=== PATIENT | female | born 1980 | race Caucasian/White ===

== ENCOUNTER 2018-12-22 15:05 | Emergency (ER) | payer SELFPAY ==
[2018-12-22] MEDS ORDERED: Sodium Chloride 0.9% 10 ML Syringe FLUSH PRN (15:46)
[2018-12-22] MEDS ORDERED: Sodium Chloride 0.9% 1,000 ML IV ONE (15:48)
[2018-12-22] MEDS ORDERED: Ondansetron 4 MG/2 ML SDV IVPUSH PRN (15:48)
[2018-12-22] MEDS ORDERED: Sodium Chloride 0.9% 1,000 ML IV SCH (16:00)
--- NOTE | 2018-12-22 16:20 | EDM.PDOC ---
ED HPI GENERAL MEDICAL PROBLEM - General Chief Complaint: Abdominal Pain Stated Complaint: L SIDE PAIN Time Seen by Provider: 12/22/18 15:32 Source of Information: Reports: Patient History Limitations: Reports: No Limitations - History of Present Illness INITIAL COMMENTS - FREE TEXT/NARRATIVE: 38-year-old female with a history of ulcerative colitis who presents with intermittent left-sided abdominal pain associated with bright red blood per rectum for the past 2 weeks. The pain has been getting worse with time. It is a sharp and crampy type pain. Over the past 2-3 days she has felt dizzy and weak and yesterday she had a temperature of 102F. She also had sweats. Today the pain was much worse. It was all over the left side of her abdomen and she had abdominal bloating associated with this. She's had nausea but no vomiting. She has been able to eat but it does seem to make her symptoms worse. She is having no trouble breathing. She rates her pain as an 8/10. It goes all over the left side of her abdomen. Nothing really seems to make it better. It is less severe with remaining completely still. It is much worse with palpation and with walking. She's had no dysuria. She had been on a biologic (Entyvio) but has not been on one for the past 9-10 weeks because she lost her health insurance. She has had several loose stools today. The first one had quite a bit of bright red blood but the next one was mostly just mucus. There are no other associated signs or symptoms. There are no other modifying factors. Onset: Other (2-3 weeks ago with worsening over the past 2-3 days and much worse today.) Duration: Constant, Getting Worse Location: Reports: Abdomen Quality: Reports: Sharp (And cramping) Severity: Moderate (to severe) Improves with: Reports: Rest (This, at least, does not worsen her pain) Worsens with: Reports: Other (Palpation), Movement Context: Reports: Other (Various, not applicable) Associated Symptoms: Reports: Fever/Chills, Nausea/Vomiting, Weakness Treatments RESEARCH PHARMACIST: Reports: Other (see below) (Nothing) left abdomen Pain Score (Numeric/FACES): 8 - Related Data Allergies Allergy/AdvReac Type Severity Reaction Status Date / Time steroids Allergy Hallucinati Uncoded 12/22/18 15:38 ons Home Meds: Home Meds FLUoxetine HCl [Prozac] 80 mg PO DAILY 12/22/18 [History] Past Medical History Gastrointestinal History: Reports: Inflammatory Bowel Disease (Also with colitis ), Other (See Below) (Eosinophilic esophagitis) Psychiatric History: Reports: Anxiety, Depression - Past Surgical History GI Surgical History: Reports: Cholecystectomy, Colonoscopy (Multiple), EGD Female Surgical History: Reports: Section, Other (See Below) ( Incision and drainage of site 2.) Musculoskeletal Surgical History: Reports: Arthroscopic Knee (Right knee scope 2), Other (See Below) (Open right knee surgery 1) Social & Family History - Tobacco Use Smoking Status *Q: Never Smoker - Alcohol Use Alcohol Use History: No - Recreational Drug Use Recreational Drug Use: No - Living Situation & Occupation Living situation: Reports: Social History Comment: Lives locally with her . ED ROS GENERAL - Review of Systems Review Of Systems: See Below Constitutional: Reports: Fever, Malaise HEENT: Reports: No Symptoms Respiratory: Reports: No Symptoms Cardiovascular: Reports: No Symptoms Endocrine: Reports: No Symptoms GI/Abdominal: Reports: Abdominal Pain, Hematochezia, Mucous in Stool, Nausea : Reports: No Symptoms Musculoskeletal: Reports: No Symptoms Skin: Reports: No Symptoms Neurological: Reports: Dizziness, Weakness Psychiatric: Reports: Anxiety Hematologic/Lymphatic: Reports: No Symptoms Immunologic: Reports: No Symptoms ED EXAM, GI/ABD - Physical Exam Exam: See Below Exam Limited By: No Limitations General Appearance: Alert, WD/WN, Moderate Distress Eyes: Bilateral: Normal Appearance (Sclera are anicteric), EOMI Ears: Normal External Exam, Hearing Grossly Normal Nose: Normal Inspection, Normal Mucosa, No Blood Throat/Mouth: Normal Inspection, Normal Oropharynx, Normal Voice, No Airway Compromise Head: Atraumatic, Normocephalic Neck: Normal Inspection, Supple, Non-Tender, Full Range of Motion Respiratory/Chest: No Respiratory Distress, Lungs Clear, Normal Breath Sounds, No Accessory Muscle Use, Chest Non-Tender Cardiovascular: Normal Peripheral Pulses, Regular Rate, Rhythm, No JVD GI/Abdominal Exam: Normal Bowel Sounds, Soft, Distended (Bloated), Tender (To palpation in her left upper, mid and lower abdomen) Back Exam: Normal Inspection Extremities: Normal Inspection, Normal Range of Motion, Non-Tender, Normal Capillary Refill, No Pedal Edema Neurological: Alert, Oriented, CN II-XII Intact, Normal Cognition, No Motor/ Sensory Deficits Psychiatric: Anxious Skin Exam: Warm, Dry, Intact, Normal Color, No Rash Lymphatic: No Adenopathy Course - Vital Signs Last Recorded V/S: Last Vital Signs Temp 36.6 C 12/22/18 19:30 Pulse 89 12/22/18 19:30 Resp 16 12/22/18 19:30 BP 120/66 12/22/18 19:30 Pulse Ox 100 12/22/18 19:30 - Orders/Labs/Meds Orders: Active Orders 24 hr Category Date Time Status Abdomen Pelvis w Cont [CT] Stat Exams 12/22/18 16:39 Taken CULTURE BLOOD [BC] Urgent Lab 12/22/18 19:58 Received CULTURE BLOOD [BC] Urgent Lab 12/22/18 20:04 Received Ciprofloxacin in D5W [Cipro in D5W 400 MG/200 ML] 400 Med 12/22/18 19:42 Active mg Premix Bag 1 bag IV ONETIME HYDROmorphone [Dilaudid] Med 12/22/18 15:48 Active 0.5 mg IVPUSH Q5M PRN Ondansetron [Zofran] Med 12/22/18 15:48 Active 4 mg IVPUSH Q10M PRN Sodium Chloride 0.9% [Normal Saline] 1,000 ml Med 12/22/18 16:00 Active IV ASDIRECTED Sodium Chloride 0.9% [Saline Flush] Med 12/22/18 15:46 Active 10 ml FLUSH ASDIRECTED PRN Blood Culture x2 Reflex Set [OM.PC] Urgent Oth 12/22/18 19:42 Ordered Peripheral IV Insertion Adult [OM.PC] Routine Oth 12/22/18 15:46 Ordered Medication Orders Hydromorphone HCl (Dilaudid) 0.5 mg IVPUSH Q5M PRN PRN Reason: Abdominal Pain Last Admin: 12/22/18 18:59 Dose: 0.5 mg Admin: 12/22/18 17:15 Dose: 0.5 mg Admin: 12/22/18 16:29 Dose: 0.5 mg Sodium Chloride (Normal Saline) 1,000 mls @ 150 mls/hr IV ASDIRECTED NAHID Last Admin: 12/22/18 16:10 Dose: 150 mls/hr Ciprofloxacin/Dextrose 400 mg/ (Premix) 200 mls @ 200 mls/hr IV ONETIME ONE Stop: 12/22/18 20:41 Last Admin: 12/22/18 20:11 Dose: 200 mls/hr Ondansetron HCl (Zofran) 4 mg IVPUSH Q10M PRN PRN Reason: Nausea/Vomiting Last Admin: 12/22/18 16:08 Dose: 4 mg Sodium Chloride (Saline Flush) 10 ml FLUSH ASDIRECTED PRN PRN Reason: Keep Vein Open Last Admin: 12/22/18 15:50 Dose: 10 ml Labs: Laboratory Tests 12/22/18 12/22/18 12/22/18 Range/Units 16:05 16:05 16:05 WBC 8.5 (4.5-12.0) X10-3/uL RBC 4.70 (3.23-5.20) x10(6)uL Hgb 11.1 L (11.5-15.5) g/dL Hct 34.4 (30.0-51.3) % MCV 73.3 L (80-96) fL MCH 23.7 L (27.7-33.6) pg MCHC 32.3 (32.2-35.4) g/dL RDW 18.2 H (11.5-15.5) % Plt Count 429 H (125-369) X10(3)uL MPV 8.9 (7.4-10.4) fL Neut % (Auto) 62.1 (46-82) % Lymph % (Auto) 30.8 (13-37) % Sully % (Auto) 5.1 (4-12) % Eos % (Auto) 2 (1.0-5.0) % Baso % (Auto) 0 (0-2) % Neut # (Auto) 5.4 (1.6-8.3) # Lymph # (Auto) 2.6 (0.6-5.0) # Sully # (Auto) 0.4 (0.0-1.3) # Eos # (Auto) 0.1 (0.0-0.8) # Baso # (Auto) 0.0 (0.0-0.2) # Sodium 139 (135-145) mmol/L Potassium 3.1 L (3.5-5.3) mmol/L Chloride 102 (100-110) mmol/L Carbon Dioxide 24 (21-32) mmol/L BUN 12 (7-18) mg/dL Creatinine 0.8 (0.55-1.02) mg/dL Est Cr Clr Drug Dosing 96.18 mL/min Estimated GFR (MDRD) > 60 (>60) BUN/Creatinine Ratio 15.0 (9-20) Glucose 136 H (80-116) mg/dL Lactic Acid 1.8 (0.4-2.2) mmol/L Calcium 9.2 (8.6-10.2) mg/dL Total Bilirubin 0.3 (0.1-1.3) mg/dL AST 16 (5-25) IU/L ALT 26 (12-36) U/L Alkaline Phosphatase 110 (56-112) IU/L C-Reactive Protein (0.5-0.9) mg/dL Total Protein 7.3 (6.0-8.0) g/dL Albumin 3.2 L (3.5-5.2) g/dL Globulin 4.1 g/dL Albumin/Globulin Ratio 0.8 Amylase 39 (25-115) U/L Urine Color (YELLOW) Urine Appearance (CLEAR) Urine pH (5.0-6.5) Ur Specific [place] (1.010-1.025) Urine Protein (NEGATIVE) mg/dL Urine Glucose (UA) (NORMAL) mg/dL Urine Ketones (NEGATIVE) mg/dL Urine Occult Blood (NEGATIVE) Urine Nitrite (NEGATIVE) Urine Bilirubin (NEGATIVE) Urine Urobilinogen (NEGATIVE) mg/dL Ur Leukocyte Esterase (NEGATIVE) Urine RBC (0-5) Urine WBC (0-5) Ur Squamous Epith Cells (NS,R,O) Urine Bacteria (NS) Urine Mucus (NS) Urine HCG, Qual (NEGATIVE) 12/22/18 12/22/18 12/22/18 Range/Units 16:05 16:15 16:15 WBC (4.5-12.0) X10-3/uL RBC (3.23-5.20) x10(6)uL Hgb (11.5-15.5) g/dL Hct (30.0-51.3) % MCV (80-96) fL MCH (27.7-33.6) pg MCHC (32.2-35.4) g/dL RDW (11.5-15.5) % Plt Count (125-369) X10(3)uL MPV (7.4-10.4) fL Neut % (Auto) (46-82) % Lymph % (Auto) (13-37) % Sully % (Auto) (4-12) % Eos % (Auto) (1.0-5.0) % Baso % (Auto) (0-2) % Neut # (Auto) (1.6-8.3) # Lymph # (Auto) (0.6-5.0) # Sully # (Auto) (0.0-1.3) # Eos # (Auto) (0.0-0.8) # Baso # (Auto) (0.0-0.2) # Sodium (135-145) mmol/L Potassium (3.5-5.3) mmol/L Chloride (100-110) mmol/L Carbon Dioxide (21-32) mmol/L BUN (7-18) mg/dL Creatinine (0.55-1.02) mg/dL Est Cr Clr Drug Dosing mL/min Estimated GFR (MDRD) (>60) BUN/Creatinine Ratio (9-20) Glucose (80-116) mg/dL Lactic Acid (0.4-2.2) mmol/L Calcium (8.6-10.2) mg/dL Total Bilirubin (0.1-1.3) mg/dL AST (5-25) IU/L ALT (12-36) U/L Alkaline Phosphatase (56-112) IU/L C-Reactive Protein 0.8 (0.5-0.9) mg/dL Total Protein (6.0-8.0) g/dL Albumin (3.5-5.2) g/dL Globulin g/dL Albumin/Globulin Ratio Amylase (25-115) U/L Urine Color Yellow (YELLOW) Urine Appearance Slightly cloudy (CLEAR) Urine pH 6.0 (5.0-6.5) Ur Specific [place] 1.020 (1.010-1.025) Urine Protein Negative (NEGATIVE) mg/dL Urine Glucose (UA) Normal (NORMAL) mg/dL Urine Ketones Negative (NEGATIVE) mg/dL Urine Occult Blood Negative (NEGATIVE) Urine Nitrite Negative (NEGATIVE) Urine Bilirubin Negative (NEGATIVE) Urine Urobilinogen Normal (NEGATIVE) mg/dL Ur Leukocyte Esterase Negative (NEGATIVE) Urine RBC 0-5 (0-5) Urine WBC 0-5 (0-5) Ur Squamous Epith Cells Few H (NS,R,O) Urine Bacteria Few H (NS) Urine Mucus Few H (NS) Urine HCG, Qual Negative (NEGATIVE) Meds: Medications Generic Name Dose Route Start Last Admin Trade Name Preston PRN Reason Stop Dose Admin Hydromorphone HCl 0.5 mg 12/22/18 15:48 12/22/18 18:59 Dilaudid IVPUSH 0.5 mg Q5M PRN Administration Abdominal Pain Sodium Chloride 1,000 mls @ 150 mls/hr 12/22/18 16:00 12/22/18 16:10 Normal Saline IV 150 mls/hr ASDIRECTED NAHID Administration Ciprofloxacin/Dextrose 400 mg/ 200 mls @ 200 mls/hr 12/22/18 19:42 12/22/18 20:11 Premix IV 12/22/18 20:41 200 mls/hr ONETIME ONE Administration Ondansetron HCl 4 mg 12/22/18 15:48 12/22/18 16:08 Zofran IVPUSH 4 mg Q10M PRN Administration Nausea/Vomiting Sodium Chloride 10 ml 12/22/18 15:46 12/22/18 15:50 Saline Flush FLUSH 10 ml ASDIRECTED PRN Administration Keep Vein Open Discontinued Medications Generic Name Dose Route Start Last Admin Trade Name Preston PRN Reason Stop Dose Admin Sodium Chloride 1,000 mls @ 999 mls/hr 12/22/18 15:48 12/22/18 16:00 Normal Saline IV 12/22/18 16:48 999 mls/hr .BOLUS ONE Administration Iopamidol 150 ml 12/22/18 17:07 12/22/18 17:43 Isovue-370 (76%) IV 12/22/18 17:08 134 ml ONETIME ONE Administration Potassium Chloride 40 meq 12/22/18 20:15 Potassium Chloride Solution PO 12/22/18 20:16 ONETIME ONE - Radiology Interpretation Free Text/Narrative:: CT scan of abdomen and pelvis showed mild colonic wall prominence felt to be related to active colitis per the [facility] radiologist. - Re-Assessments/Exams Free Text/Narrative Re-Assessment/Exam: 12/22/18 19:15: Patient has been vitally stable while in the emergency department. Her blood tests showed no elevation and inflammatory markers. Her urine test was normal. The CT scan of her abdomen and pelvis showed evidence of colitis. She is continuing to have fairly severe pain in her left abdomen. Therefore, I discussed the patient's case with Dr. Gay, investigative writer at [facility] in [place], and she recommended that the patient be admitted to the hospital for IV antibiotics, IV fluids, Mesalamine enemas and for GI workup including colonoscopy. GI specially services are not available at [facility] and therefore the patient would need to be transferred to a facility where those specialties are available. The patient has RAD instruction me that she would want her care at [facility] in [place]. Therefore I did discuss the patient's case with Dr. Davis, hospitalist at [facility] in [place], and he has agreed to accept the patient in transfer. The patient will be given ciprofloxacin 400 mg IV. She will also be given potassium chloride orally for a low potassium. She will be kept nothing by mouth otherwise. The patient will be transferred to [place] in [place] he ambulance. Departure - Departure Time of Disposition: 20:25 Disposition: DC/Tfer to Acute Hospital 02 Condition: Fair Clinical Impression: Hypokalemia Ulcerative colitis, acute Qualifiers: Digestive disease complication type: without complication Qualified Code(s): K51.90 - Ulcerative colitis, unspecified, without complications Abdominal pain Qualifiers: Abdominal location: unspecified location Qualified Code(s): R10.9 - Unspecified abdominal pain - Discharge Information Forms: ED Department Discharge - My Orders Last 24 Hours: My Active Orders 12/22/18 15:46 Sodium Chloride 0.9% [Saline Flush] 10 ml FLUSH ASDIRECTED PRN Peripheral IV Insertion Adult [OM.PC] Routine 12/22/18 15:48 HYDROmorphone [Dilaudid] 0.5 mg IVPUSH Q5M PRN Ondansetron [Zofran] 4 mg IVPUSH Q10M PRN 12/22/18 16:00 Sodium Chloride 0.9% [Normal Saline] 1,000 ml IV ASDIRECTED 12/22/18 16:39 Abdomen Pelvis w Cont [CT] Stat 12/22/18 19:42 Ciprofloxacin in D5W [Cipro in D5W 400 MG/200 ML] 400 mg Premix Bag 1 bag IV ONETIME Blood Culture x2 Reflex Set [OM.PC] Urgent 12/22/18 19:58 CULTURE BLOOD [BC] Urgent 12/22/18 20:04 CULTURE BLOOD [BC] Urgent - Assessment/Plan Last 24 Hours: My Active Orders 12/22/18 15:46 Sodium Chloride 0.9% [Saline Flush] 10 ml FLUSH ASDIRECTED PRN Peripheral IV Insertion Adult [OM.PC] Routine 12/22/18 15:48 HYDROmorphone [Dilaudid] 0.5 mg IVPUSH Q5M PRN Ondansetron [Zofran] 4 mg IVPUSH Q10M PRN 12/22/18 16:00 Sodium Chloride 0.9% [Normal Saline] 1,000 ml IV ASDIRECTED 12/22/18 16:39 Abdomen Pelvis w Cont [CT] Stat 12/22/18 19:42 Ciprofloxacin in D5W [Cipro in D5W 400 MG/200 ML] 400 mg Premix Bag 1 bag IV ONETIME Blood Culture x2 Reflex Set [OM.PC] Urgent 12/22/18 19:58 CULTURE BLOOD [BC] Urgent 12/22/18 20:04 CULTURE BLOOD [BC] Urgent
[2018-12-22] MEDS: HYDROmorphone 2 MG/ML SDV IVPUSH PRN ×3 (16:29→18:59)
[2018-12-22] MEDS ORDERED: Iopamidol 755 MG/ML 150 ML Bottle IV ONE (17:07)
[2018-12-22] MEDS ORDERED: Ciprofloxacin in D5W 400 MG in Premix Bag 1 BAG IV ONE ×2 (19:42)
[2018-12-22] MEDS ORDERED: Potassium Chloride 10% 20 MEQ/15 ML Soln 15 ML UD Cup PO ONE (20:15)
== END 2018-12-22 20:35 ==
LOC: FB.ED 15:05
DX: K51.90 Ulcerative colitis, unspecified, without complications (principal); E87.6 Hypokalemia; F41.9 Anxiety disorder, unspecified; F32.9 Major depressive disorder, single episode, unspecified; Z88.8 Allergy status to other drugs, medicaments and biological substances
CPT/HCPCS: 36415; 74177; 80053; 81001; 81025; 82150; 83605; 85025; 86140; 87040; 96361; 96365; 96375; 96376; 99285; A9270; J0744; J1170; J2405; J7030; Q9967

== ENCOUNTER 2019-04-03 15:45 | Emergency (ER) | payer SELFPAY ==
[2019-04-03] MEDS ORDERED: Ondansetron 4 MG Tab.DIS PO ONE (15:46)
[2019-04-03] MEDS ORDERED: Acetaminophen/oxyCODONE 325-5 MG Tab PO ONE (15:46)
[2019-04-03] MEDS ORDERED: Sodium Chloride 0.9% 10 ML Syringe FLUSH PRN (15:52)
[2019-04-03] MEDS ORDERED: Sodium Chloride 0.9% 1,000 ML IV ONE (15:57)
[2019-04-03] MEDS ORDERED: HYDROmorphone 2 MG/ML SDV IVPUSH ONE (15:57)
[2019-04-03] MEDS ORDERED: Ondansetron 4 MG/2 ML SDV IVPUSH ONE (15:59)
--- NOTE | 2019-04-03 16:43 | EDM.PDOC ---
ED HPI GENERAL MEDICAL PROBLEM - General Chief Complaint: Abdominal Pain Time Seen by Provider: 04/03/19 15:45 History Limitations: Reports: No Limitations - History of Present Illness INITIAL COMMENTS - FREE TEXT/NARRATIVE: Patient is a 39 YO WF with known h/o Ulcerative Colitis presented to the ED because of left sided abdominal pain,10/10,cramping, radiating to the left lower back. There is associated nausea and vomiting x2. Denies having any fever or chills. the pain started yesterday and has been worse since then. Her stool is bloody/black,mucoid. She is supposed to be on a maintenance meds for her UC but quit taking it in October 2018 because she lost coverage of her medical insurance when her lost his job. abdominal Pain Score (Numeric/FACES): 10 - Related Data Allergies Allergy/AdvReac Type Severity Reaction Status Date / Time steroids Allergy Hallucinati Uncoded 04/03/19 16:26 ons Home Meds: Home Meds FLUoxetine HCl [Prozac] 80 mg PO DAILY 12/22/18 [History] Acetaminophen/oxyCODONE [Percocet 325-5 MG] 1 each PO Q4HR PRN #15 tab 04/03/19 [Rx] Mesalamine W/Cleansing Wipes [Rowasa 4 gm/60 ml Enema Kit] 4 gm RC DAILY 30 Days #30 enema.kit 04/03/19 [Rx] Mesalamine [Lialda] 4.8 gm PO DAILY #40 tablet. 04/03/19 [Rx] Ondansetron [Zofran ODT] 4 mg PO Q4H PRN #10 tab.dis 04/03/19 [Rx] Potassium Chloride 40 meq PO TID #12 tablet.er 04/03/19 [Rx] Sodium Chloride 0.9% [Saline Flush] 10 ml FLUSH ASDIRECTED PRN syringe [Rx] Past Medical History Gastrointestinal History: Reports: Inflammatory Bowel Disease, Other (See Below) Psychiatric History: Reports: Anxiety, Depression - Past Surgical History GI Surgical History: Reports: Cholecystectomy, Colonoscopy, EGD Female Surgical History: Reports: Section Musculoskeletal Surgical History: Reports: Arthroscopic Knee Social & Family History - Tobacco Use Smoking Status *Q: Never Smoker - Caffeine Use Caffeine Use: Reports: None - Recreational Drug Use Recreational Drug Use: No - Living Situation & Occupation Living situation: Reports: ED ROS GENERAL - Review of Systems Review Of Systems: See Below Constitutional: Reports: No Symptoms HEENT: Reports: No Symptoms Respiratory: Reports: No Symptoms Cardiovascular: Reports: No Symptoms Endocrine: Reports: No Symptoms GI/Abdominal: Reports: Abdominal Pain, Black Stool, Melena, Mucous in Stool, Nausea, Vomiting : Reports: No Symptoms Musculoskeletal: Reports: No Symptoms Skin: Reports: No Symptoms Neurological: Reports: No Symptoms Psychiatric: Reports: No Symptoms Hematologic/Lymphatic: Reports: No Symptoms Immunologic: Reports: No Symptoms ED EXAM, GI/ABD - Physical Exam Exam: See Below Exam Limited By: No Limitations General Appearance: Alert, No Apparent Distress Eyes: Bilateral: Normal Appearance Ears: Normal External Exam Nose: Normal Inspection Throat/Mouth: Normal Inspection Head: Atraumatic, Normocephalic Neck: Normal Inspection, Supple, Non-Tender Respiratory/Chest: No Respiratory Distress, Lungs Clear, Normal Breath Sounds, No Accessory Muscle Use Cardiovascular: Normal Peripheral Pulses GI/Abdominal Exam: Normal Bowel Sounds, Soft, Other (tenderness on LLQ and LUQ) (Female) Exam: Deferred Rectal (Female) Exam: Deferred Back Exam: Normal Inspection Course - Vital Signs Text/Narrative:: Labs and CT scan reviewed with patient K3.2 IVF Zofran 4 mg IVx1 Dilaudid 2 mg IV x1 Her nausea is gone and pain is down to 5/10 GI consult was done in [facility] and Dr BURROUGHS want Eduarda to be started on 1.Lialva 4.8 gm po once daily until seen by GI 2.Ruosa enema 4gm(60 Ml) MO QQhs x30 days Last Recorded V/S: Last Vital Signs Temp 37.0 C 04/03/19 17:00 Pulse 72 04/03/19 17:00 Resp 18 04/03/19 17:00 BP 150/97 H 04/03/19 15:50 Pulse Ox 98 04/03/19 15:50 - Orders/Labs/Meds Orders: Active Orders 24 hr Category Date Time Status Abdomen Pelvis w Cont [CT] Stat Exams 04/03/19 15:55 Taken CDIFF TOXIN A+B GROUP [OP] Stat Lab 04/03/19 16:34 Ordered LIPASE, SERUM Stat Lab 04/03/19 16:00 Received FLUoxetine [PROzac] Med 04/04/19 09:00 Active 80 mg PO DAILY Sodium Chloride 0.9% [Saline Flush] Med 04/03/19 15:52 Active 10 ml FLUSH ASDIRECTED PRN Isolation [COMM] Stat Ot 04/03/19 16:35 Ordered Saline Lock Insert [OM.PC] Routine Ot 04/03/19 15:52 Ordered Medication Orders Fluoxetine HCl (Prozac) 80 mg PO DAILY NAHID Sodium Chloride (Saline Flush) 10 ml FLUSH ASDIRECTED PRN PRN Reason: Keep Vein Open Labs: Laboratory Tests 04/03/19 04/03/19 04/03/19 Range/Units 16:00 16:00 16:00 WBC 10.2 (4.5-12.0) X10-3/uL RBC 4.64 (3.23-5.20) x10(6)uL Hgb 12.0 (11.5-15.5) g/dL Hct 36.8 (30.0-51.3) % MCV 79.3 L (80-96) fL MCH 25.9 L (27.7-33.6) pg MCHC 32.7 (32.2-35.4) g/dL RDW 15.9 H (11.5-15.5) % Plt Count 419 H (125-369) X10(3)uL MPV 10.6 H (7.4-10.4) fL Neut % (Auto) 68.0 (46-82) % Lymph % (Auto) 24.3 (13-37) % [place] % (Auto) 6.0 (4-12) % Eos % (Auto) 1 (1.0-5.0) % Baso % (Auto) 0 (0-2) % Neut # (Auto) 7.0 (1.6-8.3) # Lymph # (Auto) 2.5 (0.6-5.0) # [place] # (Auto) 0.6 (0.0-1.3) # Eos # (Auto) 0.1 (0.0-0.8) # Baso # (Auto) 0.0 (0.0-0.2) # PT 9.7 (8.7-11.1) INR 1.00 (0.89-1.13) APTT 24.7 (24.4-33.2) SECONDS Sodium 141 (135-145) mmol/L Potassium 3.2 L (3.5-5.3) mmol/L Chloride 104 (100-110) mmol/L Carbon Dioxide 26 (21-32) mmol/L BUN 11 (7-18) mg/dL Creatinine 0.8 (0.55-1.02) mg/dL Est Cr Clr Drug Dosing TNP Estimated GFR (MDRD) > 60 (>60) BUN/Creatinine Ratio 13.8 (9-20) Glucose 109 (80-116) mg/dL Calcium 9.2 (8.6-10.2) mg/dL Total Bilirubin 0.2 (0.1-1.3) mg/dL AST 34 H D (5-25) IU/L ALT 60 H D (12-36) U/L Alkaline Phosphatase 110 (56-112) IU/L Total Protein 7.6 (6.0-8.0) g/dL Albumin 3.2 L (3.5-5.2) g/dL Globulin 4.4 g/dL Albumin/Globulin Ratio 0.7 Amylase 48 (25-115) U/L Urine Color (YELLOW) Urine Appearance (CLEAR) Urine pH (5.0-6.5) Ur Specific [place] (1.010-1.025) Urine Protein (NEGATIVE) mg/dL Urine Glucose (UA) (NORMAL) mg/dL Urine Ketones (NEGATIVE) mg/dL Urine Occult Blood (NEGATIVE) Urine Nitrite (NEGATIVE) Urine Bilirubin (NEGATIVE) Urine Urobilinogen (NEGATIVE) mg/dL Ur Leukocyte Esterase (NEGATIVE) Urine RBC (0-5) Urine WBC (0-5) Ur Squamous Epith Cells (NS,R,O) Urine Bacteria (NS) Urine Mucus (NS) 04/03/19 Range/Units 17:22 WBC (4.5-12.0) X10-3/uL RBC (3.23-5.20) x10(6)uL Hgb (11.5-15.5) g/dL Hct (30.0-51.3) % MCV (80-96) fL MCH (27.7-33.6) pg MCHC (32.2-35.4) g/dL RDW (11.5-15.5) % Plt Count (125-369) X10(3)uL MPV (7.4-10.4) fL Neut % (Auto) (46-82) % Lymph % (Auto) (13-37) % [place] % (Auto) (4-12) % Eos % (Auto) (1.0-5.0) % Baso % (Auto) (0-2) % Neut # (Auto) (1.6-8.3) # Lymph # (Auto) (0.6-5.0) # [place] # (Auto) (0.0-1.3) # Eos # (Auto) (0.0-0.8) # Baso # (Auto) (0.0-0.2) # PT (8.7-11.1) INR (0.89-1.13) APTT (24.4-33.2) SECONDS Sodium (135-145) mmol/L Potassium (3.5-5.3) mmol/L Chloride (100-110) mmol/L Carbon Dioxide (21-32) mmol/L BUN (7-18) mg/dL Creatinine (0.55-1.02) mg/dL Est Cr Clr Drug Dosing Estimated GFR (MDRD) (>60) BUN/Creatinine Ratio (9-20) Glucose (80-116) mg/dL Calcium (8.6-10.2) mg/dL Total Bilirubin (0.1-1.3) mg/dL AST (5-25) IU/L ALT (12-36) U/L Alkaline Phosphatase (56-112) IU/L Total Protein (6.0-8.0) g/dL Albumin (3.5-5.2) g/dL Globulin g/dL Albumin/Globulin Ratio Amylase (25-115) U/L Urine Color Yellow (YELLOW) Urine Appearance Clear (CLEAR) Urine pH 8.5 H (5.0-6.5) Ur Specific [place] 1.010 (1.010-1.025) Urine Protein Negative (NEGATIVE) mg/dL Urine Glucose (UA) Normal (NORMAL) mg/dL Urine Ketones Negative (NEGATIVE) mg/dL Urine Occult Blood Negative (NEGATIVE) Urine Nitrite Negative (NEGATIVE) Urine Bilirubin Negative (NEGATIVE) Urine Urobilinogen 0.2 (NEGATIVE) mg/dL Ur Leukocyte Esterase Negative (NEGATIVE) Urine RBC 0-5 (0-5) Urine WBC 0-5 (0-5) Ur Squamous Epith Cells Few H (NS,R,O) Urine Bacteria Few H (NS) Urine Mucus Few H (NS) Meds: Medications Generic Name Dose Route Start Last Admin Trade Name Preston PRN Reason Stop Dose Admin Fluoxetine HCl 80 mg 04/04/19 09:00 Prozac PO DAILY NAHID Sodium Chloride 10 ml 04/03/19 15:52 Saline Flush FLUSH ASDIRECTED PRN Keep Vein Open Discontinued Medications Generic Name Dose Route Start Last Admin Trade Name Preston PRN Reason Stop Dose Admin Hydromorphone HCl 2 mg 04/03/19 15:57 04/03/19 16:17 Dilaudid IVPUSH 04/03/19 15:58 2 mg ONETIME ONE Administration Sodium Chloride 1,000 mls @ 999 mls/hr 04/03/19 15:57 04/03/19 16:16 Normal Saline IV 04/03/19 16:57 999 mls/hr .BOLUS ONE Administration Iopamidol 100 ml 04/03/19 17:14 04/03/19 17:17 Isovue-370 (76%) IV 04/03/19 17:15 100 ml ONETIME ONE Administration Morphine Sulfate 4 mg 04/03/19 17:42 04/03/19 18:08 Morphine IVPUSH 04/03/19 17:43 4 mg ONETIME ONE Administration Ondansetron HCl 4 mg 04/03/19 15:59 04/03/19 16:17 Zofran IVPUSH 04/03/19 16:00 4 mg ONETIME ONE Administration Promethazine HCl 50 mg 04/03/19 17:42 04/03/19 18:05 Phenergan IM 04/03/19 17:43 50 mg ONETIME ONE Administration Departure - Departure Time of Disposition: 19:20 Disposition: Home, Self-Care 01 Condition: Good Clinical Impression: Ulcerative colitis, Vomiting - Discharge Information *PRESCRIPTION DRUG MONITORING PROGRAM REVIEWED*: Yes *COPY OF PRESCRIPTION DRUG MONITORING REPORT IN PATIENT PROSPER: Yes Prescriptions: Acetaminophen/oxyCODONE [Percocet 325-5 MG] 1 each PO Q4HR PRN #15 tab PRN Reason: Pain Mesalamine [Lialda] 4.8 gm PO DAILY #[address] tablet.[address] Faustin W/Cleansing Wipes [Rowasa 4 gm/60 ml Enema Kit] 4 gm RC DAILY 30 Days #30 enema.kit Ondansetron [Zofran ODT] 4 mg PO Q4H PRN #10 tab.dis PRN Reason: Nausea Potassium Chloride 40 meq PO TID #12 tablet.er Referrals: PCP,None [Primary Care Provider] - Forms: ED Department Discharge Additional Instructions: Call the GI clinic in [facility] tomorrow to schedule an appointment @[phone] Call your local clinic so someone can take care of your chronic medical issues, we don't do follow up in the ER percocet 5/325,take 1-2 tablets every 4-6 hours as needed for pain zofran ODT 4 mg, take 1-2 tablets every 4-6 hours as needed for pain Lialva 4.8 gm once daily until seen by GI Esha rectal enema,4 gm or 60 ml at bed time Kcl 20 meq, take 2 tablets 3 times daily for 2 days - Problem List & Annotations (1) Ulcerative colitis, acute SNOMED Code(s): 726650616 Code(s): K51.90 - ULCERATIVE COLITIS, UNSPECIFIED, WITHOUT COMPLICATIONS Status: Acute Current Visit: No Qualifiers: Digestive disease complication type: without complication Qualified Code(s) : K51.90 - Ulcerative colitis, unspecified, without complications (2) Hypokalemia SNOMED Code(s): 44709194 Code(s): E87.6 - HYPOKALEMIA Status: Acute Current Visit: No - My Orders Last 24 Hours: My Active Orders 04/03/19 15:52 Sodium Chloride 0.9% [Saline Flush] 10 ml FLUSH ASDIRECTED PRN Saline Lock Insert [OM.PC] Routine 04/03/19 15:55 Abdomen Pelvis w Cont [CT] Stat 04/03/19 16:00 LIPASE, SERUM Stat 04/03/19 16:34 CDIFF TOXIN A+B GROUP [OP] Stat 04/03/19 16:35 Isolation [COMM] Stat 04/04/19 09:00 FLUoxetine [PROzac] 80 mg PO DAILY - Assessment/Plan Last 24 Hours: My Active Orders 04/03/19 15:52 Sodium Chloride 0.9% [Saline Flush] 10 ml FLUSH ASDIRECTED PRN Saline Lock Insert [OM.PC] Routine 04/03/19 15:55 Abdomen Pelvis w Cont [CT] Stat 04/03/19 16:00 LIPASE, SERUM Stat 04/03/19 16:34 CDIFF TOXIN A+B GROUP [OP] Stat 04/03/19 16:35 Isolation [COMM] Stat 04/04/19 09:00 FLUoxetine [PROzac] 80 mg PO DAILY
[2019-04-03] MEDS ORDERED: Iopamidol 755 Mg/ML 100 ML Bottle IV ONE (17:14)
[2019-04-03] MEDS ORDERED: Promethazine 25 MG/ML SDV IM ONE (17:42)
[2019-04-04] MEDS ORDERED: FLUoxetine 20 MG Cap PO SCH (09:00)
== END 2019-04-03 19:50 | disposition home or self-care (01) ==
LOC: FB.ED 15:45
DX: K51.90 Ulcerative colitis, unspecified, without complications (principal); F41.9 Anxiety disorder, unspecified; F32.9 Major depressive disorder, single episode, unspecified; Z88.6 Allergy status to analgesic agent; Z79.899 Other long term (current) drug therapy; Z90.49 Acquired absence of other specified parts of digestive tract
CPT/HCPCS: 36415; 74177; 80053; 81001; 82150; 83690; 85025; 85610; 85730; 96361; 96372; 96374; 96375; 99284-25; A9270-GY; J1170; J2270; J2405; J2550; J7030; Q9967

== ENCOUNTER 2019-06-21 09:43 | Emergency (ER) | payer OTHER ==
[2019-06-21] MEDS ORDERED: Sodium Chloride 0.9% 1,000 ML IV ONE (10:14)
[2019-06-21] MEDS ORDERED: Sodium Chloride 0.9% 10 ML Syringe FLUSH PRN (10:14)
[2019-06-21] MEDS ORDERED: HYDROmorphone 2 MG/ML SDV IVPUSH ONE ×2 (10:15→11:31)
[2019-06-21] MEDS ORDERED: methylPREDNISolone Sodium Succinate 125 MG/2 ML SDV IVPUSH ONE (10:15)
--- NOTE | 2019-06-21 10:32 | EDM.PDOC ---
ED HPI GENERAL MEDICAL PROBLEM - General Chief Complaint: Abdominal Pain Stated Complaint: ABD PAIN Time Seen by Provider: 06/21/19 10:00 Source of Information: Reports: Patient, Old Records History Limitations: Reports: No Limitations - History of Present Illness INITIAL COMMENTS - FREE TEXT/NARRATIVE: Eduarda returns to [facility] ED with escalating abdominal pain primarily in the LLQ. She has a well documented hx of Ulcerative Colitis, and has been supervised by GI at [facility]. Her last relapse in March 2019 necessitated hospitalization with hi dose steroids which have been tapered over the past 6 weeks from 70 to 10 mg per day. Bloody stools have increased in frequency at lower doses, necessitating consultants to reintroduce Entyvio earlier this month. There has been no fever, chills, or sweats. Abdominal Pain Score (Numeric/FACES): 8 - Related Data Allergies Allergy/AdvReac Type Severity Reaction Status Date / Time fentanyl Allergy Delusions Verified 06/21/19 10:01 Home Meds: Home Meds FLUoxetine HCl [Prozac] 80 mg PO DAILY 12/22/18 [History] Ondansetron [Zofran ODT] 4 mg PO Q4H PRN #10 tab.dis 04/03/19 [Rx] LORazepam 1 mg PO TID PRN 06/21/19 [History] Multivitamin [Multivitamins] 1 each PO DAILY 06/21/19 [History] OLANZapine [ZyPREXA] 5 mg PO BEDTIME 06/21/19 [History] SUMAtriptan [Imitrex] 25 mg PO ASDIRECTED PRN 06/21/19 [History] amLODIPine Besylate [Norvasc] 10 mg PO DAILY 06/21/19 [History] predniSONE [Prednisone] 10 mg PO DAILY 06/21/19 [History] Past Medical History Gastrointestinal History: Reports: Inflammatory Bowel Disease, Other (See Below) Psychiatric History: Reports: Anxiety, Depression - Past Surgical History GI Surgical History: Reports: Cholecystectomy, Colonoscopy, EGD Female Surgical History: Reports: Section Musculoskeletal Surgical History: Reports: Arthroscopic Knee Social & Family History - Caffeine Use Caffeine Use: Reports: None - Living Situation & Occupation Living situation: Reports: ED ROS GENERAL - Review of Systems Review Of Systems: See Below Constitutional: Reports: Malaise, Weakness, Weight Gain HEENT: Reports: No Symptoms Respiratory: Reports: No Symptoms Cardiovascular: Reports: No Symptoms Endocrine: Reports: No Symptoms GI/Abdominal: Reports: Abdominal Pain, Anorexia, Bloody Stool, Diarrhea, Hematochezia, Mucous in Stool : Reports: No Symptoms Musculoskeletal: Reports: No Symptoms Skin: Reports: No Symptoms Neurological: Reports: No Symptoms Psychiatric: Reports: Anxiety Hematologic/Lymphatic: Reports: No Symptoms Immunologic: Reports: No Symptoms ED EXAM, GI/ABD - Physical Exam Exam: See Below Exam Limited By: No Limitations General Appearance: Alert, WD/WN, Anxious, Mild Distress, Obese Eyes: Bilateral: Normal Appearance, EOMI Ears: Normal External Exam Nose: Normal Inspection Throat/Mouth: Normal Inspection, Normal Lips, Normal Teeth, Normal Gums, Normal Oropharynx, Normal Voice Head: Normocephalic Neck: Normal Inspection, Supple, Non-Tender, Full Range of Motion Respiratory/Chest: Lungs Clear Cardiovascular: Regular Rate, Rhythm, No Murmur GI/Abdominal Exam: Normal Bowel Sounds, Soft, No Organomegaly, No Distention, No Mass, Tender (LLQ) (Female) Exam: Deferred Rectal (Female) Exam: Deferred Back Exam: Normal Inspection Extremities: Normal Inspection Neurological: Alert, Oriented, CN II-XII Intact, Normal Cognition, Normal Gait, No Motor/Sensory Deficits Psychiatric: Normal Affect, Anxious Skin Exam: Warm, Dry, Intact, Normal Color Lymphatic: No Adenopathy Course - Vital Signs Text/Narrative:: Mrs. Mejia was administered 1L NS IV, Dilaudid 2 mg x 2 IV, and SoluMedrol 125 mg IV with sxs improvement. She contacted the GI service in [place] regarding current issues and need for steroid managment with immunosuppressives, and is expecting follow up with specialist this afternoon. She is clinically improved at time of discharge. Last Recorded V/S: Last Vital Signs Temp 36.6 C 06/21/19 09:44 Pulse 106 H 06/21/19 09:44 Resp 20 06/21/19 09:44 BP 133/78 06/21/19 09:44 Pulse Ox 98 06/21/19 09:44 - Orders/Labs/Meds Orders: Active Orders 24 hr Category Date Time Status Sodium Chloride 0.9% [Saline Flush] Med 06/21/19 10:14 Active 10 ml FLUSH ASDIRECTED PRN Peripheral IV Insertion Adult [OM.PC] Routine Oth 06/21/19 10:14 Ordered Medication Orders Sodium Chloride (Saline Flush) 10 ml FLUSH ASDIRECTED PRN PRN Reason: Keep Vein Open Last Admin: 06/21/19 10:30 Dose: 10 ml Labs: Laboratory Tests 06/21/19 Range/Units 09:55 WBC 12.4 H (4.5-12.0) X10-3/uL RBC 4.24 (3.23-5.20) x10(6)uL Hgb 11.5 (11.5-15.5) g/dL Hct 34.8 (30.0-51.3) % MCV 82.0 (80-96) fL MCH 27.1 L (27.7-33.6) pg MCHC 33.0 (32.2-35.4) g/dL RDW 15.9 H (11.5-15.5) % Plt Count 472 H (125-369) X10(3)uL MPV 8.8 (7.4-10.4) fL Neut % (Auto) 78.0 (46-82) % Lymph % (Auto) 15.0 (13-37) % [place] % (Auto) 3.8 L (4-12) % Eos % (Auto) 3 (1.0-5.0) % Baso % (Auto) 1 (0-2) % Neut # (Auto) 9.6 H (1.6-8.3) # Lymph # (Auto) 1.9 (0.6-5.0) # [place] # (Auto) 0.5 (0.0-1.3) # Eos # (Auto) 0.3 (0.0-0.8) # Baso # (Auto) 0.1 (0.0-0.2) # Meds: Medications Generic Name Dose Route Start Last Admin Trade Name Freq PRN Reason Stop Dose Admin Sodium Chloride 10 ml 06/21/19 10:14 06/21/19 10:30 Saline Flush FLUSH 10 ml ASDIRECTED PRN Administration Keep Vein Open Discontinued Medications Generic Name Dose Route Start Last Admin Trade Name Freq PRN Reason Stop Dose Admin Hydromorphone HCl 2 mg 06/21/19 10:15 06/21/19 10:36 Dilaudid IVPUSH 06/21/19 10:16 2 mg ONETIME ONE Administration Sodium Chloride 1,000 mls @ 999 mls/hr 06/21/19 10:14 06/21/19 10:30 Normal Saline IV 06/21/19 11:14 999 mls/hr .BOLUS ONE Administration Methylprednisolone Sodium Succinate 125 mg 06/21/19 10:15 06/21/19 10:34 Solu-Medrol IVPUSH 06/21/19 10:16 125 mg ONETIME ONE Administration Departure - Departure Time of Disposition: 11:35 Disposition: Home, Self-Care 01 Condition: Fair Clinical Impression: Ulcerative colitis Qualifiers: Ulcerative colitis location: ulcerative rectosigmoiditis Digestive disease complication type: without complication Qualified Code(s): 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 Qualifiers: Ulcerative colitis location: ulcerative rectosigmoiditis Digestive disease complication type: without complication Qualified Code(s): K51.30 - Ulcerative (chronic) rectosigmoiditis without complications - Problem List Review Problem List Initiated/Reviewed/Updated: Yes - My Orders Last 24 Hours: My Active Orders 06/21/19 10:14 Sodium Chloride 0.9% [Saline Flush] 10 ml FLUSH ASDIRECTED PRN Peripheral IV Insertion Adult [OM.PC] Routine - Assessment/Plan Last 24 Hours: My Active Orders 06/21/19 10:14 Sodium Chloride 0.9% [Saline Flush] 10 ml FLUSH ASDIRECTED PRN Peripheral IV Insertion Adult [OM.PC] Routine Plan: Follow up with GI database reporting consultant.
== END 2019-06-21 11:46 | disposition home or self-care (01) ==
LOC: FB.ED 09:43
DX: K51.30 Ulcerative (chronic) rectosigmoiditis without complications (principal); F41.9 Anxiety disorder, unspecified; F32.9 Major depressive disorder, single episode, unspecified; Z79.899 Other long term (current) drug therapy; Z88.5 Allergy status to narcotic agent
CPT/HCPCS: 36415; 85025; 96361; 96374; 96375; 96376; 99283; J1170; J2930; J7030

== ENCOUNTER 2019-06-28 16:00 | Emergency (ER) | payer OTHER ==
[2019-06-28] MEDS ORDERED: Sodium Chloride 0.9% 10 ML Syringe FLUSH PRN (17:44)
[2019-06-28] MEDS ORDERED: Ondansetron 4 MG/2 ML SDV IVPUSH ONE ×2 (17:46→18:54)
[2019-06-28] MEDS ORDERED: HYDROmorphone 2 MG/ML SDV IVPUSH ONE ×2 (17:46→18:54)
[2019-06-28] MEDS ORDERED: Sodium Chloride 0.9% 1,000 ML IV SCH (18:00)
[2019-06-28] MEDS ORDERED: Iopamidol 755 MG/ML 150 ML Bottle IV ONE (18:22)
--- NOTE | 2019-06-28 18:52 | EDM.PDOC ---
ED HPI GENERAL MEDICAL PROBLEM - General Chief Complaint: Abdominal Pain Stated Complaint: ULCERATIVE COLITIS PAIN Time Seen by Provider: 06/28/19 16:45 Source of Information: Reports: Patient History Limitations: Reports: No Limitations - History of Present Illness INITIAL COMMENTS - FREE TEXT/NARRATIVE: Patient presented to the ED because of severe abdominal pain and nausea. She has a chronic abdominal pain due to UC but her pain has been worse for the past week. It's 05/18, sharp and cramping. She also had 1 bloody stool yesterday but non today. She was seen by her PMD this week and was prescribed prednisone 60 mg daily and vicodin for pain. She took the vicodin without any significant relief of her pain. She also left a message to her GI doc in [place] but no response as of yet. L lower abdomen Pain Score (Numeric/FACES): 10 - Related Data Allergies Allergy/AdvReac Type Severity Reaction Status Date / Time fentanyl Allergy Delusions Verified 06/28/19 16:47 Home Meds: Home Meds FLUoxetine HCl [Prozac] 80 mg PO DAILY 12/22/18 [History] Ondansetron [Zofran ODT] 4 mg PO Q4H PRN #10 tab.dis 04/03/19 [Rx] LORazepam 1 mg PO TID PRN 06/21/19 [History] Multivitamin [Multivitamins] 1 each PO DAILY 06/21/19 [History] OLANZapine [ZyPREXA] 5 mg PO BEDTIME 06/21/19 [History] SUMAtriptan [Imitrex] 25 mg PO ASDIRECTED PRN 06/21/19 [History] amLODIPine Besylate [Norvasc] 10 mg PO DAILY 06/21/19 [History] predniSONE [Prednisone] 60 mg PO DAILY 06/21/19 [History] Acetaminophen/HYDROcodone [[place] 325-5 MG] 1 tab PO Q4H PRN 06/28/19 [History] Past Medical History Cardiovascular History: Reports: Hypertension Respiratory History: Reports: Sleep Apnea Other Respiratory History: uses cpap Gastrointestinal History: Reports: Inflammatory Bowel Disease, Other (See Below) Other Gastrointestinal History: hx ulcerative colitis, hx EOE Genitourinary History: Reports: None 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: , Other (See Below) Other WOOD MECHANIST History: [id number] Musculoskeletal History: Reports: Fracture Other Musculoskeletal History: hx fx R clavicle, Neurological History: Reports: Migraines Psychiatric History: Reports: Anxiety, Depression Endocrine/Metabolic History: Reports: Diabetes, Gestational, Obesity/BMI 30+, Other (See Below) Hematologic History: Reports: Anemia, Blood Transfusion(s) Other Hematologic History: has blood antibody Immunologic History: Reports: Other (See Below) Other Immunologic History: takes biologics for ulcerative colitis - Infectious Disease History Infectious Disease History: Reports: Chicken Pox - Past Surgical History GI Surgical History: Reports: Cholecystectomy, Colonoscopy, EGD Female Surgical History: Reports: Section Neurological Surgical History: Reports: None Musculoskeletal Surgical History: Reports: Arthroscopic Knee Social & Family History - Family History Family Medical History: Noncontributory - Tobacco Use Smoking Status *Q: Never Smoker - Caffeine Use Caffeine Use: Reports: Soda - Recreational Drug Use Recreational Drug Use: No - Living Situation & Occupation Living situation: Reports: ED ROS GENERAL - Review of Systems Review Of Systems: See Below Constitutional: Reports: No Symptoms HEENT: Reports: No Symptoms Respiratory: Reports: No Symptoms Cardiovascular: Reports: No Symptoms Endocrine: Reports: No Symptoms GI/Abdominal: Reports: Abdominal Pain, Bloody Stool, Nausea, Vomiting : Reports: No Symptoms Musculoskeletal: Reports: No Symptoms Skin: Reports: No Symptoms Neurological: Reports: No Symptoms Psychiatric: Reports: No Symptoms Hematologic/Lymphatic: Reports: No Symptoms Immunologic: Reports: No Symptoms ED EXAM, GI/ABD - Physical Exam Exam: See Below Exam Limited By: No Limitations General Appearance: Alert, No Apparent Distress Ears: Normal External Exam, Normal Canal, Hearing Grossly Normal Nose: Normal Inspection, Normal Mucosa, No Blood Throat/Mouth: Normal Inspection, Normal Lips, Normal Teeth, Normal Gums, Normal Oropharynx, Normal Voice Head: Atraumatic, Normocephalic Neck: Normal Inspection, Supple, Non-Tender, Full Range of Motion Respiratory/Chest: No Respiratory Distress, Lungs Clear, Normal Breath Sounds, No Accessory Muscle Use, Chest Non-Tender Cardiovascular: Normal Peripheral Pulses, Regular Rate, Rhythm, No Edema, No Gallop GI/Abdominal Exam: Normal Bowel Sounds, Other (diffusely tender) Back Exam: Normal Inspection, Full Range of Motion Extremities: Normal Inspection, Normal Range of Motion, Non-Tender Neurological: Alert, Oriented, CN II-XII Intact, Normal Cognition Psychiatric: Normal Affect Course - Vital Signs Text/Narrative:: labs reviewed with patient NS 1 L bolus Zofran 4 ng IV x1 dilaudid 2 mg IV x2 doses CT Abd/pelvis-pending Last Recorded V/S: Last Vital Signs Temp 36.4 C 06/28/19 20:00 Pulse 81 06/28/19 20:00 Resp 17 06/28/19 20:00 BP 129/84 06/28/19 20:00 Pulse Ox 95 06/28/19 20:00 - Orders/Labs/Meds Labs: Laboratory Tests 06/28/19 06/28/19 06/28/19 Range/Units 18:00 18:00 18:00 WBC 12.7 H (4.5-12.0) X10-3/uL RBC 4.47 (3.23-5.20) x10(6)uL Hgb 12.0 (11.5-15.5) g/dL Hct 36.7 (30.0-51.3) % MCV 82.1 (80-96) fL MCH 26.8 L (27.7-33.6) pg MCHC 32.6 (32.2-35.4) g/dL RDW 16.0 H (11.5-15.5) % Plt Count 491 H (125-369) X10(3)uL MPV 8.6 (7.4-10.4) fL Neut % (Auto) 78.4 (46-82) % Lymph % (Auto) 15.8 (13-37) % [place] % (Auto) 4.3 (4-12) % Eos % (Auto) 0 L (1.0-5.0) % Baso % (Auto) 1 (0-2) % Neut # (Auto) 10.0 H (1.6-8.3) # Lymph # (Auto) 2.0 (0.6-5.0) # [place] # (Auto) 0.5 (0.0-1.3) # Eos # (Auto) 0.0 (0.0-0.8) # Baso # (Auto) 0.2 (0.0-0.2) # Sodium 137 (135-145) mmol/L Potassium 4.1 (3.5-5.3) mmol/L Chloride 103 (100-110) mmol/L Carbon Dioxide 25 (21-32) mmol/L BUN 15 (7-18) mg/dL Creatinine 0.6 (0.55-1.02) mg/dL Est Cr Clr Drug Dosing 131.56 mL/min Estimated GFR (MDRD) > 60 (>60) BUN/Creatinine Ratio 25.0 H (9-20) Glucose 102 (80-116) mg/dL Calcium 9.0 (8.6-10.2) mg/dL Total Bilirubin 0.3 (0.1-1.3) mg/dL AST 17 D (5-25) IU/L ALT 33 D (12-36) U/L Alkaline Phosphatase 85 (56-112) IU/L Total Protein 7.4 (6.0-8.0) g/dL Albumin 3.2 L (3.5-5.2) g/dL Globulin 4.2 g/dL Albumin/Globulin Ratio 0.8 Amylase 44 (25-115) U/L Lipase 74 (73-393) U/L HCG, Quant (<5) mIU/mL Urine Color (YELLOW) Urine Appearance (CLEAR) Urine pH (5.0-6.5) Ur Specific [place] (1.010-1.025) Urine Protein (NEGATIVE) mg/dL Urine Glucose (UA) (NORMAL) mg/dL Urine Ketones (NEGATIVE) mg/dL Urine Occult Blood (NEGATIVE) Urine Nitrite (NEGATIVE) Urine Bilirubin (NEGATIVE) Urine Urobilinogen (NEGATIVE) mg/dL Ur Leukocyte Esterase (NEGATIVE) Urine RBC (0-5) Urine WBC (0-5) Ur Squamous Epith Cells (NS,R,O) Urine Bacteria (NS) Urine Mucus (NS) 06/28/19 06/28/19 Range/Units 18:00 19:03 WBC (4.5-12.0) X10-3/uL RBC (3.23-5.20) x10(6)uL Hgb (11.5-15.5) g/dL Hct (30.0-51.3) % MCV (80-96) fL MCH (27.7-33.6) pg MCHC (32.2-35.4) g/dL RDW (11.5-15.5) % Plt Count (125-369) X10(3)uL MPV (7.4-10.4) fL Neut % (Auto) (46-82) % Lymph % (Auto) (13-37) % [place] % (Auto) (4-12) % Eos % (Auto) (1.0-5.0) % Baso % (Auto) (0-2) % Neut # (Auto) (1.6-8.3) # Lymph # (Auto) (0.6-5.0) # [place] # (Auto) (0.0-1.3) # Eos # (Auto) (0.0-0.8) # Baso # (Auto) (0.0-0.2) # Sodium (135-145) mmol/L Potassium (3.5-5.3) mmol/L Chloride (100-110) mmol/L Carbon Dioxide (21-32) mmol/L BUN (7-18) mg/dL Creatinine (0.55-1.02) mg/dL Est Cr Clr Drug Dosing mL/min Estimated GFR (MDRD) (>60) BUN/Creatinine Ratio (9-20) Glucose (80-116) mg/dL Calcium (8.6-10.2) mg/dL Total Bilirubin (0.1-1.3) mg/dL AST (5-25) IU/L ALT (12-36) U/L Alkaline Phosphatase (56-112) IU/L Total Protein (6.0-8.0) g/dL Albumin (3.5-5.2) g/dL Globulin g/dL Albumin/Globulin Ratio Amylase (25-115) U/L Lipase (73-393) U/L HCG, Quant < 5 L (<5) mIU/mL Urine Color Yellow (YELLOW) Urine Appearance Clear (CLEAR) Urine pH 8.0 H (5.0-6.5) Ur Specific [place] 1.005 L (1.010-1.025) Urine Protein Negative (NEGATIVE) mg/dL Urine Glucose (UA) Normal (NORMAL) mg/dL Urine Ketones 15 H (NEGATIVE) mg/dL Urine Occult Blood Negative (NEGATIVE) Urine Nitrite Negative (NEGATIVE) Urine Bilirubin Negative (NEGATIVE) Urine Urobilinogen Normal (NEGATIVE) mg/dL Ur Leukocyte Esterase Negative (NEGATIVE) Urine RBC 0-5 (0-5) Urine WBC 0-5 (0-5) Ur Squamous Epith Cells Moderate H (NS,R,O) Urine Bacteria Few H (NS) Urine Mucus Few H (NS) Meds: Medications Discontinued Medications Generic Name Dose Route Start Last Admin Trade Name Freq PRN Reason Stop Dose Admin Hydromorphone HCl 2 mg 06/28/19 17:46 06/28/19 18:07 Dilaudid IVPUSH 06/28/19 17:47 2 mg ONETIME ONE Administration Hydromorphone HCl 2 mg 06/28/19 18:54 06/28/19 19:05 Dilaudid IVPUSH 06/28/19 18:55 2 mg ONETIME ONE Administration Sodium Chloride 1,000 mls @ 999 mls/hr 06/28/19 18:00 06/28/19 18:05 Normal Saline IV 999 mls/hr ASDIRECTED NAHID Administration Iopamidol 150 ml 06/28/19 18:22 06/28/19 18:31 Isovue-370 (76%) IV 06/28/19 18:23 150 ml ONETIME ONE Administration Metoclopramide HCl 10 mg 06/28/19 19:39 06/28/19 19:44 Reglan IVPUSH 06/28/19 19:40 10 mg ONETIME ONE Administration Ondansetron HCl 4 mg 06/28/19 17:46 06/28/19 18:05 Zofran IVPUSH 06/28/19 17:47 4 mg ONETIME ONE Administration Ondansetron HCl 4 mg 06/28/19 18:54 06/28/19 19:03 Zofran IVPUSH 06/28/19 18:55 4 mg ONETIME ONE Administration Sodium Chloride 10 ml 06/28/19 17:44 06/28/19 19:14 Saline Flush FLUSH 10 ml ASDIRECTED PRN Administration Keep Vein Open Departure - Departure Time of Disposition: 19:15 Disposition: Home, Self-Care 01 Condition: Good Clinical Impression: Ulcerative colitis, acute Qualifiers: Digestive disease complication type: without complication Qualified Code(s): K51.90 - Ulcerative colitis, unspecified, without complications - Discharge Information Instructions: Ulcerative Colitis, Adult Referrals: Padmaja Araujo PA-C [Primary Care Provider] - Forms: ED Department Discharge Additional Instructions: follow up with your primary care and GI doctor ccontinue prednisone 60 mg daily.
[2019-06-28] MEDS ORDERED: Metoclopramide 10 MG/2 ML SDV IVPUSH ONE (19:39)
--- NOTE | 2019-06-29 08:13 | ER ---
DATE SEEN: 06/28/2019 ADDENDUM: I saw this patient after she had seen Dr. Beal. I was advised to give her the CT of the abdomen and pelvis results. Her pain was well controlled. She did have some nausea in the few minutes she was in the ER after I came on, and she got [address] IV[address] showed no foci of inflammation, and I considered it normal. I discharged her home, according to the directions given by Dr. Beal. /[id number] ZULEIKA/NADEEM
== END 2019-06-28 20:15 | disposition home or self-care (01) ==
LOC: FB.ED 16:00
DX: K51.90 Ulcerative colitis, unspecified, without complications (principal); I10 Essential (primary) hypertension; F41.9 Anxiety disorder, unspecified; F32.9 Major depressive disorder, single episode, unspecified; E66.9 Obesity, unspecified; Z68.30 Body mass index [BMI] 30.0-30.9, adult; Z90.49 Acquired absence of other specified parts of digestive tract; Z88.8 Allergy status to other drugs, medicaments and biological substances; Z79.899 Other long term (current) drug therapy
CPT/HCPCS: 36415; 74177; 80053; 81001; 82150; 83690; 84702; 85025; 96374; 96375; 96376; 99284; J1170; J2405; J2765; J7030; Q9967

== ENCOUNTER 2019-07-20 09:59 | Emergency (ER) | payer OTHER ==
--- NOTE | 2019-07-20 10:50 | EDM.PDOC ---
ED HPI GENERAL MEDICAL PROBLEM - General Chief Complaint: Abdominal Pain Stated Complaint: LEFT SIDEED PAIN Time Seen by Provider: 07/20/19 10:25 Source of Information: Reports: Patient History Limitations: Reports: No Limitations - History of Present Illness INITIAL COMMENTS - FREE TEXT/NARRATIVE: pt with Hx of recurrent flares of abd pain secondary to Ulcerative collitis , comes in with c/o sever sharp left sided non radiating abd pain X 3-4 days with nausea and loose stool, report noticing black BMs and small amount of blood today, denies fever chills or any other associated sx, pt states she is being tapered off prednisone over the past few weeks down from 70 and now on 10 mg daily, also has been out of hydrocodone for 4 days, pt denies any other associated sx or medical concerns. report Hx of cholecystectomy, c/section, and Hx of mental illnesses . L lower abdomen Pain Score (Numeric/FACES): 7 - Related Data Allergies Allergy/AdvReac Type Severity Reaction Status Date / Time fentanyl Allergy Delusions Verified 07/20/19 10:13 Home Meds: Home Meds FLUoxetine HCl [Prozac] 80 mg PO DAILY 12/22/18 [History] Ondansetron [Zofran ODT] 4 mg PO Q4H PRN #10 tab.dis 04/03/19 [Rx] LORazepam 1 mg PO TID PRN 06/21/19 [History] Multivitamin [Multivitamins] 1 each PO DAILY 06/21/19 [History] OLANZapine [ZyPREXA] 5 mg PO BEDTIME 06/21/19 [History] SUMAtriptan [Imitrex] 25 mg PO ASDIRECTED PRN 06/21/19 [History] amLODIPine Besylate [Norvasc] 10 mg PO DAILY 06/21/19 [History] predniSONE [Prednisone] 10 mg PO DAILY 06/21/19 [History] Past Medical History Cardiovascular History: Reports: Hypertension Respiratory History: Reports: Sleep Apnea Other Respiratory History: uses cpap Gastrointestinal History: Reports: Inflammatory Bowel Disease, Other (See Below) Other Gastrointestinal History: hx ulcerative colitis, hx EOE Genitourinary History: Reports: None 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: , Other (See Below) 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 FOR 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 History: [id number] Musculoskeletal History: Reports: Arthritis, Fracture Other Musculoskeletal History: hx fx R clavicle, Neurological History: Reports: Migraines Psychiatric History: Reports: Anxiety, Depression, Panic Attack, Psych Hospitalization(s) Endocrine/Metabolic History: Reports: Diabetes, Gestational, Obesity/BMI 30+, Other (See Below) Hematologic History: Reports: Anemia, Blood Transfusion(s) Other Hematologic History: has blood antibody Immunologic History: Reports: Other (See Below) Other Immunologic History: takes biologics for ulcerative colitis - Infectious Disease History Infectious Disease History: Reports: Chicken Pox - Past Surgical History HEENT Surgical History: Reports: Oral Surgery GI Surgical History: Reports: Cholecystectomy, Colonoscopy, EGD Female Surgical History: Reports: Section Neurological Surgical History: Reports: None Musculoskeletal Surgical History: Reports: Arthroscopic Knee Other Musculoskeletal Surgeries/Procedures:: R knee scope Social & Family History - Family History Family Medical History: Noncontributory - Tobacco Use Smoking Status *Q: Former Smoker Years of Tobacco use: 14 Used Tobacco, but Quit: Yes Month/Year Tobacco Last Used: 2008 - Caffeine Use Caffeine Use: Reports: Coffee, Tea - Recreational Drug Use Recreational Drug Use: No - Living Situation & Occupation Living situation: Reports: ED ROS GENERAL - Review of Systems Review Of Systems: See Below Constitutional: Reports: No Symptoms, Fatigue. Denies: Fever, Chills HEENT: Reports: No Symptoms Respiratory: Reports: No Symptoms Cardiovascular: Reports: No Symptoms GI/Abdominal: Reports: Abdominal Pain, Bloody Stool, Diarrhea, Decreased Appetite, Melena, Mucous in Stool, Nausea, Vomiting. Denies: Constipation, Distension : Reports: No Symptoms Musculoskeletal: Reports: No Symptoms Skin: Reports: No Symptoms Neurological: Reports: No Symptoms ED EXAM, GI/ABD - Physical Exam Exam: See Below Exam Limited By: No Limitations General Appearance: Alert, Anxious, Moderate Distress Throat/Mouth: Normal Inspection, Normal Oropharynx Head: Atraumatic, Normocephalic Neck: Normal Inspection, Supple, Non-Tender Respiratory/Chest: No Respiratory Distress, Lungs Clear, Normal Breath Sounds Cardiovascular: Normal Peripheral Pulses, Regular Rate, Rhythm GI/Abdominal Exam: Normal Bowel Sounds, Soft, No Organomegaly, No Distention, Tender (tender along left side of abd , no guarding or rebound. ). No: Distended Extremities: Normal Inspection Neurological: Alert, Oriented, CN II-XII Intact Skin Exam: Warm Course - Vital Signs Text/Narrative:: pt is comfortable after Dilaudid , zofran and fluids. unremarkable lab results were explained to pt.. pt has occult blood in stool and this is related to her UC, XRAY shows no acute findings on exam she has no signs of acute abd , she is hemodynamically stable , hg is WNL, pt has recurrent flare of chronic pain related to UC and stable for out patient mng. 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 pt to follow also with PCP in 2-3 days for re-check and on ongoing mng of chronic pain. Last Recorded V/S: Last Vital Signs Temp 36.4 C 07/20/19 10:08 Pulse 103 H 07/20/19 10:08 Resp 20 07/20/19 10:08 BP 125/88 07/20/19 10:08 Pulse Ox 99 07/20/19 10:08 - Orders/Labs/Meds Orders: Active Orders 24 hr Category Date Time Status Abdomen 2V AP Flat Upright [CR] Stat Exams 07/20/19 10:52 Ordered OCCULT BLOOD SCREEN [OP] Stat Lab 07/20/19 10:52 Ordered Sodium Chloride 0.9% [Normal Saline] 1,000 ml Med 07/20/19 10:52 Ordered IV .BOLUS Medication Orders Sodium Chloride (Normal Saline) 1,000 mls @ 999 drops/hr IV .BOLUS ONE Stop: 07/21/19 01:52 Last Admin: 07/20/19 11:06 Dose: 999 drops/hr Labs: Laboratory Tests 07/20/19 07/20/19 07/20/19 Range/Units 10:30 10:30 10:30 WBC 10.4 (4.5-12.0) X10-3/uL RBC 4.81 (3.23-5.20) x10(6)uL Hgb 13.3 (11.5-15.5) g/dL Hct 40.0 (30.0-51.3) % MCV 83.2 (80-96) fL MCH 27.6 L (27.7-33.6) pg MCHC 33.2 (32.2-35.4) g/dL RDW 15.3 (11.5-15.5) % Plt Count 489 H (125-369) X10(3)uL MPV 9.4 (7.4-10.4) fL Neut % (Auto) 63.5 (46-82) % Lymph % (Auto) 26.6 (13-37) % [place] % (Auto) 6.4 (4-12) % Eos % (Auto) 3 (1.0-5.0) % Baso % (Auto) 1 (0-2) % Neut # (Auto) 6.5 (1.6-8.3) # Lymph # (Auto) 2.8 (0.6-5.0) # [place] # (Auto) 0.7 (0.0-1.3) # Eos # (Auto) 0.3 (0.0-0.8) # Baso # (Auto) 0.1 (0.0-0.2) # Sodium 142 (135-145) mmol/L Potassium 3.3 L (3.5-5.3) mmol/L Chloride 104 (100-110) mmol/L Carbon Dioxide 23 (21-32) mmol/L BUN 20 H (7-18) mg/dL Creatinine 0.8 (0.55-1.02) mg/dL Est Cr Clr Drug Dosing 95.24 mL/min Estimated GFR (MDRD) > 60 (>60) BUN/Creatinine Ratio 25.0 H (9-20) Glucose 97 (80-116) mg/dL Calcium 9.4 (8.6-10.2) mg/dL Total Bilirubin 0.4 (0.1-1.3) mg/dL AST 17 (5-25) IU/L ALT 31 (12-36) U/L Alkaline Phosphatase 87 (56-112) IU/L Total Protein 7.7 (6.0-8.0) g/dL Albumin 3.7 (3.5-5.2) g/dL Globulin 4.0 g/dL Albumin/Globulin Ratio 0.9 Amylase 38 (25-115) U/L Lipase 121 (73-393) U/L Urine Color (YELLOW) Urine Appearance (CLEAR) Urine pH (5.0-6.5) Ur Specific [place] (1.010-1.025) Urine Protein (NEGATIVE) mg/dL Urine Glucose (UA) (NORMAL) mg/dL Urine Ketones (NEGATIVE) mg/dL Urine Occult Blood (NEGATIVE) Urine Nitrite (NEGATIVE) Urine Bilirubin (NEGATIVE) Urine Urobilinogen (NEGATIVE) mg/dL Ur Leukocyte Esterase (NEGATIVE) Urine WBC (0-5) Ur Squamous Epith Cells (NS,R,O) Uric Acid Crystals (NS) Urine Bacteria (NS) 07/20/19 Range/Units 10:52 WBC (4.5-12.0) X10-3/uL RBC (3.23-5.20) x10(6)uL Hgb (11.5-15.5) g/dL Hct (30.0-51.3) % MCV (80-96) fL MCH (27.7-33.6) pg MCHC (32.2-35.4) g/dL RDW (11.5-15.5) % Plt Count (125-369) X10(3)uL MPV (7.4-10.4) fL Neut % (Auto) (46-82) % Lymph % (Auto) (13-37) % [place] % (Auto) (4-12) % Eos % (Auto) (1.0-5.0) % Baso % (Auto) (0-2) % Neut # (Auto) (1.6-8.3) # Lymph # (Auto) (0.6-5.0) # [place] # (Auto) (0.0-1.3) # Eos # (Auto) (0.0-0.8) # Baso # (Auto) (0.0-0.2) # Sodium (135-145) mmol/L Potassium (3.5-5.3) mmol/L Chloride (100-110) mmol/L Carbon Dioxide (21-32) mmol/L BUN (7-18) mg/dL Creatinine (0.55-1.02) mg/dL Est Cr Clr Drug Dosing mL/min Estimated GFR (MDRD) (>60) BUN/Creatinine Ratio (9-20) Glucose (80-116) mg/dL Calcium (8.6-10.2) mg/dL Total Bilirubin (0.1-1.3) mg/dL AST (5-25) IU/L ALT (12-36) U/L Alkaline Phosphatase (56-112) IU/L Total Protein (6.0-8.0) g/dL Albumin (3.5-5.2) g/dL Globulin g/dL Albumin/Globulin Ratio Amylase (25-115) U/L Lipase (73-393) U/L Urine Color Yellow (YELLOW) Urine Appearance Slightly cloudy (CLEAR) Urine pH 5.0 (5.0-6.5) Ur Specific [place] 1.030 H (1.010-1.025) Urine Protein Trace (NEGATIVE) mg/dL Urine Glucose (UA) Normal (NORMAL) mg/dL Urine Ketones 15 H (NEGATIVE) mg/dL Urine Occult Blood Negative (NEGATIVE) Urine Nitrite Negative (NEGATIVE) Urine Bilirubin Small H (NEGATIVE) Urine Urobilinogen 1 H (NEGATIVE) mg/dL Ur Leukocyte Esterase Small H (NEGATIVE) Urine WBC 0-5 (0-5) Ur Squamous Epith Cells Moderate H (NS,R,O) Uric Acid Crystals Few H (NS) Urine Bacteria Many H (NS) Meds: Medications Generic Name Dose Route Start Last Admin Trade Name Freq PRN Reason Stop Dose Admin Sodium Chloride 1,000 mls @ 999 drops/hr 07/20/19 10:52 07/20/19 11:06 Normal Saline IV 07/21/19 01:52 999 drops/hr .BOLUS ONE Administration Discontinued Medications Generic Name Dose Route Start Last Admin Trade Name Freq PRN Reason Stop Dose Admin Hydromorphone HCl 1 mg 07/20/19 10:52 07/20/19 11:08 Dilaudid IVPUSH 07/20/19 10:53 1 mg ONETIME ONE Administration Hydromorphone HCl 1 mg 07/20/19 11:42 07/20/19 11:45 Dilaudid IVPUSH 07/20/19 11:43 1 mg ONETIME ONE Administration Ondansetron HCl 4 mg 07/20/19 10:52 07/20/19 11:06 Zofran IVPUSH 07/20/19 10:53 4 mg ONETIME ONE Administration Departure - Departure Time of Disposition: 11:54 Disposition: Home, Self-Care 01 Clinical Impression: Ulcerative colitis Qualifiers: Ulcerative colitis location: ulcerative rectosigmoiditis Digestive disease complication type: without complication Qualified Code(s): 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 - Discharge Information Referrals: Padmaja Araujo PA-C [Primary Care Provider] - Forms: ED Department Discharge Sepsis Event Note - Evaluation Sepsis Screening Result: No Definite Risk - Focused Exam Vital Signs: Vital Signs Temp Pulse Resp BP Pulse Ox 07/20/19 10:08 36.4 C 103 H 20 125/88 99 Date Exam was Performed: 07/20/19 Time Exam was Performed: 11:50 - My Orders Last 24 Hours: My Active Orders 07/20/19 10:52 Abdomen 2V AP Flat Upright [CR] Stat OCCULT BLOOD SCREEN [OP] Stat Sodium Chloride 0.9% [Normal Saline] 1,000 ml IV .BOLUS - Assessment/Plan Last 24 Hours: My Active Orders 07/20/19 10:52 Abdomen 2V AP Flat Upright [CR] Stat OCCULT BLOOD SCREEN [OP] Stat Sodium Chloride 0.9% [Normal Saline] 1,000 ml IV .BOLUS
[2019-07-20] MEDS ORDERED: Ondansetron 4 MG/2 ML SDV IVPUSH ONE (10:52)
[2019-07-20] MEDS ORDERED: Sodium Chloride 0.9% 1,000 ML IV ONE (10:52)
[2019-07-20] MEDS ORDERED: HYDROmorphone 2 MG/ML SDV IVPUSH ONE ×2 (10:52→11:42)
--- NOTE | 2019-07-20 14:47 | CR ---
INDICATION: Abdominal pain. ABDOMEN, 2 VIEWS: Six images of the abdomen, in supine and upright projections , were obtained 07/20/[address] scan from 06/28/19. The pattern of gas and feces is nonspecific without evidence of free air or obstruction. Evidence of exogenous obesity is noted. No organomegaly, mass lesions or pathologic calcifications were identified. IMPRESSION: Non acute abdomen. MTDD
== END 2019-07-20 12:34 | disposition home or self-care (01) ==
LOC: FB.ED 09:59
DX: K51.30 Ulcerative (chronic) rectosigmoiditis without complications (principal); I10 Essential (primary) hypertension; E66.9 Obesity, unspecified; F41.9 Anxiety disorder, unspecified; Z88.8 Allergy status to other drugs, medicaments and biological substances; Z79.899 Other long term (current) drug therapy; Z68.41 Body mass index [BMI] 40.0-44.9, adult; Z87.891 Personal history of nicotine dependence
CPT/HCPCS: 36415; 74019; 80053; 81001; 82150; 82270; 83690; 85025; 96361; 96374; 96376; 99284-25; J1170; J2405; J7030

== ENCOUNTER 2019-08-13 14:25 | Emergency (ER) | payer OTHER ==
[2019-08-13] MEDS ORDERED: Acetaminophen/HYDROcodone 325-5 MG Tab PO ONE (14:26)
[2019-08-13] MEDS ORDERED: HYDROmorphone 2 MG/ML SDV IVPUSH ONE ×2 (14:55→16:31)
[2019-08-13] MEDS ORDERED: Sodium Chloride 0.9% 1,000 ML IV SCH (15:00)
[2019-08-13] MEDS ORDERED: hydrOXYzine HCl 50 MG/ML SDV IM ONE (15:05)
[2019-08-13] MEDS ORDERED: Sodium Chloride 0.9% 10 ML Syringe FLUSH PRN (15:42)
--- NOTE | 2019-08-13 17:10 | EDM.PDOC ---
ED HPI GENERAL MEDICAL PROBLEM - General Chief Complaint: Abdominal Pain Stated Complaint: PAIN IN STOMACH/BACK Time Seen by Provider: 08/13/19 14:35 Source of Information: Reports: Patient History Limitations: Reports: No Limitations - History of Present Illness INITIAL COMMENTS - FREE TEXT/NARRATIVE: Patient presented to the ED because of abdominal pain which started yesterday after eating pop corn. She has a h/o UC and she at least have a flare up once a month. Since yesterday she also have some bloody mucoid stools. The pain is sharp and cramping,10/10, with associated N/V x1. There is no feber or chills, changes in bowel movements or urinary symptoms. She is sheduled to se her GI in [place] this month. left side Pain Score (Numeric/FACES): 8 - Related Data Allergies Allergy/AdvReac Type Severity Reaction Status Date / Time fentanyl Allergy Delusions Verified 08/13/19 14:49 Home Meds: Home Meds FLUoxetine HCl [Prozac] 80 mg PO DAILY 12/22/18 [History] Ondansetron [Zofran ODT] 4 mg PO Q4H PRN #10 tab.dis 04/03/19 [Rx] LORazepam 1 mg PO TID PRN 06/21/19 [History] Multivitamin [Multivitamins] 1 each PO DAILY 06/21/19 [History] OLANZapine [ZyPREXA] 5 mg PO BEDTIME 06/21/19 [History] SUMAtriptan [Imitrex] 25 mg PO ASDIRECTED PRN 06/21/19 [History] amLODIPine Besylate [Norvasc] 10 mg PO DAILY 06/21/19 [History] Past Medical History Cardiovascular History: Reports: Hypertension Respiratory History: Reports: Sleep Apnea Other Respiratory History: uses cpap Gastrointestinal History: Reports: Inflammatory Bowel Disease, Other (See Below) Other Gastrointestinal History: hx ulcerative colitis, hx EOE Genitourinary History: Reports: None 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: , 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 (See Below) 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: [id number] Musculoskeletal History: Reports: Arthritis, Fracture Other Musculoskeletal History: hx fx R clavicle, Neurological History: Reports: Migraines Psychiatric History: Reports: Anxiety, Depression, Panic Attack, Psych Hospitalization(s) Endocrine/Metabolic History: Reports: Diabetes, Gestational, Obesity/BMI 30+, Other (See Below) Hematologic History: Reports: Anemia, Blood Transfusion(s) Other Hematologic History: has blood antibody Immunologic History: Reports: Other (See Below) Other Immunologic History: takes biologics for ulcerative colitis - Infectious Disease History Infectious Disease History: Reports: Chicken Pox - Past Surgical History HEENT Surgical History: Reports: Oral Surgery GI Surgical History: Reports: Cholecystectomy, Colonoscopy, EGD Female Surgical History: Reports: Section Neurological Surgical History: Reports: None Musculoskeletal Surgical History: Reports: Arthroscopic Knee Other Musculoskeletal Surgeries/Procedures:: R knee scope Social & Family History - Family History Family Medical History: Noncontributory - Tobacco Use Smoking Status *Q: Never Smoker - Caffeine Use Caffeine Use: Reports: None - Recreational Drug Use Recreational Drug Use: No - Living Situation & Occupation Living situation: Reports: ED ROS GENERAL - Review of Systems Review Of Systems: See Below Constitutional: Reports: No Symptoms HEENT: Reports: No Symptoms Respiratory: Reports: No Symptoms Cardiovascular: Reports: No Symptoms Endocrine: Reports: No Symptoms GI/Abdominal: Reports: Abdominal Pain, Bloody Stool, Mucous in Stool, Nausea, Vomiting Musculoskeletal: Reports: No Symptoms Skin: Reports: No Symptoms Neurological: Reports: No Symptoms ED EXAM, GI/ABD - Physical Exam Exam: See Below Exam Limited By: No Limitations General Appearance: Alert, No Apparent Distress Ears: Normal External Exam, Normal Canal, Hearing Grossly Normal Nose: Normal Inspection, Normal Mucosa, No Blood Throat/Mouth: Normal Inspection, Normal Lips Head: Atraumatic, Normocephalic Neck: Normal Inspection, Supple, Non-Tender Respiratory/Chest: No Respiratory Distress, Lungs Clear, Normal Breath Sounds Cardiovascular: Normal Peripheral Pulses, Regular Rate, Rhythm, No Edema, No Gallop GI/Abdominal Exam: Normal Bowel Sounds, Soft, No Organomegaly, Other ( tenderness over tle epigastrium and LLQ) Neurological: Alert, Oriented, CN II-XII Intact, Normal Cognition, Normal Gait Psychiatric: Normal Affect, Normal Mood Skin Exam: Warm, Normal Color, No Rash Course - Vital Signs Text/Narrative:: Labs/ABD xray was discussed with patient and verbalized full understanding NS 1 L bolus Zofran 4mg IV x1 Vistaril 50 mg IM x1 dilaudid 2 mg IV x2 doses Her pain and nausea resolved upon discharge and she want to go home. Last Recorded V/S: Last Vital Signs Temp 36.6 C 01/05/20 14:30 Pulse 89 08/13/19 17:05 Resp 18 08/13/19 17:05 BP 102/51 L 08/13/19 17:05 Pulse Ox 98 08/13/19 16:15 - Orders/Labs/Meds Orders: Active Orders 24 hr Category Date Time Status Peripheral IV Insertion Adult [OM.PC] Routine Oth 08/13/19 15:00 Ordered Labs: Laboratory Tests 08/13/19 08/13/19 08/13/19 Range/Units 15:20 15:20 15:20 WBC 8.3 (4.5-12.0) X10-3/uL RBC 4.57 (3.23-5.20) x10(6)uL Hgb 12.2 (11.5-15.5) g/dL Hct 37.7 (30.0-51.3) % MCV 82.4 (80-96) fL MCH 26.7 L (27.7-33.6) pg MCHC 32.4 (32.2-35.4) g/dL RDW 14.3 (11.5-15.5) % Plt Count 451 H (125-369) X10(3)uL MPV 9.1 (7.4-10.4) fL Neut % (Auto) 63.3 (46-82) % Lymph % (Auto) 26.5 (13-37) % [place] % (Auto) 6.5 (4-12) % Eos % (Auto) 3 (1.0-5.0) % Baso % (Auto) 1 (0-2) % Neut # (Auto) 5.3 (1.6-8.3) # Lymph # (Auto) 2.2 (0.6-5.0) # [place] # (Auto) 0.5 (0.0-1.3) # Eos # (Auto) 0.2 (0.0-0.8) # Baso # (Auto) 0.1 (0.0-0.2) # Sodium 144 (135-145) mmol/L Potassium 3.3 L (3.5-5.3) mmol/L Chloride 106 (100-110) mmol/L Carbon Dioxide 27 (21-32) mmol/L BUN 9 D (7-18) mg/dL Creatinine 0.8 (0.55-1.02) mg/dL Est Cr Clr Drug Dosing 95.24 mL/min Estimated GFR (MDRD) > 60 (>60) BUN/Creatinine Ratio 11.3 (9-20) Glucose 80 (80-116) mg/dL Calcium 8.9 (8.6-10.2) mg/dL Total Bilirubin 0.4 (0.1-1.3) mg/dL AST 36 H D (5-25) IU/L ALT 46 H D (12-36) U/L Alkaline Phosphatase 93 (56-112) IU/L Total Protein 7.3 (6.0-8.0) g/dL Albumin 3.4 L (3.5-5.2) g/dL Globulin 3.9 g/dL Albumin/Globulin Ratio 0.9 Amylase 41 (25-115) U/L Lipase 151 (73-393) U/L Meds: Medications Discontinued Medications Generic Name Dose Route Start Last Admin Trade Name Freq PRN Reason Stop Dose Admin Hydromorphone HCl 2 mg 08/13/19 14:55 08/13/19 15:15 Dilaudid IVPUSH 08/13/19 14:56 2 mg ONETIME ONE Administration Hydromorphone HCl 2 mg 08/13/19 16:31 08/13/19 16:00 Dilaudid IVPUSH 08/13/19 16:32 2 mg ONETIME ONE Administration Hydroxyzine HCl 50 mg 08/13/19 15:05 08/13/19 15:20 Vistaril IM 08/13/19 15:06 50 mg ONETIME ONE Administration Sodium Chloride 1,000 mls @ 999 mls/min 08/13/19 15:00 08/13/19 15:15 Normal Saline IV 999 mls/min ASDIRECTED NAHID Administration Sodium Chloride 10 ml 08/13/19 15:42 08/13/19 15:15 Saline Flush FLUSH 10 ml ASDIRECTED PRN Administration Keep Vein Open Departure - Departure Time of Disposition: 17:00 Disposition: Home, Self-Care 01 Condition: Good Clinical Impression: Ulcerative colitis - Discharge Information Instructions: Ulcerative Colitis, Adult Referrals: Padmaja Araujo PA-C [Primary Care Provider] - Forms: ED Department Discharge Additional Instructions: please read discharge instructions on UC take hydrocodone 5/325, 1-2 tablets every 4-6 hours as needed for pain zofran odt, 4 mg every 4 hours as needed fo nausea follow up with your doctor tomorrow so you can have a refill of your pain medication Sepsis Event Note - Evaluation Sepsis Screening Result: No Definite Risk - Focused Exam Date Exam was Performed: 08/14/19 Time Exam was Performed: 13:57 - My Orders Last 24 Hours: My Active Orders 08/13/19 15:00 Peripheral IV Insertion Adult [OM.PC] Routine - Assessment/Plan Last 24 Hours: My Active Orders 08/13/19 15:00 Peripheral IV Insertion Adult [OM.PC] Routine
--- NOTE | 2019-08-13 19:07 | CR ---
INDICATION: Abdomen pain. History of colitis. ABDOMEN TWO VIEW: Six images of the abdomen were obtained in supine and upright projections 08/13/19 and were compared with 08/06/19. The pattern of gas and feces is nonspecific with only a few tiny air-fluid levels in the right flank of questionable significance. These may be on the basis of fluid intake, early paralytic ileus, gastroenteritis, or localized paralytic ileus such as secondary to pancreatitis or colitis. This should be correlated clinically. No organomegaly, mass lesions, or pathologic calcifications were identified. IMPRESSION: Minimal air-fluid levels in the right flank of questionable significance with the abdomen otherwise nonacute. MTDD
== END 2019-08-13 17:15 | disposition home or self-care (01) ==
LOC: FB.ED 14:25
DX: K51.90 Ulcerative colitis, unspecified, without complications (principal); I10 Essential (primary) hypertension; M19.90 Unspecified osteoarthritis, unspecified site; F41.0 Panic disorder [episodic paroxysmal anxiety]; F32.9 Major depressive disorder, single episode, unspecified; E66.9 Obesity, unspecified; Z68.43 Body mass index [BMI] 50.0-59.9, adult; Z90.49 Acquired absence of other specified parts of digestive tract; Z88.8 Allergy status to other drugs, medicaments and biological substances; Z79.899 Other long term (current) drug therapy
CPT/HCPCS: 36415; 74019; 80053; 82150; 83690; 85025; 96361; 96372; 96374; 96376; 99284; A9270; J1170; J3410; J7030

== ENCOUNTER 2019-09-23 02:18 | Emergency (ER) | payer OTHER ==
[2019-09-23] MEDS ORDERED: Ondansetron 4 MG/2 ML SDV IVPUSH ONE (03:07)
[2019-09-23] MEDS ORDERED: metroNIDAZOLE 500 MG Tab PO ONE (03:08)
--- NOTE | 2019-09-23 03:11 | EDM.PDOC ---
ED HPI GENERAL MEDICAL PROBLEM - General Chief Complaint: Gastrointestinal Problem Stated Complaint: ABDOMINAL PAIN Time Seen by Provider: 09/23/19 02:45 Source of Information: Reports: Patient History Limitations: Reports: No Limitations - History of Present Illness INITIAL COMMENTS - FREE TEXT/NARRATIVE: has history of ulcerative colitis . . has had pain in the lower abd and LLQ for 3-4 days , with bloody mucoid stools Has appointment to see GI on wednesday / wednesday has had Nausea but not able to vomit diarrhea is bloody thinks she may have cl difficile - Related Data Allergies Allergy/AdvReac Type Severity Reaction Status Date / Time fentanyl Allergy Medication Verified 09/23/19 02:31 is too strong, Delusions NSAIDS (Non-Steroidal Allergy Should be Verified 09/23/19 02:32 Anti-Inflamma avoided with colitis prednisone Allergy Sensitive Verified 09/23/19 02:34 to Prednisone, need to take Zyprexa along with it Home Meds: Home Meds FLUoxetine HCl [Prozac] 80 mg PO DAILY 12/22/18 [History] Ondansetron [Zofran ODT] 4 mg PO Q4H PRN #10 tab.dis 04/03/19 [Rx] LORazepam 1 mg PO TID PRN 06/21/19 [History] Multivitamin [Multivitamins] 1 each PO DAILY 06/21/19 [History] OLANZapine [ZyPREXA] 5 mg PO BEDTIME 06/21/19 [History] SUMAtriptan [Imitrex] 25 mg PO ASDIRECTED PRN 06/21/19 [History] amLODIPine Besylate [Norvasc] 10 mg PO DAILY 06/21/19 [History] Past Medical History Cardiovascular History: Reports: Hypertension Respiratory History: Reports: Sleep Apnea Other Respiratory History: Uses CPAP. Gastrointestinal History: Reports: Inflammatory Bowel Disease, Other (See Below) Other Gastrointestinal History: History ulcerative colitis. History of EOE ( Eosinophilic Esophagitis). 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 Has Asherman's Syndrome of uterus. Musculoskeletal History: Reports: Arthritis, Fracture Other Musculoskeletal History: History of fracture right clavicle. Neurological History: Reports: Migraines Psychiatric History: Reports: Anxiety, Depression, Panic Attack, Psych Hospitalization(s) Endocrine/Metabolic History: Reports: Diabetes, Gestational, Obesity/BMI 30+ Hematologic History: Reports: Anemia, Blood Transfusion(s) Other Hematologic History: Has blood antibody. Immunologic History: Reports: Other (See Below) Other Immunologic History: Takes biologics for ulcerative colitis. - Infectious Disease History Infectious Disease History: Reports: Chicken Pox - Past Surgical History HEENT Surgical History: Reports: Oral Surgery GI Surgical History: Reports: Cholecystectomy, Colonoscopy, EGD Female Surgical History: Reports: Section Musculoskeletal Surgical History: Reports: Arthroscopic Knee Other Musculoskeletal Surgeries/Procedures:: Right knee scope. Social & Family History - Family History Family Medical History: Noncontributory - Caffeine Use Caffeine Use: Reports: None - Living Situation & Occupation Living situation: Reports: ED ROS GENERAL - Review of Systems Review Of Systems: Comprehensive ROS is negative, except as noted in HPI. Constitutional: Denies: Fever, Chills HEENT: Reports: No Symptoms Respiratory: Reports: No Symptoms Cardiovascular: Reports: No Symptoms Endocrine: Reports: No Symptoms GI/Abdominal: Reports: Abdominal Pain, Anorexia, Bloody Stool, Diarrhea, Decreased Appetite, Distension, Mucous in Stool, Nausea : Reports: No Symptoms Musculoskeletal: Reports: No Symptoms Neurological: Reports: No Symptoms ED EXAM, GI/ABD - Physical Exam Exam: See Below Exam Limited By: No Limitations General Appearance: Alert, WD/WN, No Apparent Distress Eyes: Bilateral: EOMI Ears: Normal External Exam Nose: Normal Inspection Throat/Mouth: Normal Oropharynx Head: Atraumatic, Normocephalic Neck: Supple, Non-Tender Respiratory/Chest: Lungs Clear Cardiovascular: Regular Rate, Rhythm GI/Abdominal Exam: Soft, Distended, Tender, Abnormal Bowel Sounds (hyperactive) . No: Guarding, Rigid Back Exam: Full Range of Motion Neurological: Alert, Oriented Psychiatric: Depressed Mood Course - Vital Signs Last Recorded V/S: Last Vital Signs Temp 36.5 C 09/23/19 06:30 Pulse 88 09/23/19 06:30 Resp 18 09/23/19 06:30 BP 177/104 H 09/23/19 06:30 Pulse Ox 96 09/23/19 06:30 - Orders/Labs/Meds Orders: Active Orders 24 hr Category Date Time Status C DIFFICILE AG/TOXIN W/REFLEX [RM] Routine Lab 09/23/19 04:29 Ordered Sodium Chloride 0.9% [Normal Saline] 1,000 ml Med 09/23/19 03:15 Active IV ASDIRECTED Medication Orders Sodium Chloride (Normal Saline) 1,000 mls @ 999 mls/hr IV ASDIRECTED NAHID Last Admin: 09/23/19 03:27 Dose: 999 mls/hr Labs: Laboratory Tests 09/23/19 09/23/19 Range/Units 03:38 03:38 WBC 9.3 (4.5-12.0) X10-3/uL RBC 4.40 (3.23-5.20) x10(6)uL Hgb 11.8 (11.5-15.5) g/dL Hct 35.8 (30.0-51.3) % MCV 81.4 (80-96) fL MCH 26.7 L (27.7-33.6) pg MCHC 32.8 (32.2-35.4) g/dL RDW 14.6 (11.5-15.5) % Plt Count 371 H (125-369) X10(3)uL MPV 9.3 (7.4-10.4) fL Neut % (Auto) 48.6 (46-82) % Lymph % (Auto) 38.1 H (13-37) % [place] % (Auto) 9.2 (4-12) % Eos % (Auto) 2 (1.0-5.0) % Baso % (Auto) 2 (0-2) % Neut # (Auto) 4.5 (1.6-8.3) # Lymph # (Auto) 3.5 (0.6-5.0) # [place] # (Auto) 0.9 (0.0-1.3) # Eos # (Auto) 0.2 (0.0-0.8) # Baso # (Auto) 0.2 (0.0-0.2) # Sodium 143 (135-145) mmol/L Potassium 3.8 (3.5-5.3) mmol/L Chloride 107 (100-110) mmol/L Carbon Dioxide 25 (21-32) mmol/L BUN 19 H D (7-18) mg/dL Creatinine 0.6 (0.55-1.02) mg/dL Est Cr Clr Drug Dosing 126.99 mL/min Estimated GFR (MDRD) > 60 (>60) BUN/Creatinine Ratio 31.7 H (9-20) Glucose 84 (80-116) mg/dL Calcium 8.3 L (8.6-10.2) mg/dL Meds: Medications Generic Name Dose Route Start Last Admin Trade Name Preston PRN Reason Stop Dose Admin Sodium Chloride 1,000 mls @ 999 mls/hr 09/23/19 03:15 09/23/19 03:27 Normal Saline IV 999 mls/hr ASDIRECTED NAHID Administration Discontinued Medications Generic Name Dose Route Start Last Admin Trade Name Preston PRN Reason Stop Dose Admin Hydromorphone HCl 1 mg 09/23/19 04:28 09/23/19 04:36 Dilaudid IVPUSH 09/23/19 04:29 1 mg ONETIME ONE Administration Metronidazole 500 mg 09/23/19 03:08 09/23/19 03:28 Flagyl PO 09/23/19 03:09 500 mg ONETIME ONE Administration Ondansetron HCl 4 mg 09/23/19 03:07 09/23/19 03:29 Zofran IVPUSH 09/23/19 03:08 4 mg ONETIME ONE Administration Prednisone 40 mg 09/23/19 03:13 09/23/19 03:32 Prednisone PO 09/23/19 03:14 40 mg NOW STA Administration - Re-Assessments/Exams Free Text/Narrative Re-Assessment/Exam: 09/23/19 06:39 pt did get some relieve with flagyl and prednisone has appt to see GI on wednesday Departure - Departure Time of Disposition: 06:40 Disposition: Home, Self-Care 01 Condition: Fair Clinical Impression: Ulcerative colitis with rectal bleeding, Abdominal pain, Diarrhea Ulcerative colitis, acute Qualifiers: Digestive disease complication type: without complication Qualified Code(s): K51.90 - Ulcerative colitis, unspecified, without complications - Discharge Information *PRESCRIPTION DRUG MONITORING PROGRAM REVIEWED*: Not Applicable *COPY OF PRESCRIPTION DRUG MONITORING REPORT IN PATIENT PROSPER: Not Applicable Forms: ED Department Discharge Additional Instructions: Continue with metronidazole, prednisone ans antiemetic till seen by GI on wednesday Call if any concerns Sepsis Event Note - Evaluation Sepsis Screening Result: No Definite Risk - Focused Exam Vital Signs: Vital Signs Temp Pulse Resp BP Pulse Ox 09/23/19 06:30 36.5 C 88 18 177/104 H 96 02/15/20 02:25 36.7 C 92 18 157/109 H 98 Date Exam was Performed: 09/23/19 Time Exam was Performed: 06:34 - My Orders Last 24 Hours: My Active Orders 09/23/19 03:15 Sodium Chloride 0.9% [Normal Saline] 1,000 ml IV ASDIRECTED 09/23/19 04:29 C DIFFICILE AG/TOXIN W/REFLEX [RM] Routine - Assessment/Plan Last 24 Hours: My Active Orders 09/23/19 03:15 Sodium Chloride 0.9% [Normal Saline] 1,000 ml IV ASDIRECTED 09/23/19 04:29 C DIFFICILE AG/TOXIN W/REFLEX [RM] Routine
[2019-09-23] MEDS ORDERED: predniSONE 20 MG Tab PO STA (03:13)
[2019-09-23] MEDS ORDERED: Sodium Chloride 0.9% 1,000 ML IV SCH (03:15)
[2019-09-23] MEDS ORDERED: HYDROmorphone 2 MG/ML SDV IVPUSH ONE (04:28)
== END 2019-09-23 06:50 | disposition home or self-care (01) ==
LOC: FB.ED 02:18
DX: K51.911 Ulcerative colitis, unspecified with rectal bleeding (principal); I10 Essential (primary) hypertension; G47.30 Sleep apnea, unspecified; F32.9 Major depressive disorder, single episode, unspecified; F41.9 Anxiety disorder, unspecified; G43.909 Migraine, unspecified, not intractable, without status migrainosus; F41.0 Panic disorder [episodic paroxysmal anxiety]; E66.9 Obesity, unspecified; Z68.41 Body mass index [BMI] 40.0-44.9, adult; Z88.6 Allergy status to analgesic agent; Z88.5 Allergy status to narcotic agent; Z88.8 Allergy status to other drugs, medicaments and biological substances; Z79.899 Other long term (current) drug therapy
CPT/HCPCS: 36415; 80048; 85025; 96361; 96374; 96375; 99285; A9270; J1170; J2405; J7030

== ENCOUNTER 2020-03-27 19:15 | Emergency (ER) | payer BC, OTHER ==
[2020-03-27] MEDS ORDERED: Acetaminophen/HYDROcodone 325-5 MG Tab PO ONE (19:16)
--- NOTE | 2020-03-27 19:34 | EDM.PDOC ---
ED HPI GENERAL MEDICAL PROBLEM - General Stated Complaint: LEFT SIDE PAIN Time Seen by Provider: 03/27/20 19:30 Source of Information: Reports: Patient History Limitations: Reports: No Limitations - History of Present Illness INITIAL COMMENTS - FREE TEXT/NARRATIVE: pt with known hisotiry of ulcerative colisita has had exacerbation of symtoms for the past 3-4 weeks has been hospitalized 2 times discharged last wednesday : 4 zhang ago no has more pain Ran out of hdrocodone and is still on tapered dose of prednisone Onset: Gradual Duration: Recurring Location: Reports: Abdomen Quality: Reports: Ache, Dull Severity: Moderate Worsens with: Reports: Movement Treatments 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 (see below) (prednisone) - Related Data Allergies Allergy/AdvReac Type Severity Reaction Status Date / Time fentanyl Allergy Medication Verified 09/23/19 02:31 is too strong, Delusions NSAIDS (Non-Steroidal Allergy Should be Verified 09/23/19 02:32 Anti-Inflamma avoided with colitis prednisone Allergy Sensitive Verified 09/23/19 02:34 to Prednisone, need to take Zyprexa along with it Home Meds: Home Meds FLUoxetine HCl [Prozac] 80 mg PO DAILY 12/22/18 [History] Ondansetron [Zofran ODT] 4 mg PO Q4H PRN #10 tab.dis 04/03/19 [Rx] LORazepam 1 mg PO TID PRN 06/21/19 [History] Multivitamin [Multivitamins] 1 each PO DAILY 06/21/19 [History] OLANZapine [ZyPREXA] 5 mg PO BEDTIME 06/21/19 [History] SUMAtriptan [Imitrex] 25 mg PO ASDIRECTED PRN 06/21/19 [History] amLODIPine Besylate [Norvasc] 10 mg PO DAILY 06/21/19 [History] Hydrocodone/Acetaminophen [[place] 5-325 Tablet] 1 each PO Q6HR PRN #20 tablet 03/27/20 [Rx] Past Medical History Cardiovascular History: Reports: Hypertension Respiratory History: Reports: Sleep Apnea Other Respiratory History: Uses CPAP. Gastrointestinal History: Reports: Inflammatory Bowel Disease, Other (See Below) Other Gastrointestinal History: History ulcerative colitis. History of EOE (Eosinophilic Esophagitis). 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 Has Asherman's Syndrome of uterus. Musculoskeletal History: Reports: Arthritis, Fracture Other Musculoskeletal History: History of fracture right clavicle. Neurological History: Reports: Migraines Psychiatric History: Reports: Anxiety, Depression, Panic Attack, Psych Hospitalization(s) Endocrine/Metabolic History: Reports: Diabetes, Gestational, Obesity/BMI 30+ Hematologic History: Reports: Anemia, Blood Transfusion(s) Other Hematologic History: Has blood antibody. Immunologic History: Reports: Other (See Below) Other Immunologic History: Takes biologics for ulcerative colitis. - Infectious Disease History Infectious Disease History: Reports: Chicken Pox - Past Surgical History HEENT Surgical History: Reports: Oral Surgery GI Surgical History: Reports: Cholecystectomy, Colonoscopy, EGD Female Surgical History: Reports: Section Musculoskeletal Surgical History: Reports: Arthroscopic Knee Other Musculoskeletal Surgeries/Procedures:: Right knee scope. Social & Family History - Family History Family Medical History: Noncontributory - Caffeine Use Caffeine Use: Reports: None - Living Situation & Occupation Living situation: Reports: ED ROS GENERAL - Review of Systems Review Of Systems: See Below Constitutional: Reports: Malaise, Weakness. Denies: Fever, Chills, Decreased Appetite HEENT: Reports: No Symptoms Respiratory: Reports: No Symptoms Cardiovascular: Reports: No Symptoms Endocrine: Reports: No Symptoms GI/Abdominal: Reports: Abdominal Pain, Anorexia, Diarrhea, Hematochezia : Reports: No Symptoms Musculoskeletal: Reports: No Symptoms Skin: Reports: No Symptoms Neurological: Reports: No Symptoms Psychiatric: Reports: No Symptoms Hematologic/Lymphatic: Reports: No Symptoms Immunologic: Reports: No Symptoms ED EXAM, GI/ABD - Physical Exam Exam: See Below Exam Limited By: No Limitations General Appearance: Alert, WD/WN, No Apparent Distress Eyes: Bilateral: EOMI Ears: Normal External Exam Nose: Normal Inspection Throat/Mouth: Normal Inspection Head: Atraumatic Neck: Supple, Non-Tender Respiratory/Chest: No Respiratory Distress, Lungs Clear Cardiovascular: Regular Rate, Rhythm GI/Abdominal Exam: Tender, Abnormal Bowel Sounds (reduced BS) Rectal (Female) Exam: Bloody Stool Back Exam: Normal Inspection, Full Range of Motion Extremities: Normal Range of Motion Neurological: Alert, Oriented, CN II-XII Intact, Normal Cognition, Normal Gait Psychiatric: Normal Affect, Normal Mood Skin Exam: Warm, Dry, Intact Course - Vital Signs Last Recorded V/S: Last Vital Signs Temp 36.7 C 03/27/20 19:15 Pulse 92 03/27/20 21:34 Resp 16 03/27/20 21:34 BP 128/81 03/27/20 21:34 Pulse Ox 97 03/27/20 21:34 - Orders/Labs/Meds Labs: Laboratory Tests 03/27/20 03/27/20 03/27/20 Range/Units 19:57 19:57 19:57 WBC 13.1 H (4.5-12.0) X10-3/uL RBC 4.62 (3.23-5.20) x10(6)uL Hgb 12.6 (11.5-15.5) g/dL Hct 39.1 (30.0-51.3) % MCV 84.6 (80-96) fL MCH 27.3 L (27.7-33.6) pg MCHC 32.3 (32.2-35.4) g/dL RDW 14.9 (11.5-15.5) % Plt Count 460 H (125-369) X10(3)uL Sodium 139 (135-145) mmol/L Potassium 4.1 (3.5-5.3) mmol/L Chloride 104 (100-110) mmol/L Carbon Dioxide 24 (21-32) mmol/L BUN 17 (7-18) mg/dL Creatinine 0.9 (0.55-1.02) mg/dL Est Cr Clr Drug Dosing TNP Estimated GFR (MDRD) > 60 (>60) BUN/Creatinine Ratio 18.9 (9-20) Glucose 247 H D (80-116) mg/dL Calcium 8.5 L (8.6-10.2) mg/dL C-Reactive Protein 0.9 (0.5-0.9) mg/dL Meds: Medications Discontinued Medications Generic Name Dose Route Start Last Admin Trade Name Freq PRN Reason Stop Dose Admin Hydromorphone HCl 2 mg 03/27/20 19:44 03/27/20 19:59 Dilaudid IVPUSH 03/27/20 19:45 2 mg ONETIME ONE Administration Sodium Chloride 500 mls @ 999 mls/hr 03/27/20 19:51 03/27/20 20:14 Normal Saline IV 08/19/20 20:21 999 mls/hr .BOLUS ONE Administration Methylprednisolone Sodium 104 mls @ 208 mls/hr 03/27/20 20:30 03/27/20 20:34 Succinate 250 mg/ Sodium IV 03/27/20 20:59 208 mls/hr Chloride ONETIME ONE Administration Methylprednisolone Sodium Succinate 250 mg 03/27/20 19:43 03/27/20 20:35 Solu-Medrol IVPUSH 03/27/20 19:44 Not Given ONETIME ONE - Re-Assessments/Exams Free Text/Narrative Re-Assessment/Exam: 03/27/20 19:54 labs ordered and IV meds ordered 03/27/20 22:16 pt given dilaudid and zofran , solumedrol, [place] 5/325 still requested for pain medication Given take home of norco #4 Departure - Departure Time of Disposition: 22:15 Disposition: Home, Self-Care 01 Clinical Impression: Exacerbation of ulcerative colitis without complication Ulcerative colitis, acute Qualifiers: Digestive disease complication type: without complication Qualified Code(s): K51.90 - Ulcerative colitis, unspecified, without complications - Discharge Information *PRESCRIPTION DRUG MONITORING PROGRAM REVIEWED*: Not Applicable *COPY OF PRESCRIPTION DRUG MONITORING REPORT IN PATIENT PROSPER: Not Applicable Prescriptions: Hydrocodone/Acetaminophen [[place] 5-325 Tablet] 1 each PO Q6HR PRN #20 tablet PRN Reason: Abdominal Pain Instructions: Ulcerative Colitis, Adult Referrals: PCP,None [Primary Care Provider] - Forms: ED Department Discharge Sepsis Event Note (ED) - Focused Exam Vital Signs: Vital Signs Temp Pulse Resp BP Pulse Ox 03/27/20 21:34 92 16 128/81 97 03/27/20 19:15 36.7 C 117 H 14 109/62 99
[2020-03-27] MEDS ORDERED: methylPREDNISolone Sodium Succinate 500 MG/4 ML SDV IVPUSH ONE (19:43)
[2020-03-27] MEDS ORDERED: HYDROmorphone 2 MG/ML SDV IVPUSH ONE (19:44)
[2020-03-27] MEDS ORDERED: Sodium Chloride 0.9% 500 ML IV ONE (19:51)
[2020-03-27] MEDS ORDERED: methylPREDNISolone Sodium Succinate 125 MG/2 ML SDV IVPUSH ONE (20:30)
== END 2020-03-27 22:22 | disposition home or self-care (01) ==
LOC: FB.ED 19:15
DX: K51.90 Ulcerative colitis, unspecified, without complications (principal); I10 Essential (primary) hypertension; F41.0 Panic disorder [episodic paroxysmal anxiety]; E66.9 Obesity, unspecified; Z88.4 Allergy status to anesthetic agent; Z88.6 Allergy status to analgesic agent; Z88.8 Allergy status to other drugs, medicaments and biological substances; Z79.899 Other long term (current) drug therapy; Z90.49 Acquired absence of other specified parts of digestive tract
CPT/HCPCS: 36415; 80048; 85027; 86140; 96361; 96374; 96375; 99284; A9270; J1170; J2930; J7040; J7050

== ENCOUNTER 2020-03-31 15:11 | Emergency (ER) | payer BC ==
--- NOTE | 2020-03-31 15:28 | EDM.PDOC ---
ED HPI GENERAL MEDICAL PROBLEM - General Time Seen by Provider: 03/31/20 15:20 Source of Information: Reports: Patient History Limitations: Reports: No Limitations - History of Present Illness INITIAL COMMENTS - FREE TEXT/NARRATIVE: 40-year-old female who reports that she has been having an ulcerative colitis flare for the past 3 weeks. She reports she was admitted 2 at [facility] during this time period and was just seen in this emergency department after those 2 admissions on 03/27/[address] Carlson and was given additional steroids and has been taking a steroid taper at home. She reports the pain has not improved and in fact it seems to have worsened with continued watery bloody diarrhea stools and pain in her left lower quadrant that is currently a 10/10. It is a spasmy and sharp type pain that does seem to radiate to the middle of her abdomen. She has had nausea but no vomiting. She has had no fevers or chills. She does feel somewhat weak. She has been able to sip liquids but has had really no appetite and when she tries to eat she develops worse nausea and it seems to make her pain somewhat worse as well and so she has not been eating. She has had no dysuria or hematuria. No back pain. No chest pain. No difficulty breathing. No nasal congestion or cough. No sore throat. There are no other associated signs or symptoms. There are no other modifying factors. It should be noted that she has not been on biologic's for her ulcerative colitis for the last 6 months. Onset: Other (Ongoing for the past 3 weeks with a waxing and waning course as above. 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(s) (Steroid medication) - Related Data Allergies Allergy/AdvReac Type Severity Reaction Status Date / Time fentanyl Allergy Medication Verified 09/23/19 02:31 is too strong, Delusions NSAIDS (Non-Steroidal Allergy Should be Verified 09/23/19 02:32 Anti-Inflamma avoided with colitis prednisone Allergy Sensitive Verified 09/23/19 02:34 to Prednisone, need to take Zyprexa along with it Home Meds: Home Meds FLUoxetine HCl [Prozac] 80 mg PO DAILY 12/22/18 [History] Ondansetron [Zofran ODT] 4 mg PO Q4H PRN #10 tab.dis 04/03/19 [Rx] LORazepam 1 mg PO TID PRN 06/21/19 [History] Multivitamin [Multivitamins] 1 each PO DAILY 06/21/19 [History] OLANZapine [ZyPREXA] 5 mg PO BEDTIME 06/21/19 [History] SUMAtriptan [Imitrex] 25 mg PO ASDIRECTED PRN 06/21/19 [History] amLODIPine Besylate [Norvasc] 10 mg PO DAILY 06/21/19 [History] Hydrocodone/Acetaminophen [[place] 5-325 Tablet] 1 each PO Q6HR PRN #20 tablet 03/27/20 [Rx] Past Medical History Cardiovascular History: Reports: Hypertension Respiratory History: Reports: Sleep Apnea Other Respiratory History: Uses CPAP. Gastrointestinal History: Reports: Inflammatory Bowel Disease, Other (See Below) Other Gastrointestinal History: History ulcerative colitis. History of EOE (Eosinophilic Esophagitis). RETORT OPERATOR History: Reports: Other (See Below) Other RETORT OPERATOR History: [id number]. Has Asherman's Syndrome of uterus. Musculoskeletal History: Reports: Arthritis, Fracture Other Musculoskeletal History: History of fracture right clavicle. Neurological History: Reports: Migraines Psychiatric History: Reports: Anxiety, Depression, Panic Attack, Psych Hospitalization(s) Endocrine/Metabolic History: Reports: Diabetes, Gestational, Obesity/BMI 30+ Hematologic History: Reports: Anemia, Blood Transfusion(s) Other Hematologic History: Has blood antibody. - Infectious Disease History Infectious Disease History: Reports: Chicken Pox - Past Surgical History HEENT Surgical History: Reports: Oral Surgery GI Surgical History: Reports: Cholecystectomy, Colonoscopy, EGD Female Surgical History: Reports: Section, Hysterectomy, Other (See Below) (I&D's following C-sections for infection.) Musculoskeletal Surgical History: Reports: Arthroscopic Knee Other Musculoskeletal Surgeries/Procedures:: Right knee scope. Social & Family History - Tobacco Use Smoking Status *Q: Never Smoker - Caffeine Use Caffeine Use: Reports: None - Alcohol Use Alcohol Use History: No - Living Situation & Occupation Living situation: Reports: ED ROS GENERAL - Review of Systems Review Of Systems: See Below Constitutional: Reports: Fatigue, Diaphoresis HEENT: Reports: No Symptoms Respiratory: Reports: No Symptoms Cardiovascular: Reports: No Symptoms GI/Abdominal: Reports: Abdominal Pain, Bloody Stool, Diarrhea, Hematochezia, Nausea. Denies: Vomiting : Reports: No Symptoms Musculoskeletal: Reports: No Symptoms Skin: Reports: Diaphoresis (Sweating with the pain.) Neurological: Reports: No Symptoms Hematologic/Lymphatic: Reports: No Symptoms Immunologic: Reports: No Symptoms ED EXAM, GI/ABD - Physical Exam Exam: See Below Exam Limited By: No Limitations General Appearance: Alert, Moderate Distress, Obese, Other (Appears in acute pain.) Eyes: Bilateral: Normal Appearance (Sclera are anicteric.), EOMI Ears: Normal External Exam, Hearing Grossly Normal Nose: Normal Inspection, Normal Mucosa, No Blood Throat/Mouth: Normal Voice, No Airway Compromise, Other (Somewhat dry mucous membranes. No pharyngeal erythema.) Head: Atraumatic, Normocephalic Neck: Normal Inspection, Supple, Non-Tender, Full Range of Motion Respiratory/Chest: No Respiratory Distress, Lungs Clear, Normal Breath Sounds, No Accessory Muscle Use, Chest Non-Tender Cardiovascular: Normal Peripheral Pulses, Regular Rate, Rhythm, No Murmur GI/Abdominal Exam: Normal Bowel Sounds, Soft, No Mass, Guarding, Tender (In the mid and left lower quadrants.). No: Rigid, Rebound Back Exam: Normal Inspection. No: CVA Tenderness (R), CVA Tenderness (L) Extremities: Normal Inspection, Normal Range of Motion, Non-Tender, No Pedal Edema, Normal Capillary Refill Neurological: Alert, Oriented, CN II-XII Intact, Normal Cognition, No Motor/Sensory Deficits Psychiatric: Normal Affect Skin Exam: Intact, Normal Color, No Rash, Cool, Diaphoretic Lymphatic: No Adenopathy Course - Vital Signs Last Recorded V/S: Last Vital Signs Temp 36.3 C 03/31/20 15:12 Pulse 99 03/31/20 15:12 Resp 22 H 03/31/20 15:12 BP 145/91 H 03/31/20 15:12 Pulse Ox 95 03/31/20 15:12 - Orders/Labs/Meds Orders: Active Orders 24 hr Category Date Time Status UA W/MICROSCOPIC [URIN] Stat Lab 08/23/20 15:37 Ordered Sodium Chloride 0.9% [Normal Saline] 1,000 ml Med 03/31/20 15:45 Active IV ASDIRECTED Sodium Chloride 0.9% [Saline Flush] Med 03/31/20 15:37 Active 10 ml FLUSH ASDIRECTED PRN Peripheral IV Insertion Adult [OM.PC] Routine Oth 03/31/20 15:37 Ordered Medication Orders Sodium Chloride (Normal Saline) 1,000 mls @ 150 mls/hr IV ASDIRECTED NAHID Sodium Chloride (Saline Flush) 10 ml FLUSH ASDIRECTED PRN PRN Reason: Keep Vein Open Last Admin: 03/31/20 15:57 Dose: 10 ml Documented by: BUBBA Labs: Laboratory Tests 03/31/20 03/31/20 03/31/20 Range/Units 16:00 16:00 16:00 WBC 15.6 H (4.5-12.0) X10-3/uL RBC 4.76 (3.23-5.20) x10(6)uL Hgb 12.8 (11.5-15.5) g/dL Hct 40.2 (30.0-51.3) % MCV 84.4 (80-96) fL MCH 26.9 L (27.7-33.6) pg MCHC 31.8 L (32.2-35.4) g/dL RDW 14.5 (11.5-15.5) % Plt Count 477 H (125-369) X10(3)uL MPV 8.3 (7.4-10.4) fL Neut % (Auto) 82.2 H (46-82) % Lymph % (Auto) 13.0 (13-37) % [place] % (Auto) 3.2 L (4-12) % Eos % (Auto) 0 L (1.0-5.0) % Baso % (Auto) 2 (0-2) % Neut # (Auto) 12.9 H (1.6-8.3) # Lymph # (Auto) 2.0 (0.6-5.0) # Irion # (Auto) 0.5 (0.0-1.3) # Eos # (Auto) 0.0 (0.0-0.8) # Baso # (Auto) 0.2 (0.0-0.2) # Sodium 138 (135-145) mmol/L Potassium 3.8 (3.5-5.3) mmol/L Chloride 101 (100-110) mmol/L Carbon Dioxide 26 (21-32) mmol/L BUN 20 H (7-18) mg/dL Creatinine 0.7 (0.55-1.02) mg/dL Est Cr Clr Drug Dosing TNP Estimated GFR (MDRD) > 60 (>60) BUN/Creatinine Ratio 28.6 H (9-20) Glucose 99 D (80-116) mg/dL Calcium 8.4 L (8.6-10.2) mg/dL Magnesium (1.8-2.5) mg/dL Total Bilirubin 0.3 (0.1-1.3) mg/dL AST 14 D (5-25) IU/L ALT 42 H (12-36) U/L Alkaline Phosphatase 103 (56-112) IU/L C-Reactive Protein 0.2 L (0.5-0.9) mg/dL Total Protein 7.1 (6.0-8.0) g/dL Albumin 3.1 L (3.5-5.2) g/dL Globulin 4.0 g/dL Albumin/Globulin Ratio 0.8 Lipase 98 (73-393) U/L // Range/Units 16:00 WBC (4.5-12.0) X10-3/uL RBC (3.23-5.20) x10(6)uL Hgb (11.5-15.5) g/dL Hct (30.0-51.3) % MCV (80-96) fL MCH (27.7-33.6) pg MCHC (32.2-35.4) g/dL RDW (11.5-15.5) % Plt Count (125-369) X10(3)uL MPV (7.4-10.4) fL Neut % (Auto) (46-82) % Lymph % (Auto) (13-37) % [place] % (Auto) (4-12) % Eos % (Auto) (1.0-5.0) % Baso % (Auto) (0-2) % Neut # (Auto) (1.6-8.3) # Lymph # (Auto) (0.6-5.0) # Irion # (Auto) (0.0-1.3) # Eos # (Auto) (0.0-0.8) # Baso # (Auto) (0.0-0.2) # Sodium (135-145) mmol/L Potassium (3.5-5.3) mmol/L Chloride (100-110) mmol/L Carbon Dioxide (21-32) mmol/L BUN (7-18) mg/dL Creatinine (0.55-1.02) mg/dL Est Cr Clr Drug Dosing Estimated GFR (MDRD) (>60) BUN/Creatinine Ratio (9-20) Glucose (80-116) mg/dL Calcium (8.6-10.2) mg/dL Magnesium 2.4 (1.8-2.5) mg/dL Total Bilirubin (0.1-1.3) mg/dL AST (5-25) IU/L ALT (12-36) U/L Alkaline Phosphatase (56-112) IU/L C-Reactive Protein (0.5-0.9) mg/dL Total Protein (6.0-8.0) g/dL Albumin (3.5-5.2) g/dL Globulin g/dL Albumin/Globulin Ratio Lipase (73-393) U/L Meds: Medications Generic Name Dose Route Start Last Admin Trade Name Freq PRN Reason Stop Dose Admin Sodium Chloride 1,000 mls @ 150 mls/hr 03/31/20 15:45 Normal Saline IV ASDIRECTED NAHID Sodium Chloride 10 ml 03/31/20 15:37 03/31/20 15:57 Saline Flush FLUSH 10 ml ASDIRECTED PRN Administration Keep Vein Open Discontinued Medications Generic Name Dose Route Start Last Admin Trade Name Freq PRN Reason Stop Dose Admin Hydromorphone HCl 1 mg 03/31/20 15:38 03/31/20 16:09 Dilaudid IVPUSH 03/31/20 15:39 1 mg ONETIME ONE Administration Hydromorphone HCl 1 mg 03/31/20 17:04 Dilaudid IVPUSH 03/31/20 17:05 ONETIME ONE Sodium Chloride 1,000 mls @ 999 mls/hr 03/31/20 15:38 03/31/20 16:02 Normal Saline IV 03/31/20 16:38 999 mls/hr .BOLUS ONE Administration Ondansetron HCl 4 mg 03/31/20 15:38 03/31/20 16:06 Zofran IVPUSH 03/31/20 15:39 4 mg ONETIME ONE Administration - Re-Assessments/Exams Free Text/Narrative Re-Assessment/Exam: 03/31/20 17:00: The patient has remained hemodynamically stable. She remains afebrile. Her pain is now down to a 7/10 but she is still in significant pain. Her white blood cell count is elevated but her CRP is normal. Her electrolytes are normal. Her LFTs are normal. Her lipase is normal. The reich is not yet provided us with a urine. A magnesium level is pending. I will give the patient another 1 mg dose of Dilaudid IV and will continue IV fluid hydration with normal saline. 03/31/20 17:40: Patient reports that her pain is now down to a 4/10. She feels much more comfortable. She has provided us with a urine and it is in lab and pending at this time. The urine did appear to be clear. Her abdomen remained soft and has now sounds present. She does still have pain on the left side with palpation. With the patient having 2 recent hospitalizations and then seen on 03/27/2020 here in this emergency department with yet another steroid course and worsening of her condition with continued bloody diarrhea and ongoing uncontrolled pain, the patient will need admission. She will need GI specially services which are not available at [facility] and therefore she will need to be transferred for those services. I discussed this with the patient and the 2 recent hospitalizations were at [facility] and she has asked me to call those doctors to discuss her case with them. 03/31/20 17:45: Call was placed to the [facility] intake line and the nurse will call me back when she has the hospitalist available to discuss this patient. 03/31/20 17:56: I discussed the patient's case with Dr. Wright, hospitalist at [facility], and he has agreed to accept the patient in transfer. We will continue IV fluid hydration with normal saline and continue IV pain medications and antinausea medications as needed and indicated. Evaluation will be transferred to [facility] via ambulance. The patient is in agreement with plans for transfer. Departure - Departure Time of Disposition: 18:05 Disposition: DC/Tfer to Acute Hospital 02 Condition: Good (Stable) Clinical Impression: Exacerbation of ulcerative colitis with rectal bleeding, Uncontrolled pain, Dehydration - Discharge Information Referrals: PCP,None [Primary Care Provider] - Sepsis Event Note (ED) - Focused Exam Vital Signs: Vital Signs Temp Pulse Resp BP Pulse Ox 03/31/20 15:12 36.3 C 99 22 H 145/91 H 95 - My Orders Last 24 Hours: My Active Orders 03/31/20 15:37 UA W/MICROSCOPIC [URIN] Stat Sodium Chloride 0.9% [Saline Flush] 10 ml FLUSH ASDIRECTED PRN Peripheral IV Insertion Adult [OM.PC] Routine 03/31/20 15:45 Sodium Chloride 0.9% [Normal Saline] 1,000 ml IV ASDIRECTED - Assessment/Plan Last 24 Hours: My Active Orders 03/31/20 15:37 UA W/MICROSCOPIC [URIN] Stat Sodium Chloride 0.9% [Saline Flush] 10 ml FLUSH ASDIRECTED PRN Peripheral IV Insertion Adult [OM.PC] Routine 03/31/20 15:45 Sodium Chloride 0.9% [Normal Saline] 1,000 ml IV ASDIRECTED
[2020-03-31] MEDS ORDERED: Sodium Chloride 0.9% 10 ML Syringe FLUSH PRN (15:37)
[2020-03-31] MEDS ORDERED: HYDROmorphone 2 MG/ML SDV IVPUSH ONE ×2 (15:38→17:04)
[2020-03-31] MEDS ORDERED: Ondansetron 4 MG/2 ML SDV IVPUSH ONE (15:38)
[2020-03-31] MEDS ORDERED: Sodium Chloride 0.9% 1,000 ML IV ONE (15:38)
[2020-03-31] MEDS ORDERED: Sodium Chloride 0.9% 1,000 ML IV SCH (15:45)
== END 2020-03-31 18:43 ==
LOC: FB.ED 15:11
DX: K51.911 Ulcerative colitis, unspecified with rectal bleeding (principal); E86.0 Dehydration; I10 Essential (primary) hypertension; F32.9 Major depressive disorder, single episode, unspecified; E66.9 Obesity, unspecified; F41.9 Anxiety disorder, unspecified; Z68.42 Body mass index [BMI] 45.0-49.9, adult; Z88.6 Allergy status to analgesic agent; Z88.8 Allergy status to other drugs, medicaments and biological substances; Z79.899 Other long term (current) drug therapy; Z90.49 Acquired absence of other specified parts of digestive tract; Z98.890 Other specified postprocedural states
CPT/HCPCS: 36415; 80053; 81001; 83690; 83735; 85025; 86140; 96361; 96374; 96375; 96376; 99285; J1170; J2405; J7030; 99284

== ENCOUNTER 2020-04-09 16:32 | Emergency (ER) | payer BC ==
[2020-04-09] MEDS ORDERED: Ondansetron 4 MG/2 ML SDV IVPUSH STA (16:49)
[2020-04-09] MEDS ORDERED: HYDROmorphone 2 MG/ML SDV IVPUSH ONE ×2 (16:51→18:52)
[2020-04-09] MEDS ORDERED: methylPREDNISolone Sodium Succinate 500 MG/4 ML SDV IVPUSH ONE (16:52)
[2020-04-09] MEDS ORDERED: Sodium Chloride 0.9% 1,000 ML IV SCH (17:00)
[2020-04-09] MEDS: Sodium Chloride 0.9% 10 ML Syringe FLUSH PRN ×2 (17:33→19:14)
[2020-04-09] MEDS ORDERED: methylPREDNISolone Sodium Succinate 125 MG/2 ML SDV ONE (17:37)
[2020-04-09] MEDS ORDERED: methylPREDNISolone Sodium Succinate 125 MG/2 ML SDV IVPUSH ONE (18:02)
[2020-04-09] MEDS ORDERED: Hyoscyamine 0.125 MG Tab.SL SL STA (18:22)
--- NOTE | 2020-04-09 19:05 | EDM.PDOC ---
ED HPI GENERAL MEDICAL PROBLEM - General Stated Complaint: ULCER COLITIS/ABD PAIN Time Seen by Provider: 04/09/20 16:45 Source of Information: Reports: Patient History Limitations: Reports: No Limitations - History of Present Illness INITIAL COMMENTS - FREE TEXT/NARRATIVE: Patient presented to the ED because of severe abd pain,N/V, bloody diarrhea. The pain is sharp and cramping 10/10. There is no fever or chills, no urinary symptoms. She was just discharged at [facility] on 04/04 where she stayed for 4 days received steroid and an unknown medicine for her UC. Abdominal Pain Score (Numeric/FACES): 2 - Related Data Allergies Allergy/AdvReac Type Severity Reaction Status Date / Time fentanyl Allergy Medication Verified 04/09/20 17:59 is too strong, Delusions NSAIDS (Non-Steroidal Allergy Should be Verified 04/09/20 17:59 Anti-Inflamma avoided with colitis prednisone Allergy Sensitive Verified 04/09/20 17:59 to Prednisone, need to take Zyprexa along with it Home Meds: Home Meds FLUoxetine HCl [Prozac] 80 mg PO DAILY 12/22/18 [History] Ondansetron [Zofran ODT] 4 mg PO Q4H PRN #10 tab.dis 04/03/19 [Rx] LORazepam 1 mg PO TID PRN 06/21/19 [History] Multivitamin [Multivitamins] 1 each PO DAILY 06/21/19 [History] OLANZapine [ZyPREXA] 5 mg PO BEDTIME 06/21/19 [History] SUMAtriptan [Imitrex] 25 mg PO ASDIRECTED PRN 06/21/19 [History] amLODIPine Besylate [Norvasc] 10 mg PO DAILY 06/21/19 [History] Hydrocodone/Acetaminophen [[place] 5-325 Tablet] 1 each PO Q6HR PRN #20 tablet 03/27/20 [Rx] Acetaminophen/oxyCODONE [Percocet 325-5 MG] 1 - 2 each PO Q4H #15 tab 04/09/20 [Rx] Past Medical History Cardiovascular History: Reports: Hypertension Respiratory History: Reports: Sleep Apnea Other Respiratory History: Uses CPAP. Gastrointestinal History: Reports: Inflammatory Bowel Disease, Other (See Below) Other Gastrointestinal History: History ulcerative colitis. History of EOE (Eosinophilic Esophagitis). 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 Has Asherman's Syndrome of uterus. Musculoskeletal History: Reports: Arthritis, Fracture Other Musculoskeletal History: History of fracture right clavicle. Neurological History: Reports: Migraines Psychiatric History: Reports: Anxiety, Depression, Panic Attack, Psych Hospitalization(s) Endocrine/Metabolic History: Reports: Diabetes, Gestational, Obesity/BMI 30+ Hematologic History: Reports: Anemia, Blood Transfusion(s) Other Hematologic History: Has blood antibody. Immunologic History: Reports: Other (See Below) Other Immunologic History: Takes biologics for ulcerative colitis. - Infectious Disease History Infectious Disease History: Reports: Chicken Pox - Past Surgical History HEENT Surgical History: Reports: Oral Surgery GI Surgical History: Reports: Cholecystectomy, Colonoscopy, EGD Female Surgical History: Reports: Section, Hysterectomy, Other (See Below) (I&D's following C-sections for infection.) Musculoskeletal Surgical History: Reports: Arthroscopic Knee Other Musculoskeletal Surgeries/Procedures:: Right knee scope. Social & Family History - Family History Family Medical History: Noncontributory - Caffeine Use Caffeine Use: Reports: None - Living Situation & Occupation Living situation: Reports: ED ROS GENERAL - Review of Systems Review Of Systems: See Below Constitutional: Reports: No Symptoms HEENT: Reports: No Symptoms Respiratory: Reports: No Symptoms Cardiovascular: Reports: No Symptoms Endocrine: Reports: No Symptoms GI/Abdominal: Reports: Abdominal Pain, Bloody Stool, Diarrhea, Nausea, Vomiting ED EXAM, GI/ABD - Physical Exam Exam: See Below Exam Limited By: No Limitations General Appearance: Alert, No Apparent Distress Ears: Normal External Exam, Normal Canal, Hearing Grossly Normal Nose: Normal Inspection, Normal Mucosa Throat/Mouth: Normal Inspection, Normal Lips, Normal Teeth Head: Atraumatic, Normocephalic Neck: Normal Inspection, Supple, Non-Tender, Full Range of Motion Respiratory/Chest: No Respiratory Distress, Lungs Clear, Normal Breath Sounds Cardiovascular: Normal Peripheral Pulses, Regular Rate, Rhythm, No Edema, No Gallop GI/Abdominal Exam: Normal Bowel Sounds, Soft, No Organomegaly, Other (diffusely tender) Back Exam: Normal Inspection, Full Range of Motion Extremities: Normal Inspection, Normal Range of Motion Course - Vital Signs Text/Narrative:: Labs reviewed with patient NS 1 L bolus Zofran 8 mg IV Dilaudid a total of 3 mg IV Patient refused to have CT I did consult with Dr Moses(GI) in [facility] who want her to be discharged to home, continue prednisone 40 mg for 5 more weeks. Percocet PRN for pain. Last Recorded V/S: Last Vital Signs Temp 36.7 C 04/09/20 19:38 Pulse 101 H 04/09/20 19:38 Resp 16 04/09/20 19:38 BP 122/94 H 04/09/20 19:38 Pulse Ox 95 04/09/20 19:38 - Orders/Labs/Meds Orders: Active Orders 24 hr Category Date Time Status Saline Lock Insert [OM.PC] Routine Oth 04/09/20 16:48 Ordered Labs: Laboratory Tests 04/09/20 04/09/20 04/09/20 Range/Units 17:05 17:05 17:05 WBC 15.3 H (4.5-12.0) X10-3/uL RBC 4.95 (3.23-5.20) x10(6)uL Hgb 13.6 (11.5-15.5) g/dL Hct 41.7 (30.0-51.3) % MCV 84.2 (80-96) fL MCH 27.5 L (27.7-33.6) pg MCHC 32.7 (32.2-35.4) g/dL RDW 15.2 (11.5-15.5) % Plt Count 432 H (125-369) X10(3)uL MPV 8.3 (7.4-10.4) fL Neutrophils % (Manual) 87 H (46-82) % Lymphocytes % (Manual) 9 L (13-37) % Monocytes % (Manual) 4 (4-12) % Sodium 136 (135-145) mmol/L Potassium 3.8 (3.5-5.3) mmol/L Chloride 100 (100-110) mmol/L Carbon Dioxide 25 (21-32) mmol/L BUN 17 (7-18) mg/dL Creatinine 0.9 (0.55-1.02) mg/dL Est Cr Clr Drug Dosing TNP Estimated GFR (MDRD) > 60 (>60) BUN/Creatinine Ratio 18.9 (9-20) Glucose 122 H (80-116) mg/dL Calcium 10.0 (8.6-10.2) mg/dL Total Bilirubin 0.7 (0.1-1.3) mg/dL AST 13 (5-25) IU/L ALT 47 H D (12-36) U/L Alkaline Phosphatase 99 (56-112) IU/L Total Protein 7.3 (6.0-8.0) g/dL Albumin 3.3 L (3.5-5.2) g/dL Globulin 4.0 g/dL Albumin/Globulin Ratio 0.8 Amylase 46 (25-115) U/L Lipase 124 (73-393) U/L Urine Color (YELLOW) Urine Appearance (CLEAR) Urine pH (5.0-6.5) Ur Specific [place] (1.010-1.025) Urine Protein (NEGATIVE) mg/dL Urine Glucose (UA) (NORMAL) mg/dL Urine Ketones (NEGATIVE) mg/dL Urine Occult Blood (NEGATIVE) Urine Nitrite (NEGATIVE) Urine Bilirubin (NEGATIVE) Urine Urobilinogen (NEGATIVE) mg/dL Ur Leukocyte Esterase (NEGATIVE) Urine RBC (0-5) Urine WBC (0-5) Ur Squamous Epith Cells (NS,R,O) Urine Bacteria (NS) Urine Mucus (NS) 04/09/20 Range/Units 19:30 WBC (4.5-12.0) X10-3/uL RBC (3.23-5.20) x10(6)uL Hgb (11.5-15.5) g/dL Hct (30.0-51.3) % MCV (80-96) fL MCH (27.7-33.6) pg MCHC (32.2-35.4) g/dL RDW (11.5-15.5) % Plt Count (125-369) X10(3)uL MPV (7.4-10.4) fL Neutrophils % (Manual) (46-82) % Lymphocytes % (Manual) (13-37) % Monocytes % (Manual) (4-12) % Sodium (135-145) mmol/L Potassium (3.5-5.3) mmol/L Chloride (100-110) mmol/L Carbon Dioxide (21-32) mmol/L BUN (7-18) mg/dL Creatinine (0.55-1.02) mg/dL Est Cr Clr Drug Dosing Estimated GFR (MDRD) (>60) BUN/Creatinine Ratio (9-20) Glucose (80-116) mg/dL Calcium (8.6-10.2) mg/dL Total Bilirubin (0.1-1.3) mg/dL AST (5-25) IU/L ALT (12-36) U/L Alkaline Phosphatase (56-112) IU/L Total Protein (6.0-8.0) g/dL Albumin (3.5-5.2) g/dL Globulin g/dL Albumin/Globulin Ratio Amylase (25-115) U/L Lipase (73-393) U/L Urine Color Yellow (YELLOW) Urine Appearance Clear (CLEAR) Urine pH 5.0 (5.0-6.5) Ur Specific [place] 1.015 (1.010-1.025) Urine Protein Negative (NEGATIVE) mg/dL Urine Glucose (UA) Normal (NORMAL) mg/dL Urine Ketones Negative (NEGATIVE) mg/dL Urine Occult Blood Negative (NEGATIVE) Urine Nitrite Negative (NEGATIVE) Urine Bilirubin Negative (NEGATIVE) Urine Urobilinogen Normal (NEGATIVE) mg/dL Ur Leukocyte Esterase Negative (NEGATIVE) Urine RBC 0-5 (0-5) Urine WBC 0-5 (0-5) Ur Squamous Epith Cells Few H (NS,R,O) Urine Bacteria Few H (NS) Urine Mucus Moderate H (NS) Meds: Medications Discontinued Medications Generic Name Dose Route Start Last Admin Trade Name Freq PRN Reason Stop Dose Admin Hydromorphone HCl 2 mg 04/09/20 16:51 04/09/20 17:33 Dilaudid IVPUSH 04/09/20 16:52 2 mg ONETIME ONE Administration Hydromorphone HCl 2 mg 04/09/20 18:52 04/09/20 19:13 Dilaudid IVPUSH 04/09/20 18:53 2 mg ONETIME ONE Administration Hyoscyamine 0.25 mg 04/09/20 18:22 04/09/20 18:33 Hyomax-Sl SL 04/09/20 18:23 0.25 mg NOW STA Administration Sodium Chloride 1,000 mls @ 999 mls/hr 04/09/20 17:00 04/09/20 17:41 Normal Saline IV 999 mls/hr ASDIRECTED NAHID Administration Methylprednisolone Sodium Succinate 250 mg 04/09/20 16:52 04/09/20 18:06 Solu-Medrol IVPUSH 04/09/20 16:53 Not Given ONETIME ONE Methylprednisolone Sodium Succinate Confirm 04/09/20 17:37 04/09/20 18:05 Solu-Medrol Administered 04/09/20 17:38 Not Given Dose 250 mg .ROUTE .STK-MED ONE Methylprednisolone Sodium Succinate 250 mg 04/09/20 18:02 04/09/20 18:05 Solu-Medrol IVPUSH 04/09/20 18:03 250 mg ONETIME ONE Administration Ondansetron HCl 4 mg 04/09/20 16:49 04/09/20 17:33 Zofran IVPUSH 04/09/20 16:50 4 mg NOW STA Administration Sodium Chloride 10 ml 04/09/20 16:48 04/09/20 19:14 Saline Flush FLUSH 10 ml ASDIRECTED PRN Administration Keep Vein Open Departure - Departure Time of Disposition: 19:00 Disposition: Home, Self-Care 01 Condition: Good Clinical Impression: Ulcerative colitis - Discharge Information Prescriptions: Acetaminophen/oxyCODONE [Percocet 325-5 MG] 1 - 2 each PO Q4H #15 tab Instructions: Ulcerative Colitis, Adult Referrals: PCP,None [Primary Care Provider] - Forms: ED Department Discharge Additional Instructions: Continue your medicine for ulcerative colitis until gone Percocet 5/325, take 1-2 tablets every 4-6 hours as needed for pain Keep your appointment to see Dr Josué murray Sepsis Event Note (ED) - Focused Exam Vital Signs: Vital Signs Temp Pulse Resp BP Pulse Ox 04/09/20 19:38 36.7 C 101 H 16 122/94 H 95 - My Orders Last 24 Hours: My Active Orders 04/09/20 16:48 Saline Lock Insert [OM.PC] Routine - Assessment/Plan Last 24 Hours: My Active Orders 04/09/20 16:48 Saline Lock Insert [OM.PC] Routine
== END 2020-04-09 20:02 | disposition home or self-care (01) ==
LOC: FB.ED 16:32
DX: K51.90 Ulcerative colitis, unspecified, without complications (principal); I10 Essential (primary) hypertension; F41.9 Anxiety disorder, unspecified; F32.9 Major depressive disorder, single episode, unspecified; E66.9 Obesity, unspecified; Z79.899 Other long term (current) drug therapy; Z88.8 Allergy status to other drugs, medicaments and biological substances; Z88.6 Allergy status to analgesic agent
CPT/HCPCS: 36415; 80053; 81001; 82150; 83690; 85025; 96361; 96374; 96375; 96376; 99284-25; A9270-GY; J1170; J2405; J2930; J7030

== ENCOUNTER 2020-04-18 17:38 | Emergency (ER) | payer BC ==
[2020-04-18] MEDS ORDERED: Acetaminophen/oxyCODONE 325-5 MG Tab PO ONE (17:39)
[2020-04-18] MEDS: Sodium Chloride 0.9% 10 ML Syringe FLUSH PRN (17:48)
--- NOTE | 2020-04-18 18:10 | EDM.PDOC ---
ED HPI GENERAL MEDICAL PROBLEM - General Chief Complaint: Abdominal Pain Stated Complaint: PAIN Time Seen by Provider: 04/18/20 18:00 Source of Information: Reports: Patient History Limitations: Reports: No Limitations - History of Present Illness INITIAL COMMENTS - FREE TEXT/NARRATIVE: Patient presented to the ED because of worsening abdominal pain for 2 the days. the pain is sharp,cramping, 10/10 with associated nausea but no vomiting. She also have bloody and mucoid stool. She is currently high dose prednisone for 3 more weeks and entruvia infusion once a month. She is scheduled to see Dr Moses, GI at [facility] sometime in May 2020. L lower abdomen & suprapubic region Pain Score (Numeric/FACES): 8 - Related Data Allergies Allergy/AdvReac Type Severity Reaction Status Date / Time NSAIDS (Non-Steroidal Allergy Other Verified 04/18/20 17:53 Anti-Inflamma Home Meds: Home Meds FLUoxetine HCl [Prozac] 80 mg PO DAILY 12/22/18 [History] Ondansetron [Zofran ODT] 4 mg PO Q4H PRN #10 tab.dis 04/03/19 [Rx] LORazepam 1 mg PO TID PRN 06/21/19 [History] Multivitamin [Multivitamins] 1 each PO DAILY 06/21/19 [History] SUMAtriptan [Imitrex] 25 mg PO ASDIRECTED PRN 06/21/19 [History] amLODIPine Besylate [Norvasc] 10 mg PO DAILY 06/21/19 [History] Acetaminophen/oxyCODONE [Percocet 325-5 MG] 1 - 2 each PO Q4H #15 tab 04/09/20 [Rx] .Entivio 1 injection IV ASDIRECTED 04/18/20 [History] Hyoscyamine Sulfate [Levsin-Sl] 0.25 mg SL BID #120 tab.subl 04/18/20 [Rx] predniSONE [Prednisone] 40 mg PO DAILY 04/18/20 [History] Past Medical History Cardiovascular History: Reports: Hypertension Respiratory History: Reports: Sleep Apnea Other Respiratory History: Uses CPAP. Gastrointestinal History: Reports: Inflammatory Bowel Disease, Other (See Below) Other Gastrointestinal History: History ulcerative colitis. History of EOE (Eosinophilic Esophagitis). 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 Has Asherman's Syndrome of uterus. Musculoskeletal History: Reports: Arthritis, Fracture Other Musculoskeletal History: History of fracture right clavicle. Neurological History: Reports: Migraines Psychiatric History: Reports: Anxiety, Depression, Panic Attack, Psych Hospitalization(s) Endocrine/Metabolic History: Reports: Diabetes, Gestational, Obesity/BMI 30+ Hematologic History: Reports: Anemia, Blood Transfusion(s) Other Hematologic History: Has blood antibody. Immunologic History: Reports: Other (See Below) Other Immunologic History: Takes biologics for ulcerative colitis. - Infectious Disease History Infectious Disease History: Reports: Chicken Pox - Past Surgical History HEENT Surgical History: Reports: Oral Surgery GI Surgical History: Reports: Cholecystectomy, Colonoscopy, EGD Female Surgical History: Reports: Section, Hysterectomy, Other (See Below) (I&D's following C-sections for infection.) Musculoskeletal Surgical History: Reports: Arthroscopic Knee Other Musculoskeletal Surgeries/Procedures:: Right knee scope. Social & Family History - Family History Family Medical History: Noncontributory - Caffeine Use Caffeine Use: Reports: None - Living Situation & Occupation Living situation: Reports: ED ROS GENERAL - Review of Systems Review Of Systems: See Below Constitutional: Reports: No Symptoms HEENT: Reports: No Symptoms Respiratory: Reports: No Symptoms Cardiovascular: Reports: No Symptoms Endocrine: Reports: No Symptoms GI/Abdominal: Reports: Nausea, Vomiting : Reports: No Symptoms Musculoskeletal: Reports: No Symptoms Skin: Reports: No Symptoms Neurological: Reports: No Symptoms Psychiatric: Reports: No Symptoms ED EXAM, GI/ABD - Physical Exam Exam: See Below Exam Limited By: No Limitations General Appearance: Alert, No Apparent Distress Ears: Normal External Exam, Normal Canal Nose: Normal Inspection, Normal Mucosa, No Blood Throat/Mouth: Normal Inspection, Normal Lips, Normal Teeth Head: Atraumatic, Normocephalic Neck: Normal Inspection, Supple, Non-Tender Respiratory/Chest: No Respiratory Distress, Lungs Clear, Normal Breath Sounds Cardiovascular: Normal Peripheral Pulses, Regular Rate, Rhythm, No Edema, No JVD, No Murmur GI/Abdominal Exam: Normal Bowel Sounds, Soft, No Organomegaly, Other (tenderness LLQ and LUQ) Back Exam: Normal Inspection, Full Range of Motion Extremities: Normal Inspection, Normal Range of Motion Neurological: Alert, Oriented, CN II-XII Intact Psychiatric: Normal Affect Course - Vital Signs Text/Narrative:: Labs/ NS 1 L bolus Zofran 4 mg IV x1 Vistaril 50 mg IM Levsin 0.25 mg SL x1 Solumedrol 2 mg IV x1 Dilaudid 2 mg IV x1 Refused to have Abdominal/pelvic CT Last Recorded V/S: Last Vital Signs Temp 36.8 C 04/18/20 17:38 Pulse 113 H 04/18/20 17:38 Resp 24 H 04/18/20 17:38 BP 130/96 H 04/18/20 17:38 Pulse Ox 98 04/18/20 17:38 - Orders/Labs/Meds Orders: Active Orders 24 hr Category Date Time Status UA W/MICROSCOPIC [URIN] Stat Lab 04/18/20 17:54 Ordered Sodium Chloride 0.9% [Normal Saline] 1,000 ml Med 04/18/20 18:00 Active IV ASDIRECTED Sodium Chloride 0.9% [Saline Flush] Med 04/18/20 17:54 Active 10 ml FLUSH ASDIRECTED PRN Saline Lock Insert [OM.PC] Routine Oth 04/18/20 17:54 Ordered Medication Orders Sodium Chloride (Normal Saline) 1,000 mls @ 999 mls/hr IV ASDIRECTED NAHID Last Admin: 04/18/20 18:17 Dose: 999 mls/hr Documented by: Sodium Chloride (Saline Flush) 10 ml FLUSH ASDIRECTED PRN PRN Reason: Keep Vein Open Labs: Laboratory Tests 04/18/20 04/18/20 04/18/20 Range/Units 17:48 17:48 17:48 WBC 16.2 H (4.5-12.0) X10-3/uL RBC 4.97 (3.23-5.20) x10(6)uL Hgb 13.5 (11.5-15.5) g/dL Hct 42.3 (30.0-51.3) % MCV 85.1 (80-96) fL MCH 27.1 L (27.7-33.6) pg MCHC 31.8 L (32.2-35.4) g/dL RDW 15.5 (11.5-15.5) % Plt Count 409 H (125-369) X10(3)uL MPV 8.3 (7.4-10.4) fL Neut % (Auto) 62.0 (46-82) % Lymph % (Auto) 30.5 (13-37) % [place] % (Auto) 5.1 (4-12) % Eos % (Auto) 1 (1.0-5.0) % Baso % (Auto) 1 (0-2) % Neut # (Auto) 10.0 H (1.6-8.3) # Lymph # (Auto) 5.0 (0.6-5.0) # [place] # (Auto) 0.8 (0.0-1.3) # Eos # (Auto) 0.2 (0.0-0.8) # Baso # (Auto) 0.2 (0.0-0.2) # Sodium 139 (135-145) mmol/L Potassium 3.4 L (3.5-5.3) mmol/L Chloride 102 (100-110) mmol/L Carbon Dioxide 24 (21-32) mmol/L BUN 21 H (7-18) mg/dL Creatinine 0.8 (0.55-1.02) mg/dL Est Cr Clr Drug Dosing 94.30 mL/min Estimated GFR (MDRD) > 60 (>60) BUN/Creatinine Ratio 26.3 H (9-20) Glucose 125 H (80-116) mg/dL Calcium 8.9 (8.6-10.2) mg/dL Total Bilirubin 0.5 (0.1-1.3) mg/dL AST 15 D (5-25) IU/L ALT 47 H (12-36) U/L Alkaline Phosphatase 90 (56-112) IU/L Total Protein 7.1 (6.0-8.0) g/dL Albumin 3.4 L (3.5-5.2) g/dL Globulin 3.7 g/dL Albumin/Globulin Ratio 0.9 Amylase 68 (25-115) U/L Lipase 185 (73-393) U/L Meds: Medications Generic Name Dose Route Start Last Admin Trade Name Freq PRN Reason Stop Dose Admin Sodium Chloride 1,000 mls @ 999 mls/hr 04/18/20 18:00 04/18/20 18:17 Normal Saline IV 999 mls/hr ASDIRECTED NAHID Administration Sodium Chloride 10 ml 04/18/20 17:54 Saline Flush FLUSH ASDIRECTED PRN Keep Vein Open Discontinued Medications Generic Name Dose Route Start Last Admin Trade Name [place] PRN Reason Stop Dose Admin Hydromorphone HCl 2 mg 04/18/20 17:56 Dilaudid IVPUSH 04/18/20 17:57 ONETIME ONE Hydroxyzine HCl 50 mg 04/18/20 17:55 Vistaril IM 04/18/20 17:56 ONETIME ONE Hyoscyamine 0.25 mg 04/18/20 18:15 Hyomax-Sl SL 04/18/20 18:16 NOW STA Methylprednisolone Sodium Succinate 250 mg 04/18/20 17:57 04/18/20 18:17 Solu-Medrol IVPUSH 04/18/20 17:58 Not Given ONETIME ONE Methylprednisolone Sodium Succinate 250 mg 04/18/20 18:15 Solu-Medrol IVPUSH 04/18/20 18:16 ONETIME ONE Ondansetron HCl 4 mg 04/18/20 17:55 Zofran IVPUSH 04/18/20 17:56 ONETIME ONE Departure - Departure Time of Disposition: 19:45 Disposition: Home, Self-Care 01 Condition: Good Clinical Impression: Ulcerative colitis - Discharge Information Prescriptions: Hyoscyamine Sulfate [Levsin-Sl] 0.25 mg SL BID #120 tab.subl Instructions: Ulcerative Colitis, Adult Referrals: PCP,None [Primary Care Provider] - Forms: ED Department Discharge Additional Instructions: Please read discharge instructions on Ulcerative colitis Continue your prednisone until gone Percocet 1 tablet every 4-6 hours as needed for pain Levsin 0.25 mg SL Twice daily Keep your appointment to see DR Moses in May Sepsis Event Note (ED) - Evaluation Sepsis Screening Result: Possible Sepsis Risk - Focused Exam Vital Signs: Vital Signs Temp Pulse Resp BP Pulse Ox 04/18/20 17:38 36.8 C 113 H 24 H 130/96 H 98 - My Orders Last 24 Hours: My Active Orders 04/18/20 17:54 UA W/MICROSCOPIC [URIN] Stat Sodium Chloride 0.9% [Saline Flush] 10 ml FLUSH ASDIRECTED PRN Saline Lock Insert [OM.PC] Routine 04/18/20 18:00 Sodium Chloride 0.9% [Normal Saline] 1,000 ml IV ASDIRECTED - Assessment/Plan Last 24 Hours: My Active Orders 04/18/20 17:54 UA W/MICROSCOPIC [URIN] Stat Sodium Chloride 0.9% [Saline Flush] 10 ml FLUSH ASDIRECTED PRN Saline Lock Insert [OM.PC] Routine 04/18/20 18:00 Sodium Chloride 0.9% [Normal Saline] 1,000 ml IV ASDIRECTED
[2020-04-18] MEDS: methylPREDNISolone Sodium Succinate 500 MG/4 ML SDV IVPUSH ONE (18:17)
[2020-04-18] MEDS: Sodium Chloride 0.9% 1,000 ML IV SCH (18:17)
[2020-04-18] MEDS: Ondansetron 4 MG/2 ML SDV IVPUSH ONE (18:18)
[2020-04-18] MEDS: HYDROmorphone 2 MG/ML SDV IVPUSH ONE (18:21)
[2020-04-18] MEDS: hydrOXYzine HCl 50 MG/ML SDV IM ONE (18:23)
[2020-04-18] MEDS: methylPREDNISolone Sodium Succinate 125 MG/2 ML SDV IVPUSH ONE (18:25)
[2020-04-18] MEDS: Hyoscyamine 0.125 MG Tab.SL SL STA (18:37)
[2020-04-18] MEDS: Potassium Chloride 20 MEQ Tab.ER PO ONE (19:18)
== END 2020-04-18 19:42 | disposition home or self-care (01) ==
LOC: FB.ED 17:38
DX: K51.90 Ulcerative colitis, unspecified, without complications (principal); I10 Essential (primary) hypertension; F32.9 Major depressive disorder, single episode, unspecified; E66.9 Obesity, unspecified; Z68.42 Body mass index [BMI] 45.0-49.9, adult; Z88.8 Allergy status to other drugs, medicaments and biological substances; Z79.899 Other long term (current) drug therapy
CPT/HCPCS: 80053; 82150; 83690; 85025; 96361; 96372; 96374; 96375; 99283; 99284-25; A9270-GY; J1170; J2405; J2930; J3410; J7030

== ENCOUNTER 2020-05-03 12:30 | Inpatient (IN) | payer BC ==
[2020-05-03] MEDS ORDERED: Ondansetron 4 MG/2 ML SDV IVPUSH ONE ×2 (13:14→14:43)
[2020-05-03] MEDS ORDERED: HYDROmorphone 2 MG/ML SDV IVPUSH ONE ×3 (13:16→16:12)
[2020-05-03] MEDS ORDERED: Sodium Chloride 0.9% 1,000 ML IV ONE (13:16)
--- NOTE | 2020-05-03 14:34 | EDM.PDOC ---
ED HPI GENERAL MEDICAL PROBLEM - General Stated Complaint: ABD PAIN Time Seen by Provider: 05/03/20 13:00 Source of Information: Reports: Patient History Limitations: Reports: No Limitations - History of Present Illness INITIAL COMMENTS - FREE TEXT/NARRATIVE: pt with Hx of ulcerative clitis, and recent hospitalization for recurrent abd pain and diagnosis of c-diff on vancomycin and steroids comes in with c/o recurrent sharp pain all across her abd along with diarrhea and blood in stool X 3 days, has nausea and had one emesis here, denies fever chills or any other associated sx or medical concerns. pt has Hx of . - Related Data Allergies Allergy/AdvReac Type Severity Reaction Status Date / Time NSAIDS (Non-Steroidal Allergy Other Verified 04/18/20 17:53 Anti-Inflamma Home Meds: Home Meds FLUoxetine HCl [Prozac] 80 mg PO DAILY 12/22/18 [History] Ondansetron [Zofran ODT] 4 mg PO Q4H PRN #10 tab.dis 04/03/19 [Rx] LORazepam 1 mg PO TID PRN 06/21/19 [History] Multivitamin [Multivitamins] 1 each PO DAILY 06/21/19 [History] SUMAtriptan [Imitrex] 25 mg PO ASDIRECTED PRN 06/21/19 [History] amLODIPine Besylate [Norvasc] 10 mg PO DAILY 06/21/19 [History] Acetaminophen/oxyCODONE [Percocet 325-5 MG] 1 - 2 each PO Q4H #15 tab 04/09/20 [Rx] .Entivio 1 injection IV ASDIRECTED 04/18/20 [History] Hyoscyamine Sulfate [Levsin-Sl] 0.25 mg SL BID #120 tab.subl 04/18/20 [Rx] predniSONE [Prednisone] 40 mg PO DAILY 04/18/20 [History] Past Medical History Cardiovascular History: Reports: Hypertension Respiratory History: Reports: Sleep Apnea Other Respiratory History: Uses CPAP. Gastrointestinal History: Reports: Inflammatory Bowel Disease, Other (See Below) Other Gastrointestinal History: History ulcerative colitis. History of EOE (Eosinophilic Esophagitis). 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 Has Asherman's Syndrome of uterus. Musculoskeletal History: Reports: Arthritis, Fracture Other Musculoskeletal History: History of fracture right clavicle. Neurological History: Reports: Migraines Psychiatric History: Reports: Anxiety, Depression, Panic Attack, Psych Hospitalization(s) Endocrine/Metabolic History: Reports: Diabetes, Gestational, Obesity/BMI 30+ Hematologic History: Reports: Anemia, Blood Transfusion(s) Other Hematologic History: Has blood antibody. Immunologic History: Reports: Other (See Below) Other Immunologic History: Takes biologics for ulcerative colitis. - Infectious Disease History Infectious Disease History: Reports: Chicken Pox - Past Surgical History HEENT Surgical History: Reports: Oral Surgery GI Surgical History: Reports: Cholecystectomy, Colonoscopy, EGD Female Surgical History: Reports: Section, Hysterectomy, Other (See Below) (I&D's following C-sections for infection.) Musculoskeletal Surgical History: Reports: Arthroscopic Knee Other Musculoskeletal Surgeries/Procedures:: Right knee scope. Social & Family History - Family History Family Medical History: Noncontributory - Caffeine Use Caffeine Use: Reports: None - Living Situation & Occupation Living situation: Reports: ED ROS GENERAL - Review of Systems Review Of Systems: See Below Constitutional: Reports: Fatigue. Denies: Fever, Chills HEENT: Reports: No Symptoms Respiratory: Reports: No Symptoms Cardiovascular: Reports: No Symptoms GI/Abdominal: Reports: Abdominal Pain, Anorexia, Bloody Stool, Diarrhea, Hematochezia, Nausea, Vomiting. Denies: Distension Musculoskeletal: Reports: No Symptoms Skin: Reports: No Symptoms Neurological: Reports: No Symptoms ED EXAM, GENERAL - Physical Exam Exam: See Below Exam Limited By: No Limitations General Appearance: Moderate Distress, Severe Distress Eye Exam: Bilateral Eye: Normal Inspection Ears: Normal External Exam Nose: Normal Inspection Throat/Mouth: Normal Inspection, Normal Oropharynx Head: Atraumatic, Normocephalic Neck: Normal Inspection, Supple, Non-Tender Respiratory/Chest: No Respiratory Distress, Lungs Clear, Normal Breath Sounds Cardiovascular: Normal Peripheral Pulses, Regular Rate, Rhythm, No Murmur GI/Abdominal: Normal Bowel Sounds, Soft, Tender. No: Guarding, Rebound Extremities: Normal Inspection Neurological: Alert, Oriented, CN II-XII Intact, No Motor/Sensory Deficits Psychiatric: Normal Affect Skin Exam: Warm Course - Vital Signs Text/Narrative:: pt is comfortable after repeated Dilaudid , zofran and fluids. labs are unremarkable, exam does not show signs of acute abd. will admit pt for treatment of abd pain secondary to ulcerative colitis and treatment of c-diff. Departure - Departure Time of Disposition: 14:39 Disposition: Admitted As Inpatient 66 Clinical Impression: Abdominal pain Qualifiers: Abdominal location: unspecified location Qualified Code(s): R10.9 - Unspecified abdominal pain - Discharge Information Referrals: PCP,None [Primary Care Provider] -
[2020-05-03] MEDS: Sodium Chloride 0.9% 1,000 ML IV SCH ×2 (14:35→23:50)
[2020-05-03] MEDS ORDERED: metroNIDAZOLE/Normal Saline 500 MG in Premix Bag 1 BAG IV SCH (14:45)
[2020-05-03] MEDS ORDERED: Ondansetron 4 MG/2 ML SDV IVPUSH PRN (15:45)
[2020-05-03] MEDS: Morphine 4 MG/ML VIAL IVPUSH PRN ×2 (16:33→20:57)
[2020-05-03] MEDS ORDERED: Ondansetron 4 MG Tab.DIS PO PRN (17:04)
[2020-05-03] MEDS ORDERED: LORazepam 1 MG Tab PO PRN (17:04)
[2020-05-03] MEDS ORDERED: OLANZapine 5 MG Tab PO PRN (17:04)
--- NOTE | 2020-05-03 17:10 | PCM.HP.2 ---
H&P History of Present Illness - General Date of Service: 05/03/20 Admit Problem/Dx: Admission Diagnosis/Problem Admission Diagnosis/Problem Ulcerative colitis Source of Information: Patient History Limitations: Reports: No Limitations - History of Present Illness Initial Comments - Free Text/Narative: This is a 40-year-old female patient with ulcerative colitis. She was up [facility] in the hospital and diagnosed with C. difficile sent home on a month of vancomycin. She had steroids and she was doing well for a few days and then started he started having abdominal pain and bloody diarrhea last 3 days. Any better so she came in. She says she feels warm and cold at times she has a exposure to other illnesses. She feels that this is her regular ulcerative colitis flares. She's had this before initially steroids and pain medication helped this. She denies dysuria, pyuria, hematuria, shortness of breath or cough or chest pain. Her belly pain is diffuse uses left lower quadrant. She's had cholecystectomy and hysterectomy in the past. She had a workup including a CT of the abdomen last 10 days. I have not reviewed it but ER doc said he did. lower abd Pain Score (Numeric/FACES): 8 - Related Data Allergies/Adverse Reactions: Allergies Allergy/AdvReac Type Severity Reaction Status Date / Time NSAIDS (Non-Steroidal Allergy Other Verified 05/03/20 16:37 Anti-Inflamma Home Medications: Home Meds FLUoxetine HCl [Prozac] 80 mg PO DAILY 12/22/18 [History] Ondansetron [Zofran ODT] 4 mg PO Q4H PRN #10 tab.dis 04/03/19 [Rx] LORazepam 1 mg PO TID PRN 06/21/19 [History] Multivitamin [Multivitamins] 1 each PO DAILY 06/21/19 [History] amLODIPine Besylate [Norvasc] 10 mg PO DAILY 06/21/19 [History] .Entivio 1 injection IV ASDIRECTED 04/18/20 [History] OLANZapine [Olanzapine] 5 mg PO BEDTIME PRN 05/03/20 [History] Vancomycin [Vancocin 125 MG Capsule] 125 mg PO QID 05/03/20 [History] methylPREDNISolone [Methylprednisolone] 40 mg PO DAILY 05/03/20 [History] Past Medical History Cardiovascular History: Reports: Hypertension Respiratory History: Reports: Sleep Apnea Other Respiratory History: Uses CPAP. Gastrointestinal History: Reports: Inflammatory Bowel Disease, Other (See Below) Other Gastrointestinal History: History ulcerative colitis. History of EOE (Eosinophilic Esophagitis). 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 Has Asherman's Syndrome of uterus. Musculoskeletal History: Reports: Arthritis, Fracture Other Musculoskeletal History: History of fracture right clavicle. Neurological History: Reports: Migraines Psychiatric History: Reports: Anxiety, Depression, Panic Attack, Psych Hospitalization(s) Endocrine/Metabolic History: Reports: Diabetes, Gestational, Obesity/BMI 30+ Hematologic History: Reports: Anemia, Blood Transfusion(s) Other Hematologic History: Has blood antibody. Immunologic History: Reports: Other (See Below) Other Immunologic History: Takes biologics for ulcerative colitis. - Infectious Disease History Infectious Disease History: Reports: Chicken Pox - Past Surgical History HEENT Surgical History: Reports: Oral Surgery GI Surgical History: Reports: Cholecystectomy, Colonoscopy, EGD Female Surgical History: Reports: Section, Hysterectomy, Other (See Below) (I&D's following C-sections for infection.) Musculoskeletal Surgical History: Reports: Arthroscopic Knee Other Musculoskeletal Surgeries/Procedures:: Right knee scope. Social & Family History - Family History Family Medical History: Noncontributory - Tobacco Use Smoking Status *Q: Never Smoker - Caffeine Use Caffeine Use: Reports: None - Living Situation & Occupation Living situation: Reports: H&P Review of Systems - Review of Systems: Review Of Systems: See Below General: Reports: Fever, Chills, Decreased Appetite HEENT: Reports: No Symptoms Pulmonary: Reports: No Symptoms Cardiovascular: Reports: No Symptoms Gastrointestinal: Reports: Abdominal Pain, Bloody Stool, Diarrhea Genitourinary: Reports: No Symptoms Musculoskeletal: Reports: No Symptoms Skin: Reports: No Symptoms Psychiatric: Reports: No Symptoms Neurological: Reports: No Symptoms Hematologic/Lymphatic: Reports: No Symptoms Immunologic: Reports: No Symptoms Exam - Exam Exam: See Below - Vital Signs Vital Signs: Last Vital Signs Temp 98.1 F 05/03/20 15:55 Pulse 105 H 05/03/20 15:55 Resp 15 05/03/20 15:55 BP 133/98 H 05/03/20 15:55 Pulse Ox 93 L 05/03/20 16:10 Weight: 305 lb - Exam General: Alert, Oriented, Cooperative HEENT: Hearing Intact, Mucosa Moist & [place], Posterior Pharynx Clear, TMs Clear Neck: Supple, Trachea Midline Lungs: Clear to Auscultation, Normal Respiratory Effort Cardiovascular: Regular Rate, Regular Rhythm. No: Systolic Murmur GI/Abdominal Exam: Other (Abdomen is soft with no rebound or guarding. Diffuse pain on palpation worse on left lower quadrant. Hypoactive bowel sounds.) Extremities: Normal Inspection, Normal Range of Motion, Non-Tender, No Pedal Edema Skin: Warm, Dry, Intact Neurological: Normal Speech, Normal Tone Neuro Extensive - Mental Status: Alert, Oriented x3, Normal Cognition, Memory Intact Psychiatric: Alert - Patient Data Lab Results Last 24 hrs: Laboratory Results - last 24 hr 05/03/20 05/03/20 05/03/20 Range/Units 13:10 13:10 13:10 WBC 11.4 (4.5-12.0) X10-3/uL RBC 4.97 (3.23-5.20) x10(6)uL Hgb 13.7 (11.5-15.5) g/dL Hct 42.1 (30.0-51.3) % MCV 84.9 (80-96) fL MCH 27.5 L (27.7-33.6) pg MCHC 32.4 (32.2-35.4) g/dL RDW 14.9 (11.5-15.5) % Plt Count 393 H (125-369) X10(3)uL MPV 8.4 (7.4-10.4) fL Neut % (Auto) 63.7 (46-82) % Lymph % (Auto) 28.3 (13-37) % [place] % (Auto) 6.0 (4-12) % Eos % (Auto) 1 (1.0-5.0) % Baso % (Auto) 1 (0-2) % Neut # (Auto) 7.3 (1.6-8.3) # Lymph # (Auto) 3.2 (0.6-5.0) # [place] # (Auto) 0.7 (0.0-1.3) # Eos # (Auto) 0.1 (0.0-0.8) # Baso # (Auto) 0.1 (0.0-0.2) # Sodium 141 (135-145) mmol/L Potassium 3.5 (3.5-5.3) mmol/L Chloride 103 (100-110) mmol/L Carbon Dioxide 26 (21-32) mmol/L BUN 17 (7-18) mg/dL Creatinine 0.9 (0.55-1.02) mg/dL Est Cr Clr Drug Dosing TNP Estimated GFR (MDRD) > 60 (>60) BUN/Creatinine Ratio 18.9 (9-20) Glucose 98 (80-116) mg/dL Calcium 9.3 (8.6-10.2) mg/dL Total Bilirubin 0.7 (0.1-1.3) mg/dL AST 21 D (5-25) IU/L ALT 72 H D (12-36) U/L Alkaline Phosphatase 80 (56-112) IU/L Total Protein 7.1 (6.0-8.0) g/dL Albumin 3.3 L (3.5-5.2) g/dL Globulin 3.8 g/dL Albumin/Globulin Ratio 0.9 Amylase 40 (25-115) U/L Lipase 109 (73-393) U/L Result Diagrams: 05/03/20 13:10 05/03/20 13:10 Sepsis Event Note - Evaluation Sepsis Screening Result: No Definite Risk - Focused Exam Vital Signs: Vital Signs Temp Pulse Resp BP Pulse Ox 05/03/20 16:10 93 L 05/03/20 15:55 98.1 F 105 H 15 133/98 H 96 05/03/20 12:30 99.0 F 138 H 18 145/109 H 99 - Problem List (1) Abdominal pain SNOMED Code(s): 52743896 ICD Code: R10.9 - UNSPECIFIED ABDOMINAL PAIN Status: Acute Current Visit: No (2) Dehydration SNOMED Code(s): 31243271 ICD Code: E86.0 - DEHYDRATION Status: Acute Current Visit: No (3) Diarrhea SNOMED Code(s): 30956814 ICD Code: R19.7 - DIARRHEA, UNSPECIFIED Status: Acute Current Visit: No (4) Exacerbation of ulcerative colitis with rectal bleeding SNOMED Code(s): 186395244, 598301981 ICD Code: K51.911 - ULCERATIVE COLITIS, UNSPECIFIED WITH RECTAL BLEEDING Status: Acute Current Visit: No (5) Uncontrolled pain SNOMED Code(s): 43347290598037352 ICD Code: R52 - PAIN, UNSPECIFIED Status: Acute Current Visit: No (6) Vomiting SNOMED Code(s): 594961798 ICD Code: R11.10 - VOMITING, UNSPECIFIED Status: Acute Current Visit: No Problem List Initiated/Reviewed/Updated: Yes Orders Last 24hrs: Active Orders 24 hr Category Date Time Status Patient Status [ADT] Routine ADT 05/03/20 14:40 Active Pulse Oximetry [RC] PRN Care 05/03/20 14:40 Active Up ad Hunter [RC] ASDIRECTED Care 05/03/20 17:04 Ordered Vital Signs [RC] Q4H Care 05/03/20 14:40 Active Full Liquid Diet [DIET] Diet 05/04/20 Breakfast Ordered .Entivio Med 05/03/20 17:15 Ordered 1 injection IV ASDIRECTED FLUoxetine [PROzac] Med 05/04/20 09:00 Ordered 80 mg PO DAILY LORazepam [Ativan] Med 05/03/20 17:04 Ordered 1 mg PO TID PRN Morphine Med 05/03/20 14:43 Active 4 mg IVPUSH Q4H PRN Multivitamin [Multivitamins] Med 05/04/20 09:00 Ordered 1 each PO DAILY OLANZapine [ZyPREXA] Med 05/03/20 17:04 Ordered 5 mg PO BEDTIME PRN Ondansetron [Zofran ODT] Med 05/03/20 17:04 Ordered 4 mg PO Q4H PRN Ondansetron [Zofran] Med 05/03/20 15:45 Active 4 mg IVPUSH Q4H PRN Sodium Chloride 0.9% [Normal Saline] 1,000 ml Med 05/03/20 14:45 Active IV ASDIRECTED Vancomycin [Vancocin 125 MG Capsule] Med 05/03/20 21:00 Ordered 125 mg PO QID amLODIPine [Norvasc] Med 05/04/20 09:00 Ordered 10 mg PO DAILY metroNIDAZOLE/Normal Saline [Flagyl 500 MG in NS 100 ML Med 05/04/20 00:00 Active ] 500 mg Premix Bag 1 bag IV Q8H Resuscitation Status Routine Resus Stat 05/03/20 14:40 Ordered Medication Orders Amlodipine Besylate (Norvasc) 10 mg PO DAILY [facility] Fluoxetine HCl (Prozac) 80 mg PO DAILY [facility] Sodium Chloride (Normal Saline) 1,000 mls @ 125 mls/hr IV ASDIRECTED [facility] Last Admin: 05/03/20 14:35 Dose: 125 mls/hr Documented by: MISSY Metronidazole 500 mg/ Premix 100 mls @ 100 mls/hr IV Q8H [facility] Lorazepam (Ativan) 1 mg PO TID PRN PRN Reason: Anxiety Morphine Sulfate (Morphine) 4 mg IVPUSH Q4H PRN PRN Reason: Abdominal Pain Last Admin: 05/03/20 16:33 Dose: 4 mg Documented by: JAILENE Non-Formulary Medication (.Entivio) 1 injection IV ASDIRECTED [facility] Non-Formulary Medication (Multivitamin [Multivitamins]) 1 each PO DAILY [facility] Olanzapine (Zyprexa) 5 mg PO BEDTIME PRN PRN Reason: Anxiety Ondansetron HCl (Zofran) 4 mg IVPUSH Q4H PRN PRN Reason: Nausea Ondansetron HCl (Zofran Odt) 4 mg PO Q4H PRN PRN Reason: Nausea Vancomycin HCl (Vancocin 125 Mg Capsule) 125 mg PO QID [facility] Assessment/Plan Comment:: 1. Admit to inpatient. 2. Hold off on blood thinners because her rectal bleeding. 3. Restart home medications including normal vancomycin dose. 4. Morphine for pain and IV steroids 5. Full liquid diet 6. Full code 7. Up ad hunter. 8. IV fluids 125 mL maintenance dose. - Mortality Measure Prognosis:: Good
[2020-05-03] MEDS ORDERED: [UNRECOGNIZED DRUG - OTHER] IV SCH (17:15)
[2020-05-03] MEDS: methylPREDNISolone Sodium Succinate 125 MG/2 ML SDV IVPUSH SCH (17:38)
[2020-05-03] MEDS: Vancomycin 125 MG Cap PO SCH (20:54)
[2020-05-03] MEDS ORDERED: Vancomycin 125 MG/5 ML ML Oral Solution PO SCH (21:00)
[2020-05-03] MEDS: metroNIDAZOLE/Normal Saline 500 MG in Premix Bag 1 BAG IV SCH (23:35)
[2020-05-04] MEDS: Morphine 4 MG/ML VIAL IVPUSH PRN ×2 (01:28→06:05)
[2020-05-04] MEDS: methylPREDNISolone Sodium Succinate 125 MG/2 ML SDV IVPUSH SCH (01:29)
[2020-05-04] MEDS ORDERED: Acetaminophen 325 MG Tab PO PRN (06:07)
--- NOTE | 2020-05-04 07:54 | PCM.PN ---
- General Info Date of Service: 05/04/20 Admission Dx/Problem (Free Text): Overall the patient says she feels better. She still has abdominal pain is now more left lower quadrant. She denies dysuria, pyuria, hematuria. She has not had a stool or bloody stools she's been in your. She has some nausea and tolerating clear liquids. Overall she is improved and she would like to be discharged. - Patient Data Vitals - Most Recent: Last Vital Signs Temp 97.6 F 05/04/20 04:00 Pulse 77 05/04/20 04:00 Resp 18 05/04/20 04:00 BP 133/93 H 05/04/20 04:00 Pulse Ox 96 05/04/20 04:00 Weight - Most Recent: 316 lb I&O - Last 24 Hours: Intake & Output 05/03/20 05/04/20 05/04/20 22:59 06:59 14:59 Intake Total 3225 Balance 3225 Lab Results Last 24 Hours: Laboratory Results - last 24 hr 05/03/20 05/03/20 05/03/20 Range/Units 13:10 13:10 13:10 WBC 11.4 (4.5-12.0) X10-3/uL RBC 4.97 (3.23-5.20) x10(6)uL Hgb 13.7 (11.5-15.5) g/dL Hct 42.1 (30.0-51.3) % MCV 84.9 (80-96) fL MCH 27.5 L (27.7-33.6) pg MCHC 32.4 (32.2-35.4) g/dL RDW 14.9 (11.5-15.5) % Plt Count 393 H (125-369) X10(3)uL MPV 8.4 (7.4-10.4) fL Neut % (Auto) 63.7 (46-82) % Lymph % (Auto) 28.3 (13-37) % [place] % (Auto) 6.0 (4-12) % Eos % (Auto) 1 (1.0-5.0) % Baso % (Auto) 1 (0-2) % Neut # (Auto) 7.3 (1.6-8.3) # Lymph # (Auto) 3.2 (0.6-5.0) # [place] # (Auto) 0.7 (0.0-1.3) # Eos # (Auto) 0.1 (0.0-0.8) # Baso # (Auto) 0.1 (0.0-0.2) # Sodium 141 (135-145) mmol/L Potassium 3.5 (3.5-5.3) mmol/L Chloride 103 (100-110) mmol/L Carbon Dioxide 26 (21-32) mmol/L BUN 17 (7-18) mg/dL Creatinine 0.9 (0.55-1.02) mg/dL Est Cr Clr Drug Dosing TNP Estimated GFR (MDRD) > 60 (>60) BUN/Creatinine Ratio 18.9 (9-20) Glucose 98 (80-116) mg/dL Calcium 9.3 (8.6-10.2) mg/dL Total Bilirubin 0.7 (0.1-1.3) mg/dL AST 21 D (5-25) IU/L ALT 72 H D (12-36) U/L Alkaline Phosphatase 80 (56-112) IU/L Total Protein 7.1 (6.0-8.0) g/dL Albumin 3.3 L (3.5-5.2) g/dL Globulin 3.8 g/dL Albumin/Globulin Ratio 0.9 Amylase 40 (25-115) U/L Lipase 109 (73-393) U/L Med Orders - Current: Current Medications Acetaminophen (Tylenol) 650 mg PO Q4H PRN PRN Reason: Headache Last Admin: 05/04/20 06:17 Dose: 650 mg Documented by: Amlodipine Besylate (Norvasc) 10 mg PO DAILY [facility] Fluoxetine HCl (Prozac) 80 mg PO DAILY [facility] Sodium Chloride (Normal Saline) 1,000 mls @ 125 mls/hr IV ASDIRECTED [facility] Last Admin: 05/03/20 23:50 Dose: 125 mls/hr Documented by: Metronidazole 500 mg/ Premix 100 mls @ 100 mls/hr IV Q8H [facility] Last Admin: 05/03/20 23:35 Dose: 100 mls/hr Documented by: Lorazepam (Ativan) 1 mg PO TID PRN PRN Reason: Anxiety Last Admin: 05/03/20 21:33 Dose: 1 mg Documented by: Methylprednisolone Sodium Succinate (Solu-Medrol) 125 mg IVPUSH Q8H [facility] Last Admin: 05/04/20 01:29 Dose: 125 mg Documented by: Morphine Sulfate (Morphine) 4 mg IVPUSH Q4H PRN PRN Reason: Abdominal Pain Last Admin: 05/04/20 06:05 Dose: 4 mg Documented by: Multivitamins/Minerals/Vitamin C (Tab-A-Holly) 1 tab PO DAILY [facility] Olanzapine (Zyprexa) 5 mg PO BEDTIME PRN PRN Reason: Anxiety Ondansetron HCl (Zofran) 4 mg IVPUSH Q4H PRN PRN Reason: Nausea Ondansetron HCl (Zofran Odt) 4 mg PO Q4H PRN PRN Reason: Nausea Vancomycin HCl (Vancocin 125 Mg Capsule) 125 mg PO QID [facility] Last Admin: 05/03/20 20:54 Dose: 125 mg Documented by: Discontinued Medications Hydromorphone HCl (Dilaudid) 2 mg IVPUSH ONETIME ONE Stop: 05/03/20 16:13 Hydromorphone HCl (Dilaudid) 1 mg IVPUSH ONETIME ONE Stop: 05/03/20 13:17 Last Admin: 05/03/20 13:16 Dose: 1 mg Documented by: Hydromorphone HCl (Dilaudid) 1 mg IVPUSH ONETIME ONE Stop: 05/03/20 14:36 Last Admin: 05/03/20 14:35 Dose: 1 mg Documented by: Metronidazole 500 mg/ Premix 100 mls @ 100 mls/hr IV Q8H [facility] Stop: 05/03/20 17:00 Last Admin: 05/03/20 15:48 Dose: 100 mls/hr Documented by: Sodium Chloride (Normal Saline) 1,000 mls @ 999 mls/hr IV .BOLUS ONE Stop: 05/03/20 14:16 Last Admin: 05/03/20 13:16 Dose: 999 mls/hr Documented by: Ondansetron HCl (Zofran) 4 mg IVPUSH ONETIME ONE Stop: 05/03/20 14:44 Last Admin: 05/03/20 16:40 Dose: Not Given Documented by: Ondansetron HCl (Zofran) 4 mg IVPUSH ONETIME ONE Stop: 05/03/20 13:15 Last Admin: 05/03/20 13:14 Dose: 4 mg Documented by: Vancomycin HCl (Vancocin 125 Mg/5 Ml Soln) 1,000 mg PO BID [facility]HID - Exam General: Alert, Oriented, Cooperative Lungs: Normal Respiratory Effort GI/Abdominal Exam: Other (Abdomen is soft with diffuse mild tenderness left lower quadrant suprapubic area. No rebound or guarding. Much improved from yesterday.) Sepsis Event Note - Evaluation Sepsis Screening Result: No Definite Risk - Focused Exam Vital Signs: Vital Signs Temp Pulse Resp BP Pulse Ox 05/04/20 04:00 97.6 F 77 18 133/93 H 96 05/04/20 00:00 97.1 F 84 18 124/82 96 05/03/20 20:00 97.4 F 85 20 125/84 96 - Problem List & Annotations (1) Abdominal pain SNOMED Code(s): 17697784 Code(s): R10.9 - UNSPECIFIED ABDOMINAL PAIN Status: Acute Current Visit: No (2) Dehydration SNOMED Code(s): 24799334 Code(s): E86.0 - DEHYDRATION Status: Acute Current Visit: No (3) Diarrhea SNOMED Code(s): 20965270 Code(s): R19.7 - DIARRHEA, UNSPECIFIED Status: Acute Current Visit: No (4) Exacerbation of ulcerative colitis with rectal bleeding SNOMED Code(s): 644200675, 125270421 Code(s): K51.911 - ULCERATIVE COLITIS, UNSPECIFIED WITH RECTAL BLEEDING Status: Acute Current Visit: No (5) Uncontrolled pain SNOMED Code(s): 88048137418634312 Code(s): R52 - PAIN, UNSPECIFIED Status: Acute Current Visit: No (6) Vomiting SNOMED Code(s): 987238501 Code(s): R11.10 - VOMITING, UNSPECIFIED Status: Acute Current Visit: No - Problem List Review Problem List Initiated/Reviewed/Updated: Yes - My Orders Last 24 Hours: My Active Orders 05/03/20 15:45 Ondansetron [Zofran] 4 mg IVPUSH Q4H PRN 05/03/20 17:04 Up ad Marely [RC] ASDIRECTED LORazepam [Ativan] 1 mg PO TID PRN OLANZapine [ZyPREXA] 5 mg PO BEDTIME PRN Ondansetron [Zofran ODT] 4 mg PO Q4H PRN 05/03/20 18:00 methylPREDNISolone Sod Succ [Solu-MEDROL] 125 mg IVPUSH Q8H 05/03/20 21:00 Vancomycin [Vancocin 125 MG Capsule] 125 mg PO QID 05/04/20 06:07 Acetaminophen [TylenoL] 650 mg PO Q4H PRN 05/04/20 Breakfast Full Liquid Diet [DIET] 05/04/20 09:00 FLUoxetine [PROzac] 80 mg PO DAILY Multivitamins [Tab-A-Holly] 1 tab PO DAILY amLODIPine [Norvasc] 10 mg PO DAILY - Plan Plan:: 1. Reviewed her CT scan from 04/19/20 and printed for the record. 2. Discharge to home on oral prednisone, Percocet, Zofran and metronidazole. 3. Stop her Solu-Medrol and continue her vancomycin dose as previous prescribed from [facility].
--- NOTE | 2020-05-04 08:04 | PCM.DCSUM1 ---
Discharge Summary - Hospital Course Free Text/Narrative:: Hospital course-patient was admitted place on IV fluids, Solu-Medrol, metronidazole and morphine IV for pain. She was able tolerate clear liquids and her BMs cleared up and should no rectal bleeding or diarrhea. She has little nausea that was corrected with some Zofran. Overnight she did well and her abdominal pain did improve. Overall she felt better and wanted to go home. We'll stop her sign the jaw and do a prednisone taper, continue metronidazole, Zofran and oral Percocet for pain control. She'll slowly advance her diet at home from clear liquids to full liquids and then full diet. Recheck 1 week. Brief History: This is a 40-year-old female patient with ulcerative colitis. She was up it [place] in the hospital and diagnosed with C. difficile sent home on a month of vancomycin. She had steroids and she was doing well for a few days and then started he started having abdominal pain and bloody diarrhea last 3 days. Any better so she came in. She says she feels warm and cold at times she has a exposure to other illnesses. She feels that this is her regular ulcerative colitis flares. She's had this before initially steroids and pain medication helped this. She denies dysuria, pyuria, hematuria, shortness of breath or cough or chest pain. Her belly pain is diffuse uses left lower quadrant. She's had cholecystectomy and hysterectomy in the past. She had a workup including a CT of the abdomen last 10 days. I have not reviewed it but ER doc said he did. Diagnosis: Stroke: No - Discharge Data Discharge Date: 05/04/20 Discharge Disposition: Home, Self-Care 01 Condition: Fair - Referral to Home Health Primary Care Physician: PCP None - Discharge Diagnosis/Problem(s) (1) Abdominal pain SNOMED Code(s): 88743943 ICD Code: R10.9 - UNSPECIFIED ABDOMINAL PAIN Status: Acute Current Visit: No (2) Dehydration SNOMED Code(s): 85284561 ICD Code: E86.0 - DEHYDRATION Status: Acute Current Visit: No (3) Diarrhea SNOMED Code(s): 52218925 ICD Code: R19.7 - DIARRHEA, UNSPECIFIED Status: Acute Current Visit: No (4) Exacerbation of ulcerative colitis with rectal bleeding SNOMED Code(s): 920102210, 486963132 ICD Code: K51.911 - ULCERATIVE COLITIS, UNSPECIFIED WITH RECTAL BLEEDING Status: Acute Current Visit: No (5) Uncontrolled pain SNOMED Code(s): 50528066247571091 ICD Code: R52 - PAIN, UNSPECIFIED Status: Acute Current Visit: No (6) Vomiting SNOMED Code(s): 880045504 ICD Code: R11.10 - VOMITING, UNSPECIFIED Status: Acute Current Visit: No - Patient Instructions Diet: Regular Diet as Tolerated Activity: As Tolerated Driving: May Drive Today Showering/Bathing: May Shower Notify Provider of: Fever, Increased Pain, Nausea and/or Vomiting Other/Special Instructions: 1. Recheck with Dr. Santana in 1 week. 2. Patient has an appointment with GI set up for 2 weeks from now. - Discharge Plan Prescriptions/Med Rec: metroNIDAZOLE [Metronidazole] 500 mg PO TID #30 tablet Acetaminophen/oxyCODONE [Percocet 325-5 MG] 1 each PO Q4HR PRN #40 tab PRN Reason: Pain predniSONE [Prednisone] See Taper PO DAILY #48 tab.ds.pk Ondansetron [Zofran ODT] 4 mg PO Q4H PRN #30 tab.dis PRN Reason: Nausea Home Medications: Home Meds FLUoxetine HCl [Prozac] 80 mg PO DAILY 12/22/18 [History] LORazepam 1 mg PO TID PRN 06/21/19 [History] Multivitamin [Multivitamins] 1 each PO DAILY 06/21/19 [History] amLODIPine Besylate [Norvasc] 10 mg PO DAILY 06/21/19 [History] .Entivio 1 injection IV ASDIRECTED 04/18/20 [History] OLANZapine [Olanzapine] 5 mg PO BEDTIME PRN 05/03/20 [History] Vancomycin [Vancocin 125 MG Capsule] 125 mg PO QID 05/03/20 [History] Acetaminophen/oxyCODONE [Percocet 325-5 MG] 1 each PO Q4HR PRN #40 tab 05/04/20 [Rx] Ondansetron [Zofran ODT] 4 mg PO Q4H PRN #30 tab.dis 05/04/20 [Rx] metroNIDAZOLE [Metronidazole] 500 mg PO TID #30 tablet 05/04/20 [Rx] predniSONE [Prednisone] See Taper PO DAILY #48 tab.ds.pk 05/04/20 [Rx] Forms: ED Department Discharge Referrals: PCP,None [Primary Care Provider] - - Discharge Summary/Plan Comment DC Time >30 min.: No - Patient Data Vitals - Most Recent: Last Vital Signs Temp 97.6 F 05/04/20 04:00 Pulse 77 05/04/20 04:00 Resp 18 05/04/20 04:00 BP 133/93 H 05/04/20 04:00 Pulse Ox 96 05/04/20 04:00 Weight - Most Recent: 316 lb I&O - Last 24 hours: Intake & Output 05/03/20 05/04/20 05/04/20 22:59 06:59 14:59 Intake Total 3225 Balance 3225 Lab Results - Last 24 hrs: Laboratory Results - last 24 hr 05/03/20 05/03/20 05/03/20 Range/Units 13:10 13:10 13:10 WBC 11.4 (4.5-12.0) X10-3/uL RBC 4.97 (3.23-5.20) x10(6)uL Hgb 13.7 (11.5-15.5) g/dL Hct 42.1 (30.0-51.3) % MCV 84.9 (80-96) fL MCH 27.5 L (27.7-33.6) pg MCHC 32.4 (32.2-35.4) g/dL RDW 14.9 (11.5-15.5) % Plt Count 393 H (125-369) X10(3)uL MPV 8.4 (7.4-10.4) fL Neut % (Auto) 63.7 (46-82) % Lymph % (Auto) 28.3 (13-37) % [place] % (Auto) 6.0 (4-12) % Eos % (Auto) 1 (1.0-5.0) % Baso % (Auto) 1 (0-2) % Neut # (Auto) 7.3 (1.6-8.3) # Lymph # (Auto) 3.2 (0.6-5.0) # [place] # (Auto) 0.7 (0.0-1.3) # Eos # (Auto) 0.1 (0.0-0.8) # Baso # (Auto) 0.1 (0.0-0.2) # Sodium 141 (135-145) mmol/L Potassium 3.5 (3.5-5.3) mmol/L Chloride 103 (100-110) mmol/L Carbon Dioxide 26 (21-32) mmol/L BUN 17 (7-18) mg/dL Creatinine 0.9 (0.55-1.02) mg/dL Est Cr Clr Drug Dosing TNP Estimated GFR (MDRD) > 60 (>60) BUN/Creatinine Ratio 18.9 (9-20) Glucose 98 (80-116) mg/dL Calcium 9.3 (8.6-10.2) mg/dL Total Bilirubin 0.7 (0.1-1.3) mg/dL AST 21 D (5-25) IU/L ALT 72 H D (12-36) U/L Alkaline Phosphatase 80 (56-112) IU/L Total Protein 7.1 (6.0-8.0) g/dL Albumin 3.3 L (3.5-5.2) g/dL Globulin 3.8 g/dL Albumin/Globulin Ratio 0.9 Amylase 40 (25-115) U/L Lipase 109 (73-393) U/L Med Orders - Current: Current Medications Acetaminophen (Tylenol) 650 mg PO Q4H PRN PRN Reason: Headache Last Admin: 05/04/20 06:17 Dose: 650 mg Documented by: Amlodipine Besylate (Norvasc) 10 mg PO DAILY [facility] Fluoxetine HCl (Prozac) 80 mg PO DAILY [facility] Sodium Chloride (Normal Saline) 1,000 mls @ 125 mls/hr IV ASDIRECTED [facility] Last Admin: 05/03/20 23:50 Dose: 125 mls/hr Documented by: Metronidazole 500 mg/ Premix 100 mls @ 100 mls/hr IV Q8H NAHID Last Admin: 05/03/20 23:35 Dose: 100 mls/hr Documented by: Lorazepam (Ativan) 1 mg PO TID PRN PRN Reason: Anxiety Last Admin: 05/03/20 21:33 Dose: 1 mg Documented by: Methylprednisolone Sodium Succinate (Solu-Medrol) 125 mg IVPUSH Q8H [facility] Last Admin: 05/04/20 01:29 Dose: 125 mg Documented by: Morphine Sulfate (Morphine) 4 mg IVPUSH Q4H PRN PRN Reason: Abdominal Pain Last Admin: 05/04/20 06:05 Dose: 4 mg Documented by: Multivitamins/Minerals/Vitamin C (Tab-A-Holly) 1 tab PO DAILY [facility] Olanzapine (Zyprexa) 5 mg PO BEDTIME PRN PRN Reason: Anxiety Ondansetron HCl (Zofran) 4 mg IVPUSH Q4H PRN PRN Reason: Nausea Ondansetron HCl (Zofran Odt) 4 mg PO Q4H PRN PRN Reason: Nausea Vancomycin HCl (Vancocin 125 Mg Capsule) 125 mg PO QID [facility] Last Admin: 05/03/20 20:54 Dose: 125 mg Documented by: Discontinued Medications Hydromorphone HCl (Dilaudid) 2 mg IVPUSH ONETIME ONE Stop: 05/03/20 16:13 Hydromorphone HCl (Dilaudid) 1 mg IVPUSH ONETIME ONE Stop: 05/03/20 13:17 Last Admin: 05/03/20 13:16 Dose: 1 mg Documented by: Hydromorphone HCl (Dilaudid) 1 mg IVPUSH ONETIME ONE Stop: 05/03/20 14:36 Last Admin: 05/03/20 14:35 Dose: 1 mg Documented by: Metronidazole 500 mg/ Premix 100 mls @ 100 mls/hr IV Q8H [facility] Stop: 05/03/20 17:00 Last Admin: 05/03/20 15:48 Dose: 100 mls/hr Documented by: Sodium Chloride (Normal Saline) 1,000 mls @ 999 mls/hr IV .BOLUS ONE Stop: 05/03/20 14:16 Last Admin: 05/03/20 13:16 Dose: 999 mls/hr Documented by: Ondansetron HCl (Zofran) 4 mg IVPUSH ONETIME ONE Stop: 05/03/20 14:44 Last Admin: 05/03/20 16:40 Dose: Not Given Documented by: Ondansetron HCl (Zofran) 4 mg IVPUSH ONETIME ONE Stop: 05/03/20 13:15 Last Admin: 05/03/20 13:14 Dose: 4 mg Documented by: Vancomycin HCl (Vancocin 125 Mg/5 Ml Soln) 1,000 mg PO BID [facility]
[2020-05-04] MEDS ORDERED: Acetaminophen/oxyCODONE 325-5 MG Tab PO PRN (08:13)
[2020-05-04] MEDS: metroNIDAZOLE/Normal Saline 500 MG in Premix Bag 1 BAG IV SCH (08:19)
[2020-05-04] MEDS: Vancomycin 125 MG Cap PO SCH (08:23)
[2020-05-04] MEDS ORDERED: amLODIPine 10 MG Tab PO SCH (09:00)
[2020-05-04] MEDS ORDERED: FLUoxetine 20 MG Cap PO SCH (09:00)
[2020-05-04] MEDS ORDERED: Multivitamin Tab PO SCH (09:00)
== END 2020-05-04 09:30 | disposition home or self-care (01) | DRG 245 ==
LOC: FB.ED 12:30 → FB.MS 14:40
PROVIDERS: ADMIT Family Medicine; ATTEND Family Medicine
DX: K51.911 Ulcerative colitis, unspecified with rectal bleeding (principal); E86.0 Dehydration; G47.30 Sleep apnea, unspecified; I10 Essential (primary) hypertension; M19.90 Unspecified osteoarthritis, unspecified site; F41.0 Panic disorder [episodic paroxysmal anxiety]; E66.9 Obesity, unspecified; D64.9 Anemia, unspecified; Z90.49 Acquired absence of other specified parts of digestive tract; Z90.710 Acquired absence of both cervix and uterus; Z88.8 Allergy status to other drugs, medicaments and biological substances; Z79.899 Other long term (current) drug therapy; Z68.42 Body mass index [BMI] 45.0-49.9, adult
CPT/HCPCS: 36415; 80053; 82150; 83690; 85025; 99217; 99218; A9270-GY; J1170; J2270; J2405; J2930; J3490; J7030

== ENCOUNTER 2020-05-15 13:11 | Inpatient (IN) | payer BC ==
[2020-05-15] MEDS ORDERED: Ondansetron 4 MG/2 ML SDV IVPUSH ONE (13:52)
[2020-05-15] MEDS ORDERED: Sodium Chloride 0.9% 1,000 ML IV ONE ×2 (13:53→15:06)
[2020-05-15] MEDS ORDERED: HYDROmorphone 2 MG/ML SDV IVPUSH ONE ×3 (13:54→16:28)
[2020-05-15] MEDS ORDERED: Iopamidol 755 Mg/ML 100 ML Bottle IV ONE (14:33)
--- NOTE | 2020-05-15 14:36 | EDM.PDOC ---
ED HPI GENERAL MEDICAL PROBLEM - General Chief Complaint: Abdominal Pain Time Seen by Provider: 05/15/20 14:21 Source of Information: Reports: Patient History Limitations: Reports: No Limitations - History of Present Illness INITIAL COMMENTS - FREE TEXT/NARRATIVE: c/o abd pain pt has had UC for years, in remisison from Sep to Feb, then inc'd diarrhea x 3m, dx C diff 2m ago, was in remission has been on vanco PO and metronidazole for over 1m, down to 1-2 loose brown BM today until yesterday when she had 4x of brown water with V and inc'd pain pain worse today, BM x 7 with new orange color and BRB, small clots, has had N/V, took AM prednisone and vanco and metronidazole and then had emesis, says the taste of emesis particular bad after taking prednisone was in the hosp overnight 2w ago under care of Dr Santana, however she left the next day as she had important family activities sees Dr Rito Ann from GI in [place], last lower endoscopy 1.5m ago per pt and showed moderate to severe UC in the L colon down to the anus, with polyps removed, has apt with Dr Ann in [place] in 6d PSH: prior abd surgery are hys, c/s x 1 with subsequent infection and 2 procedures to "clean up the infection," lab cholestrellita says she had a temp of 101 this AM PCP Padmaja Araujo, also plans to see Dr Santana has had oxy/apap 5/325 AM, last used 2d ago, then ran out [facility] 50 fills in past year, 5 in last month, in Apr received a total of 53 tabs of oxy/apap 5/325 mg, 9 tabs of oxycodone, 60 tabs of lorazepam begun on Entivio 1y ago, weaned off, then resumed 6w ago, currently on pred 30 mg/d no inc'd CRP in past, no ESR recorded in [facility] allergy to NSAID, says it makes UC worse (inc'd pain/diarrhea) lives with , 7 yo child and her disabled mother. None at home with fever or acute illness. 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, not on meds for it pain is sharp and different than in the past, sharp pain lasts a few seconds, denies spasm left side abd radiating to left side back Pain Score (Numeric/FACES): 10 - Related Data Allergies Allergy/AdvReac Type Severity Reaction Status Date / Time NSAIDS (Non-Steroidal Allergy Other Verified 05/03/20 16:37 Anti-Inflamma Home Meds: Home Meds FLUoxetine HCl [Prozac] 80 mg PO DAILY 12/22/18 [History] LORazepam 1 mg PO TID PRN 06/21/19 [History] Multivitamin [Multivitamins] 1 each PO DAILY 06/21/19 [History] amLODIPine Besylate [Norvasc] 10 mg PO DAILY 06/21/19 [History] .Entivio 1 injection IV ASDIRECTED 04/18/20 [History] OLANZapine [Olanzapine] 5 mg PO BEDTIME PRN 05/03/20 [History] Vancomycin [Vancocin 125 MG Capsule] 125 mg PO QID 05/03/20 [History] Acetaminophen/oxyCODONE [Percocet 325-5 MG] 1 each PO Q4HR PRN #40 tab 05/04/20 [Rx] Ondansetron [Zofran ODT] 4 mg PO Q4H PRN #30 tab.dis 05/04/20 [Rx] metroNIDAZOLE [Metronidazole] 500 mg PO TID #30 tablet 05/04/20 [Rx] predniSONE [Prednisone] 30 mg PO DAILY 05/15/20 [History] Past Medical History Cardiovascular History: Reports: Hypertension Respiratory History: Reports: Sleep Apnea Other Respiratory History: Uses CPAP. Gastrointestinal History: Reports: Inflammatory Bowel Disease, Other (See Below) Other Gastrointestinal History: History ulcerative colitis. History of EOE (Eosinophilic Esophagitis). Genitourinary History: Reports: None MEDICAL SALES CONSULTANT History: Reports: Other (See Below) Other MEDICAL SALES CONSULTANT History: [id number]. Has Asherman's Syndrome of uterus. Musculoskeletal History: Reports: Arthritis, Fracture Other Musculoskeletal History: History of fracture right clavicle. Neurological History: Reports: Migraines Psychiatric History: Reports: Anxiety, Depression, Panic Attack, Psych Hospitalization(s) Endocrine/Metabolic History: Reports: Diabetes, Gestational, Obesity/BMI 30+ Hematologic History: Reports: Anemia, Blood Transfusion(s) Other Hematologic History: Has blood antibody. Immunologic History: Reports: Other (See Below) Other Immunologic History: Takes biologics for ulcerative colitis. - Infectious Disease History Infectious Disease History: Reports: Chicken Pox - Past Surgical History Head Surgeries/Procedures: Reports: None HEENT Surgical History: Reports: Oral Surgery GI Surgical History: Reports: Cholecystectomy, Colonoscopy, EGD Female Surgical History: Reports: Section, Hysterectomy, Other (See Below) Musculoskeletal Surgical History: Reports: Arthroscopic Knee Other Musculoskeletal Surgeries/Procedures:: Right knee scope. Social & Family History - Family History Family Medical History: Noncontributory - Tobacco Use Smoking Status *Q: Never Smoker - Caffeine Use Caffeine Use: Reports: None - Living Situation & Occupation Living situation: Reports: ED ROS GENERAL - Review of Systems Review Of Systems: See Below Constitutional: Reports: Fever HEENT: Reports: No Symptoms Respiratory: Reports: No Symptoms Cardiovascular: Reports: No Symptoms Endocrine: Reports: No Symptoms GI/Abdominal: Reports: Abdominal Pain, Bloody Stool, Diarrhea, Mucous in Stool, Nausea, Vomiting : Reports: No Symptoms Musculoskeletal: Reports: No Symptoms Skin: Reports: No Symptoms Neurological: Reports: No Symptoms Psychiatric: Reports: No Symptoms Hematologic/Lymphatic: Reports: No Symptoms Immunologic: Reports: No Symptoms ED EXAM, GI/ABD - Physical Exam Exam: See Below Exam Limited By: No Limitations General Appearance: Alert, WD/WN, Mild Distress, Other (lying on R side, pleasant, conversant, normal speech pattern, nontoxic, c/o intermittent pain spasm) Head: Atraumatic, Normocephalic Neck: Normal Inspection, Supple, Non-Tender, Full Range of Motion. No: Lymphadenopathy (R), Lymphadenopathy (L) Respiratory/Chest: No Respiratory Distress, Lungs Clear, Normal Breath Sounds, No Accessory Muscle Use Cardiovascular: No Edema, No Gallop, No JVD, No Murmur, No Rub, Tachycardia GI/Abdominal Exam: Other (inc'd adipose tissue, BS present and perhaps dec'd, R side NT, upper abd NT including LUQ, mild 1+ tender at L mid colon, moderate 2+ tender at LLQ, no definite guard or rebound) Back Exam: Normal Inspection, Full Range of Motion. No: CVA Tenderness (R), CVA Tenderness (L) Extremities: Normal Inspection, Non-Tender, No Pedal Edema Neurological: Alert, Oriented, CN II-XII Intact, Normal Cognition, No Motor/Sensory Deficits Psychiatric: Normal Affect, Normal Mood Skin Exam: Warm, Dry, Intact, Normal Color, No Rash Lymphatic: No Adenopathy Course - Vital Signs Last Recorded V/S: Last Vital Signs Temp 36.8 C 05/15/20 13:11 Pulse 117 H 05/15/20 13:11 Resp 19 05/15/20 13:11 BP 161/106 H 05/15/20 13:11 Pulse Ox 100 05/15/20 13:11 - Orders/Labs/Meds Orders: Active Orders 24 hr Category Date Time Status Abdomen Pelvis w Cont [CT] Stat Exams 05/15/20 14:19 Taken Labs: Laboratory Tests 05/15/20 05/15/20 05/15/20 Range/Units 14:14 14:14 14:55 WBC 13.0 H (4.5-12.0) X10-3/uL RBC 4.55 (3.23-5.20) x10(6)uL Hgb 12.8 (11.5-15.5) g/dL Hct 39.0 (30.0-51.3) % MCV 85.8 (80-96) fL MCH 28.1 (27.7-33.6) pg MCHC 32.8 (32.2-35.4) g/dL RDW 14.9 (11.5-15.5) % Plt Count 354 (125-369) X10(3)uL MPV 8.7 (7.4-10.4) fL Neut % (Auto) 79.6 (46-82) % Lymph % (Auto) 13.0 (13-37) % [place] % (Auto) 5.9 (4-12) % Eos % (Auto) 1 (1.0-5.0) % Baso % (Auto) 0 (0-2) % Neut # (Auto) 10.3 H (1.6-8.3) # Lymph # (Auto) 1.7 (0.6-5.0) # [place] # (Auto) 0.8 (0.0-1.3) # Eos # (Auto) 0.1 (0.0-0.8) # Baso # (Auto) 0.1 (0.0-0.2) # ESR 32 H (0-20) mm/hr Sodium (135-145) mmol/L Potassium (3.5-5.3) mmol/L Chloride (100-110) mmol/L Carbon Dioxide (21-32) mmol/L BUN (7-18) mg/dL Creatinine (0.55-1.02) mg/dL Est Cr Clr Drug Dosing mL/min Estimated GFR (MDRD) (>60) BUN/Creatinine Ratio (9-20) Glucose (80-116) mg/dL Calcium (8.6-10.2) mg/dL Total Bilirubin (0.1-1.3) mg/dL AST (5-25) IU/L ALT (12-36) U/L Alkaline Phosphatase (56-112) IU/L C-Reactive Protein (0.5-0.9) mg/dL Total Protein (6.0-8.0) g/dL Albumin (3.5-5.2) g/dL Globulin g/dL Albumin/Globulin Ratio Urine Color Yellow (YELLOW) Urine Appearance Slightly cloudy (CLEAR) Urine pH 7.0 H (5.0-6.5) Ur Specific [place] 1.010 (1.010-1.025) Urine Protein Negative (NEGATIVE) mg/dL Urine Glucose (UA) Normal (NORMAL) mg/dL Urine Ketones Negative (NEGATIVE) mg/dL Urine Occult Blood Negative (NEGATIVE) Urine Nitrite Negative (NEGATIVE) Urine Bilirubin Negative (NEGATIVE) Urine Urobilinogen Normal (NEGATIVE) mg/dL Ur Leukocyte Esterase Negative (NEGATIVE) Urine RBC 0-5 (0-5) Urine WBC 0-5 (0-5) Ur Squamous Epith Cells Moderate H (NS,R,O) Urine Bacteria Few H (NS) Urine Mucus Moderate H (NS) SARS-CoV-2 RNA (LYNNE) Negative (NEGATIVE) 05/15/20 05/15/20 Range/Units 14:55 14:55 WBC (4.5-12.0) X10-3/uL RBC (3.23-5.20) x10(6)uL Hgb (11.5-15.5) g/dL Hct (30.0-51.3) % MCV (80-96) fL MCH (27.7-33.6) pg MCHC (32.2-35.4) g/dL RDW (11.5-15.5) % Plt Count (125-369) X10(3)uL MPV (7.4-10.4) fL Neut % (Auto) (46-82) % Lymph % (Auto) (13-37) % [place] % (Auto) (4-12) % Eos % (Auto) (1.0-5.0) % Baso % (Auto) (0-2) % Neut # (Auto) (1.6-8.3) # Lymph # (Auto) (0.6-5.0) # [place] # (Auto) (0.0-1.3) # Eos # (Auto) (0.0-0.8) # Baso # (Auto) (0.0-0.2) # ESR (0-20) mm/hr Sodium 141 (135-145) mmol/L Potassium 3.7 (3.5-5.3) mmol/L Chloride 104 (100-110) mmol/L Carbon Dioxide 24 (21-32) mmol/L BUN 16 (7-18) mg/dL Creatinine 0.8 (0.55-1.02) mg/dL Est Cr Clr Drug Dosing 94.30 mL/min Estimated GFR (MDRD) > 60 (>60) BUN/Creatinine Ratio 20.0 (9-20) Glucose 106 (80-116) mg/dL Calcium 8.8 (8.6-10.2) mg/dL Total Bilirubin 0.3 (0.1-1.3) mg/dL AST 38 H D (5-25) IU/L ALT 71 H (12-36) U/L Alkaline Phosphatase 68 (56-112) IU/L C-Reactive Protein 1.7 H (0.5-0.9) mg/dL Total Protein 6.7 (6.0-8.0) g/dL Albumin 2.9 L (3.5-5.2) g/dL Globulin 3.8 g/dL Albumin/Globulin Ratio 0.8 Urine Color (YELLOW) Urine Appearance (CLEAR) Urine pH (5.0-6.5) Ur Specific [place] (1.010-1.025) Urine Protein (NEGATIVE) mg/dL Urine Glucose (UA) (NORMAL) mg/dL Urine Ketones (NEGATIVE) mg/dL Urine Occult Blood (NEGATIVE) Urine Nitrite (NEGATIVE) Urine Bilirubin (NEGATIVE) Urine Urobilinogen (NEGATIVE) mg/dL Ur Leukocyte Esterase (NEGATIVE) Urine RBC (0-5) Urine WBC (0-5) Ur Squamous Epith Cells (NS,R,O) Urine Bacteria (NS) Urine Mucus (NS) SARS-CoV-2 RNA (LYNNE) (NEGATIVE) Meds: Medications Discontinued Medications Generic Name Dose Route Start Last Admin Trade Name Preston PRN Reason Stop Dose Admin Hydromorphone HCl 0.5 mg 05/15/20 13:54 05/15/20 14:01 Dilaudid IVPUSH 05/15/20 13:55 0.5 mg ONETIME ONE Administration Hydromorphone HCl 1 mg 05/15/20 14:55 05/15/20 14:59 Dilaudid IVPUSH 05/15/20 14:56 1 mg ONETIME ONE Administration Sodium Chloride 1,000 mls @ 999 mls/hr 05/15/20 13:53 05/15/20 14:01 Normal Saline IV 05/15/20 14:53 999 mls/hr .BOLUS ONE Administration Sodium Chloride 1,000 mls @ 999 mls/hr 05/15/20 15:06 05/15/20 15:25 Normal Saline IV 05/15/20 16:06 999 mls/hr .BOLUS ONE Administration Iopamidol 100 ml 05/15/20 14:33 05/15/20 15:13 Isovue-370 (76%) IV 05/15/20 14:34 100 ml . DIRECTED ONE Administration Ondansetron HCl 4 mg 05/15/20 13:52 05/15/20 13:59 Zofran IVPUSH 05/15/20 13:53 4 mg ONETIME ONE Administration - Re-Assessments/Exams Free Text/Narrative Re-Assessment/Exam: 05/15/20 16:35 CT abd/pelvis with IV contrast neg for colitis/enteritis alb 2.9, [place], 3.1 previous low ESR 32, no comparison AST/ALT 38/71, has been inc'd in this range in past WBC 13.0, may be steroids segs 79%, no bands fever at home, none here report blood in stool at home, Hemoccult neg here COVID neg pt says pain is 6/10 after 1.5 mg Dilaudid IV, will give an additional 0.5 mg IV minimal N after Zofran 4 mg IV, will give Reglan 10 mg IV pt does not think she will be able to eat or drink at home, requesting to be admitted no stool here in ED for WBC or C diff toxin d/w Dr Win who accepted her in admission and has already seen her here in ED Dr Win handed a copy of [facility] report Departure - Departure Time of Disposition: 16:29 Disposition: DC/Tfer to SNF 03 Condition: Good Clinical Impression: Ulcerative colitis, Nausea and vomiting, Unable to eat, History of Clostridioides difficile colitis, Elevated C-reactive protein, Elevated sedimentation rate, Hypoalbuminemia, Elevated liver function tests, Elevated WBC count, Fever, Tachycardia, Elevated blood pressure reading Abdominal pain Qualifiers: Abdominal location: unspecified location Qualified Code(s): R10.9 - Unspecified abdominal pain - Discharge Information *PRESCRIPTION DRUG MONITORING PROGRAM REVIEWED*: Yes *COPY OF PRESCRIPTION DRUG MONITORING REPORT IN PATIENT PROSPER: Not Applicable Referrals: PCP,None [Primary Care Provider] - Forms: ED Department Discharge Sepsis Event Note (ED) - Evaluation Sepsis Screening Result: No Definite Risk - Focused Exam Vital Signs: Vital Signs Temp Pulse Resp BP Pulse Ox 05/15/20 13:11 36.8 C 117 H 19 161/106 H 100 - My Orders Last 24 Hours: My Active Orders 05/15/20 14:19 Abdomen Pelvis w Cont [CT] Stat - Assessment/Plan Last 24 Hours: My Active Orders 05/15/20 14:19 Abdomen Pelvis w Cont [CT] Stat
[2020-05-15] MEDS ORDERED: Metoclopramide 10 MG/2 ML SDV IVPUSH ONE (16:28)
[2020-05-15] MEDS ORDERED: OLANZapine 5 MG Tab PO PRN (17:00)
[2020-05-15] MEDS ORDERED: LORazepam 1 MG Tab PO PRN (17:00)
[2020-05-15] MEDS: methylPREDNISolone Sodium Succinate 125 MG/2 ML SDV IVPUSH SCH (18:22)
[2020-05-15] MEDS: Vancomycin 125 MG Cap PO SCH ×2 (18:23→21:37)
[2020-05-15] MEDS: Lactated Ringers 1,000 ML IV SCH (18:25)
[2020-05-15] MEDS: oxyCODONE 5 MG Tab PO PRN ×2 (18:41→22:37)
--- NOTE | 2020-05-15 20:04 | HP ---
ADMISSION DATE: 05/15/2020 HISTORY: Eduarda is a 40-year-old woman with history of chronic ulcerative colitis. She also has had recurrent and persistent C difficile colitis, and has been on both metronidazole and vancomycin as an outpatient. The patient was recently discharged from an admission at [facility] after a flare-up of her C difficile colitis. She is chronically on oral prednisone and has been taking 30 mg per day. She now comes in stating that she has had increasing pain in the left lower quadrant over the past couple of days. She has had nausea and inability to eat. She is not having fever or chills, vomiting, or any respiratory symptoms, but states that her stools have been orange with the appearance of blood. PAST MEDICAL HISTORY: Multiple admissions for abdominal pain and colitis. She states that she had a colonoscopy this spring with significant polyp removal. She is 2, para 1, SAB 1, x1. She has had arthroscopic surgery on the right knee 3 times. She has eosinophilic esophagitis. She has bilateral cataracts, hypertension. She is status post cholecystectomy, D and C, vaginal hysterectomy for Asherman syndrome. She had to have a repeat surgery after infection from her . MEDICATIONS: 1. Prednisone 30 mg daily. 2. Zofran 4 mg every 4 hours p.r.n. 3. Olanzapine 5 mg at bedtime p.r.n. 4. Flagyl 500 mg t.i.d. 5. Lorazepam 1 mg t.i.d. p.r.n. 6. Fluoxetine 80 mg daily. 7. Norvasc 10 mg daily. ALLERGIES: No specific allergic reactions, but she is unable to tolerate NSAIDs due to her colitis. HABITS: Nonsmoker and nondrinker. Occasional caffeine. No other drugs. FAMILY HISTORY: The patient's father at age 59 of lung cancer. He also had ulcerative colitis. Mother is aged 61 and has rheumatoid arthritis. She has 43-year-old twin sisters with hypothyroidism. SOCIAL HISTORY: The patient has been for 15 years. She lives in [place]. She is unemployed. Her works for [employer], but is on [employer]. She has a 10-year-old daughter. REVIEW OF SYSTEMS: GENERAL: No seizure, syncope, or recent significant weight change. SKIN: Negative for rash. HEENT: No recent changes in hearing or vision, although she does report cataract formation due to long-term steroids. No sore throat, URI, cough, or respiratory symptoms. No chest pain or palpitations. No vomiting. She has had multiple stools in the last 24 hours, 5- 7 by her description of orange stool. No joint inflammation, swelling, or skin rash. PHYSICAL EXAMINATION: GENERAL: She is alert, but looks moderately uncomfortable, lying on her side in bed. VITAL SIGNS: Blood pressure 161/106, pulse 117 and regular, respirations 19, O2 saturation 100% on room air, temperature 98.3. Weight stated 300 pounds. She weighed at 316 pounds on May 04. SKIN: Shows no rash. HEENT: Show clear TMs. Throat is clear. NECK: Supple. LUNGS: Clear to the bases. HEART: Regular without murmur or gallop. ABDOMEN: Has bowel sounds present, but slightly hypoactive. She is tender to palpation deep in the left lower quadrant. No upper abdominal tenderness. EXTREMITIES: Show no edema. LABORATORY DATA: White count 13,000, hemoglobin 12.8, MCV 85, platelets 354, 79 segs, 13 lymphocytes, 6 monos, 1 eo. Electrolytes normal. BUN 16, creatinine 0.8, ALT 38, AST 71, CRP 1.7, albumin 2.9. Urinalysis negative. ASSESSMENT: A 40-year-old woman with: 1. Flare-up of abdominal pain and diarrhea. It is not clear whether this is an exacerbation of her chronic ulcerative colitis or a symptom of persistent Clostridium difficile colitis. 2. Long-term steroid dependence from chronic ulcerative colitis. 3. Anxiety. 4. Depression. 5. Hypertension. PLAN: She was admitted. We will continue IV hydration with bowel rest and clear liquids this evening and advance to a regular breakfast tomorrow morning if able. We will provide pain control with IV hydromorphone. Continue her oral antibiotics and check stool for C diff and Hemoccult. Plan short-term hospital stay with return to home when able. /[id number] 1957 OSWALDO/NADEEM
[2020-05-15] MEDS: metroNIDAZOLE 500 MG Tab PO SCH (21:37)
[2020-05-15] MEDS ORDERED: FLU Vacc QS2020-21 36MOS UP/PF 60 MCG/0.5 ML Syringe IM ONE (22:00)
[2020-05-15] MEDS: HYDROmorphone 2 MG/ML SDV IVPUSH PRN (22:35)
[2020-05-16] MEDS: Lactated Ringers 1,000 ML IV SCH ×3 (02:44→18:37)
[2020-05-16] MEDS: oxyCODONE 5 MG Tab PO PRN ×5 (02:45→23:51)
[2020-05-16] MEDS: methylPREDNISolone Sodium Succinate 125 MG/2 ML SDV IVPUSH SCH ×3 (02:47→17:56)
[2020-05-16] MEDS: HYDROmorphone 2 MG/ML SDV IVPUSH PRN ×3 (05:17→18:32)
[2020-05-16] MEDS ORDERED: FLU VACC QS2020-21(6MOS UP)/PF 60 MCG/0.5 ML SYRINGE IM ONE (08:00)
[2020-05-16] MEDS: Ondansetron 4 MG Tab.DIS PO PRN (08:17)
[2020-05-16] MEDS: metroNIDAZOLE 500 MG Tab PO SCH ×3 (08:30→20:07)
[2020-05-16] MEDS: FLUoxetine 20 MG Cap PO SCH (08:30)
[2020-05-16] MEDS: amLODIPine 10 MG Tab PO SCH (08:31)
[2020-05-16] MEDS: Vancomycin 125 MG Cap PO SCH ×4 (08:31→20:07)
--- NOTE | 2020-05-16 09:33 | HP ---
ADMISSION DATE: 05/15/2020 ADDENDUM: PAST MEDICAL HISTORY: Obstructive sleep apnea and obesity. ASSESSMENT AND DIAGNOSES: 1. Obstructive sleep apnea. 2. Obesity. 3. History of colon polyps. /[id number] 1947 OSWALDO/NADEEM
[2020-05-16] MEDS: Acetaminophen 325 MG Tab PO PRN ×2 (10:56→17:55)
--- NOTE | 2020-05-16 12:04 | PN ---
DATE SEEN: 05/16/2020 HISTORY: Eduarda is a 40-year-old with history of chronic ulcerative colitis and recent C. diff infection. She came in complaining of abdominal pain and multiple loose orange-colored stools per day. She was seen in the emergency room and admitted last evening to acute care for possible exacerbation of WILFRED. Her oral metronidazole and vancomycin were continued and she was started on IV steroid for WILFRED flare-up. She has not had any stools since admission. She is asking for MiraLAX for constipation, as she says the narcotics plugged her up. PHYSICAL EXAMINATION: GENERAL: She is awake. VITAL SIGNS: Blood pressure 126/91, pulse 92 and regular, respirations 22, O2 saturation 94% on room air, temp 97.5. SKIN: Shows no rash. LUNGS: Clear. HEART: Regular. ABDOMEN: Normal bowel sounds. Obese, soft. She has tenderness to palpation in the left lower quadrant. No guarding or rebound. EXTREMITIES: Show no edema at the ankles. ASSESSMENT: Abdominal pain with history of chronic ulcerative colitis and Clostridium difficile. PLAN: We are still waiting for stool sample to test for C. diff. She remains on C. diff precautions. She has been using narcotics around the clock and we will cut the hydromorphone and oxycodone doses down and supplement with Tylenol p.r.n. Anticipate an additional 24 hours of acute hospital stay followed by return to home. /[id number] 1020 OSWALDO/NADEEM
[2020-05-17] MEDS: HYDROmorphone 2 MG/ML SDV IVPUSH PRN ×2 (00:36→06:49)
[2020-05-17] MEDS: methylPREDNISolone Sodium Succinate 125 MG/2 ML SDV IVPUSH SCH ×2 (02:30→12:22)
[2020-05-17] MEDS: Lactated Ringers 1,000 ML IV SCH (02:37)
[2020-05-17] MEDS: Acetaminophen 325 MG Tab PO PRN ×2 (05:34→21:35)
[2020-05-17] MEDS: oxyCODONE 5 MG Tab PO PRN ×5 (05:34→21:36)
[2020-05-17] MEDS ORDERED: Polyethylene Glycol 3350 Powder 17 GM Packet PO SCH (09:00)
[2020-05-17] MEDS: amLODIPine 10 MG Tab PO SCH (10:06)
[2020-05-17] MEDS: FLUoxetine 20 MG Cap PO SCH (10:07)
[2020-05-17] MEDS: Vancomycin 125 MG Cap PO SCH ×4 (10:07→20:32)
[2020-05-17] MEDS: metroNIDAZOLE 500 MG Tab PO SCH ×3 (10:10→20:32)
[2020-05-17] MEDS ORDERED: Sodium Chloride 0.9% 10 ML Syringe FLUSH PRN (12:24)
--- NOTE | 2020-05-17 14:04 | PCM.PN ---
- General Info Date of Service: 05/17/20 Subjective Update: Eduarda has not had any stools yesterday either, asked to go off the Dilaudid. States it does help with pain but every time she's on it she is constipated. Also would like MiraLax. She was incontinent of urine this morning, voiding over 900 ml per episode, couldn't get to the bathroom in time this morning. She is drinking water and liquids without difficulty. No nausea or vomiting. LLQ pain controlled. No C-diff test yet. She had been admitted to [facility] prior to admission here and had positive test during that admission. Still on high dose SoluMedrol 125 mg IV 8h for Chronic ulcerative colitis. CT abdomen/pelvis ruled out diverticulitis, appendicitis or acute colitis. - Patient Data Vitals - Most Recent: Last Vital Signs Temp 97.6 F 05/16/20 23:40 Pulse 93 05/17/20 02:30 Resp 16 05/17/20 02:30 BP 144/107 H 05/17/20 10:06 Pulse Ox 92 L 05/17/20 02:30 Weight - Most Recent: 314 lb 1.6 oz I&O - Last 24 Hours: Intake & Output 05/16/20 05/17/20 05/17/20 22:59 06:59 14:59 Intake Total 1105 913 Output Total 600 2500 Balance 505 -1587 Lab Results Last 24 Hours: Laboratory Results - last 24 hr 05/16/20 05/17/20 Range/Units 17:49 05:39 POC Glucose 179 H 153 H (74-100) mg/dL Warner Results Last 24 Hours: Microbiology 05/15/20 12:15 Stool Occult Blood (WARNER) - Final Stool / Feces Med Orders - Current: Current Medications Acetaminophen (Tylenol) 650 mg PO Q6H PRN PRN Reason: Pain Last Admin: 05/17/20 05:34 Dose: 650 mg Documented by: Amlodipine Besylate (Norvasc) 10 mg PO DAILY NAHID Last Admin: 05/17/20 10:06 Dose: 10 mg Documented by: Fluoxetine HCl (Prozac) 80 mg PO DAILY NAHID Last Admin: 05/17/20 10:07 Dose: 80 mg Documented by: Lorazepam (Ativan) 1 mg PO TID PRN PRN Reason: Anxiety Last Admin: 05/16/20 02:45 Dose: 1 mg Documented by: Methylprednisolone Sodium Succinate (Solu-Medrol) 125 mg IVPUSH DAILY [facility], [facility] Last Admin: 05/17/20 12:22 Dose: 125 mg Documented by: Metronidazole (Flagyl) 500 mg PO TID [facility], [facility] Last Admin: 05/17/20 10:10 Dose: 500 mg Documented by: Olanzapine (Zyprexa) 5 mg PO BEDTIME PRN PRN Reason: Anxiety Ondansetron HCl (Zofran Odt) 4 mg PO Q4H PRN PRN Reason: Nausea Last Admin: 05/16/20 08:17 Dose: 4 mg Documented by: Oxycodone HCl (Oxycodone) 10 mg PO Q4H PRN PRN Reason: Pain (moderate 4-6) Last Admin: 05/17/20 13:32 Dose: 10 mg Documented by: Polyethylene Glycol (Miralax) 17 gm PO DAILY [facility] Last Admin: 05/17/20 10:05 Dose: 17 gm Documented by: Senna/Docusate Sodium (Senna Plus) 1 tab PO BID PRN PRN Reason: Constipation Sodium Chloride (Saline Flush) 10 ml FLUSH ASDIRECTED PRN PRN Reason: saline lock flush Vancomycin HCl (Vancocin 125 Mg Capsule) 125 mg PO QID [facility] Last Admin: 05/17/20 13:32 Dose: 125 mg Documented by: Discontinued Medications Hydromorphone HCl (Dilaudid) 0.5 mg IVPUSH ONETIME ONE Stop: 05/15/20 13:55 Last Admin: 05/15/20 14:01 Dose: 0.5 mg Documented by: Hydromorphone HCl (Dilaudid) 1 mg IVPUSH ONETIME ONE Stop: 05/15/20 14:56 Last Admin: 05/15/20 14:59 Dose: 1 mg Documented by: Hydromorphone HCl (Dilaudid) 0.5 mg IVPUSH ONETIME ONE Stop: 05/15/20 16:29 Last Admin: 05/15/20 16:44 Dose: 0.5 mg Documented by: Hydromorphone HCl (Dilaudid) 2 mg IVPUSH Q6H PRN PRN Reason: Pain Last Admin: 05/16/20 05:17 Dose: 2 mg Documented by: Hydromorphone HCl (Dilaudid) 1 mg IVPUSH Q6H PRN PRN Reason: Pain Last Admin: 05/17/20 06:49 Dose: 1 mg Documented by: Sodium Chloride (Normal Saline) 1,000 mls @ 999 mls/hr IV .BOLUS ONE Stop: 05/15/20 14:53 Last Admin: 05/15/20 14:01 Dose: 999 mls/hr Documented by: Sodium Chloride (Normal Saline) 1,000 mls @ 999 mls/hr IV .BOLUS ONE Stop: 05/15/20 16:06 Last Admin: 05/15/20 15:25 Dose: 999 mls/hr Documented by: Lactated Ringer's (Ringers, Lactated) 1,000 mls @ 125 mls/hr IV ASDIRECTED [facility], [facility] Last Admin: 05/17/20 02:37 Dose: 125 mls/hr Documented by: Influenza Virus Vaccine (Pharmacy To Dose - Influenza Vaccine) 1 each IM ONETIME ONE Stop: 05/15/20 21:38 Influenza Virus Vaccine (Fluzone Quad Syringe) 60 mcg IM .ONCE ONE Stop: 05/16/20 08:01 Last Admin: 05/16/20 08:19 Dose: 60 mcg Documented by: Iopamidol (Isovue-370 (76%)) 100 ml IV . DIRECTED ONE Stop: 05/15/20 14:34 Last Admin: 05/15/20 15:13 Dose: 100 ml Documented by: Methylprednisolone Sodium Succinate (Solu-Medrol) 125 mg IVPUSH Q8H [facility] Last Admin: 05/17/20 02:30 Dose: 125 mg Documented by: Metoclopramide HCl (Reglan) 10 mg IVPUSH ONETIME ONE Stop: 05/15/20 16:29 Last Admin: 05/15/20 16:44 Dose: 10 mg Documented by: Ondansetron HCl (Zofran) 4 mg IVPUSH ONETIME ONE Stop: 05/15/20 13:53 Last Admin: 05/15/20 13:59 Dose: 4 mg Documented by: Oxycodone HCl (Oxycodone) 5 - 10 mg PO Q4H PRN PRN Reason: Pain (moderate 4-6) Last Admin: 05/16/20 08:17 Dose: 10 mg Documented by: Oxycodone HCl (Oxycodone) 5 mg PO Q4H PRN PRN Reason: Pain (moderate 4-6) Last Admin: 05/17/20 10:09 Dose: 5 mg Documented by: - Exam General: Alert, Oriented, Cooperative, No Acute Distress Lungs: Clear to Auscultation, Normal Respiratory Effort Cardiovascular: Regular Rate, Regular Rhythm GI/Abdominal Exam: Soft, No Distention, Guarding, Tender (LLQ), Abnormal Bowel Sounds (hypoactive). No: Rigid, Rebound Peripheral Pulses: 2+: Radial (L), Radial (R) Sepsis Event Note - Evaluation Sepsis Screening Result: No Definite Risk - Focused Exam Vital Signs: Vital Signs Pulse Resp BP BP Pulse Ox 05/17/20 10:06 144/107 H 05/17/20 02:30 93 16 130/91 H 92 L - Problem List & Annotations (1) Abdominal pain SNOMED Code(s): 63206614 Code(s): R10.9 - UNSPECIFIED ABDOMINAL PAIN Status: Acute Current Visit: Yes Qualifiers: Abdominal location: unspecified location Qualified Code(s): R10.9 - Unspecified abdominal pain (2) History of Clostridioides difficile colitis SNOMED Code(s): 264431898, 684375121999450 Code(s): Z86.19 - PERSONAL HISTORY OF OTHER INFECTIOUS AND PARASITIC DISEASES Status: Acute Current Visit: Yes (3) Nausea and vomiting SNOMED Code(s): 57709301 Code(s): R11.2 - NAUSEA WITH VOMITING, UNSPECIFIED Status: Resolved Current Visit: Yes (4) Ulcerative colitis SNOMED Code(s): 55166491 Code(s): K51.90 - ULCERATIVE COLITIS, UNSPECIFIED, WITHOUT COMPLICATIONS Status: Chronic Current Visit: Yes Annotation/Comment:: Mrs Mejia will follow up with GI field sales consultant on Wednesday - Problem List Review Problem List Initiated/Reviewed/Updated: Yes - My Orders Last 24 Hours: My Active Orders 05/17/20 08:36 Docusate Sodium/Sennosides [Senna Plus] 1 tab PO BID PRN 05/17/20 09:00 polyethylene glycoL 3350 [MiraLAX] 17 gm PO DAILY 05/17/20 12:00 methylPREDNISolone Sod Succ [Solu-MEDROL] 125 mg IVPUSH DAILY 05/17/20 12:24 Sodium Chloride 0.9% [Saline Flush] 10 ml FLUSH ASDIRECTED PRN 05/17/20 12:31 oxyCODONE 10 mg PO Q4H PRN - Plan Plan:: 1. Continue Vancomycin 125 mg qid, Flagyl 500 mg tid, C-difficile waiting for loose stool. Contact precautions. 2. Saline lock IV. 3. Discontinue Dilaudid, increase Oxycodone 10 mg po q4h prn, Tylenol 1000 mg tid. 4. Constipation: MiraLAX 17 gm daily, Senna-S bid as needed constipation. 5. Wean down SoluMedrol 125 mg daily, got a dose at 2 am so will get dose at noon today for total 2 doses today, daily starting tomorrow, if she tolerates s tep down will go to oral Prednisone 80 mg on Wednesday. 6. Plan for discharge, off all IVs and tolerating oral medications.
[2020-05-18] MEDS: oxyCODONE 5 MG Tab PO PRN ×3 (02:01→11:19)
[2020-05-18] MEDS: Ondansetron 4 MG Tab.DIS PO PRN (02:05)
[2020-05-18] MEDS: Acetaminophen 325 MG Tab PO PRN (06:40)
[2020-05-18] MEDS ORDERED: Polyethylene Glycol 3350 Powder 17 GM Packet PO PRN (07:56)
[2020-05-18] MEDS ORDERED: Hydrochlorothiazide 12.5 MG Cap PO SCH (09:00)
--- NOTE | 2020-05-18 09:08 | PCM.DCSUM1 ---
Discharge Summary - Hospital Course HPI Initial Comments: c/o abd pain pt has had UC for years, in remisison from Sep to Feb, then inc'd diarrhea x 3m, dx C diff 2m ago, was in remission has been on vanco PO and metronidazole for over 1m, down to 1-2 loose brown BM today until yesterday when she had 4x of brown water with V and inc'd pain pain worse today, BM x 7 with new orange color and BRB, small clots, has had N/V, took AM prednisone and vanco and metronidazole and then had emesis, says the taste of emesis particular bad after taking prednisone was in the hosp overnight 2w ago under care of Dr Santana, however she left the next day as she had important family activities sees Dr Rito Ann from GI in [place], last lower endoscopy 1.5m ago per pt and showed moderate to severe UC in the L colon down to the anus, with polyps removed, has apt with Dr Ann in [place] in 6d PSH: prior abd surgery are hys, c/s x 1 with subsequent infection and 2 procedures to "clean up the infection," lab cholestrellita says she had a temp of 101 this AM PCP Padmaja Araujo, also plans to see Dr Santana has had oxy/apap 5/325 AM, last used 2d ago, then ran out MPMP 50 fills in past year, 5 in last month, in Apr received a total of 53 tabs of oxy/apap 5/325 mg, 9 tabs of oxycodone, 60 tabs of lorazepam begun on Entivio 1y ago, weaned off, then resumed 6w ago, currently on pred 30 mg/d no inc'd CRP in past, no ESR recorded in [facility] allergy to NSAID, says it makes UC worse (inc'd pain/diarrhea) lives with , 7 yo child and her disabled mother. None at home with fever or acute illness. 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, not on meds for it pain is sharp and different than in the past, sharp pain lasts a few seconds, denies spasm Diagnosis: Stroke: No - Discharge Data Discharge Date: 05/18/20 Discharge Disposition: Home, Self-Care 01 Condition: Stable - Referral to Home Health Primary Care Physician: PCP None - Discharge Diagnosis/Problem(s) (1) Abdominal pain SNOMED Code(s): 31067751 ICD Code: R10.9 - UNSPECIFIED ABDOMINAL PAIN Status: Acute Current Visit: Yes Problem Details: Improving Qualifiers: Abdominal location: unspecified location Qualified Code(s): R10.9 - Unspecified abdominal pain (2) History of Clostridioides difficile colitis SNOMED Code(s): 471338414, 206182443010655 ICD Code: Z86.19 - PERSONAL HISTORY OF OTHER INFECTIOUS AND PARASITIC DISEASES Status: Acute Current Visit: Yes (3) Nausea and vomiting SNOMED Code(s): 03279476 ICD Code: R11.2 - NAUSEA WITH VOMITING, UNSPECIFIED Status: Resolved Current Visit: Yes (4) Ulcerative colitis SNOMED Code(s): 46734644 ICD Code: K51.90 - ULCERATIVE COLITIS, UNSPECIFIED, WITHOUT COMPLICATIONS Status: Chronic Current Visit: Yes Problem Details: Mrs Mejia will follow up with GI men's custom hair piece consultant on Wednesday - Patient Summary/Data Hospital Course: Eduarda was admitted for abdominal pain, recently was admitted for C. difficile colitis in [place]. Started on IV fluids, discontinued 05/17. CT abdomen/pelvis was negative for any acute process. Stool occult negative. Unable to get repeat stool sample to recheck C. difficile. Was started on high dose steroids for suspected ulcerative colitis flare, was on SoluMedrol 125 mg q8h for 5 doses, then changed to daily, had two doses on 05/17, will have last dose today and star t Prednisone 80 mg taper, decreasing by 10 mg until back to home dose of 30 mg which would be on 05/24. She initially was on Dilaudid from admission, weaned down, did not have any stool on this, was discontinued on 05/17. Received 1 dose of MiraLAX and had a few formed, then soft and then pudding like stools last evening, was not incontinent. Labs were unremarkable day after admission. - Patient Instructions Diet: Usual Diet as Tolerated Activity: As Tolerated Showering/Bathing: May Shower Notify Provider of: Fever, Increased Pain, Nausea and/or Vomiting Other/Special Instructions: Follow up with your GI specialist on Wednesday as previously scheduled for ulcerative colitis. Follow up with Dr Santana on at 130 pm as previously scheduled, recheck high blood pressure. - Discharge Plan *PRESCRIPTION DRUG MONITORING PROGRAM REVIEWED*: Yes *COPY OF PRESCRIPTION DRUG MONITORING REPORT IN PATIENT PROSPER: Not Applicable Prescriptions/Med Rec: oxyCODONE 10 mg PO Q4H PRN 5 Days #30 tablet PRN Reason: Pain (Moderate 4-6) predniSONE 80 mg PO DAILY@0800 5 Days #30 tablet Home Medications: Home Meds FLUoxetine HCl [Prozac] 80 mg PO DAILY 12/22/18 [History] LORazepam 1 mg PO TID PRN 06/21/19 [History] Multivitamin [Multivitamins] 1 each PO DAILY 06/21/19 [History] amLODIPine Besylate [Norvasc] 10 mg PO DAILY 06/21/19 [History] .Entivio 1 injection IV ASDIRECTED 04/18/20 [History] OLANZapine [Olanzapine] 5 mg PO BEDTIME PRN 05/03/20 [History] Vancomycin [Vancocin 125 MG Capsule] 125 mg PO TID 05/03/20 [History] Ondansetron [Zofran ODT] 4 mg PO Q4H PRN #30 tab.dis 05/04/20 [Rx] metroNIDAZOLE [Metronidazole] 500 mg PO TID #30 tablet 05/04/20 [Rx] Acetaminophen [Tylenol] 650 mg PO Q6H PRN tablet 05/18/20 [Rx] oxyCODONE 10 mg PO Q4H PRN 5 Days #30 tablet 05/18/20 [Rx] predniSONE 80 mg PO DAILY@0800 5 Days #30 tablet 05/18/20 [Rx] predniSONE [Prednisone] 30 mg PO DAILY #0 05/18/20 [Rx] Patient Handouts: Nausea and Vomiting, Adult, [id number], Colitis, Fall Prevention in Hospitals, Adult, Venous Thromboembolism Prevention Forms: ED Department Discharge Referrals: PCP,None [Primary Care Provider] - - Discharge Summary/Plan Comment DC Time >30 min.: No - General Info Date of Service: 05/18/20 Subjective Update: Pain is controlled with oxycodone 10 mg every 4 hours with Tylenol. Had a couple bowel movements since stopping Dilaudid and 1 dose of MiraLAX. Has headache this morning just took Tylenol. Blood pressures are higher, less jittery today since weaning down on SoluMedrol. Will give HCTZ today, continue to taper steroids. To lerating oral medications, is ecstatic to go home after her last SoluMedrol dose at noon, hasn't seen her in 2 weeks. - Patient Data Vitals - Most Recent: Last Vital Signs Temp 98.1 F 05/18/20 00:00 Pulse 88 05/18/20 00:00 Resp 18 05/18/20 00:00 BP 142/99 H 05/18/20 00:00 Pulse Ox 96 05/18/20 00:00 Weight - Most Recent: 314 lb 1.6 oz I&O - Last 24 hours: Intake & Output 05/17/20 05/18/20 05/18/20 22:59 06:59 14:59 Output Total 700 1800 Balance -700 -1800 Lab Results - Last 24 hrs: Laboratory Results - last 24 hr 05/17/20 05/18/20 Range/Units 17:28 05:52 POC Glucose 189 H 119 H (74-100) mg/dL ANTONY Results - Last 24 hrs: Microbiology 05/15/20 12:15 Stool Occult Blood (ANTONY) - Final Stool / Feces Med Orders - Current: Current Medications Acetaminophen (Tylenol) 650 mg PO Q6H PRN PRN Reason: Pain Last Admin: 05/18/20 06:40 Dose: 650 mg Documented by: Amlodipine Besylate (Norvasc) 10 mg PO DAILY [facility] Last Admin: 05/17/20 10:06 Dose: 10 mg Documented by: Fluoxetine HCl (Prozac) 80 mg PO DAILY [facility] Last Admin: 05/17/20 10:07 Dose: 80 mg Documented by: Hydrochlorothiazide (Hydrochlorothiazide) 12.5 mg PO DAILY [facility] Lorazepam (Ativan) 1 mg PO TID PRN PRN Reason: Anxiety Last Admin: 05/16/20 02:45 Dose: 1 mg Documented by: Methylprednisolone Sodium Succinate (Solu-Medrol) 125 mg IVPUSH DAILY [facility] Stop: 05/18/20 13:00 Last Admin: 05/17/20 12:22 Dose: 125 mg Documented by: Metronidazole (Flagyl) 500 mg PO TID [facility] Last Admin: 05/17/20 20:32 Dose: 500 mg Documented by: Olanzapine (Zyprexa) 5 mg PO BEDTIME PRN PRN Reason: Anxiety Ondansetron HCl (Zofran Odt) 4 mg PO Q4H PRN PRN Reason: Nausea Last Admin: 05/18/20 02:05 Dose: 4 mg Documented by: Oxycodone HCl (Oxycodone) 10 mg PO Q4H PRN PRN Reason: Pain (moderate 4-6) Last Admin: 05/18/20 06:40 Dose: 10 mg Documented by: Polyethylene Glycol (Miralax) 17 gm PO DAILY PRN PRN Reason: Constipation Prednisone (Prednisone) 80 mg PO DAILY@0800 NAHID; Taper Stop: 05/24/20 07:59 Prednisone (Prednisone) 30 mg PO DAILY@0800 NAHID; Taper Stop: 05/29/20 07:59 Senna/Docusate Sodium (Senna Plus) 1 tab PO BID PRN PRN Reason: Constipation Sodium Chloride (Saline Flush) 10 ml FLUSH ASDIRECTED PRN PRN Reason: saline lock flush Vancomycin HCl (Vancocin 125 Mg Capsule) 125 mg PO QID NAHID Last Admin: 05/17/20 20:32 Dose: 125 mg Documented by: Discontinued Medications Hydromorphone HCl (Dilaudid) 0.5 mg IVPUSH ONETIME ONE Stop: 05/15/20 13:55 Last Admin: 05/15/20 14:01 Dose: 0.5 mg Documented by: Hydromorphone HCl (Dilaudid) 1 mg IVPUSH ONETIME ONE Stop: 05/15/20 14:56 Last Admin: 05/15/20 14:59 Dose: 1 mg Documented by: Hydromorphone HCl (Dilaudid) 0.5 mg IVPUSH ONETIME ONE Stop: 05/15/20 16:29 Last Admin: 05/15/20 16:44 Dose: 0.5 mg Documented by: Hydromorphone HCl (Dilaudid) 2 mg IVPUSH Q6H PRN PRN Reason: Pain Last Admin: 05/16/20 05:17 Dose: 2 mg Documented by: Hydromorphone HCl (Dilaudid) 1 mg IVPUSH Q6H PRN PRN Reason: Pain Last Admin: 05/17/20 06:49 Dose: 1 mg Documented by: Sodium Chloride (Normal Saline) 1,000 mls @ 999 mls/hr IV .BOLUS ONE Stop: 05/15/20 14:53 Last Admin: 05/15/20 14:01 Dose: 999 mls/hr Documented by: Sodium Chloride (Normal Saline) 1,000 mls @ 999 mls/hr IV .BOLUS ONE Stop: 05/15/20 16:06 Last Admin: 05/15/20 15:25 Dose: 999 mls/hr Documented by: Lactated Ringer's (Ringers, Lactated) 1,000 mls @ 125 mls/hr IV ASDIRECTED [facility] Last Admin: 05/17/20 02:37 Dose: 125 mls/hr Documented by: Influenza Virus Vaccine (Pharmacy To Dose - Influenza Vaccine) 1 each IM ONETIME ONE Stop: 05/15/20 21:38 Influenza Virus Vaccine (Fluzone Quad [id number] Syringe) 60 mcg IM .ONCE ONE Stop: 05/16/20 08:01 Last Admin: 05/16/20 08:19 Dose: 60 mcg Documented by: Iopamidol (Isovue-370 (76%)) 100 ml IV . DIRECTED ONE Stop: 05/15/20 14:34 Last Admin: 05/15/20 15:13 Dose: 100 ml Documented by: Methylprednisolone Sodium Succinate (Solu-Medrol) 125 mg IVPUSH Q8H [facility] Last Admin: 05/17/20 02:30 Dose: 125 mg Documented by: Metoclopramide HCl (Reglan) 10 mg IVPUSH ONETIME ONE Stop: 05/15/20 16:29 Last Admin: 05/15/20 16:44 Dose: 10 mg Documented by: Ondansetron HCl (Zofran) 4 mg IVPUSH ONETIME ONE Stop: 05/15/20 13:53 Last Admin: 05/15/20 13:59 Dose: 4 mg Documented by: Oxycodone HCl (Oxycodone) 5 - 10 mg PO Q4H PRN PRN Reason: Pain (moderate 4-6) Last Admin: 05/16/20 08:17 Dose: 10 mg Documented by: Oxycodone HCl (Oxycodone) 5 mg PO Q4H PRN PRN Reason: Pain (moderate 4-6) Last Admin: 05/17/20 10:09 Dose: 5 mg Documented by: Polyethylene Glycol (Miralax) 17 gm PO DAILY [facility] Last Admin: 05/17/20 10:05 Dose: 17 gm Documented by: - Exam General: Reports: Alert, Oriented, Cooperative, No Acute Distress Lungs: Reports: Clear to Auscultation, Normal Respiratory Effort Cardiovascular: Reports: Regular Rate, Regular Rhythm GI/Abdominal Exam: Normal Bowel Sounds, Soft, No Distention, Tender. No: Guarding, Rigid, Rebound
[2020-05-18] MEDS: metroNIDAZOLE 500 MG Tab PO SCH (09:17)
[2020-05-18] MEDS: amLODIPine 10 MG Tab PO SCH (09:18)
[2020-05-18] MEDS: FLUoxetine 20 MG Cap PO SCH (09:18)
[2020-05-18] MEDS: Vancomycin 125 MG Cap PO SCH (09:19)
[2020-05-18] MEDS: methylPREDNISolone Sodium Succinate 125 MG/2 ML SDV IVPUSH SCH (09:30)
[2020-05-19] MEDS ORDERED: predniSONE 10 MG Tab PO SCH (08:00)
[2020-05-24] MEDS ORDERED: predniSONE 10 MG Tab PO SCH (08:00)
== END 2020-05-18 12:00 | disposition home or self-care (01) | DRG 245 ==
LOC: FB.ED 13:11 → FB.MS 16:41
PROVIDERS: ADMIT Emergency Medicine; ATTEND Family Medicine
DX: K51.90 Ulcerative colitis, unspecified, without complications (principal); G47.33 Obstructive sleep apnea (adult) (pediatric); E66.9 Obesity, unspecified; F41.9 Anxiety disorder, unspecified; F32.9 Major depressive disorder, single episode, unspecified; I10 Essential (primary) hypertension; Z86.010 Personal history of colon polyps; Z79.52 Long term (current) use of systemic steroids; Z79.899 Other long term (current) drug therapy; Z20.828 Contact with and (suspected) exposure to other viral communicable diseases; Z86.19 Personal history of other infectious and parasitic diseases; Z68.42 Body mass index [BMI] 45.0-49.9, adult
CPT/HCPCS: 36415; 74177; 80053; 81001; 82272; 82962; 85025; 85027; 85651; 86140; 90686; 96361; 96374; 96375; 96376; 99285-25; A9270-GY; J1170; J2405; J2765; J2930; J7030; J7120; Q9967; U0002

== ENCOUNTER 2020-06-08 12:08 | Emergency (ER) | payer BC ==
[2020-06-08] MEDS ORDERED: Acetaminophen/Codeine 300-30 MG Tab PO ONE (12:09)
[2020-06-08] MEDS ORDERED: Sodium Chloride 0.9% 1,000 ML IV ONE (12:20)
[2020-06-08] MEDS ORDERED: Ondansetron 4 MG/2 ML SDV IVPUSH ONE (12:20)
[2020-06-08] MEDS: Sodium Chloride 0.9% 10 ML Syringe FLUSH PRN ×2 (12:29→15:01)
[2020-06-08] MEDS ORDERED: HYDROmorphone 2 MG/ML SDV IVPUSH ONE (13:11)
--- NOTE | 2020-06-08 13:23 | EDM.PDOC ---
ED HPI GENERAL MEDICAL PROBLEM - General Chief Complaint: Abdominal Pain Time Seen by Provider: 06/08/20 13:19 Source of Information: Reports: Patient, Old Records History Limitations: Reports: No Limitations - History of Present Illness INITIAL COMMENTS - FREE TEXT/NARRATIVE: Eduarda complains of severe left lower quadrant abd pain,x 3days.Associated with diarrhea.Loose copious amounts of stools >10 per day.No fever. Has had vomiting today x 1. Some nausea. Has had multiple ED visit s for similar conditions and her history includes a colonoscopy on 04/02/20 that showed chronic inflammation(colitis). 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: Reports: Acetaminophen, Other (see below) Other 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: ZOFRAN, THREW BOTH MEDS UP LEFT/MIDDLE ABDOMAN Pain Score (Numeric/FACES): 9 - Related Data Allergies Allergy/AdvReac Type Severity Reaction Status Date / Time NSAIDS (Non-Steroidal Allergy Other Verified 06/08/20 12:20 Anti-Inflamma Home Meds: Home Meds FLUoxetine HCl [Prozac] 80 mg PO DAILY 12/22/18 [History] LORazepam 1 mg PO TID PRN 06/21/19 [History] Multivitamin [Multivitamins] 1 each PO DAILY 06/21/19 [History] amLODIPine Besylate [Norvasc] 10 mg PO DAILY 06/21/19 [History] .Entivio 1 injection IV ASDIRECTED 04/18/20 [History] OLANZapine [Olanzapine] 5 mg PO BEDTIME PRN 05/03/20 [History] Ondansetron [Zofran ODT] 4 mg PO Q4H PRN #30 tab.dis 05/04/20 [Rx] Acetaminophen [Tylenol] 650 mg PO Q6H PRN tablet 05/18/20 [Rx] Past Medical History Cardiovascular History: Reports: Hypertension Respiratory History: Reports: Sleep Apnea Other Respiratory History: Uses CPAP. Gastrointestinal History: Reports: Diverticulosis, GERD, GI Bleed, Hemorrhoids, Inflammatory Bowel Disease, Irritable Bowel Syndrome, Other (See Below) Other Gastrointestinal History: History ulcerative colitis. History of EOE (Eosinophilic Esophagitis). Genitourinary History: Reports: None DOOR ATTENDANT History: Reports: Other (See Below) Other DOOR ATTENDANT History: [id number]. Has Asherman's Syndrome of uterus. Musculoskeletal History: Reports: Arthritis, Fracture Other Musculoskeletal History: History of fracture right clavicle. Neurological History: Reports: Migraines Psychiatric History: Reports: Anxiety, Depression, Panic Attack, Psych Hospitalization(s) Endocrine/Metabolic History: Reports: Diabetes, Gestational, Obesity/BMI 30+ Hematologic History: Reports: Anemia, Blood Transfusion(s) Other Hematologic History: Has blood antibody. Immunologic History: Reports: Other (See Below) Other Immunologic History: Takes biologics for ulcerative colitis. - Infectious Disease History Infectious Disease History: Reports: C-Difficile, Chicken Pox, Influenza - Past Surgical History Head Surgeries/Procedures: Reports: None HEENT Surgical History: Reports: Oral Surgery GI Surgical History: Reports: Cholecystectomy, Colonoscopy, EGD Other GI Surgeries/Procedures: , 2 SURGERIES POST FOR INFECTION, HYSTERECTOMY PARTIAL Female Surgical History: Reports: Section, Hysterectomy, Other (See Below) Other Female Surgeries/Procedures: PARTIAL HYSTERECTOMY, Musculoskeletal Surgical History: Reports: Arthroscopic Knee Other Musculoskeletal Surgeries/Procedures:: Right knee scope X2. Social & Family History - Family History Family Medical History: Noncontributory - Tobacco Use Tobacco Use Status *Q: Never Tobacco User Second Hand Smoke Exposure: No - Caffeine Use Caffeine Use: Reports: None - Recreational Drug Use Recreational Drug Use: No - Living Situation & Occupation Living situation: Reports: ED ROS GENERAL - Review of Systems Review Of Systems: Comprehensive ROS is negative, except as noted in HPI. ED EXAM, GI/ABD - Physical Exam Exam: See Below Exam Limited By: No Limitations General Appearance: Alert, WD/WN Eyes: Bilateral: Normal Appearance, EOMI Nose: Normal Inspection Throat/Mouth: Normal Inspection Head: Atraumatic Neck: Normal Inspection Respiratory/Chest: No Respiratory Distress Cardiovascular: Normal Peripheral Pulses GI/Abdominal Exam: Soft, Tender (LLQ). No: Guarding (Female) Exam: Deferred Rectal (Female) Exam: Deferred Neurological: Alert, Oriented Psychiatric: Anxious, Tearful Skin Exam: Warm Lymphatic: No Adenopathy Course - Vital Signs Last Recorded V/S: Last Vital Signs Temp 97.8 F 06/08/20 13:25 Pulse 108 H 06/08/20 13:25 Resp 20 06/08/20 13:25 BP 123/77 06/08/20 13:25 Pulse Ox 94 L 06/08/20 13:25 - Orders/Labs/Meds Orders: Active Orders 24 hr Category Date Time Status Abdomen Pelvis w Cont [CT] Stat Exams 06/08/20 14:04 Ordered C DIFFICILE AG/TOXIN W/REFLEX [RM] Stat Lab 06/08/20 13:12 Ordered Sodium Chloride 0.9% [Saline Flush] Med 06/08/20 12:21 Active 10 ml FLUSH ASDIRECTED PRN Peripheral IV Insertion Adult [OM.PC] Routine Oth 06/08/20 12:21 Ordered Medication Orders Sodium Chloride (Saline Flush) 10 ml FLUSH ASDIRECTED PRN PRN Reason: Keep Vein Open Last Admin: 06/08/20 12:29 Dose: 10 ml Documented by: DUDLEY Labs: Laboratory Tests 06/08/20 06/08/20 06/08/20 Range/Units 12:30 12:30 12:30 WBC 10.2 (4.5-12.0) X10-3/uL RBC 4.86 (3.23-5.20) x10(6)uL Hgb 14.1 (11.5-15.5) g/dL Hct 42.0 (30.0-51.3) % MCV 86.6 (80-96) fL MCH 28.9 (27.7-33.6) pg MCHC 33.4 (32.2-35.4) g/dL RDW 14.5 (11.5-15.5) % Plt Count 415 H (125-369) X10(3)uL MPV 9.9 (7.4-10.4) fL Add Manual Diff Yes Neutrophils % (Manual) 63 (46-82) % Lymphocytes % (Manual) 30 (13-37) % Monocytes % (Manual) 7 (4-12) % Sodium 142 (135-145) mmol/L Potassium 3.8 (3.5-5.3) mmol/L Chloride 104 (100-110) mmol/L Carbon Dioxide 26 (21-32) mmol/L BUN 10 (7-18) mg/dL Creatinine 0.8 (0.55-1.02) mg/dL Est Cr Clr Drug Dosing 94.30 mL/min Estimated GFR (MDRD) > 60 (>60) BUN/Creatinine Ratio 12.5 (9-20) Glucose 120 H (80-116) mg/dL Calcium 9.6 (8.6-10.2) mg/dL Total Bilirubin 0.5 (0.1-1.3) mg/dL AST 55 H D (5-25) IU/L ALT 100 H D (12-36) U/L Alkaline Phosphatase 93 (56-112) IU/L Total Protein 7.3 (6.0-8.0) g/dL Albumin 3.3 L (3.5-5.2) g/dL Globulin 4.0 g/dL Albumin/Globulin Ratio 0.8 Amylase 30 (25-115) U/L Meds: Medications Generic Name Dose Route Start Last Admin Trade Name Freq PRN Reason Stop Dose Admin Sodium Chloride 10 ml 06/08/20 12:21 06/08/20 12:29 Saline Flush FLUSH 10 ml ASDIRECTED PRN Administration Keep Vein Open Discontinued Medications Generic Name Dose Route Start Last Admin Trade Name Freq PRN Reason Stop Dose Admin Hydromorphone HCl 2 mg 06/08/20 13:11 06/08/20 13:16 Dilaudid IVPUSH 06/08/20 13:12 2 mg ONETIME ONE Administration Sodium Chloride 1,000 mls @ 999 mls/hr 06/08/20 12:20 06/08/20 12:30 Normal Saline IV 06/08/20 13:20 999 mls/hr .BOLUS ONE Administration Iopamidol 100 ml 06/08/20 14:20 06/08/20 14:44 Isovue-370 (76%) IV 06/08/20 14:21 100 ml . DIRECTED ONE Administration Ondansetron HCl 4 mg 06/08/20 12:20 06/08/20 12:35 Zofran IVPUSH 06/08/20 12:21 4 mg ONETIME ONE Administration Departure - Departure Time of Disposition: 14:52 Disposition: Home, Self-Care 01 Clinical Impression: Gastroenteritis, Chronic colitis - Discharge Information Referrals: Padmaja Araujo PA-C [Primary Care Provider] - Forms: ED Department Discharge Sepsis Event Note (ED) - Evaluation Sepsis Screening Result: Sepsis Risk - Focused Exam Vital Signs: Vital Signs Temp Pulse Resp BP Pulse Ox 06/08/20 13:25 97.8 F 108 H 20 123/77 94 L 06/08/20 12:10 97.7 F 124 H 22 H 131/96 H 98 - Problem List & Annotations (1) Chronic colitis SNOMED Code(s): 26872799 Code(s): K52.9 - NONINFECTIVE GASTROENTERITIS AND COLITIS, UNSPECIFIED St atus: Acute Current Visit: Yes (2) Abdominal pain SNOMED Code(s): 14126995 Code(s): R10.9 - UNSPECIFIED ABDOMINAL PAIN Status: Acute Current Visit: No Annotation/Comment:: Improving Qualifiers: Abdominal location: unspecified location Qualified Code(s): R10.9 - Unspecified abdominal pain - Problem List Review Problem List Initiated/Reviewed/Updated: Yes - My Orders Last 24 Hours: My Active Orders 06/08/20 12:21 Sodium Chloride 0.9% [Saline Flush] 10 ml FLUSH ASDIRECTED PRN Peripheral IV Insertion Adult [OM.PC] Routine 06/08/20 13:12 C DIFFICILE AG/TOXIN W/REFLEX [RM] Stat 06/08/20 14:04 Abdomen Pelvis w Cont [CT] Stat - Assessment/Plan Last 24 Hours: My Active Orders 06/08/20 12:21 Sodium Chloride 0.9% [Saline Flush] 10 ml FLUSH ASDIRECTED PRN Peripheral IV Insertion Adult [OM.PC] Routine 06/08/20 13:12 C DIFFICILE AG/TOXIN W/REFLEX [RM] Stat 06/08/20 14:04 Abdomen Pelvis w Cont [CT] Stat Plan: 1 L of NS and IV Zofran,Dilaudid. Will send a stool for C dif. I gave option of admission,she declined.I did give her some Percocet and will send her home
[2020-06-08] MEDS ORDERED: Iopamidol 755 Mg/ML 100 ML Bottle IV ONE (14:20)
[2020-06-08] MEDS ORDERED: fentaNYL 100 MCG/2 ML SDV IVPUSH ONE (14:52)
== END 2020-06-08 15:47 | disposition home or self-care (01) ==
LOC: FB.ED 12:08
DX: K52.9 Noninfective gastroenteritis and colitis, unspecified (principal); F41.9 Anxiety disorder, unspecified; F32.9 Major depressive disorder, single episode, unspecified; E66.9 Obesity, unspecified; Z68.42 Body mass index [BMI] 45.0-49.9, adult; Z88.8 Allergy status to other drugs, medicaments and biological substances; Z79.899 Other long term (current) drug therapy
CPT/HCPCS: 36415; 74177; 80053; 82150; 85025; 96374; 96375; 99284; 99284-25; A9270-GY; J1170; J2405; J3010; J7030; Q9967

== ENCOUNTER 2020-06-09 15:54 | Observation (INO) | payer BC ==
[2020-06-09] MEDS ORDERED: HYDROmorphone 2 MG/ML SDV IVPUSH ONE (15:58)
[2020-06-09] MEDS ORDERED: Ondansetron 4 MG/2 ML SDV IVPUSH ONE (16:05)
--- NOTE | 2020-06-09 16:14 | EDM.PDOC ---
ED HPI GENERAL MEDICAL PROBLEM - General Chief Complaint: Abdominal Pain Stated Complaint: abdominal pain with N/V Time Seen by Provider: 06/09/20 16:08 Source of Information: Reports: Patient, Old Records, RN History Limitations: Reports: No Limitations - History of Present Illness INITIAL COMMENTS - FREE TEXT/NARRATIVE: 40 yo female was seen here in the ER yesterday for abdominal pain secondary to her ulcerative colitis. She got Percocet yesterday and is not getting adequate relief and is not keeping her Percocet down. Has been eating/drinking a lot of whey protein shakes lately trying to lose weight and also admits to eating a lot of eggs. C.diff test was ordered yesterday, but no specimen was ever sent. No blood in her stools or her emesis. No fever. Has a mild FULTON. Her pain today is very typical of her ulcerative colitis sx's she's had in the past. Onset: Unknown/Unsure (days, getting worse) Duration: Day(s):, Getting Worse Location: Reports: Abdomen Quality: Reports: Ache Severity: Severe Improves with: Reports: Medication Worsens with: Reports: Other (time) Context: Reports: Other (See HPI, has recurrent ulcerative colitis) Associated Symptoms: Reports: Nausea/Vomiting. Denies: Fever/Chills Treatments POSTAL CARRIER: Reports: Other (see below) (Percocet) - Related Data Allergies Allergy/AdvReac Type Severity Reaction Status Date / Time NSAIDS (Non-Steroidal Allergy Other Verified 06/09/20 16:17 Anti-Inflamma Home Meds: Home Meds FLUoxetine HCl [Prozac] 80 mg PO DAILY 12/22/18 [History] LORazepam 1 mg PO TID PRN 06/21/19 [History] Multivitamin [Multivitamins] 1 each PO DAILY 06/21/19 [History] amLODIPine Besylate [Norvasc] 10 mg PO DAILY 06/21/19 [History] .Entivio 1 injection IV ASDIRECTED 04/18/20 [History] OLANZapine [Olanzapine] 5 mg PO BEDTIME PRN 05/03/20 [History] Ondansetron [Zofran ODT] 4 mg PO Q4H PRN #30 tab.dis 05/04/20 [Rx] Acetaminophen [Tylenol] 650 mg PO Q6H PRN tablet 05/18/20 [Rx] Past Medical History Cardiovascular History: Reports: Hypertension Respiratory History: Reports: Sleep Apnea Other Respiratory History: Uses CPAP. Gastrointestinal History: Reports: Diverticulosis, GERD, GI Bleed, Hemorrhoids, Inflammatory Bowel Disease, Irritable Bowel Syndrome, Other (See Below) Other Gastrointestinal History: History ulcerative colitis. History of EOE ( Eosinophilic Esophagitis). Genitourinary History: Reports: None CHILD THERAPIST History: Reports: Other (See Below) Other CHILD THERAPIST History: [id number]. Has Asherman's Syndrome of uterus. Musculoskeletal History: Reports: Arthritis, Fracture Other Musculoskeletal History: History of fracture right clavicle. Neurological History: Reports: Migraines Psychiatric History: Reports: Anxiety, Depression, Panic Attack, Psych Hospitalization(s) Endocrine/Metabolic History: Reports: Diabetes, Gestational, Obesity/BMI 30+ Hematologic History: Reports: Anemia, Blood Transfusion(s) Other Hematologic History: Has blood antibody. Immunologic History: Reports: Other (See Below) Other Immunologic History: Takes biologics for ulcerative colitis. - Infectious Disease History Infectious Disease History: Reports: C-Difficile, Chicken Pox, Influenza - Past Surgical History Head Surgeries/Procedures: Reports: None HEENT Surgical History: Reports: Oral Surgery GI Surgical History: Reports: Cholecystectomy, Colonoscopy, EGD Other GI Surgeries/Procedures: , 2 SURGERIES POST FOR INFECTION, HYSTERECTOMY PARTIAL Female Surgical History: Reports: Section, Hysterectomy, Other (See Below) Other Female Surgeries/Procedures: PARTIAL HYSTERECTOMY, Musculoskeletal Surgical History: Reports: Arthroscopic Knee Other Musculoskeletal Surgeries/Procedures:: Right knee scope X2. Social & Family History - Family History Family Medical History: Noncontributory - Caffeine Use Caffeine Use: Reports: None - Living Situation & Occupation Living situation: Reports: ED ROS GENERAL - Review of Systems Review Of Systems: See Below Constitutional: Reports: No Symptoms. Denies: Fever, Chills HEENT: Reports: No Symptoms Respiratory: Reports: No Symptoms Cardiovascular: Reports: No Symptoms GI/Abdominal: Reports: Abdominal Pain, Diarrhea, Nausea, Vomiting. Denies: Black Stool, Bloody Stool, Constipation, Distension, Flatus, Hematemesis, Hematochezia, Melena : Reports: No Symptoms Musculoskeletal: Reports: No Symptoms Skin: Reports: No Symptoms Neurological: Reports: No Symptoms Psychiatric: Reports: No Symptoms ED EXAM, GI/ABD - Physical Exam Exam: See Below Exam Limited By: No Limitations General Appearance: Alert, WD/WN, Mild Distress, Obese Eyes: Bilateral: Normal Appearance Ears: Normal External Exam, Normal Canal, Hearing Grossly Normal, Normal TMs Nose: Normal Inspection, No Blood Throat/Mouth: Normal Inspection, Normal Lips, Normal Oropharynx, Normal Voice, No Airway Compromise Head: Atraumatic, Normocephalic Neck: Normal Inspection Respiratory/Chest: No Respiratory Distress, Lungs Clear, Normal Breath Sounds, No Accessory Muscle Use Cardiovascular: Regular Rate, Rhythm, No Edema GI/Abdominal Exam: Normal Bowel Sounds, Soft, No Distention, Tender (L sided). No: Non-Tender, Distended, Guarding, Rigid, Rebound Back Exam: No: CVA Tenderness (R), CVA Tenderness (L) Extremities: Normal Inspection, Non-Tender, No Pedal Edema Neurological: Alert, Oriented, CN II-XII Intact, Normal Cognition, No Motor/Sensory Deficits Psychiatric: Normal Affect, Normal Mood Skin Exam: Warm, Dry, Intact, Normal Color, No Rash Course - Vital Signs Text/Narrative:: Dr. Santana here to see patient. - Orders/Labs/Meds Orders: Active Orders 24 hr Category Date Time Status CBC W/O DIFF,HEMOGRAM [HEME] Stat Lab 06/09/20 16:01 Ordered COMPREHENSIVE METABOLIC PN,CMP [CHEM] Stat Lab 06/09/20 16:01 Ordered CORONAVIRUS COVID-19, LYNNE Stat Lab 06/09/20 16:00 Ordered LIPASE [CHEM] Stat Lab 06/09/20 16:01 Ordered Lactated Ringers [Ringers, Lactated] 1,000 ml Med 06/09/20 16:00 Ordered IV ASDIRECTED Medication Orders Lactated Ringer's (Ringers, Lactated) 1,000 mls @ 500 mls/hr IV ASDIRECTED NAHID Meds: Medications Generic Name Dose Route Start Last Admin Trade Name Freq PRN Reason Stop Dose Admin Lactated Ringer's 1,000 mls @ 500 mls/hr 06/09/20 16:00 Ringers, Lactated IV ASDIRECTED NAHID Discontinued Medications Generic Name Dose Route Start Last Admin Trade Name Freq PRN Reason Stop Dose Admin Hydromorphone HCl 1 mg 06/09/20 15:58 Dilaudid IVPUSH 06/09/20 15:59 ONETIME ONE Ondansetron HCl 4 mg 06/09/20 16:05 Zofran IVPUSH 06/09/20 16:06 ONETIME ONE Departure - Departure Time of Disposition: 16:32 Disposition: Refer to Observation Condition: Fair Clinical Impression: Elevated LFTs Ulcerative colitis Qualifiers: Ulcerative colitis location: unspecified ulcerative colitis location Digestive disease complication type: without complication Qualified Code(s): K51.90 - Ulcerative colitis, unspecified, without complications Nausea and vomiting Qualifiers: Vomiting type: unspecified Vomiting Intractability: non-intractable Qualified Code(s): R11.2 - Nausea with vomiting, unspecified Diarrhea Qualifiers: Diarrhea type: unspecified type Qualified Code(s): R19.7 - Diarrhea, unspecified - Discharge Information *PRESCRIPTION DRUG MONITORING PROGRAM REVIEWED*: No *COPY OF PRESCRIPTION DRUG MONITORING REPORT IN PATIENT PROSPER: No Referrals: PCP,None [Ordering Only Provider] - Forms: ED Department Discharge - My Orders Last 24 Hours: My Active Orders 06/09/20 16:00 CORONAVIRUS COVID-19, LYNNE Stat Lactated Ringers [Ringers, Lactated] 1,000 ml IV ASDIRECTED 06/09/20 16:01 CBC W/O DIFF,HEMOGRAM [HEME] Stat COMPREHENSIVE METABOLIC PN,CMP [CHEM] Stat LIPASE [CHEM] Stat - Assessment/Plan Last 24 Hours: My Active Orders 06/09/20 16:00 CORONAVIRUS COVID-19, LYNNE Stat Lactated Ringers [Ringers, Lactated] 1,000 ml IV ASDIRECTED 06/09/20 16:01 CBC W/O DIFF,HEMOGRAM [HEME] Stat COMPREHENSIVE METABOLIC PN,CMP [CHEM] Stat LIPASE [CHEM] Stat
[2020-06-09] MEDS ORDERED: Ondansetron 4 MG/2 ML SDV IVPUSH PRN (16:33)
--- NOTE | 2020-06-09 16:44 | PCM.HP.2 ---
H&P History of Present Illness - General Date of Service: 06/09/20 Admit Problem/Dx: Admission Diagnosis/Problem Admission Diagnosis/Problem Ulcerative colitis Source of Information: Patient History Limitations: Reports: No Limitations - History of Present Illness Initial Comments - Free Text/Narative: This is a 40-year-old female patient with history of ulcerative colitis. She's had frequent hospitalizations and CAT scans. 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 She's had 4 day history of abdominal pain left lower quadrant with nausea and vomiting. She denies fevers, chills, blood in her stool, diarrhea. She does have mucus in her stool. She denies dysuria, pyuria, hematuria. She states she had hysterectomy little month ago and has no vaginal issues. She was seen yesterday and the CAT scan was negative sentinel and pain pills and came back today because the pain is unbearable. She was given Percocet yesterday outpatient and Dilaudid here at the hospital. - Related Data Allergies/Adverse Reactions: Allergies Allergy/AdvReac Type Severity Reaction Status Date / Time NSAIDS (Non-Steroidal Allergy Other Verified 06/09/20 16:17 Anti-Inflamma Home Medications: Home Meds FLUoxetine HCl [Prozac] 80 mg PO DAILY 12/22/18 [History] LORazepam 1 mg PO TID PRN 06/21/19 [History] Multivitamin [Multivitamins] 1 each PO DAILY 06/21/19 [History] amLODIPine Besylate [Norvasc] 10 mg PO DAILY 06/21/19 [History] .Entivio 1 injection IV ASDIRECTED 04/18/20 [History] OLANZapine [Olanzapine] 5 mg PO BEDTIME PRN 05/03/20 [History] Ondansetron [Zofran ODT] 4 mg PO Q4H PRN #30 tab.dis 05/04/20 [Rx] Acetaminophen [Tylenol] 650 mg PO Q6H PRN tablet 05/18/20 [Rx] Past Medical History Cardiovascular History: Reports: Hypertension Respiratory History: Reports: Sleep Apnea Other Respiratory History: Uses CPAP. Gastrointestinal History: Reports: Diverticulosis, GERD, GI Bleed, Hemorrhoids, Inflammatory Bowel Disease, Irritable Bowel Syndrome, Other (See Below) Other Gastrointestinal History: History ulcerative colitis. History of EOE (Eosinophilic Esophagitis). 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 Has Asherman's Syndrome of uterus. Musculoskeletal History: Reports: Arthritis, Fracture Other Musculoskeletal History: History of fracture right clavicle. Neurological History: Reports: Migraines Psychiatric History: Reports: Anxiety, Depression, Panic Attack, Psych Hospitalization(s) Endocrine/Metabolic History: Reports: Diabetes, Gestational, Obesity/BMI 30+ Hematologic History: Reports: Anemia, Blood Transfusion(s) Other Hematologic History: Has blood antibody. Immunologic History: Reports: Other (See Below) Other Immunologic History: Takes biologics for ulcerative colitis. - Infectious Disease History Infectious Disease History: Reports: C-Difficile, Chicken Pox, Influenza - Past Surgical History Head Surgeries/Procedures: Reports: None HEENT Surgical History: Reports: Oral Surgery GI Surgical History: Reports: Cholecystectomy, Colonoscopy, EGD Other GI Surgeries/Procedures: , 2 SURGERIES POST FOR INFECTION, HYSTERECTOMY PARTIAL Female Surgical History: Reports: Section, Hysterectomy, Other (See Below) Other Female Surgeries/Procedures: PARTIAL HYSTERECTOMY, Musculoskeletal Surgical History: Reports: Arthroscopic Knee Other Musculoskeletal Surgeries/Procedures:: Right knee scope X2. Social & Family History - Family History Family Medical History: Noncontributory - Caffeine Use Caffeine Use: Reports: None - Living Situation & Occupation Living situation: Reports: H&P Review of Systems - Review of Systems: Review Of Systems: See Below General: Reports: No Symptoms HEENT: Reports: No Symptoms Pulmonary: Reports: No Symptoms Cardiovascular: Reports: No Symptoms Gastrointestinal: Reports: Abdominal Pain, Mucous in Stool, Nausea, Vomiting. Denies: Black Stool, Bloody Stool, Constipation, Diarrhea, Decreased Appetite, Difficulty Swallowing, Distension, Hematochezia, Melena Genitourinary: Reports: No Symptoms Musculoskeletal: Reports: No Symptoms Skin: Reports: No Symptoms Psychiatric: Reports: No Symptoms Neurological: Reports: No Symptoms Hematologic/Lymphatic: Reports: No Symptoms Immunologic: Reports: No Symptoms Exam - Exam Exam: See Below - Exam General: Alert, Oriented, Cooperative, Moderate Distress HEENT: Hearing Intact, Mucosa Moist & [place], Posterior Pharynx Clear, TMs Clear Neck: Supple, Trachea Midline Lungs: Clear to Auscultation, Normal Respiratory Effort. No: Crackles, Rales, Rhonchi, Rub Cardiovascular: Regular Rate, Regular Rhythm, Normal S1, Normal S2. No: Bradycardia, Tachycardia, Systolic Murmur GI/Abdominal Exam: Tender (Left lower quadrant). No: Normal Bowel Sounds, No Distention, No Mass, Guarding, Rigid, Rebound Extremities: Non-Tender, No Pedal Edema Skin: Warm, Dry, Intact Neurological: Normal Speech, Normal Tone Neuro Extensive - Mental Status: Alert, Oriented x3, Normal Cognition Psychiatric: Alert, Normal Affect - Problem List (1) Elevated liver function tests SNOMED Code(s): 960602615, 251972315 ICD Code: R79.89 - OTHER SPECIFIED ABNORMAL FINDINGS OF BLOOD CHEMISTRY Status: Acute Current Visit: Yes (2) Ulcerative colitis SNOMED Code(s): 86714820 ICD Code: K51.90 - ULCERATIVE COLITIS, UNSPECIFIED, WITHOUT COMPLICATIONS Status: Chronic Current Visit: Yes Problem Details: Mrs Mejia will follow up with GI regulatory services consultant on Wednesday Qualifiers: Ulcerative colitis location: unspecified ulcerative colitis location Digestive disease complication type: without complication Qualified Code(s): K51.90 - Ulcerative colitis, unspecified, without complications (3) Abdominal pain SNOMED Code(s): 76494602 ICD Code: R10.9 - UNSPECIFIED ABDOMINAL PAIN Status: Acute Current Visit: No Problem Details: Improving Qualifiers: Abdominal location: unspecified location Qualified Code(s): R10.9 - Unspecified abdominal pain (4) Uncontrolled pain SNOMED Code(s): 51417837256821219 ICD Code: R52 - PAIN, UNSPECIFIED Status: Acute Current Visit: No (5) Nausea and vomiting SNOMED Code(s): 51823158 ICD Code: R11.2 - NAUSEA WITH VOMITING, UNSPECIFIED Status: Resolved Current Visit: No Problem List Initiated/Reviewed/Updated: Yes Orders Last 24hrs: Active Orders 24 hr Category Date Time Status Patient Status [ADT] Routine ADT 06/09/20 16:12 Active Patient Status [ADT] Routine ADT 06/09/20 16:33 Ordered Oxygen Therapy [RC] PRN Care 06/09/20 16:12 Active Oxygen Therapy [RC] PRN Care 06/09/20 16:33 Ordered Up ad Marely [RC] ASDIRECTED Care 06/09/20 16:33 Ordered VTE/DVT Education [RC] Per Unit Routine Care 06/09/20 16:12 Active VTE/DVT Education [RC] Per Unit Routine Care 06/09/20 16:33 Ordered Vital Signs [RC] Q4H Care 06/09/20 16:12 Active Vital Signs [RC] Q4H Care 06/09/20 16:33 Ordered Clear Liquid Diet [DIET] Diet 06/09/20 Dinner Ordered CBC W/O DIFF,HEMOGRAM [HEME] Stat Lab 06/09/20 16:01 Ordered COMPREHENSIVE METABOLIC PN,CMP [CHEM] Stat Lab 06/09/20 16:01 Ordered CORONAVIRUS COVID-19 LYNNE [MOLEC] Stat Lab 06/09/20 14:10 Received HEPATITIS PANEL (4) Routine Lab 06/09/20 16:38 Ordered LIPASE [CHEM] Stat Lab 06/09/20 16:01 Ordered UA W/O MICROSCOPIC [URIN] Routine Lab 06/09/20 16:33 Ordered Enoxaparin [Lovenox] Med 06/09/20 16:45 Ordered 40 mg SUBCUT Q24H HYDROmorphone [Dilaudid] Med 06/09/20 16:37 Ordered 2 mg IVPUSH Q3H PRN Lactated Ringers [Ringers, Lactated] 1,000 ml Med 06/09/20 16:00 Active IV ASDIRECTED Ondansetron [Zofran] Med 06/09/20 16:33 Ordered 4 mg IVPUSH Q4H PRN Sequential Compression Device [OM.PC] Per Unit Routine Oth 06/09/20 16:35 Ordered Resuscitation Status Routine Resus Stat 06/09/20 16:12 Ordered Medication Orders Enoxaparin Sodium (Lovenox) 40 mg SUBCUT Q24H NAHID Hydromorphone HCl (Dilaudid) 2 mg IVPUSH Q3H PRN PRN Reason: Pain Lactated Ringer's (Ringers, Lactated) 1,000 mls @ 125 mls/hr IV ASDIRECTED NAHID Ondansetron HCl (Zofran) 4 mg IVPUSH Q4H PRN PRN Reason: Nausea/Vomiting Assessment/Plan Comment:: 1. Admit for observation. 2. Full code 3. Up ad marely. 4. Zofran for nausea vomiting and Dilantin for pain. 5. IV fluids maintenance. 6. Diet clear liquids 7. Repeat labs in the a.m. Still waiting for absent a and I added a UA. 8. Reviewed the CAT scan report that showed no acute problems from yesterday. That was done here bit red at [place]. 9. Restart her home medications after medical reconciliation by the pharmacist 10. Hepatitis panel - Mortality Measure Prognosis:: Good
[2020-06-09] MEDS: Lactated Ringers 1,000 ML IV SCH (16:45)
[2020-06-09] MEDS ORDERED: Enoxaparin 40 MG/0.4 ML Syringe SUBCUT SCH (17:00)
[2020-06-09] MEDS: methylPREDNISolone Sodium Succinate 125 MG/2 ML SDV IVPUSH SCH (18:10)
[2020-06-09] MEDS: HYDROmorphone 2 MG/ML SDV IVPUSH PRN ×2 (20:33→23:59)
[2020-06-09] MEDS ORDERED: Acetaminophen/oxyCODONE 325-5 MG Tab PO PRN (20:54)
[2020-06-10] MEDS: methylPREDNISolone Sodium Succinate 125 MG/2 ML SDV IVPUSH SCH (01:56)
[2020-06-10] MEDS: HYDROmorphone 2 MG/ML SDV IVPUSH PRN (03:02)
[2020-06-10] MEDS ORDERED: Naloxone 0.4 MG/ML SDV IVPUSH PRN ×2 (07:46→07:48)
[2020-06-10] MEDS ORDERED: Sodium Chloride 0.9% 1,000 ML IV SCH (08:15)
[2020-06-10] MEDS: predniSONE 20 MG Tab PO SCH (10:04)
--- NOTE | 2020-06-10 14:46 | CR ---
INDICATION: Respiratory arrest. CHEST ONE VIEW: A single AP upright view of the chest was obtained 06/10/20 and compared with 09/14/12 and 04/18/11. Overlying EKG leads are noted. The heart did not appear enlarged allowing for AP positioning. The aorta is slightly tortuous. Mild dextroconcave scoliosis of the thoracic spine is again noted. A definite active infiltrate or effusion was not identified. Exogenous obesity is again noted. IMPRESSION: No acute process. MTDD
[2020-06-10] MEDS: Enoxaparin 120 MG/0.8 ML Syringe SUBCUT SCH (15:32)
[2020-06-10] MEDS: Lactated Ringers 1,000 ML IV SCH (15:32)
--- NOTE | 2020-06-10 18:40 | PCM.PN ---
- General Info Date of Service: 06/10/20 Admission Dx/Problem (Free Text): Patient states she may be a little short of breath but she denies chest pain. She has some left eye pain per she says she had a corneal abrasion or some sort a corneal problem years ago. She has no leg swelling. She does have a history of sleep apnea does not have her machine. She feels much better this morning. No abdominal pain. - Patient Data Vitals - Most Recent: Last Vital Signs Temp 97.7 F 06/10/20 04:00 Pulse 88 06/10/20 04:00 Resp 18 06/10/20 04:00 BP 118/84 06/10/20 04:00 Pulse Ox 95 06/10/20 04:00 Weight - Most Recent: 302 lb 14.4 oz I&O - Last 24 Hours: Intake & Output 06/10/20 06/10/20 06/10/20 06:59 14:59 22:59 Intake Total 1707 300 Output Total 700 Balance 1707 -400 Lab Results Last 24 Hours: Laboratory Results - last 24 hr 06/09/20 06/10/20 06/10/20 Range/Units 21:10 07:54 07:54 WBC 24.6 H (4.5-12.0) X10-3/uL RBC 4.41 (3.23-5.20) x10(6)uL Hgb 12.6 (11.5-15.5) g/dL Hct 40.2 (30.0-51.3) % MCV 91.2 (80-96) fL MCH 28.7 (27.7-33.6) pg MCHC 31.4 L (32.2-35.4) g/dL RDW 14.5 (11.5-15.5) % Plt Count 456 H (125-369) X10(3)uL MPV 10.6 H (7.4-10.4) fL Add Manual Diff Yes Neutrophils % (Manual) 65 (46-82) % Band Neutrophils % 3 (0-6) % Lymphocytes % (Manual) 29 (13-37) % Monocytes % (Manual) 2 L (4-12) % Eosinophils % (Manual) 1 (0-5) % D-Dimer, Quantitative 3.99 H (0.0-0.59) mg/LFEU Sodium (135-145) mmol/L Potassium (3.5-5.3) mmol/L Chloride (100-110) mmol/L Carbon Dioxide (21-32) mmol/L BUN (7-18) mg/dL Creatinine (0.55-1.02) mg/dL Est Cr Clr Drug Dosing mL/min Estimated GFR (MDRD) (>60) BUN/Creatinine Ratio (9-20) Glucose (80-116) mg/dL Calcium (8.6-10.2) mg/dL Total Bilirubin (0.1-1.3) mg/dL AST (5-25) IU/L ALT (12-36) U/L Alkaline Phosphatase (56-112) IU/L Troponin I (4.0-60.3) pg/mL C-Reactive Protein (0.5-0.9) mg/dL Total Protein (6.0-8.0) g/dL Albumin (3.5-5.2) g/dL Globulin g/dL Albumin/Globulin Ratio Urine Color Yellow (YELLOW) Urine Appearance Slightly cloudy (CLEAR) Urine pH 5.0 (5.0-6.5) Ur Specific [place] 1.030 H (1.010-1.025) Urine Protein Negative (NEGATIVE) mg/dL Urine Glucose (UA) Normal (NORMAL) mg/dL Urine Ketones Negative (NEGATIVE) mg/dL Urine Occult Blood Negative (NEGATIVE) Urine Nitrite Negative (NEGATIVE) Urine Bilirubin Small H (NEGATIVE) Urine Urobilinogen Normal (NEGATIVE) mg/dL Ur Leukocyte Esterase Negative (NEGATIVE) Urine Opiates Screen (NEGATIVE) Ur Oxycodone Screen (NEGATIVE) Ur Propoxyphene Screen (NEGATIVE) Ur Barbituates Screen (NEGATIVE) Ur Tricyclics Screen (NEGATIVE) Ur Phencyclidine Scrn (NEGATIVE) Ur Amphetamine Screen (NEGATIVE) Urine MDMA Screen (NEGATIVE) U Benzodiazepines Scrn (NEGATIVE) U Cocaine Metab Screen (NEGATIVE) U Marijuana (THC) Screen (NEGATIVE) 06/10/20 06/10/20 06/10/20 Range/Units 07:54 07:54 12:05 WBC (4.5-12.0) X10-3/uL RBC (3.23-5.20) x10(6)uL Hgb (11.5-15.5) g/dL Hct (30.0-51.3) % MCV (80-96) fL MCH (27.7-33.6) pg MCHC (32.2-35.4) g/dL RDW (11.5-15.5) % Plt Count (125-369) X10(3)uL MPV (7.4-10.4) fL Add Manual Diff Neutrophils % (Manual) (46-82) % Band Neutrophils % (0-6) % Lymphocytes % (Manual) (13-37) % Monocytes % (Manual) (4-12) % Eosinophils % (Manual) (0-5) % D-Dimer, Quantitative (0.0-0.59) mg/LFEU Sodium 140 (135-145) mmol/L Potassium 4.7 (3.5-5.3) mmol/L Chloride 100 (100-110) mmol/L Carbon Dioxide 15 L (21-32) mmol/L BUN 12 (7-18) mg/dL Creatinine 1.8 H (0.55-1.02) mg/dL Est Cr Clr Drug Dosing 41.91 mL/min Estimated GFR (MDRD) 31 L (>60) BUN/Creatinine Ratio 6.7 L (9-20) Glucose 487 H* D (80-116) mg/dL Calcium 9.1 (8.6-10.2) mg/dL Total Bilirubin 0.3 (0.1-1.3) mg/dL AST 102 H D (5-25) IU/L ALT 134 H D (12-36) U/L Alkaline Phosphatase 107 (56-112) IU/L Troponin I 61.6 H* 1487.6 H* (4.0-60.3) pg/mL C-Reactive Protein 1.1 H (0.5-0.9) mg/dL Total Protein 7.1 (6.0-8.0) g/dL Albumin 3.0 L (3.5-5.2) g/dL Globulin 4.1 g/dL Albumin/Globulin Ratio 0.7 Urine Color (YELLOW) Urine Appearance (CLEAR) Urine pH (5.0-6.5) Ur Specific [place] (1.010-1.025) Urine Protein (NEGATIVE) mg/dL Urine Glucose (UA) (NORMAL) mg/dL Urine Ketones (NEGATIVE) mg/dL Urine Occult Blood (NEGATIVE) Urine Nitrite (NEGATIVE) Urine Bilirubin (NEGATIVE) Urine Urobilinogen (NEGATIVE) mg/dL Ur Leukocyte Esterase (NEGATIVE) Urine Opiates Screen (NEGATIVE) Ur Oxycodone Screen (NEGATIVE) Ur Propoxyphene Screen (NEGATIVE) Ur Barbituates Screen (NEGATIVE) Ur Tricyclics Screen (NEGATIVE) Ur Phencyclidine Scrn (NEGATIVE) Ur Amphetamine Screen (NEGATIVE) Urine MDMA Screen (NEGATIVE) U Benzodiazepines Scrn (NEGATIVE) U Cocaine Metab Screen (NEGATIVE) U Marijuana (THC) Screen (NEGATIVE) 06/10/20 06/10/20 Range/Units 12:05 12:20 WBC (4.5-12.0) X10-3/uL RBC (3.23-5.20) x10(6)uL Hgb (11.5-15.5) g/dL Hct (30.0-51.3) % MCV (80-96) fL MCH (27.7-33.6) pg MCHC (32.2-35.4) g/dL RDW (11.5-15.5) % Plt Count (125-369) X10(3)uL MPV (7.4-10.4) fL Add Manual Diff Neutrophils % (Manual) (46-82) % Band Neutrophils % (0-6) % Lymphocytes % (Manual) (13-37) % Monocytes % (Manual) (4-12) % Eosinophils % (Manual) (0-5) % D-Dimer, Quantitative (0.0-0.59) mg/LFEU Sodium (135-145) mmol/L Potassium (3.5-5.3) mmol/L Chloride (100-110) mmol/L Carbon Dioxide (21-32) mmol/L BUN (7-18) mg/dL Creatinine (0.55-1.02) mg/dL Est Cr Clr Drug Dosing mL/min Estimated GFR (MDRD) (>60) BUN/Creatinine Ratio (9-20) Glucose 217 H D (80-116) mg/dL Calcium (8.6-10.2) mg/dL Total Bilirubin (0.1-1.3) mg/dL AST (5-25) IU/L ALT (12-36) U/L Alkaline Phosphatase (56-112) IU/L Troponin I (4.0-60.3) pg/mL C-Reactive Protein (0.5-0.9) mg/dL Total Protein (6.0-8.0) g/dL Albumin (3.5-5.2) g/dL Globulin g/dL Albumin/Globulin Ratio Urine Color (YELLOW) Urine Appearance (CLEAR) Urine pH (5.0-6.5) Ur Specific [place] (1.010-1.025) Urine Protein (NEGATIVE) mg/dL Urine Glucose (UA) (NORMAL) mg/dL Urine Ketones (NEGATIVE) mg/dL Urine Occult Blood (NEGATIVE) Urine Nitrite (NEGATIVE) Urine Bilirubin (NEGATIVE) Urine Urobilinogen (NEGATIVE) mg/dL Ur Leukocyte Esterase (NEGATIVE) Urine Opiates Screen Positive H (NEGATIVE) Ur Oxycodone Screen Positive H (NEGATIVE) Ur Propoxyphene Screen Negative (NEGATIVE) Ur Barbituates Screen Negative (NEGATIVE) Ur Tricyclics Screen Negative (NEGATIVE) Ur Phencyclidine Scrn Negative (NEGATIVE) Ur Amphetamine Screen Negative (NEGATIVE) Urine MDMA Screen Negative (NEGATIVE) U Benzodiazepines Scrn Positive H (NEGATIVE) U Cocaine Metab Screen Negative (NEGATIVE) U Marijuana (THC) Screen Negative (NEGATIVE) Med Orders - Current: Current Medications Enoxaparin Sodium (Lovenox) 120 mg SUBCUT Q12H ON LICENSE OF [facility] Last Admin: 06/10/20 15:32 Dose: 120 mg Documented by: Lactated Ringer's (Ringers, Lactated) 1,000 mls @ 100 mls/hr IV ASDIRECTED ON LICENSE OF [facility] Last Admin: 06/10/20 15:32 Dose: 100 mls/hr Documented by: Naloxone HCl (Narcan) 0.4 mg IVPUSH ONETIME PRN PRN Reason: Respiratory Depression Last Admin: 06/10/20 07:39 Dose: 0.4 mg Documented by: Naloxone HCl (Narcan) 0.4 mg IVPUSH ONETIME PRN PRN Reason: Respiratory Depression Last Admin: 06/10/20 07:41 Dose: 0.4 mg Documented by: Ondansetron HCl (Zofran) 4 mg IVPUSH Q4H PRN PRN Reason: Nausea/Vomiting Oxycodone/Acetaminophen (Percocet 325-5 Mg) 1 tab PO Q4H PRN PRN Reason: Breakthrough Pain Last Admin: 06/09/20 22:52 Dose: 1 tab Documented by: Prednisone (Prednisone) 40 mg PO DAILY ON LICENSE OF [facility] Last Admin: 06/10/20 10:04 Dose: 40 mg Documented by: Discontinued Medications Enoxaparin Sodium (Lovenox) 40 mg SUBCUT Q24H ON LICENSE OF [facility] Last Admin: 06/09/20 18:10 Dose: 40 mg Documented by: Hydromorphone HCl (Dilaudid) 1 mg IVPUSH ONETIME ONE Stop: 06/09/20 15:59 Last Admin: 06/09/20 16:50 Dose: 1 mg Documented by: Hydromorphone HCl (Dilaudid) 2 mg IVPUSH Q3H PRN PRN Reason: Pain Last Admin: 06/10/20 03:02 Dose: 2 mg Documented by: Lactated Ringer's (Ringers, Lactated) 1,000 mls @ 125 mls/hr IV ASDIRECTED ON LICENSE OF [facility] Last Admin: 06/09/20 16:45 Dose: 125 mls/hr Documented by: Sodium Chloride (Normal Saline) 1,000 mls @ 125 mls/hr IV ASDIRECTED ON LICENSE OF [facility] Last Admin: 06/10/20 07:41 Dose: 125 mls/hr Documented by: Methylprednisolone Sodium Succinate (Solu-Medrol) 125 mg IVPUSH Q8H ON LICENSE OF [facility] Stop: 06/10/20 10:00 Last Admin: 06/10/20 01:56 Dose: 125 mg Documented by: Methylprednisolone Sodium Succinate (Solu-Medrol) 125 mg IVPUSH Q12H ON LICENSE OF [facility] Ondansetron HCl (Zofran) 4 mg IVPUSH ONETIME ONE Stop: 06/09/20 16:06 Last Admin: 06/09/20 16:52 Dose: 4 mg Documented by: - Exam General: Alert, Oriented, Cooperative HEENT: Other (Looked at her left either some conjunctival erythema.) Lungs: Normal Respiratory Effort Extremities: No Pedal Edema Sepsis Event Note - Evaluation Sepsis Screening Result: No Definite Risk - Problem List & Annotations (1) Elevated liver function tests SNOMED Code(s): 615106552, 483503009 Code(s): R79.89 - OTHER SPECIFIED ABNORMAL FINDINGS OF BLOOD CHEMISTRY Status: Acute Current Visit: Yes (2) Ulcerative colitis SNOMED Code(s): 09035748 Code(s): K51.90 - ULCERATIVE COLITIS, UNSPECIFIED, WITHOUT COMPLICATIONS Status: Chronic Current Visit: Yes Qualifiers: Ulcerative colitis location: unspecified ulcerative colitis location Digestive disease complication type: without complication Qualified Code(s): K51.90 - Ulcerative colitis, unspecified, without complications Annotation/Comment:: Mrs Mejia will follow up with GI inside solar sales consultant on Wednesday (3) Abdominal pain SNOMED Code(s): 81184127 Code(s): R10.9 - UNSPECIFIED ABDOMINAL PAIN Status: Acute Current Visit: No Qualifiers: Abdominal location: unspecified location Qualified Code(s): R10.9 - Unspecified abdominal pain Annotation/Comment:: Improving (4) Uncontrolled pain SNOMED Code(s): 61472840623720455 Code(s): R52 - PAIN, UNSPECIFIED Status: Acute Current Visit: No (5) Nausea and vomiting SNOMED Code(s): 31090463 Code(s): R11.2 - NAUSEA WITH VOMITING, UNSPECIFIED Status: Resolved Current Visit: No (6) Non-ST elevated myocardial infarction SNOMED Code(s): 29014726 Code(s): I21.4 - NON-ST ELEVATION (NSTEMI) MYOCARDIAL INFARCTION Status: Acute Current Visit: Yes Annotation/Comment:: Class 2 (7) Left eye pain SNOMED Code(s): 74264656 Code(s): H57.12 - OCULAR PAIN, LEFT EYE Status: Acute Current Visit: Yes - Problem List Review Problem List Initiated/Reviewed/Updated: Yes - My Orders Last 24 Hours: My Active Orders 06/09/20 18:00 HEPATITIS PANEL (4) Routine 06/10/20 07:45 EKG 12 Lead [EK] Routine 06/10/20 07:46 Naloxone [Narcan] 0.4 mg IVPUSH ONETIME PRN 06/10/20 07:48 Naloxone [Narcan] 0.4 mg IVPUSH ONETIME PRN 06/10/20 08:45 Telemetry Monitoring [Cardiac Monitoring] [RC] 00,08,16 Pulse Oximetry Continuous Monitoring [OM.PC] Routine EKG 12 Lead [EK] Routine 06/10/20 09:30 predniSONE 40 mg PO DAILY 06/10/20 12:15 Lactated Ringers [Ringers, Lactated] 1,000 ml IV ASDIRECTED 06/10/20 14:30 Enoxaparin [Lovenox] 120 mg SUBCUT Q12H 06/10/20 18:15 TROPONIN I [CHEM] Routine 06/11/20 08:00 Echo Comp w Cont [US] Routine - Plan Plan:: Patient's troponin came out very elevated. Initial EKG shows some depression but we rapid sweaty skin and not getting the leads. She had another one when she woke up a little bit and had normal sinus rhythm with low prolonged QT. Talk to cardiology and they felt she had a class II non-STEMI because of being hypoxic. Recommend Lovenox 120 mg IV every 12 hours, repeat troponin and get an echocardiogram in the morning. His echocardiograms abnormal then they would see her. If it is normal then she'll be discharged if she is doing better and sent out for outpatient stress test. Give some eyedrops.
[2020-06-10] MEDS: Polymyxin B/Trimethoprim 10 ML Bottle EYELF SCH ×2 (19:15→20:41)
[2020-06-10] MEDS ORDERED: methylPREDNISolone Sodium Succinate 125 MG/2 ML SDV IVPUSH SCH (22:00)
[2020-06-11] MEDS: Lactated Ringers 1,000 ML IV SCH (01:18)
[2020-06-11] MEDS: Enoxaparin 120 MG/0.8 ML Syringe SUBCUT SCH ×2 (02:24→13:47)
--- NOTE | 2020-06-11 07:03 | PN ---
DATE SEEN: 06/10/2020 This is a code 100. BRIEF HISTORY: This is a 40-year-old female patient who was in for abdominal pain for Crohn's colitis. She was given Dilaudid and she got 2 or 3 doses, then the nurses stated she was waiting for the dose at the 3 hours and she had Dilaudid dose at 2030, 2359, and 0303, and she has had a breakthrough pain. They called the ER doctor who gave her another Percocet 325 b/c she stated the pain wasn't controlled. The nurse walked in, and right after that, I walked in this morning. The patient was on her stomach. She was breathing, but she was unresponsive but could be aroused. A code was called at 0738. We rolled her over initially, called for some Narcan, got airway. She was breathing, but her airway was not good because she is very heavy and I put an oral airway and initially she was a little dusky on the face, but her color improved immediately. Narcan 0.4 mg IV was given at 0739, and Dr. Wilcox showed up at 7:40 and she was 96% saturation with a monitor on her and her pulse was 115, and she was in mild sinus tachycardia. She was breathing airway, but still minimally responsive. Heart regular rhythm. Lungs are clear to auscultation. At 0741, I ordered another 0.4 mg of Narcan. Normal saline was running 125 mL an hour. Her ABCs were gone over and she was still breathing. Airway was patent. She had still a lot of pulse. She was just not responsive. She had a lot of narcotics in her system. At 0742 hours, pulse 116, saturation 97.8%, and she was on 3 L because they put non-rebreather and she had oral airway in. At 0743, patient started to moan and respond with verbal stimulation. Blood pressure 115/65, saturations were 97% on non- rebreather, pulse was 113, respiratory rate is 24. 0744, Ross alyson blood, and at 0745, the patient was opening eyes and following commands. At 0746, 100% oxygen on 30 nasal cannula, pulse 109. At 0749, oral airway removed. She was breathing on her own with all okay. EKG was done at 0751. EKG showed ST depression on the lateral leads x2, but she was very sweaty and they were unable to get the leads on. I repeated it after she woke up and she had normal sinus rhythm. Chest x-ray one view showed no pneumonias or fluid. Essentially negative. At 0800, chest x-ray was done, of course. Blood pressure 135/82, pulse 128, 100% on room air and with a nasal cannula. The patient was alert and talking. She was little confused. The troponin was slightly elevated like just little over 62 and highest 60. We will repeat that later. The patient is talking, still does not remember much of what happened. I think, she has an issue with probably some sleep apnea also, but she was sleeping on her stomach, and like, I said she is very obese and too much narcotic is the cause. ASSESSMENT: 1. Iatrogenic narcotic overdose. 2. Crohn disease. PLAN: We stopped her Dilaudid, talked to her about pain medication, switched her Solu-Medrol to prednisone p.o. We will observe real closely, keep her on the monitor and oxygen and slowly wean her as she does better. I do not believe she has had any heart damage at this point and most likely narcotics is the cause. TIME SPENT: In critical care is 25 minutes. /[id number] PE/NADEEM LAMBERT
[2020-06-11] MEDS: Polymyxin B/Trimethoprim 10 ML Bottle EYELF SCH ×2 (08:06→13:45)
[2020-06-11] MEDS: predniSONE 20 MG Tab PO SCH (08:06)
[2020-06-11] MEDS ORDERED: methylPREDNISolone Sodium Succinate 125 MG/2 ML SDV IVPUSH SCH (09:00)
--- NOTE | 2020-06-11 09:05 | PCM.PN ---
- General Info Date of Service: 06/11/20 (\) Subjective Update: He should feels a lot better today. She says she doesn't remember a lot of yesterday. She says a little bit of lower left abdominal pain but she thinks his steroids are helping and she does not want any pain pills. She said she little chest pain in the right lower side last night. No shortness of breath, arm pain, sweating. She is breathing without any difficulty. - Patient Data Vitals - Most Recent: Last Vital Signs Temp 98.0 F 06/11/20 08:00 Pulse 88 06/11/20 08:00 Resp 16 06/11/20 08:00 BP 142/86 H 06/11/20 08:00 Pulse Ox 97 06/11/20 08:00 Weight - Most Recent: 302 lb 14.4 oz I&O - Last 24 Hours: Intake & Output 06/10/20 06/11/20 06/11/20 22:59 06:59 14:59 Intake Total 2742 1388 Output Total 2150 1700 Balance 592 -312 Lab Results Last 24 Hours: Laboratory Results - last 24 hr 06/10/20 06/10/20 06/10/20 Range/Units 12:05 12:05 12:20 Glucose 217 H D (80-116) mg/dL Troponin I 1487.6 H* (4.0-60.3) pg/mL Urine Opiates Screen Positive H (NEGATIVE) Ur Oxycodone Screen Positive H (NEGATIVE) Ur Propoxyphene Screen Negative (NEGATIVE) Ur Barbituates Screen Negative (NEGATIVE) Ur Tricyclics Screen Negative (NEGATIVE) Ur Phencyclidine Scrn Negative (NEGATIVE) Ur Amphetamine Screen Negative (NEGATIVE) Urine MDMA Screen Negative (NEGATIVE) U Benzodiazepines Scrn Positive H (NEGATIVE) U Cocaine Metab Screen Negative (NEGATIVE) U Marijuana (THC) Screen Negative (NEGATIVE) 06/10/20 06/11/20 Range/Units 18:15 06:15 Glucose (80-116) mg/dL Troponin I 3011.1 H* 1513.0 H* (4.0-60.3) pg/mL Urine Opiates Screen (NEGATIVE) Ur Oxycodone Screen (NEGATIVE) Ur Propoxyphene Screen (NEGATIVE) Ur Barbituates Screen (NEGATIVE) Ur Tricyclics Screen (NEGATIVE) Ur Phencyclidine Scrn (NEGATIVE) Ur Amphetamine Screen (NEGATIVE) Urine MDMA Screen (NEGATIVE) U Benzodiazepines Scrn (NEGATIVE) U Cocaine Metab Screen (NEGATIVE) U Marijuana (THC) Screen (NEGATIVE) Med Orders - Current: Current Medications Enoxaparin Sodium (Lovenox) 120 mg SUBCUT Q12H [facility] Last Admin: 06/11/20 02:24 Dose: 120 mg Documented by: Lactated Ringer's (Ringers, Lactated) 1,000 mls @ 100 mls/hr IV ASDIRECTED [facility] Last Admin: 06/11/20 01:18 Dose: 100 mls/hr Documented by: Naloxone HCl (Narcan) 0.4 mg IVPUSH ONETIME PRN PRN Reason: Respiratory Depression Last Admin: 06/10/20 07:39 Dose: 0.4 mg Documented by: Naloxone HCl (Narcan) 0.4 mg IVPUSH ONETIME PRN PRN Reason: Respiratory Depression Last Admin: 06/10/20 07:41 Dose: 0.4 mg Documented by: Ondansetron HCl (Zofran) 4 mg IVPUSH Q4H PRN PRN Reason: Nausea/Vomiting Oxycodone/Acetaminophen (Percocet 325-5 Mg) 1 tab PO Q4H PRN PRN Reason: Breakthrough Pain Last Admin: 06/09/20 22:52 Dose: 1 tab Documented by: Polymyxin/Trimethoprim Sulfate (Polytrim Ophth Soln) 0 ml EYELF QID [facility] Last Admin: 06/11/20 08:06 Dose: 1 drop Documented by: Prednisone (Prednisone) 40 mg PO DAILY [facility] Last Admin: 06/11/20 08:06 Dose: 40 mg Documented by: Discontinued Medications Enoxaparin Sodium (Lovenox) 40 mg SUBCUT Q24H [facility] Last Admin: 06/09/20 18:10 Dose: 40 mg Documented by: Hydromorphone HCl (Dilaudid) 1 mg IVPUSH ONETIME ONE Stop: 06/09/20 15:59 Last Admin: 06/09/20 16:50 Dose: 1 mg Documented by: Hydromorphone HCl (Dilaudid) 2 mg IVPUSH Q3H PRN PRN Reason: Pain Last Admin: 06/10/20 03:02 Dose: 2 mg Documented by: Lactated Ringer's (Ringers, Lactated) 1,000 mls @ 125 mls/hr IV ASDIRECTED [facility] Last Admin: 06/09/20 16:45 Dose: 125 mls/hr Documented by: Sodium Chloride (Normal Saline) 1,000 mls @ 125 mls/hr IV ASDIRECTED [facility] Last Admin: 06/10/20 07:41 Dose: 125 mls/hr Documented by: Methylprednisolone Sodium Succinate (Solu-Medrol) 125 mg IVPUSH Q8H [facility] Stop: 06/10/20 10:00 Last Admin: 06/10/20 01:56 Dose: 125 mg Documented by: Methylprednisolone Sodium Succinate (Solu-Medrol) 125 mg IVPUSH Q12H [facility] Ondansetron HCl (Zofran) 4 mg IVPUSH ONETIME ONE Stop: 06/09/20 16:06 Last Admin: 06/09/20 16:52 Dose: 4 mg Documented by: - Exam General: Alert, Oriented, Cooperative Lungs: Clear to Auscultation, Normal Respiratory Effort Cardiovascular: Regular Rate, Regular Rhythm, No Murmurs Sepsis Event Note - Evaluation Sepsis Screening Result: No Definite Risk - Focused Exam Vital Signs: Vital Signs Temp Pulse Resp BP BP Pulse Ox 06/11/20 08:00 98.0 F 88 16 142/86 H 97 06/11/20 04:00 97.4 F 84 20 117/77 99 06/11/20 00:00 97.4 F 92 20 120/80 93 L - Problem List & Annotations (1) Elevated liver function tests SNOMED Code(s): 011554925, 212342938 Code(s): R79.89 - OTHER SPECIFIED ABNORMAL FINDINGS OF BLOOD CHEMISTRY Status: Acute Current Visit: Yes (2) Ulcerative colitis SNOMED Code(s): 58267746 Code(s): K51.90 - ULCERATIVE COLITIS, UNSPECIFIED, WITHOUT COMPLICATIONS Status: Chronic Current Visit: Yes Qualifiers: Ulcerative colitis location: unspecified ulcerative colitis location Digestive disease complication type: without complication Qualified Code(s): K51.90 - Ulcerative colitis, unspecified, without complications Annotation/Comment:: Mrs Mejia will follow up with GI economic consultant on Wednesday (3) Abdominal pain SNOMED Code(s): 32698819 Code(s): R10.9 - UNSPECIFIED ABDOMINAL PAIN Status: Acute Current Visit: No Qualifiers: Abdominal location: unspecified location Qualified Code(s): R10.9 - Unspecified abdominal pain Annotation/Comment:: Improving (4) Uncontrolled pain SNOMED Code(s): 59248717132084963 Code(s): R52 - PAIN, UNSPECIFIED Status: Acute Current Visit: No (5) Nausea and vomiting SNOMED Code(s): 01119638 Code(s): R11.2 - NAUSEA WITH VOMITING, UNSPECIFIED Status: Resolved Current Visit: No (6) Non-ST elevated myocardial infarction SNOMED Code(s): 25218310 Code(s): I21.4 - NON-ST ELEVATION (NSTEMI) MYOCARDIAL INFARCTION Status: Acute Current Visit: Yes Annotation/Comment:: Class 2 (7) Left eye pain SNOMED Code(s): 64321205 Code(s): H57.12 - OCULAR PAIN, LEFT EYE Status: Acute Current Visit: Yes - Problem List Review Problem List Initiated/Reviewed/Updated: Yes - My Orders Last 24 Hours: My Active Orders 06/10/20 08:45 Telemetry Monitoring [Cardiac Monitoring] [RC] 00,08,16 Pulse Oximetry Continuous Monitoring [OM.PC] Routine EKG 12 Lead [EK] Routine 06/10/20 09:30 predniSONE 40 mg PO DAILY 06/10/20 12:15 Lactated Ringers [Ringers, Lactated] 1,000 ml IV ASDIRECTED 06/10/20 14:30 Enoxaparin [Lovenox] 120 mg SUBCUT Q12H 06/10/20 19:12 EKG 12 Lead [EK] Routine 06/10/20 19:48 EKG Documentation Completion [RC] ASDIRECTED 06/10/20 21:00 Polymyxin B/Trimethoprim [PolyTrim Ophth Soln] 0 ml EYELF QID 06/11/20 06:00 EKG 12 Lead [EK] Routine 06/11/20 08:00 Echo Comp w Cont [US] Routine Echo Comp w Cont [US] Routine - Plan Plan:: Echocardiogram today. On the basis of that report further treatment will be discussed. I will DC IV fluids and give her regular diet. Continue telemetry to least after echocardiogram.
[2020-06-11 09:10] LABS: HBSAG SCREEN Negative (Negative); HEP A AB, IGM Negative (Negative); HEP B CORE AB, IGM Negative (Negative); HEP C VIRUS AB <0.1 s/co ratio (0.0-0.9)
[2020-06-11] MEDS ORDERED: LORazepam 1 MG Tab PO PRN (09:13)
[2020-06-11] MEDS ORDERED: Ondansetron 4 MG Tab.DIS PO PRN (09:13)
[2020-06-11] MEDS ORDERED: Acetaminophen 325 MG Tab PO PRN (09:13)
[2020-06-11] MEDS ORDERED: amLODIPine 10 MG Tab PO SCH (10:00)
[2020-06-11] MEDS ORDERED: FLUoxetine 20 MG Cap PO SCH (10:00)
--- NOTE | 2020-06-11 13:27 | PCM.SN.2 ---
- Free Text/Narrative Note: Preliminary result of the echo was completely normal. Discussed cardiology in they would like to have a stress test and then calcium vascular CT scan and lipids. We'll discharge the patient home on prednisone today and those tests.
--- NOTE | 2020-06-11 13:33 | PCM.DCSUM1 ---
Discharge Summary - Hospital Course Free Text/Narrative:: Hospital course-patient was admitted on every 3 hours Dilantin 2 mg. I reviewed the CT scan of the abdomen which is negative. She started on Solu-Medrol IV. Patient had 3 doses was asking for the medication at 3 hours. She also asked for more medication and the ER doc was called and gave 1 dose of Percocet. Patient had lots of snoring and was sleeping on her stomach. She has a history of sleep apnea and did not ever CPAP machine she didn't get her. In the morning she was's breathing, snoring and unresponsive. According was called please see the code note. Patient had elevations in her troponin and some ST depression in lateral leads it cleared up within an hour. Followed her enzymes periodically and they went up and then fell down. cardiology and we will discharge her home and have test outpatient. She had echocardiogram that limited report says was normal. Wait for radiology interpretation. Cardiology wants her to get a calcium scoring CT scan, stress test and lipids outpatient. If there is any abnormalities ill see her otherwise a don't think they need to follow with her. Patient complained of the left eye pain is prednisone give her Polytrim and felt better. Brief History: This is a 40-year-old female patient with history of ulcerative colitis. She's had frequent hospitalizations and CAT scans. 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 She's had 4 day history of abdominal pain left lower quadrant with nausea and vomiting. She denies fevers, chills, blood in her stool, diarrhea. She does have mucus in her stool. She denies dysuria, pyuria, hematuria. She states she had hysterectomy little month ago and has no vaginal issues. She was seen yesterday and the CAT scan was negative sentinel and pain pills and came back today because the pain is unbearable. She was given Percocet yesterday outpatient and Dilaudid here at the hospital. Diagnosis: Stroke: No - Discharge Data Discharge Date: 06/11/20 Discharge Disposition: Home, Self-Care 01 Condition: Fair - Referral to Home Health Primary Care Physician: Padmaja Araujo PA-C - Discharge Diagnosis/Problem(s) (1) Elevated liver function tests SNOMED Code(s): 184807478, 815295909 ICD Code: R79.89 - OTHER SPECIFIED ABNORMAL FINDINGS OF BLOOD CHEMISTRY Status: Acute Current Visit: Yes (2) Ulcerative colitis SNOMED Code(s): 50765610 ICD Code: K51.90 - ULCERATIVE COLITIS, UNSPECIFIED, WITHOUT COMPLICATIONS Status: Chronic Current Visit: Yes Problem Details: Mrs Mejia will follow up with GI partner management consultant on Wednesday Qualifiers: Ulcerative colitis location: unspecified ulcerative colitis location Digestive disease complication type: without complication Qualified Code(s): K51.90 - Ulcerative colitis, unspecified, without complications (3) Abdominal pain SNOMED Code(s): 02598603 ICD Code: R10.9 - UNSPECIFIED ABDOMINAL PAIN Status: Acute Current Visit: No Problem Details: Improving Qualifiers: Abdominal location: unspecified location Qualified Code(s): R10.9 - Unspecified abdominal pain (4) Uncontrolled pain SNOMED Code(s): 97988494955998928 ICD Code: R52 - PAIN, UNSPECIFIED Status: Acute Current Visit: No (5) Nausea and vomiting SNOMED Code(s): 96972383 ICD Code: R11.2 - NAUSEA WITH VOMITING, UNSPECIFIED Status: Resolved Current Visit: No (6) Non-ST elevated myocardial infarction SNOMED Code(s): 02854196 ICD Code: I21.4 - NON-ST ELEVATION (NSTEMI) MYOCARDIAL INFARCTION Status: Acute Current Visit: Yes Problem Details: Class 2 (7) Left eye pain SNOMED Code(s): 91709409 ICD Code: H57.12 - OCULAR PAIN, LEFT EYE Status: Acute Current Visit: Yes - Patient Instructions Diet: Regular Diet as Tolerated Activity: As Tolerated Driving: May Drive Today Showering/Bathing: May Shower Notify Provider of: Increased Pain Other/Special Instructions: 1. Recheck with Dr. Santana in 1 week in Padmaja Araujo's absence. 2. Stress test with Dr. Santana. 3. Lipids her next appointment. 4. Low-dose CT scan for calcium scoring which is the vascular screen in [place]. 5. Appointment with optometry in regards to her eye pain - Discharge Plan *PRESCRIPTION DRUG MONITORING PROGRAM REVIEWED*: No *COPY OF PRESCRIPTION DRUG MONITORING REPORT IN PATIENT PROSPER: No Prescriptions/Med Rec: Polymyxin B/Trimethoprim [PolyTrim Ophth Soln] 0 ml EYELF QID #1 bottle predniSONE 40 mg PO DAILY #14 tablet Home Medications: Home Meds FLUoxetine HCl [Prozac] 80 mg PO DAILY 12/22/18 [History] LORazepam 1 mg PO TID PRN 06/21/19 [History] Multivitamin [Multivitamins] 1 each PO DAILY 06/21/19 [History] amLODIPine Besylate [Norvasc] 10 mg PO DAILY 06/21/19 [History] .Entivio 1 injection IV ASDIRECTED 04/18/20 [History] Ondansetron [Zofran ODT] 4 mg PO Q4H PRN #30 tab.dis 05/04/20 [Rx] Acetaminophen [Tylenol] 650 mg PO Q6H PRN tablet 05/18/20 [Rx] Polymyxin B/Trimethoprim [PolyTrim Ophth Soln] 0 ml EYELF QID #1 bottle 06/11/20 [Rx] predniSONE 40 mg PO DAILY #14 tablet 06/11/20 [Rx] Patient Handouts: Gastritis, Adult, Fall Prevention in Hospitals, Adult, Venous Thromboembolism Prevention Forms: ED Department Discharge Referrals: PCP,None [Ordering Only Provider] - - Discharge Summary/Plan Comment DC Time >30 min.: No - Patient Data Vitals - Most Recent: Last Vital Signs Temp 98.0 F 06/11/20 08:00 Pulse 88 06/11/20 08:00 Resp 16 06/11/20 08:00 BP 142/86 H 06/11/20 10:33 Pulse Ox 97 06/11/20 08:00 Weight - Most Recent: 302 lb 14.4 oz I&O - Last 24 hours: Intake & Output 06/10/20 06/11/20 06/11/20 22:59 06:59 14:59 Intake Total 2742 1388 Output Total 2150 1700 Balance 592 -312 Lab Results - Last 24 hrs: Laboratory Results - last 24 hr 06/09/20 06/10/20 06/11/20 Range/Units 18:00 18:15 06:15 Troponin I 3011.1 H* 1513.0 H* (4.0-60.3) pg/mL Hepatitis A IgM Ab Negative (Negative) Hep Bs Antigen Negative (Negative) Hep B Core IgM Ab Negative (Negative) Hepatitis C Antibody <0.1 (0.0-0.9) s/co ratio Med Orders - Current: Current Medications Acetaminophen (Tylenol) 650 mg PO Q6H PRN PRN Reason: Pain Amlodipine Besylate (Norvasc) 10 mg PO DAILY [facility] Last Admin: 06/11/20 10:33 Dose: 10 mg Documented by: Enoxaparin Sodium (Lovenox) 120 mg SUBCUT Q12H [facility] Last Admin: 06/11/20 02:24 Dose: 120 mg Documented by: Fluoxetine HCl (Prozac) 80 mg PO DAILY [facility] Last Admin: 06/11/20 10:33 Dose: 80 mg Documented by: Lorazepam (Ativan) 1 mg PO TID PRN PRN Reason: Anxiety Multivitamins/Minerals/Vitamin C (Tab-A-Holly) 1 tab PO DAILY [facility] Naloxone HCl (Narcan) 0.4 mg IVPUSH ONETIME PRN PRN Reason: Respiratory Depression Last Admin: 06/10/20 07:39 Dose: 0.4 mg Documented by: Naloxone HCl (Narcan) 0.4 mg IVPUSH ONETIME PRN PRN Reason: Respiratory Depression Last Admin: 06/10/20 07:41 Dose: 0.4 mg Documented by: Ondansetron HCl (Zofran) 4 mg IVPUSH Q4H PRN PRN Reason: Nausea/Vomiting Ondansetron HCl (Zofran Odt) 4 mg PO Q4H PRN PRN Reason: Nausea Oxycodone/Acetaminophen (Percocet 325-5 Mg) 1 tab PO Q4H PRN PRN Reason: Breakthrough Pain Last Admin: 06/09/20 22:52 Dose: 1 tab Documented by: Polymyxin/Trimethoprim Sulfate (Polytrim Ophth Soln) 0 ml EYELF QID [facility] Last Admin: 06/11/20 08:06 Dose: 1 drop Documented by: Prednisone (Prednisone) 40 mg PO DAILY [facility] Last Admin: 06/11/20 08:06 Dose: 40 mg Documented by: Discontinued Medications Enoxaparin Sodium (Lovenox) 40 mg SUBCUT Q24H [facility] Last Admin: 06/09/20 18:10 Dose: 40 mg Documented by: Hydromorphone HCl (Dilaudid) 1 mg IVPUSH ONETIME ONE Stop: 06/09/20 15:59 Last Admin: 06/09/20 16:50 Dose: 1 mg Documented by: Hydromorphone HCl (Dilaudid) 2 mg IVPUSH Q3H PRN PRN Reason: Pain Last Admin: 06/10/20 03:02 Dose: 2 mg Documented by: Lactated Ringer's (Ringers, Lactated) 1,000 mls @ 125 mls/hr IV ASDIRECTED [facility] Last Admin: 06/09/20 16:45 Dose: 125 mls/hr Documented by: Sodium Chloride (Normal Saline) 1,000 mls @ 125 mls/hr IV ASDIRECTED [facility] Last Admin: 06/10/20 07:41 Dose: 125 mls/hr Documented by: Lactated Ringer's (Ringers, Lactated) 1,000 mls @ 100 mls/hr IV ASDIRECTED [facility] Last Admin: 06/11/20 01:18 Dose: 100 mls/hr Documented by: Methylprednisolone Sodium Succinate (Solu-Medrol) 125 mg IVPUSH Q8H [facility] Stop: 06/10/20 10:00 Last Admin: 06/10/20 01:56 Dose: 125 mg Documented by: Methylprednisolone Sodium Succinate (Solu-Medrol) 125 mg IVPUSH Q12H [facility] Ondansetron HCl (Zofran) 4 mg IVPUSH ONETIME ONE Stop: 06/09/20 16:06 Last Admin: 06/09/20 16:52 Dose: 4 mg Documented by:
[2020-06-12] MEDS ORDERED: Multivitamin Tab PO SCH (09:00)
== END 2020-06-11 14:21 | disposition home or self-care (01) ==
LOC: FB.ED 15:54 → FB.MS 16:12
PROVIDERS: ADMIT Emergency Medicine; ATTEND Family Medicine
DX: K51.90 Ulcerative colitis, unspecified, without complications (principal); R79.89 Other specified abnormal findings of blood chemistry; I21.4 Non-ST elevation (NSTEMI) myocardial infarction; H57.12 Ocular pain, left eye; Z79.899 Other long term (current) drug therapy; Z88.5 Allergy status to narcotic agent; G47.30 Sleep apnea, unspecified; Z20.828 Contact with and (suspected) exposure to other viral communicable diseases; T40.691A Poisoning by other narcotics, accidental (unintentional), initial encounter; Z99.89 Dependence on other enabling machines and devices; E66.9 Obesity, unspecified; Z90.49 Acquired absence of other specified parts of digestive tract; Z98.890 Other specified postprocedural states; Z68.42 Body mass index [BMI] 45.0-49.9, adult
CPT/HCPCS: 36415; 71045; 80053; 80074; 80305-QW; 81003; 82947; 83690; 84484; 85025; 85027; 85379; 86140; 93005; 96374; 96375; 99284; 99284-25; A9270-GY; C8929; J1170; J1650; J2310; J2405; J2930; J7030; J7120; J7512; U0002

== ENCOUNTER 2020-11-06 09:10 | Emergency (ER) | payer BC, OTHER ==
[2020-11-06] MEDS ORDERED: Ondansetron 4 MG/2 ML SDV IVPUSH STA (09:48)
[2020-11-06] MEDS ORDERED: Sodium Chloride 0.9% 10 ML Syringe FLUSH PRN (09:48)
[2020-11-06] MEDS ORDERED: Morphine 2 MG/ML SYRINGE IVPUSH STA (09:48)
[2020-11-06] MEDS ORDERED: Sodium Chloride 0.9% 1,000 ML IV SCH (10:00)
[2020-11-06] MEDS ORDERED: Iopamidol 755 Mg/ML 100 ML Bottle IV ONE (10:27)
--- NOTE | 2020-11-06 11:25 | EDM.PDOC ---
ED HPI GENERAL MEDICAL PROBLEM - General Chief Complaint: Genitourinary Problem Stated Complaint: POSSIBLE KIDNEY STONE Time Seen by Provider: 11/06/20 09:25 Source of Information: Reports: Patient History Limitations: Reports: No Limitations - History of Present Illness INITIAL COMMENTS - FREE TEXT/NARRATIVE: Patient presented to the ED because of bilateral flank pain worse on the left. She also c/o dysuria,frequency, bloody urine and she vomited 3 times since yesterday. The pain is sharp 6/10, radiating to the left groin and genital area. Lower back & pelvic Pain Score (Numeric/FACES): 8 - Related Data Allergies Allergy/AdvReac Type Severity Reaction Status Date / Time NSAIDS (Non-Steroidal Allergy Other Verified 11/06/20 09:28 Anti-Inflamma Home Meds: Home Meds FLUoxetine HCl [Prozac] 80 mg PO DAILY 12/22/18 [History] LORazepam 1 mg PO TID PRN 06/21/19 [History] Multivitamin [Multivitamins] 1 each PO DAILY 06/21/19 [History] Ondansetron [Zofran ODT] 4 mg PO Q4H PRN #30 tab.dis 05/04/20 [Rx] Acetaminophen [Tylenol] 650 mg PO Q6H PRN tablet 05/18/20 [Rx] Ciprofloxacin HCl [Cipro] 500 mg PO BID #10 tablet 11/06/20 [Rx] Ondansetron [Zofran ODT] 4 mg PO Q4H PRN #5 tab.dis 11/06/20 [Rx] traMADol [Ultram] 100 mg PO Q8H PRN #15 tab 11/06/20 [Rx] Past Medical History Cardiovascular History: Reports: Hypertension Respiratory History: Reports: Sleep Apnea Other Respiratory History: Uses CPAP. Gastrointestinal History: Reports: Diverticulosis, GERD, GI Bleed, Hemorrhoids, Inflammatory Bowel Disease, Irritable Bowel Syndrome, Other (See Below) Other Gastrointestinal History: History ulcerative colitis. History of EOE (Eosinophilic Esophagitis). 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 Has Asherman's Syndrome of uterus. Musculoskeletal History: Reports: Arthritis, Fracture Other Musculoskeletal History: History of fracture right clavicle. Neurological History: Reports: Migraines Psychiatric History: Reports: Anxiety, Depression, Panic Attack, Psych Hospitalization(s) Endocrine/Metabolic History: Reports: Diabetes, Gestational, Obesity/BMI 30+ Hematologic History: Reports: Anemia, Blood Transfusion(s) Other Hematologic History: Has blood antibody. Immunologic History: Reports: Other (See Below) Other Immunologic History: Takes biologics for ulcerative colitis. - Infectious Disease History Infectious Disease History: Reports: C-Difficile, Chicken Pox, Influenza - Past Surgical History Head Surgeries/Procedures: Reports: None HEENT Surgical History: Reports: Oral Surgery GI Surgical History: Reports: Bariatric Procedure, Cholecystectomy, Colonoscopy, EGD Other GI Surgeries/Procedures: , 2 SURGERIES POST FOR INFECTION, HYSTERECTOMY PARTIAL, stomach sleeve Female Surgical History: Reports: Section, Hysterectomy, Other (See Below) Other Female Surgeries/Procedures: PARTIAL HYSTERECTOMY, Neurological Surgical History: Reports: None Musculoskeletal Surgical History: Reports: Arthroscopic Knee Other Musculoskeletal Surgeries/Procedures:: Right knee scope X2. Social & Family History - Family History Family Medical History: No Pertinent Family History - Tobacco Use Tobacco Use Status *Q: Former Tobacco User Years of Tobacco use: 13 Used Tobacco, but Quit: Yes Month/Year Tobacco Last Used: 2007 - Caffeine Use Caffeine Use: Reports: None - Recreational Drug Use Recreational Drug Use: No - Living Situation & Occupation Living situation: Reports: ED ROS GENERAL - Review of Systems Review Of Systems: See Below Constitutional: Reports: No Symptoms HEENT: Reports: No Symptoms Respiratory: Reports: No Symptoms Cardiovascular: Reports: No Symptoms Endocrine: Reports: No Symptoms GI/Abdominal: Reports: Abdominal Pain, Nausea, Vomiting : Reports: No Symptoms Musculoskeletal: Reports: No Symptoms Skin: Reports: No Symptoms Neurological: Reports: No Symptoms Psychiatric: Reports: No Symptoms ED EXAM, GI/ABD - Physical Exam Exam: See Below Exam Limited By: No Limitations General Appearance: Alert, No Apparent Distress Ears: Normal External Exam, Normal Canal, Hearing Grossly Normal Nose: Normal Inspection, Normal Mucosa, No Blood Throat/Mouth: Normal Inspection, Normal Teeth Head: Atraumatic, Normocephalic Neck: Normal Inspection, Supple, Non-Tender Respiratory/Chest: No Respiratory Distress, Lungs Clear, Normal Breath Sounds Cardiovascular: Normal Peripheral Pulses, Regular Rate, Rhythm, No Edema, No Gallop, No JVD, No Murmur GI/Abdominal Exam: Normal Bowel Sounds, Soft, Other (Left CVAT) Back Exam: Normal Inspection, Full Range of Motion Course - Vital Signs Text/Narrative:: Lab and CT result was reviewed and discussed with patient NS 1 L bolus Zofran 4 mg IV x1 Morphine 2 mg IV x1 Tramadol 100 mg PO x1 Last Recorded V/S: Last Vital Signs Temp 36.6 C 11/06/20 09:19 Pulse 91 11/06/20 11:27 Resp 20 11/06/20 11:27 BP 121/78 11/06/20 11:27 Pulse Ox 100 11/06/20 11:27 - Orders/Labs/Meds Orders: Active Orders 24 hr Category Date Time Status CULTURE URINE [RM] Stat Lab 11/06/20 09:25 Received Saline Lock Insert [OM.PC] Routine Oth 11/06/20 09:48 Ordered Labs: Laboratory Tests 11/06/20 11/06/20 11/06/20 Range/Units 09:25 09:35 09:35 WBC 7.6 (3.0-10.3) x10-3/uL RBC 4.53 (3.60-5.20) x10(6)uL Hgb 13.1 (11.4-15.5) g/dL Hct 39.9 (34.2-48.2) % MCV 88.0 (76.7-100.5) fL MCH 28.9 (23.9-33.9) pg MCHC 32.9 (31.9-34.8) g/dL RDW 15.7 (12.3-16.5) % Plt Count 295 (151-488) x10(3)uL MPV 11.1 (7.1-12.4) fL Neut % (Auto) 63.3 (30.8-76.2) % Lymph % (Auto) 29.1 (18.4-52.1) % George % (Auto) 4.5 (4.4-15.7) % Eos % (Auto) 1.9 (0.6-8.1) % Baso % (Auto) 1.2 (0.2-1.5) % Neut # (Auto) 4.8 (1.5-6.3) x10-3/uL Lymph # (Auto) 2.2 (1.0-4.4) x10-3/uL George # (Auto) 0.3 (0.3-1.0) x10-3/uL Eos # (Auto) 0.1 (0.0-0.8) x10-3/uL Baso # (Auto) 0.1 (0.0-0.1) x10-3/uL Sodium 140 (135-145) mmol/L Potassium 3.1 L D (3.5-5.3) mmol/L Chloride 104 (100-110) mmol/L Carbon Dioxide 20 L (21-32) mmol/L BUN 19 H (7-18) mg/dL Creatinine 0.7 (0.55-1.02) mg/dL Est Cr Clr Drug Dosing 107.77 mL/min Estimated GFR (MDRD) > 60 (>60) BUN/Creatinine Ratio 27.1 H (9-20) Glucose 94 D (80-116) mg/dL Calcium 9.1 (8.6-10.2) mg/dL Urine Color Yellow (YELLOW) Urine Appearance Cloudy (CLEAR) Urine pH 5.0 (5.0-6.5) Ur Specific [place] 1.025 (1.010-1.025) Urine Protein 30 H (NEGATIVE) mg/dL Urine Glucose (UA) Normal (NORMAL) mg/dL Urine Ketones 50 H (NEGATIVE) mg/dL Urine Occult Blood Moderate H (NEGATIVE) Urine Nitrite Negative (NEGATIVE) Urine Bilirubin Small H (NEGATIVE) Urine Urobilinogen 1 H (NEGATIVE) mg/dL Ur Leukocyte Esterase Large H (NEGATIVE) Urine RBC 5-10 H (0-5) Urine WBC >100 H (0-5) Ur Squamous Epith Cells Few H (NS,R,O) Urine Bacteria Moderate H (NS) Urine Mucus Few H (NS) Meds: Medications Discontinued Medications Generic Name Dose Route Start Last Admin Trade Name Freq PRN Reason Stop Dose Admin Sodium Chloride 1,000 mls @ 999 mls/hr 11/06/20 10:00 11/06/20 10:07 Normal Saline IV 999 mls/hr ASDIRECTED NAHID Administration Iopamidol 100 ml 11/06/20 10:27 11/06/20 10:32 Iopamidol 755 Mg/Ml 100 Ml Bottle IV 11/06/20 10:28 100 ml . DIRECTED ONE Administration Morphine Sulfate 2 mg 11/06/20 09:48 11/06/20 10:10 Morphine 2 Mg/Ml Syringe IVPUSH 11/06/20 09:49 2 mg NOW STA Administration Ondansetron HCl 4 mg 11/06/20 09:48 11/06/20 10:07 Ondansetron 4 Mg/2 Ml Sdv IVPUSH 11/06/20 09:49 4 mg NOW STA Administration Sodium Chloride 10 ml 11/06/20 09:48 11/06/20 10:07 Sodium Chloride 0.9% 10 Ml Syringe FLUSH 10 ml ASDIRECTED PRN Administration Keep Vein Open Tramadol HCl 100 mg 11/06/20 11:27 11/06/20 11:35 Tramadol 50 Mg Tab PO 11/06/20 11:28 100 mg NOW STA Administration Departure - Departure Time of Disposition: 11:20 Disposition: Home, Self-Care 01 Condition: Good Clinical Impression: UTI (urinary tract infection), Hypokalemia - Discharge Information Prescriptions: Ciprofloxacin HCl [Cipro] 500 mg PO BID #10 tablet traMADol [Ultram] 100 mg PO Q8H PRN #15 tab PRN Reason: Pain Ondansetron [Zofran ODT] 4 mg PO Q4H PRN #5 tab.dis PRN Reason: Nausea Instructions: Hypokalemia, Urinary Tract Infection, Adult, [id number] Referrals: Padmaja Araujo PA-C [Primary Care Provider] - Forms: ED Department Discharge Additional Instructions: Please read discharge instructions on UTI Increase oral fluids Cipro 500 mg Twice daily for 5 days Klor con 20 MEQ, 2 tablets 3 times daily for 2 days Zofran/Odansetron 4 mg every 4 hours as needed for nausea Tramadol 100 mg with tylenol 1000 mg every 8 hours as needed for pain Follow up as needed Sepsis Event Note (ED) - Evaluation Sepsis Screening Result: Possible Sepsis Risk - Focused Exam Vital Signs: Vital Signs Pulse Resp BP Pulse Ox 11/06/20 11:27 91 20 121/78 100 - My Orders Last 24 Hours: My Active Orders 11/06/20 09:25 CULTURE URINE [RM] Stat 11/06/20 09:48 Saline Lock Insert [OM.PC] Routine - Assessment/Plan Last 24 Hours: My Active Orders 11/06/20 09:25 CULTURE URINE [RM] Stat 11/06/20 09:48 Saline Lock Insert [OM.PC] Routine
[2020-11-06] MEDS ORDERED: traMADol 50 MG Tab PO STA (11:27)
--- NOTE | 2020-11-06 11:42 | CT ---
INDICATION: Left flank pain, hematuria, pelvic pressure times three days. CT ABDOMEN AND PELVIS WITHOUT AND WITH CONTRAST: Spiral 2.5 mm axial sections were initially obtained without IV contrast through the abdomen and pelvis and then through the abdomen and pelvis at 100 second delay and 6 minute delays after 100 mL Isovue-370 at 2 mL/second. An 18 minute delayed set of images through the pelvis were obtained for distended bladder visualization. Examination was obtained 11/06/20 and compared with 06/08/20. Total exam DLP was 6088.19 mGy-cm. The lower lung duval and pleural spaces visualized appeared normal. The heart appeared normal in size. No pericardial effusion was seen. The gallbladder is absent with clips at the cystic duct compatible with cholecystectomy seen previously. The liver had a normal appearance, as did the spleen, pancreas, adrenal glands, and for the most part kidneys with one wedge-shaped defect in the posterior mid pole cortex of the left kidney again noted which could represent a scar. No evidence of obstructive uropathy, renal calcinosis, or renal masses could be identified. Common bile duct was normal in caliber for a post-cholecystectomy patient. Retroperitoneal lymphadenopathy is mild and nonspecific with no retroperitoneal mass identified. The stomach shows evidence of bariatric surgery, which is a new finding. The appendix appeared normal visualized on axial images 106 through 112. No evidence of free air or bowel obstruction was seen. The uterus is absent compatible with history of its removal. The urinary bladder wall appears to be somewhat thickened raising question of cystitis. No urinary bladder mass was identified. No inguinal or ventral hernia was identified. No mass lesions, organomegaly or free fluid collections were identified in the abdomen or pelvis. CT urogram appears normal except as noted above for thickening of the urinary bladder wall. IMPRESSION: 1. Thickening of the urinary bladder wall which may be on the basis of cystitis - correlate clinically. 2. CT urogram and upper urinary tract unremarkable. 3. Appendix unremarkable. 4. Post-cholecystectomy, post-hysterectomy. 5. Post-bariatric surgery at the stomach. Report was called to Dr. Beal at 1117 hours 11/06/20. [facility]andon
== END 2020-11-06 12:00 | disposition home or self-care (01) ==
LOC: FB.ED 09:10
DX: N39.0 Urinary tract infection, site not specified (principal); R31.9 Hematuria, unspecified; E87.6 Hypokalemia; I10 Essential (primary) hypertension; E66.9 Obesity, unspecified; Z88.8 Allergy status to other drugs, medicaments and biological substances; Z79.899 Other long term (current) drug therapy; Z87.891 Personal history of nicotine dependence
CPT/HCPCS: 36415; 74178; 80048; 81001; 85025; 87086; 87088; 87186; 96374; 96375; 99284; A9270; J2270; J2405; J7030; Q9967

== ENCOUNTER 2021-04-29 14:00 | Emergency (ER) | payer OTHER ==
[2021-04-29] MEDS ORDERED: Sodium Chloride 0.9% 10 ML Syringe FLUSH PRN (14:38)
[2021-04-29] MEDS ORDERED: traMADol 50 MG Tab PO STA (14:40)
[2021-04-29] MEDS ORDERED: Ondansetron 4 MG/2 ML SDV IVPUSH STA (14:40)
[2021-04-29] MEDS ORDERED: Morphine 4 MG/ML VIAL IVPUSH STA (14:40)
[2021-04-29] MEDS ORDERED: hydrOXYzine HCl 50 MG/ML SDV IM ONE (14:49)
--- NOTE | 2021-04-29 15:16 | EDM.PDOC ---
ED HPI GENERAL MEDICAL PROBLEM - General Chief Complaint: Abdominal Pain Stated Complaint: STOMACH PAIN/CDIFF Time Seen by Provider: 04/29/21 14:15 Source of Information: Reports: Patient History Limitations: Reports: No Limitations - History of Present Illness INITIAL COMMENTS - FREE TEXT/NARRATIVE: Patient presented to the ED because of headache for 1 month. She has a history of migraine, she took her imitrex, benadryl, compazine cocktai which didn't help. The pain is throbbing over the bifrontal area, 10/10, with associated photophobia, no nausea or vomiting. L abdomen & frontal headache Pain Score (Numeric/FACES): 9 - Related Data Allergies Allergy/AdvReac Type Severity Reaction Status Date / Time NSAIDS (Non-Steroidal Allergy Other Verified 04/29/21 14:13 Anti-Inflamma Home Meds: Home Meds FLUoxetine HCl [Prozac] 80 mg PO BEDTIME 12/22/18 [History] LORazepam 1 mg PO TID PRN 06/21/19 [History] Multivitamin [Multivitamins] 1 each PO DAILY 06/21/19 [History] Acetaminophen [Tylenol] 650 mg PO Q6H PRN tablet 05/18/20 [Rx] Ondansetron [Zofran ODT] 4 mg PO Q4H PRN #5 tab.dis 11/06/20 [Rx] Prochlorperazine [Compazine] 10 mg ASDIRECTED PRN 04/29/21 [History] Vancomycin HCl 125 mg QID 04/29/21 [History] hydrOXYzine pamoate [Vistaril] 50 mg PO Q6H PRN #30 cap 04/29/21 [Rx] predniSONE 10 mg PO ASDIRECTED 04/29/21 [History] traMADol [Ultram] 100 mg PO Q8H PRN #15 tab 04/29/21 [Rx] Past Medical History Cardiovascular History: Reports: Hypertension Respiratory History: Reports: Sleep Apnea Other Respiratory History: Uses CPAP. Gastrointestinal History: Reports: Diverticulosis, GERD, GI Bleed, Hemorrhoids, Inflammatory Bowel Disease, Irritable Bowel Syndrome, Other (See Below) Other Gastrointestinal History: History ulcerative colitis. History of EOE (Eosinophilic Esophagitis). 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 Has Asherman's Syndrome of uterus. Musculoskeletal History: Reports: Arthritis, Fracture Other Musculoskeletal History: History of fracture right clavicle. Neurological History: Reports: Migraines Psychiatric History: Reports: Anxiety, Depression, Panic Attack, Psych Hospitalization(s) Endocrine/Metabolic History: Reports: Diabetes, Gestational, Obesity/BMI 30+ Hematologic History: Reports: Anemia, Blood Transfusion(s) Other Hematologic History: Has blood antibody. Immunologic History: Reports: Other (See Below) Other Immunologic History: Takes biologics for ulcerative colitis. - Infectious Disease History Infectious Disease History: Reports: C-Difficile, Chicken Pox, Influenza - Past Surgical History Head Surgeries/Procedures: Reports: None HEENT Surgical History: Reports: Oral Surgery GI Surgical History: Reports: Bariatric Procedure, Cholecystectomy, Colonoscopy, EGD Other GI Surgeries/Procedures: , 2 SURGERIES POST FOR INF ECTION, HYSTERECTOMY PARTIAL, stomach sleeve 07/28 Female Surgical History: Reports: Section, Hysterectomy, Other (See Below) Other Female Surgeries/Procedures: PARTIAL HYSTERECTOMY, Neurological Surgical History: Reports: None Musculoskeletal Surgical History: Reports: Arthroscopic Knee Other Musculoskeletal Surgeries/Procedures:: Right knee scope X2. Social & Family History - Family History Family Medical History: No Pertinent Family History - Tobacco Use Tobacco Use Status *Q: Former Tobacco User Years of Tobacco use: 10 Used Tobacco, but Quit: Yes Month/Year Tobacco Last Used: 2008 - Caffeine Use Caffeine Use: Reports: Coffee - Recreational Drug Use Recreational Drug Use: No - Living Situation & Occupation Living situation: Reports: ED ROS GENERAL - Review of Systems Review Of Systems: See Below Constitutional: Reports: No Symptoms HEENT: Reports: No Symptoms Respiratory: Reports: No Symptoms Cardiovascular: Reports: No Symptoms Endocrine: Reports: No Symptoms GI/Abdominal: Reports: Abdominal Pain, Diarrhea : Reports: No Symptoms Musculoskeletal: Reports: No Symptoms Skin: Reports: No Symptoms Neurological: Reports: Headache Psychiatric: Reports: No Symptoms Hematologic/Lymphatic: Reports: No Symptoms ED EXAM, GI/ABD - Physical Exam Exam: See Below Exam Limited By: No Limitations General Appearance: Alert, No Apparent Distress Ears: Normal External Exam, Normal Canal Nose: Normal Inspection, Normal Mucosa Throat/Mouth: Normal Inspection, Normal Lips, Normal Teeth Head: Atraumatic, Normocephalic Neck: Normal Inspection, Supple, Non-Tender, Full Range of Motion Respiratory/Chest: No Respiratory Distress, Lungs Clear, Normal Breath Sounds, No Accessory Muscle Use, Chest Non-Tender Cardiovascular: Normal Peripheral Pulses, Regular Rate, Rhythm, No Edema, No Gallop, No JVD, No Murmur GI/Abdominal Exam: Normal Bowel Sounds, Soft, Non-Tender, No Organomegaly, No Distention, No Abnormal Bruit Back Exam: Normal Inspection, Full Range of Motion Extremities: Normal Inspection, Normal Range of Motion, Non-Tender, No Pedal Edema, Normal Capillary Refill Neurological: Alert, Oriented, CN II-XII Intact, Normal Reflexes, No Motor/Sensory Deficits Psychiatric: Normal Affect Course - Vital Signs Text/Narrative:: Lab result was reviewed and discussed with patient NS 1 L bolus Vistaril 100 mg IM x1 Morphine 4 mg IV x1 Tramadol 100 mg IM x1 Last Recorded V/S: Last Vital Signs Temp 37.1 C 04/29/21 14:09 Pulse 97 04/29/21 14:09 Resp 18 04/29/21 14:09 BP 149/101 H 04/29/21 14:09 Pulse Ox 97 04/29/21 14:09 - Orders/Labs/Meds Orders: Active Orders 24 hr Category Date Time Status Sodium Chloride 0.9% [Saline Flush] Med 04/29/21 14:38 Active 10 ml FLUSH ASDIRECTED PRN Saline Lock Insert [OM.PC] Routine Oth 04/29/21 14:38 Ordered Medication Orders Sodium Chloride (Sodium Chloride 0.9% 10 Ml Syringe) 10 ml FLUSH ASDIRECTED PRN PRN Reason: Keep Vein Open Last Admin: 04/29/21 15:30 Dose: 10 ml Documented by: DUDLEY Labs: Laboratory Tests 04/29/21 04/29/21 04/29/21 Range/Units 14:30 14:30 14:40 WBC 12.1 H (3.0-10.3) x10-3/uL RBC 4.29 (3.60-5.20) x10(6)uL Hgb 12.4 (11.4-15.5) g/dL Hct 38.1 (34.2-48.2) % MCV 88.7 (76.7-100.5) fL MCH 28.9 (23.9-33.9) pg MCHC 32.6 (31.9-34.8) g/dL RDW 14.7 (12.3-16.5) % Plt Count 330 (151-488) x10(3)uL MPV 8.7 (7.1-12.4) fL Neut % (Auto) 57.7 (30.8-76.2) % Lymph % (Auto) 33.9 (18.4-52.1) % Callahan % (Auto) 6.2 (4.4-15.7) % Eos % (Auto) 1.2 (0.6-8.1) % Baso % (Auto) 1.0 (0.2-1.5) % Neut # (Auto) 7.0 H (1.5-6.3) x10-3/uL Lymph # (Auto) 4.1 (1.0-4.4) x10-3/uL Callahan # (Auto) 0.7 (0.3-1.0) x10-3/uL Eos # (Auto) 0.1 (0.0-0.8) x10-3/uL Baso # (Auto) 0.1 (0.0-0.1) x10-3/uL Sodium (135-145) mmol/L Potassium (3.5-5.3) mmol/L Chloride (100-110) mmol/L Carbon Dioxide (21-32) mmol/L BUN (7-18) mg/dL Creatinine (0.55-1.02) mg/dL Est Cr Clr Drug Dosing mL/min Estimated GFR (MDRD) (>60) BUN/Creatinine Ratio (9-20) Glucose (80-116) mg/dL Calcium (8.6-10.2) mg/dL Total Bilirubin (0.1-1.3) mg/dL AST (5-25) IU/L ALT (12-36) U/L Alkaline Phosphatase (56-112) IU/L Total Protein (6.0-8.0) g/dL Albumin (3.5-5.2) g/dL Globulin g/dL Albumin/Globulin Ratio Amylase (25-115) U/L Lipase (73-393) U/L Urine Color Yellow (YELLOW) Urine Appearance Slightly cloudy (CLEAR) Urine pH 7.0 H (5.0-6.5) Ur Specific Pinson 1.015 (1.010-1.025) Urine Protein Negative (NEGATIVE) mg/dL Urine Glucose (UA) Normal (NORMAL) mg/dL Urine Ketones Negative (NEGATIVE) mg/dL Urine Occult Blood Negative (NEGATIVE) Urine Nitrite Negative (NEGATIVE) Urine Bilirubin Negative (NEGATIVE) Urine Urobilinogen Normal (NEGATIVE) mg/dL Ur Leukocyte Esterase Negative (NEGATIVE) Urine RBC 0-5 (0-5) Urine WBC 0-5 (0-5) Ur Squamous Epith Cells Few H (NS,R,O) Amorphous Sediment Many Urine Bacteria Few H (NS) Urine HCG, Qual Negative (NEGATIVE) 04/29/21 04/29/21 Range/Units 14:40 14:40 WBC (3.0-10.3) x10-3/uL RBC (3.60-5.20) x10(6)uL Hgb (11.4-15.5) g/dL Hct (34.2-48.2) % MCV (76.7-100.5) fL MCH (23.9-33.9) pg MCHC (31.9-34.8) g/dL RDW (12.3-16.5) % Plt Count (151-488) x10(3)uL MPV (7.1-12.4) fL Neut % (Auto) (30.8-76.2) % Lymph % (Auto) (18.4-52.1) % Callahan % (Auto) (4.4-15.7) % Eos % (Auto) (0.6-8.1) % Baso % (Auto) (0.2-1.5) % Neut # (Auto) (1.5-6.3) x10-3/uL Lymph # (Auto) (1.0-4.4) x10-3/uL [place]ahan # (Auto) (0.3-1.0) x10-3/uL Eos # (Auto) (0.0-0.8) x10-3/uL Baso # (Auto) (0.0-0.1) x10-3/uL Sodium 142 (135-145) mmol/L Potassium 3.7 (3.5-5.3) mmol/L Chloride 107 (100-110) mmol/L Carbon Dioxide 27 (21-32) mmol/L BUN 26 H (7-18) mg/dL Creatinine 0.7 (0.55-1.02) mg/dL Est Cr Clr Drug Dosing 106.69 mL/min Estimated GFR (MDRD) > 60 (>60) BUN/Creatinine Ratio 37.1 H (9-20) Glucose 85 (80-116) mg/dL Calcium 8.2 L (8.6-10.2) mg/dL Total Bilirubin 0.4 (0.1-1.3) mg/dL AST 18 D (5-25) IU/L ALT 46 H D (12-36) U/L Alkaline Phosphatase 81 (56-112) IU/L Total Protein 6.6 (6.0-8.0) g/dL Albumin 3.0 L (3.5-5.2) g/dL Globulin 3.6 g/dL Albumin/Globulin Ratio 0.8 Amylase 62 (25-115) U/L Lipase 111 (73-393) U/L Urine Color (YELLOW) Urine Appearance (CLEAR) Urine pH (5.0-6.5) Ur Specific Pinson (1.010-1.025) Urine Protein (NEGATIVE) mg/dL Urine Glucose (UA) (NORMAL) mg/dL Urine Ketones (NEGATIVE) mg/dL Urine Occult Blood (NEGATIVE) Urine Nitrite (NEGATIVE) Urine Bilirubin (NEGATIVE) Urine Urobilinogen (NEGATIVE) mg/dL Ur Leukocyte Esterase (NEGATIVE) Urine RBC (0-5) Urine WBC (0-5) Ur Squamous Epith Cells (NS,R,O) Amorphous Sediment Urine Bacteria (NS) Urine HCG, Qual (NEGATIVE) Meds: Medications Generic Name Dose Route Start Last Admin Trade Name Freq PRN Reason Stop Dose Admin Sodium Chloride 10 ml 04/29/21 14:38 04/29/21 15:30 Sodium Chloride 0.9% 10 Ml Syringe FLUSH 10 ml ASDIRECTED PRN Administration Keep Vein Open Discontinued Medications Generic Name Dose Route Start Last Admin Trade Name Freq PRN Reason Stop Dose Admin Hydroxyzine HCl 100 mg 04/29/21 14:49 04/29/21 15:10 Hydroxyzine Hcl 50 Mg/Ml Sdv IM 04/29/21 14:50 100 mg ONETIME ONE Administration Morphine Sulfate 4 mg 04/29/21 14:40 04/29/21 15:30 Morphine 4 Mg/Ml Vial IVPUSH 04/29/21 14:41 4 mg NOW STA Administration Ondansetron HCl 4 mg 04/29/21 14:40 Ondansetron 4 Mg/2 Ml Sdv IVPUSH 04/29/21 14:41 NOW STA Tramadol HCl 100 mg 04/29/21 14:40 04/29/21 15:04 Tramadol 50 Mg Tab PO 04/29/21 14:41 100 mg NOW STA Administration Departure - Departure Time of Disposition: 16:15 Disposition: Home, Self-Care 01 Condition: Good Clinical Impression: Dehydration, Migraine, C. difficile colitis Ulcerative colitis Qualifiers: Ulcerative colitis location: unspecified ulcerative colitis location Digestive disease complication type: without complication Qualified Code(s): K51.90 - Ulcerative colitis, unspecified, without complications - Discharge Information Prescriptions: traMADol [Ultram] 100 mg PO Q8H PRN #15 tab PRN Reason: Pain hydrOXYzine pamoate [Vistaril] 50 mg PO Q6H PRN #30 cap PRN Reason: nausea/anxiety Instructions: Migraine Headache, [id number], Dehydration, Adult, Easy-to-[place] d, Ulcerative Colitis, Adult Referrals: Padmaja Araujo PA-C [Primary Care Provider] - Forms: ED Department Discharge Additional Instructions: Please read discharge instructions on dehydration, Migraine, Ulcerative Colitis [place] diet Vistaril 50 mg every 8 hours as needed for nausea/vomiting/anxiety Tramadol 100 mg with tylenol 1000 mg every 8 hours as needed for pain Follow up as needed Sepsis Event Note (ED) - Evaluation Sepsis Screening Result: No Definite Risk - Focused Exam Vital Signs: Vital Signs Temp Pulse Resp BP Pulse Ox 04/29/21 14:09 37.1 C 97 18 149/101 H 97 - My Orders Last 24 Hours: My Active Orders 04/29/21 14:38 Sodium Chloride 0.9% [Saline Flush] 10 ml FLUSH ASDIRECTED PRN Saline Lock Insert [OM.PC] Routine - Assessment/Plan Last 24 Hours: My Active Orders 04/29/21 14:38 Sodium Chloride 0.9% [Saline Flush] 10 ml FLUSH ASDIRECTED PRN Saline Lock Insert [OM.PC] Routine
[2021-04-29] MEDS ORDERED: Alum Hydroxide/Mag Hydroxide 15 ML, Lidocaine 2% 15 ML PO ONE ×2 (16:11)
[2021-04-29] MEDS ORDERED: Atropine/Diphenoxylate 0.025-2.5 MG Tab PO STA (16:14)
[2021-04-29] MEDS ORDERED: Sodium Chloride 0.9% 1,000 ML IV SCH (16:15)
== END 2021-04-29 17:24 | disposition home or self-care (01) ==
LOC: FB.ED 14:00
DX: G43.909 Migraine, unspecified, not intractable, without status migrainosus (principal); K51.90 Ulcerative colitis, unspecified, without complications; A04.72 Enterocolitis due to Clostridium difficile, not specified as recurrent; E86.0 Dehydration; Z88.8 Allergy status to other drugs, medicaments and biological substances; Z87.891 Personal history of nicotine dependence
CPT/HCPCS: 36415; 80053; 81001; 81025; 82150; 83690; 85025; 96372; 96374; 99284-25; A9270-GY; J2270; J3410; J7030

== ENCOUNTER 2022-04-25 19:53 | Emergency (ER) | payer OTHER ==
[2022-04-25] MEDS ORDERED: Ondansetron 4 MG/2 ML SDV IVPUSH ONE (20:01)
[2022-04-25] MEDS ORDERED: HYDROmorphone 2 MG/ML SDV IVPUSH ONE (20:26)
[2022-04-25] MEDS ORDERED: Sodium Chloride 0.9% 1,000 ML IV SCH (20:30)
[2022-04-25 20:31] LABS: ESTIMATED GFR 72 mL/min (>60)
[2022-04-25] MEDS ORDERED: Iopamidol 755 Mg/ML 100 ML Bottle IV ONE (20:34)
[2022-04-25] MEDS ORDERED: fentaNYL 100 MCG/2 ML SDV IVPUSH ONE (22:19)
[2022-04-25] MEDS: Sodium Chloride 0.9% 10 ML Syringe FLUSH PRN ×2 (22:38→23:13)
== END 2022-04-25 22:50 | disposition home or self-care (01) ==
LOC: FB.ED 19:53
DX: K51.90 Ulcerative colitis, unspecified, without complications (principal); I10 Essential (primary) hypertension; E66.9 Obesity, unspecified; Z68.36 Body mass index [BMI] 36.0-36.9, adult; Z88.6 Allergy status to analgesic agent; Z79.899 Other long term (current) drug therapy; Z90.49 Acquired absence of other specified parts of digestive tract; Z90.710 Acquired absence of both cervix and uterus; Z20.822 Contact with and (suspected) exposure to COVID-19
CPT/HCPCS: 36415; 74177; 80053; 81001; 83605; 84550; 85025; 87635; 96361; 96374; 96375; 99284; J1170; J2405; J3010; J3490; J7030; Q9967; U0002

== ENCOUNTER 2022-05-25 09:09 | Emergency (ER) | payer OTHER ==
[2022-05-25] MEDS ORDERED: Sodium Chloride 0.9% 500 ML IV ONE (10:18)
[2022-05-25] MEDS ORDERED: Acetaminophen 500 MG Tab PO ONE (10:18)
[2022-05-25] MEDS: Sodium Chloride 0.9% 10 ML Syringe FLUSH PRN ×2 (10:24→13:17)
[2022-05-25 10:49] LABS: ESTIMATED GFR 111 mL/min (>60)
[2022-05-25] MEDS ORDERED: Ondansetron 4 MG/2 ML SDV IVPUSH ONE (11:01)
[2022-05-25] MEDS ORDERED: Morphine 4 MG/ML VIAL IVPUSH ONE (11:01)
[2022-05-25] MEDS ORDERED: Ketorolac 30 MG/ML SDV IVPUSH ONE (13:14)
[2022-05-25] MEDS ORDERED: LORazepam 2 MG/ML SDV IVPUSH ONE (13:35)
[2022-05-25 14:21] LABS: CORONAVIRUS COVID-19 NAA POSITIVE (NEGATIVE)
== END 2022-05-25 15:47 | disposition home or self-care (01) ==
LOC: FB.ED 09:09
DX: U07.1 COVID-19 (principal); E86.0 Dehydration; H10.33 Unspecified acute conjunctivitis, bilateral; J06.9 Acute upper respiratory infection, unspecified; I10 Essential (primary) hypertension; M79.18 Myalgia, other site; Z88.6 Allergy status to analgesic agent; Z79.899 Other long term (current) drug therapy; Z90.49 Acquired absence of other specified parts of digestive tract
CPT/HCPCS: 0240U; 36415; 71046; 80053; 81001; 83735; 84484; 85025; 85651; 86140; 87230; 93005; 96361; 96374; 96375; 99285; J1885; J2060; J2270; J2405; J3490; J7040

== ENCOUNTER 2022-07-02 15:33 | Emergency (ER) | payer OTHER ==
[2022-07-02] MEDS ORDERED: Ondansetron 4 MG/2 ML SDV IVPUSH ONE (16:06)
[2022-07-02] MEDS ORDERED: HYDROmorphone 2 MG/ML SDV IVPUSH ONE (16:06)
[2022-07-02] MEDS ORDERED: Sodium Chloride 0.9% 10 ML Syringe FLUSH PRN (16:06)
[2022-07-02] MEDS ORDERED: Sodium Chloride 0.9% 1,000 ML IV SCH (16:15)
[2022-07-02 16:25] LABS: ESTIMATED GFR 94 mL/min (>60)
== END 2022-07-02 17:10 | disposition home or self-care (01) ==
LOC: FB.ED 15:33
DX: K51.90 Ulcerative colitis, unspecified, without complications (principal); I10 Essential (primary) hypertension; M19.90 Unspecified osteoarthritis, unspecified site; E66.9 Obesity, unspecified; Z68.41 Body mass index [BMI] 40.0-44.9, adult; Z88.8 Allergy status to other drugs, medicaments and biological substances; Z79.899 Other long term (current) drug therapy
CPT/HCPCS: 36415; 80048; 85025; 96374; 96375; 99284-25; J1170; J2405; J3490

== ENCOUNTER 2022-09-05 15:29 | Emergency (ER) | payer OTHER ==
[2022-09-05] MEDS ORDERED: Sodium Chloride 0.9% 10 ML Syringe FLUSH PRN (16:11)
[2022-09-05] MEDS ORDERED: Sodium Chloride 0.9% 1,000 ML IV SCH (16:15)
[2022-09-05] MEDS ORDERED: Morphine 4 MG/ML VIAL IVPUSH ONE ×2 (16:28→18:20)
[2022-09-05] MEDS ORDERED: Ondansetron 4 MG/2 ML SDV IVPUSH ONE (16:29)
[2022-09-05 16:35] LABS: ESTIMATED GFR 72 mL/min (>60)
[2022-09-05] MEDS ORDERED: methylPREDNISolone Sodium Succinate 125 MG/2 ML SDV IVPUSH ONE (16:47)
[2022-09-05] MEDS ORDERED: Iopamidol 755 Mg/ML 100 ML Bottle IV SCH (17:00)
== END 2022-09-05 19:27 | disposition home or self-care (01) ==
LOC: FB.ED 15:29
DX: K62.5 Hemorrhage of anus and rectum (principal); K51.90 Ulcerative colitis, unspecified, without complications; I10 Essential (primary) hypertension; K21.9 Gastro-esophageal reflux disease without esophagitis; E66.9 Obesity, unspecified; Z88.8 Allergy status to other drugs, medicaments and biological substances; Z68.37 Body mass index [BMI] 37.0-37.9, adult
CPT/HCPCS: 36415; 74177; 80053; 81001; 81025; 82150; 83690; 85025; 85610; 85730; 96361; 96374; 96375; 96376; 99283; 99284-25; J2270; J2405; J2930; J3490; J7030; Q9967

== ENCOUNTER 2022-10-14 13:29 | Emergency (ER) | payer OTHER ==
[2022-10-14] MEDS: Sodium Chloride 0.9% 1,000 ML IV ONE ×3 (14:45→15:47)
[2022-10-14] MEDS: Ondansetron 4 MG/2 ML SDV IVPUSH ONE (14:45)
[2022-10-14] MEDS: Ketorolac 30 MG/ML SDV IVPUSH ONE (14:47)
[2022-10-14] MEDS: Hydrocortisone Sodium Succinate 100 MG/2 ML SDV IVPUSH ONE (14:49)
[2022-10-14] MEDS: Morphine 4 MG/ML VIAL IVPUSH ONE ×2 (14:51→15:47)
[2022-10-14 15:01] LABS: ESTIMATED GFR 94 mL/min (>60)
== END 2022-10-14 16:58 | disposition home or self-care (01) ==
LOC: FB.ED 13:29
DX: K51.90 Ulcerative colitis, unspecified, without complications (principal); I10 Essential (primary) hypertension; M19.90 Unspecified osteoarthritis, unspecified site; E66.9 Obesity, unspecified; Z68.38 Body mass index [BMI] 38.0-38.9, adult; Z88.6 Allergy status to analgesic agent; Z79.899 Other long term (current) drug therapy; Z87.891 Personal history of nicotine dependence
CPT/HCPCS: 36415; 80053; 85025; 85651; 86140; 96361; 96374; 96375; 96376; 99284; J1720; J1885; J2270; J2405; J7030

== ENCOUNTER 2022-11-15 15:02 | Emergency (ER) | payer OTHER ==
[2022-11-15] MEDS ORDERED: Ondansetron 4 MG/2 ML SDV IVPUSH ONE (15:25)
[2022-11-15] MEDS ORDERED: Ketorolac 30 MG/ML SDV IVPUSH ONE (15:25)
[2022-11-15 15:55] LABS: ESTIMATED GFR 94 mL/min (>60)
[2022-11-15] MEDS ORDERED: Sodium Chloride 0.9% 500 ML IV ONE (16:48)
[2022-11-15] MEDS ORDERED: Acetaminophen/HYDROcodone 325-7.5 MG Tab PO STA (16:48)
[2022-11-15] MEDS ORDERED: Iopamidol 755 Mg/ML 100 ML Bottle IV ONE (16:53)
== END 2022-11-15 18:55 | disposition home or self-care (01) ==
LOC: FB.ED 15:02
DX: K51.90 Ulcerative colitis, unspecified, without complications (principal); G35 Multiple sclerosis; R11.2 Nausea with vomiting, unspecified; I10 Essential (primary) hypertension; K21.9 Gastro-esophageal reflux disease without esophagitis; E66.9 Obesity, unspecified; Z68.30 Body mass index [BMI] 30.0-30.9, adult; Z88.8 Allergy status to other drugs, medicaments and biological substances; Z86.16 Personal history of COVID-19; Z87.19 Personal history of other diseases of the digestive system
CPT/HCPCS: 36415; 74177; 80053; 81001; 83605; 83735; 85025; 86140; 96361; 96374; 96375; 99284; A9270; J1885; J2405; J7040; Q9967

== ENCOUNTER 2023-03-01 13:57 | Emergency (ER) | payer OTHER ==
[2023-03-01] MEDS ORDERED: Acetaminophen/oxyCODONE 325-5 MG Tab PO ONE (13:58)
[2023-03-01] MEDS ORDERED: Ondansetron 4 MG/2 ML SDV IVPUSH ONE (14:46)
[2023-03-01] MEDS ORDERED: methylPREDNISolone Sodium Succinate 125 MG/2 ML SDV IVPUSH STA (14:47)
[2023-03-01] MEDS ORDERED: Morphine 2 MG/ML SYRINGE IVPUSH STA (14:47)
[2023-03-01] MEDS ORDERED: HYDROmorphone 2 MG/ML SDV IVPUSH ONE ×2 (14:48→16:21)
[2023-03-01] MEDS ORDERED: Sodium Chloride 0.9% 1,000 ML IV SCH ×2 (15:00→16:30)
[2023-03-01 15:45] LABS: BASOPHILS PERCENT AUTO 0.4 % (0.2-1.5); BLOOD UREA NITROGEN,BUN 15 mg/dL (7-18); BUN/CREATININE RATIO 18.8 (9-20); CALCIUM 8.6 mg/dL (8.6-10.2); CARBON DIOXIDE,CO2 25 mmol/L (21-32); CHLORIDE,CL 103 mmol/L (100-110); CREATININE 0.8 mg/dL (0.55-1.02); EOSINOPHILS ABSOLUTE AUTO 0.1 x10-3/uL (0.0-0.8); EOSINOPHILS PERCENT AUTO 0.9 % (0.6-8.1); EST CRCL DRUG DOSING (CG) 91.47 mL/min; ESTIMATED GFR 94 mL/min (>60); GLUCOSE RANDOM 82 mg/dL (80-116); HEMATOCRIT 38.1 % (34.2-48.2); HEMOGLOBIN 12.7 g/dL (11.4-15.5); LYMPHOCYTES ABSOLUTE AUTO 0.4 x10-3/uL (1.0-4.4); LYMPHOCYTES PERCENT AUTO 6.8 % (18.4-52.1); MEAN CORPUSCULAR HEMOGLOBIN 31.9 pg (23.9-33.9); MEAN CORPUSCULAR HGB CONC 33.3 g/dL (31.9-34.8); MEAN CORPUSCULAR VOLUME 95.7 fL (76.7-100.5); MEAN PLATELET VOLUME 10.2 fL (7.1-12.4); MONOCYTES ABSOLUTE AUTO 0.7 x10-3/uL (0.3-1.0); MONOCYTES PERCENT AUTO 13.4 % (4.4-15.7); NEUTROPHILS ABSOLUTE AUTO 4.3 x10-3/uL (1.5-6.3); NEUTROPHILS PERCENT AUTO 78.5 % (30.8-76.2); PLATELET COUNT,PLT 286 x10(3)uL (151-488); POTASSIUM,K 3.4 mmol/L (3.5-5.3); RED BLOOD CELL COUNT 3.98 x10(6)uL (3.60-5.20); RED CELL DISTRIBUTION WIDTH 13.8 % (12.3-16.5); SODIUM,NA 136 mmol/L (135-145); WHITE BLOOD CELL COUNT,WBC 5.5 x10-3/uL (3.0-10.3)
[2023-03-01 15:51] LABS: A/G RATIO 0.9; ALANINE AMINOTRANSFERASE,ALT 85 U/L (12-36); ALBUMIN 3.1 g/dL (3.5-5.2); ALKALINE PHOSPHATASE 97 IU/L (56-112); AMYLASE 36 U/L (25-115); ASPARTATE AMNIOTRANSFERASE,AST 90 IU/L (5-25); BILIRUBIN TOTAL 0.4 mg/dL (0.1-1.3); PROTEIN TOTAL,TP 6.7 g/dL (6.0-8.0)
[2023-03-01 17:01] LABS: BILIRUBIN,URINE SMALL (NEGATIVE); GLUCOSE,URINE NORMAL (NORMAL); KETONES,URINE NEGATIVE (NEGATIVE); LEUKOCYTE ESTERASE,URINE NEGATIVE (NEGATIVE); NITRITE,URINE NEGATIVE (NEGATIVE); OCCULT BLOOD,URINE NEGATIVE (NEGATIVE); PROTEIN,URINE NEGATIVE (NEGATIVE); UROBILINOGEN,URINE NORMAL (NEGATIVE)
[2023-03-01 17:02] LABS: APPEARANCE,URINE CLEAR (CLEAR); BACTERIA,URINE RARE (NS); COLOR,URINE YELLOW (YELLOW); RBC,URINE 0-5 (0-5); SQUAMOUS EPITHELIAL CELLS,UR OCCASIONAL (NS,R,O); WBC,URINE 0-5 (0-5)
[2023-03-01] MEDS ORDERED: Iopamidol 755 Mg/ML 200 ML Bottle IV ONE (17:55)
[2023-03-01] MEDS ORDERED: Potassium Chloride 20 MEQ Tab.ER PO ONE (18:20)
== END 2023-03-01 19:45 | disposition home or self-care (01) ==
LOC: FB.ED 13:57
DX: K51.90 Ulcerative colitis, unspecified, without complications (principal); G35 Multiple sclerosis; I10 Essential (primary) hypertension; K21.9 Gastro-esophageal reflux disease without esophagitis; E66.9 Obesity, unspecified; Z86.16 Personal history of COVID-19; Z88.0 Allergy status to penicillin; Z79.899 Other long term (current) drug therapy; Z68.41 Body mass index [BMI] 40.0-44.9, adult
CPT/HCPCS: 74177; 80053; 81001; 82150; 83690; 85025; 96361; 96374; 96375; 99284; A9270; J1170; J2270; J2405; J2930; J7030; Q9967; 99283

== ENCOUNTER 2023-03-19 19:36 | Emergency (ER) | payer OTHER ==
[2023-03-19] MEDS ORDERED: Sodium Chloride 0.9% 10 ML Syringe FLUSH PRN (20:30)
[2023-03-19] MEDS ORDERED: Sodium Chloride 0.9% 1,000 ML IV SCH (20:30)
[2023-03-19 20:32] LABS: HEMATOCRIT 37.8 % (34.2-48.2); HEMOGLOBIN 12.8 g/dL (11.4-15.5); MEAN CORPUSCULAR HEMOGLOBIN 32.1 pg (23.9-33.9); MEAN CORPUSCULAR HGB CONC 33.8 g/dL (31.9-34.8); MEAN CORPUSCULAR VOLUME 95.1 fL (76.7-100.5); RED BLOOD CELL COUNT 3.97 x10(6)uL (3.60-5.20); RED CELL DISTRIBUTION WIDTH 13.7 % (12.3-16.5); WHITE BLOOD CELL COUNT,WBC 4.9 x10-3/uL (3.0-10.3)
[2023-03-19 20:36] LABS: BLOOD UREA NITROGEN,BUN 18 mg/dL (7-18); BUN/CREATININE RATIO 22.5 (9-20); CALCIUM 8.8 mg/dL (8.6-10.2); CARBON DIOXIDE,CO2 27 mmol/L (21-32); CHLORIDE,CL 102 mmol/L (100-110); CREATININE 0.8 mg/dL (0.55-1.02); ESTIMATED GFR 94 mL/min (>60); GLUCOSE RANDOM 107 mg/dL (80-116); POTASSIUM,K 3.2 mmol/L (3.5-5.3); SODIUM,NA 140 mmol/L (135-145)
[2023-03-19 20:42] LABS: A/G RATIO 0.9; ALANINE AMINOTRANSFERASE,ALT 56 U/L (12-36); ALBUMIN 3.1 g/dL (3.5-5.2); ALKALINE PHOSPHATASE 112 IU/L (56-112); ASPARTATE AMNIOTRANSFERASE,AST 27 IU/L (5-25); BILIRUBIN TOTAL 0.4 mg/dL (0.1-1.3); PROTEIN TOTAL,TP 6.4 g/dL (6.0-8.0)
[2023-03-19 20:44] LABS: BILIRUBIN,URINE SMALL (NEGATIVE); GLUCOSE,URINE NORMAL (NORMAL); KETONES,URINE NEGATIVE (NEGATIVE); LEUKOCYTE ESTERASE,URINE NEGATIVE (NEGATIVE); NITRITE,URINE NEGATIVE (NEGATIVE); OCCULT BLOOD,URINE NEGATIVE (NEGATIVE); PROTEIN,URINE NEGATIVE (NEGATIVE); UROBILINOGEN,URINE 1 mg/dL (NEGATIVE)
[2023-03-19 20:45] LABS: APPEARANCE,URINE CLEAR (CLEAR); BACTERIA,URINE RARE (NS); COLOR,URINE YELLOW (YELLOW); RBC,URINE NOT SEEN (0-5); SQUAMOUS EPITHELIAL CELLS,UR RARE (NS,R,O); WBC,URINE 0-5 (0-5)
[2023-03-19] MEDS ORDERED: Sodium Chloride 0.9% 1,000 ML IV ONE (21:00)
[2023-03-19] MEDS ORDERED: HYDROmorphone 2 MG/ML SDV IVPUSH ONE (21:39)
[2023-03-19] MEDS ORDERED: Ketorolac 30 MG/ML SDV IVPUSH ONE (21:39)
[2023-03-19] MEDS ORDERED: Naloxone 0.4 MG/ML SDV IVPUSH PRN (21:39)
[2023-03-19] MEDS ORDERED: methylPREDNISolone Sodium Succinate 40 MG/1 ML SDV IVPUSH ONE (21:40)
== END 2023-03-19 22:35 | disposition home or self-care (01) ==
LOC: FB.ED 19:36
DX: K51.90 Ulcerative colitis, unspecified, without complications (principal); G35 Multiple sclerosis; I10 Essential (primary) hypertension; K21.9 Gastro-esophageal reflux disease without esophagitis; E66.9 Obesity, unspecified; Z88.6 Allergy status to analgesic agent; Z86.16 Personal history of COVID-19; Z68.41 Body mass index [BMI] 40.0-44.9, adult
CPT/HCPCS: 36415; 80053; 81001; 83605; 85027; 85651; 86140; 96374; 96375; 99283; C1758; J1170; J1885; J2920; J7030

== ENCOUNTER 2023-03-31 07:17 | Emergency (ER) | payer OTHER ==
[2023-03-31 08:37] LABS: BASOPHILS ABSOLUTE AUTO 0.1 x10-3/uL (0.0-0.1); BASOPHILS PERCENT AUTO 0.8 % (0.2-1.5); EOSINOPHILS PERCENT AUTO 0.6 % (0.6-8.1); HEMATOCRIT 38.1 % (34.2-48.2); LYMPHOCYTES ABSOLUTE AUTO 0.3 x10-3/uL (1.0-4.4); LYMPHOCYTES PERCENT AUTO 3.6 % (18.4-52.1); MEAN CORPUSCULAR HEMOGLOBIN 32.2 pg (23.9-33.9); MEAN CORPUSCULAR HGB CONC 34.2 g/dL (31.9-34.8); MEAN CORPUSCULAR VOLUME 94.1 fL (76.7-100.5); MEAN PLATELET VOLUME 9.8 fL (7.1-12.4); MONOCYTES ABSOLUTE AUTO 0.7 x10-3/uL (0.3-1.0); MONOCYTES PERCENT AUTO 8.3 % (4.4-15.7); NEUTROPHILS ABSOLUTE AUTO 6.8 x10-3/uL (1.5-6.3); NEUTROPHILS PERCENT AUTO 86.7 % (30.8-76.2); PLATELET COUNT,PLT 277 x10(3)uL (151-488); RED BLOOD CELL COUNT 4.04 x10(6)uL (3.60-5.20); RED CELL DISTRIBUTION WIDTH 13.7 % (12.3-16.5); WHITE BLOOD CELL COUNT,WBC 7.8 x10-3/uL (3.0-10.3)
[2023-03-31 08:40] LABS: BLOOD UREA NITROGEN,BUN 12 mg/dL (7-18); BUN/CREATININE RATIO 17.1 (9-20); CALCIUM 8.4 mg/dL (8.6-10.2); CARBON DIOXIDE,CO2 27 mmol/L (21-32); CHLORIDE,CL 101 mmol/L (100-110); CREATININE 0.7 mg/dL (0.55-1.02); EST CRCL DRUG DOSING (CG) 104.53 mL/min; ESTIMATED GFR 110 mL/min (>60); GLUCOSE RANDOM 100 mg/dL (80-116); POTASSIUM,K 3.1 mmol/L (3.5-5.3); SODIUM,NA 136 mmol/L (135-145)
[2023-03-31 08:46] LABS: A/G RATIO 0.9; ALANINE AMINOTRANSFERASE,ALT 43 U/L (12-36); ALBUMIN 2.9 g/dL (3.5-5.2); ALKALINE PHOSPHATASE 108 IU/L (56-112); ASPARTATE AMNIOTRANSFERASE,AST 34 IU/L (5-25); BILIRUBIN TOTAL 0.3 mg/dL (0.1-1.3); MAGNESIUM 1.9 mg/dL (1.8-2.5); PROTEIN TOTAL,TP 6.2 g/dL (6.0-8.0)
[2023-03-31 08:54] LABS: BILIRUBIN,URINE NEGATIVE (NEGATIVE); GLUCOSE,URINE NORMAL (NORMAL); KETONES,URINE NEGATIVE (NEGATIVE); LEUKOCYTE ESTERASE,URINE SMALL (NEGATIVE); NITRITE,URINE NEGATIVE (NEGATIVE); OCCULT BLOOD,URINE LARGE (NEGATIVE); PROTEIN,URINE NEGATIVE (NEGATIVE); UROBILINOGEN,URINE NORMAL (NEGATIVE)
[2023-03-31 09:02] LABS: APPEARANCE,URINE CLEAR (CLEAR); BACTERIA,URINE FEW (NS); COLOR,URINE YELLOW (YELLOW); RBC,URINE 0-5 (0-5); SQUAMOUS EPITHELIAL CELLS,UR RARE (NS,R,O); WBC,URINE 0-5 (0-5)
[2023-03-31 09:06] LABS: SEDIMENTATION RATE MANUAL 30 mm/hr (0-20)
[2023-03-31 09:15] LABS: INFLUENZA A NAA NEGATIVE (NEGATIVE); INFLUENZA B NAA NEGATIVE (NEGATIVE); RESPIRATORY SYNCYTIAL VIR NAA NEGATIVE (NEGATIVE)
[2023-03-31 09:18] LABS: CORONAVIRUS COVID-19 NAA NEGATIVE (NEGATIVE)
[2023-03-31] MEDS: Ondansetron 4 MG/2 ML SDV IVPUSH ONE (09:28)
[2023-03-31] MEDS: Morphine 4 MG/ML VIAL IVPUSH ONE (09:28)
[2023-03-31] MEDS: Sodium Chloride 0.9% 1,000 ML IV ONE (09:28)
[2023-03-31] MEDS: Potassium Chloride 20 MEQ Tab.ER PO ONE (09:55)
[2023-03-31] MEDS: Ketorolac 30 MG/ML SDV IVPUSH ONE (10:36)
[2023-03-31] MEDS: Sodium Chloride 0.9% 1,000 ML IV SCH (10:37)
[2023-03-31] MEDS ORDERED: Naloxone 0.4 MG/ML SDV IVPUSH PRN (11:17)
[2023-03-31] MEDS: HYDROmorphone 2 MG/ML SDV IVPUSH ONE (11:43)
[2023-03-31] MEDS: cefTRIAXone 2 GM Vial IVPUSH ONE (11:55)
== END 2023-03-31 13:01 | disposition home or self-care (01) ==
LOC: FB.ED 07:17
DX: N39.0 Urinary tract infection, site not specified (principal); E86.0 Dehydration; E87.6 Hypokalemia; G35 Multiple sclerosis; R11.2 Nausea with vomiting, unspecified; Z88.8 Allergy status to other drugs, medicaments and biological substances; E66.9 Obesity, unspecified; Z68.41 Body mass index [BMI] 40.0-44.9, adult; Z20.822 Contact with and (suspected) exposure to COVID-19
CPT/HCPCS: 0241U; 36415; 51798; 74176; 80053; 81001; 83735; 85025; 85651; 86140; 87086; 96361; 96374; 96375; 99284; A9270; C1758; J0696; J1170; J1885; J2270; J2405; J3360; J7030

== ENCOUNTER 2023-05-11 14:32 | Emergency (ER) | payer OTHER ==
[2023-05-11] MEDS ORDERED: Sodium Chloride 0.9% 10 ML Syringe FLUSH PRN (15:17)
[2023-05-11] MEDS ORDERED: Ketorolac 30 MG/ML SDV IVPUSH ONE (15:17)
[2023-05-11] MEDS ORDERED: HYDROmorphone 2 MG/ML SDV IVPUSH STA (15:17)
[2023-05-11] MEDS ORDERED: methylPREDNISolone Sodium Succinate 125 MG/2 ML SDV IVPUSH ONE (15:17)
[2023-05-11 15:50] LABS: BASOPHILS PERCENT AUTO 0.1 % (0.2-1.5); EOSINOPHILS PERCENT AUTO 0.8 % (0.6-8.1); HEMOGLOBIN 13.5 g/dL (11.4-15.5); LYMPHOCYTES ABSOLUTE AUTO 0.4 x10-3/uL (1.0-4.4); LYMPHOCYTES PERCENT AUTO 6.6 % (18.4-52.1); MEAN CORPUSCULAR HEMOGLOBIN 31.8 pg (23.9-33.9); MEAN CORPUSCULAR HGB CONC 33.6 g/dL (31.9-34.8); MEAN CORPUSCULAR VOLUME 94.5 fL (76.7-100.5); MEAN PLATELET VOLUME 9.2 fL (7.1-12.4); MONOCYTES ABSOLUTE AUTO 0.6 x10-3/uL (0.3-1.0); MONOCYTES PERCENT AUTO 10.8 % (4.4-15.7); NEUTROPHILS ABSOLUTE AUTO 4.4 x10-3/uL (1.5-6.3); NEUTROPHILS PERCENT AUTO 81.7 % (30.8-76.2); PLATELET COUNT,PLT 339 x10(3)uL (151-488); RED BLOOD CELL COUNT 4.24 x10(6)uL (3.60-5.20); RED CELL DISTRIBUTION WIDTH 13.3 % (12.3-16.5); WHITE BLOOD CELL COUNT,WBC 5.4 x10-3/uL (3.0-10.3)
[2023-05-11 15:53] LABS: BLOOD UREA NITROGEN,BUN 17 mg/dL (7-18); BUN/CREATININE RATIO 21.3 (9-20); CALCIUM 8.8 mg/dL (8.6-10.2); CARBON DIOXIDE,CO2 26 mmol/L (21-32); CHLORIDE,CL 104 mmol/L (100-110); CREATININE 0.8 mg/dL (0.55-1.02); ESTIMATED GFR 94 mL/min (>60); GLUCOSE RANDOM 97 mg/dL (80-116); POTASSIUM,K 3.9 mmol/L (3.5-5.3); SODIUM,NA 141 mmol/L (135-145)
[2023-05-11 15:59] LABS: A/G RATIO 0.8; ALANINE AMINOTRANSFERASE,ALT 47 U/L (12-36); ALKALINE PHOSPHATASE 102 IU/L (56-112); ASPARTATE AMNIOTRANSFERASE,AST 22 IU/L (5-25); BILIRUBIN TOTAL 0.5 mg/dL (0.1-1.3); PROTEIN TOTAL,TP 6.9 g/dL (6.0-8.0)
== END 2023-05-11 17:15 | disposition home or self-care (01) ==
LOC: FB.ED 14:32
DX: G35 Multiple sclerosis (principal); I10 Essential (primary) hypertension; E11.9 Type 2 diabetes mellitus without complications; E66.9 Obesity, unspecified; Z86.16 Personal history of COVID-19; Z79.899 Other long term (current) drug therapy; Z88.6 Allergy status to analgesic agent
CPT/HCPCS: 36415; 80053; 85025; 96374; 96375; 99283; J1170; J1885; J2930

== ENCOUNTER 2023-05-14 18:19 | Emergency (ER) | payer OTHER ==
[2023-05-14] MEDS ORDERED: Acetaminophen/oxyCODONE 325-5 MG Tab PO ONE (18:20)
[2023-05-14] MEDS ORDERED: Acetaminophen/oxyCODONE 325-5 MG Tab PO PRN (18:51)
[2023-05-14] MEDS ORDERED: Morphine 4 MG/ML VIAL IM ONE (19:15)
== END 2023-05-14 21:20 | disposition home or self-care (01) ==
LOC: FB.ED 18:19
DX: S16.1XXA Strain of muscle, fascia and tendon at neck level, initial encounter (principal); S09.90XA Unspecified injury of head, initial encounter; I10 Essential (primary) hypertension; Z88.6 Allergy status to analgesic agent; W01.198A Fall on same level from slipping, tripping and stumbling with subsequent striking against other object, initial encounter
CPT/HCPCS: 70450; 72125; 96372; 99284; A9270; J2270

== ENCOUNTER 2023-05-21 14:30 | Emergency (ER) | payer OTHER ==
[2023-05-21 15:35] LABS: APPEARANCE,URINE CLEAR (CLEAR); BACTERIA,URINE RARE (NS); BILIRUBIN,URINE NEGATIVE (NEGATIVE); COLOR,URINE YELLOW (YELLOW); GLUCOSE,URINE NORMAL (NORMAL); KETONES,URINE NEGATIVE (NEGATIVE); LEUKOCYTE ESTERASE,URINE NEGATIVE (NEGATIVE); MUCUS,URINE MODERATE (NS); NITRITE,URINE NEGATIVE (NEGATIVE); OCCULT BLOOD,URINE NEGATIVE (NEGATIVE); PROTEIN,URINE NEGATIVE (NEGATIVE); RBC,URINE 0-5 (0-5); SQUAMOUS EPITHELIAL CELLS,UR OCCASIONAL (NS,R,O); UROBILINOGEN,URINE NORMAL (NEGATIVE); WBC,URINE 0-5 (0-5)
[2023-05-21] MEDS ORDERED: Morphine 4 MG/ML VIAL IM ONE (15:38)
[2023-05-21] MEDS ORDERED: Ketorolac 30 MG/ML SDV IM STA (15:38)
== END 2023-05-21 16:49 | disposition home or self-care (01) ==
LOC: FB.ED 14:30
DX: G35 Multiple sclerosis (principal); I10 Essential (primary) hypertension; E66.9 Obesity, unspecified; Z68.41 Body mass index [BMI] 40.0-44.9, adult; Z86.16 Personal history of COVID-19; Z79.899 Other long term (current) drug therapy; Z88.6 Allergy status to analgesic agent
CPT/HCPCS: 51701; 81001; 96372; 99284-25; J1885; J2270

== ENCOUNTER 2023-06-05 08:56 | Emergency (ER) | payer OTHER ==
[2023-06-05] MEDS ORDERED: Acetaminophen/oxyCODONE 325-5 MG Tab PO ONE (08:57)
[2023-06-05] MEDS ORDERED: Morphine 4 MG/ML VIAL IM ONE (10:46)
[2023-06-05] MEDS ORDERED: Ondansetron 4 MG Tab.DIS PO ONE (11:20)
[2023-06-05] MEDS ORDERED: Sodium Chloride 0.9% 10 ML Syringe FLUSH PRN ×2 (11:37→12:08)
[2023-06-05] MEDS ORDERED: Clindamycin Phosphate 600 MG in Dextrose 5% in Water 50 ML IV ONE ×2 (11:38)
[2023-06-05] MEDS ORDERED: Ketorolac 30 MG/ML SDV IVPUSH ONE (11:39)
[2023-06-05] MEDS ORDERED: Acetaminophen/HYDROcodone 325-5 MG Tab PO ONE (11:40)
[2023-06-05] MEDS ORDERED: Ondansetron 4 MG/2 ML SDV IVPUSH ONE (11:43)
[2023-06-05 12:03] LABS: BASOPHILS PERCENT AUTO 0.5 % (0.2-1.5); EOSINOPHILS PERCENT AUTO 0.7 % (0.6-8.1); HEMATOCRIT 40.7 % (34.2-48.2); HEMOGLOBIN 13.8 g/dL (11.4-15.5); LYMPHOCYTES ABSOLUTE AUTO 0.5 x10-3/uL (1.0-4.4); LYMPHOCYTES PERCENT AUTO 8.6 % (18.4-52.1); MEAN CORPUSCULAR HEMOGLOBIN 31.9 pg (23.9-33.9); MEAN CORPUSCULAR HGB CONC 33.9 g/dL (31.9-34.8); MEAN CORPUSCULAR VOLUME 94.1 fL (76.7-100.5); MEAN PLATELET VOLUME 9.4 fL (7.1-12.4); MONOCYTES ABSOLUTE AUTO 0.8 x10-3/uL (0.3-1.0); MONOCYTES PERCENT AUTO 13.9 % (4.4-15.7); NEUTROPHILS ABSOLUTE AUTO 4.5 x10-3/uL (1.5-6.3); NEUTROPHILS PERCENT AUTO 76.3 % (30.8-76.2); PLATELET COUNT,PLT 355 x10(3)uL (151-488); RED BLOOD CELL COUNT 4.33 x10(6)uL (3.60-5.20); RED CELL DISTRIBUTION WIDTH 13.5 % (12.3-16.5); WHITE BLOOD CELL COUNT,WBC 5.9 x10-3/uL (3.0-10.3)
[2023-06-05] MEDS ORDERED: HYDROmorphone 2 MG/ML SDV IVPUSH STA (12:08)
[2023-06-06] MEDS ORDERED: Acetaminophen 500 MG Tab PO ONE (00:43)
== END 2023-06-05 14:05 | disposition home or self-care (01) ==
LOC: FB.ED 08:56
DX: G35 Multiple sclerosis (principal); G89.29 Other chronic pain; G47.30 Sleep apnea, unspecified; I10 Essential (primary) hypertension; E66.9 Obesity, unspecified; Z68.39 Body mass index [BMI] 39.0-39.9, adult; Z86.16 Personal history of COVID-19; Z88.6 Allergy status to analgesic agent; Z79.899 Other long term (current) drug therapy
CPT/HCPCS: 36415; 70450; 72125; 73030-RT; 73562-RT; 85025; 96374; 99284-25; A9270-GY; J1170; Q0162

== ENCOUNTER 2023-06-25 14:10 | Emergency (ER) | payer OTHER ==
[2023-06-25 14:45] LABS: BILIRUBIN,URINE SMALL (NEGATIVE); GLUCOSE,URINE NORMAL (NORMAL); KETONES,URINE NEGATIVE (NEGATIVE); LEUKOCYTE ESTERASE,URINE MODERATE (NEGATIVE); NITRITE,URINE NEGATIVE (NEGATIVE); OCCULT BLOOD,URINE LARGE (NEGATIVE); PROTEIN,URINE 100 mg/dL (NEGATIVE); UROBILINOGEN,URINE NORMAL (NEGATIVE)
[2023-06-25 14:46] LABS: APPEARANCE,URINE CLOUDY (CLEAR); COLOR,URINE YELLOW (YELLOW)
[2023-06-25 14:47] LABS: BACTERIA,URINE MODERATE (NS); RBC,URINE 20-30 (0-5); SQUAMOUS EPITHELIAL CELLS,UR FEW (NS,R,O)
[2023-06-25] MEDS ORDERED: Ketorolac 30 MG/ML SDV IM STA (15:05)
[2023-06-25] MEDS ORDERED: Morphine 4 MG/ML VIAL IM ONE (15:05)
== END 2023-06-25 16:30 | disposition home or self-care (01) ==
LOC: FB.ED 14:10
DX: J06.9 Acute upper respiratory infection, unspecified (principal); G89.29 Other chronic pain; I10 Essential (primary) hypertension; K21.9 Gastro-esophageal reflux disease without esophagitis; M19.90 Unspecified osteoarthritis, unspecified site; E11.9 Type 2 diabetes mellitus without complications; E66.9 Obesity, unspecified; Z86.16 Personal history of COVID-19; Z79.899 Other long term (current) drug therapy; Z88.6 Allergy status to analgesic agent; Z90.49 Acquired absence of other specified parts of digestive tract; Z90.710 Acquired absence of both cervix and uterus; Z68.41 Body mass index [BMI] 40.0-44.9, adult
CPT/HCPCS: 71045; 81001; 87086; 96372; 99283; 99285; J1885; J2270

== ENCOUNTER 2023-07-15 16:50 | Emergency (ER) | payer OTHER ==
[2023-07-15] MEDS ORDERED: Acetaminophen/oxyCODONE 325-5 MG Tab PO ONE (16:51)
[2023-07-15] MEDS ORDERED: Albuterol/Ipratropium 3.0-0.5 MG/3 ML Neb Soln NEB ONE (17:46)
[2023-07-15] MEDS ORDERED: Ketorolac 30 MG/ML SDV IM ONE (17:47)
[2023-07-15] MEDS ORDERED: HYDROmorphone 2 MG/ML SDV IM ONE (17:47)
[2023-07-15 18:10] LABS: EOSINOPHILS ABSOLUTE AUTO 0.1 x10-3/uL (0.0-0.8); LYMPHOCYTES ABSOLUTE AUTO 0.3 x10-3/uL (1.0-4.4); MONOCYTES ABSOLUTE AUTO 0.5 x10-3/uL (0.3-1.0)
[2023-07-15 18:13] LABS: BASOPHILS PERCENT AUTO 0.3 % (0.2-1.5); BLOOD UREA NITROGEN,BUN 17 mg/dL (7-18); BUN/CREATININE RATIO 24.3 (9-20); CARBON DIOXIDE,CO2 26 mmol/L (21-32); CHLORIDE,CL 105 mmol/L (100-110); CREATININE 0.7 mg/dL (0.55-1.02); EOSINOPHILS PERCENT AUTO 2.5 % (0.6-8.1); EST CRCL DRUG DOSING (CG) 104.53 mL/min; ESTIMATED GFR 110 mL/min (>60); GLUCOSE RANDOM 95 mg/dL (80-116); HEMATOCRIT 38.6 % (34.2-48.2); LYMPHOCYTES PERCENT AUTO 7.3 % (18.4-52.1); MEAN CORPUSCULAR HEMOGLOBIN 31.3 pg (23.9-33.9); MEAN CORPUSCULAR HGB CONC 33.7 g/dL (31.9-34.8); MEAN CORPUSCULAR VOLUME 93.1 fL (76.7-100.5); MEAN PLATELET VOLUME 9.9 fL (7.1-12.4); MONOCYTES PERCENT AUTO 11.7 % (4.4-15.7); NEUTROPHILS ABSOLUTE AUTO 3.3 x10-3/uL (1.5-6.3); NEUTROPHILS PERCENT AUTO 78.2 % (30.8-76.2); PLATELET COUNT,PLT 290 x10(3)uL (151-488); POTASSIUM,K 3.7 mmol/L (3.5-5.3); RED BLOOD CELL COUNT 4.15 x10(6)uL (3.60-5.20); RED CELL DISTRIBUTION WIDTH 14.2 % (12.3-16.5); SODIUM,NA 140 mmol/L (135-145); WHITE BLOOD CELL COUNT,WBC 4.2 x10-3/uL (3.0-10.3)
[2023-07-15 18:19] LABS: A/G RATIO 0.9; ALANINE AMINOTRANSFERASE,ALT 44 U/L (12-36); ALBUMIN 3.2 g/dL (3.5-5.2); ALKALINE PHOSPHATASE 99 IU/L (56-112); ASPARTATE AMNIOTRANSFERASE,AST 27 IU/L (5-25); BILIRUBIN TOTAL 0.5 mg/dL (0.1-1.3); PROTEIN TOTAL,TP 6.9 g/dL (6.0-8.0)
[2023-07-15 18:29] LABS: LACTIC ACID < 0.3 mmol/L (0.4-2.0)
[2023-07-15 19:09] LABS: INFLUENZA A NAA NEGATIVE (NEGATIVE); INFLUENZA B NAA NEGATIVE (NEGATIVE)
[2023-07-15 19:17] LABS: CORONAVIRUS COVID-19 NAA NEGATIVE (NEGATIVE)
[2023-07-15] MEDS ORDERED: Ondansetron 4 MG Tab.DIS PO ONE (19:42)
[2023-07-15] MEDS ORDERED: Acetaminophen/oxyCODONE 325-5 MG Tab PO PRN (19:42)
[2023-07-15] MEDS ORDERED: Amoxicillin/Clavulanate K 875-125 MG Tab PO ONE (22:03)
== END 2023-07-15 22:35 | disposition home or self-care (01) ==
LOC: FB.ED 16:50
DX: J20.9 Acute bronchitis, unspecified (principal); G35 Multiple sclerosis; I10 Essential (primary) hypertension; K21.9 Gastro-esophageal reflux disease without esophagitis; E11.9 Type 2 diabetes mellitus without complications; E66.9 Obesity, unspecified; Z86.16 Personal history of COVID-19; Z79.899 Other long term (current) drug therapy; Z88.6 Allergy status to analgesic agent; Z20.822 Contact with and (suspected) exposure to COVID-19; Z68.41 Body mass index [BMI] 40.0-44.9, adult
CPT/HCPCS: 0240U; 36415; 71045; 80053; 83605; 85025; 85379; 86140; 93005; 96372; 99284; A9270; J1170; J1885; Q0162; J7620

== ENCOUNTER 2023-08-25 11:19 | Emergency (ER) | payer OTHER ==
[2023-08-25] MEDS ORDERED: Acetaminophen/oxyCODONE 325-5 MG Tab PO ONE (11:20)
[2023-08-25] MEDS ORDERED: HYDROmorphone 2 MG/ML SDV IVPUSH ONE (11:50)
[2023-08-25] MEDS ORDERED: Ketorolac 30 MG/ML SDV IVPUSH ONE (11:50)
[2023-08-25] MEDS ORDERED: Sodium Chloride 0.9% 1,000 ML IV SCH (12:00)
[2023-08-25] MEDS ORDERED: LORazepam 2 MG/ML SDV IVPUSH ONE (12:01)
[2023-08-25] MEDS ORDERED: Acetaminophen/oxyCODONE 325-5 MG Tab PO STA (14:20)
[2023-08-25] MEDS ORDERED: Prochlorperazine 10 MG/2 ML SDV IVPUSH ONE (14:20)
[2023-08-25] MEDS: Sodium Chloride 0.9% 10 ML Syringe IVPUSH PRN ×2 (14:34→14:47)
[2023-08-25] MEDS ORDERED: methylPREDNISolone Sodium Succinate 125 MG/2 ML SDV IVPUSH ONE (14:34)
== END 2023-08-25 15:40 | disposition home or self-care (01) ==
LOC: FB.ED 11:19
DX: G35 Multiple sclerosis (principal); I10 Essential (primary) hypertension; K21.9 Gastro-esophageal reflux disease without esophagitis; E66.9 Obesity, unspecified; Z86.16 Personal history of COVID-19; Z90.710 Acquired absence of both cervix and uterus; Z88.6 Allergy status to analgesic agent; Z79.899 Other long term (current) drug therapy; Z68.41 Body mass index [BMI] 40.0-44.9, adult
CPT/HCPCS: 96361; 96374; 96375; 99283; A9270; J0780; J1170; J1885; J2060; J2930; J3490; J7030

== ENCOUNTER 2023-08-30 15:45 | Emergency (ER) | payer OTHER ==
[2023-08-30 16:36] LABS: BILIRUBIN,URINE NEGATIVE (NEGATIVE); GLUCOSE,URINE NORMAL (NORMAL); KETONES,URINE NEGATIVE (NEGATIVE); LEUKOCYTE ESTERASE,URINE NEGATIVE (NEGATIVE); NITRITE,URINE NEGATIVE (NEGATIVE); OCCULT BLOOD,URINE LARGE (NEGATIVE); PROTEIN,URINE NEGATIVE (NEGATIVE); UROBILINOGEN,URINE NORMAL (NEGATIVE)
[2023-08-30 16:40] LABS: APPEARANCE,URINE SLIGHTLY CLOUDY (CLEAR); BACTERIA,URINE FEW (NS); COLOR,URINE YELLOW (YELLOW); RBC,URINE 20-30 (0-5); SQUAMOUS EPITHELIAL CELLS,UR OCCASIONAL (NS,R,O); WBC,URINE 0-5 (0-5)
[2023-08-30] MEDS ORDERED: Ketorolac 30 MG/ML SDV IM ONE (17:34)
[2023-08-30] MEDS ORDERED: traMADol 50 MG Tab PO ONE (17:34)
[2023-08-30] MEDS ORDERED: HYDROmorphone 2 MG/ML SDV IM ONE (18:44)
[2023-08-30] MEDS ORDERED: Ondansetron 4 MG Tab.DIS PO ONE (18:45)
== END 2023-08-30 19:17 | disposition home or self-care (01) ==
LOC: FB.ED 15:45
DX: G35 Multiple sclerosis (principal); G89.29 Other chronic pain; I10 Essential (primary) hypertension; E66.9 Obesity, unspecified; Z86.16 Personal history of COVID-19; Z79.899 Other long term (current) drug therapy; Z88.6 Allergy status to analgesic agent; Z68.41 Body mass index [BMI] 40.0-44.9, adult
CPT/HCPCS: 81001; 87086; 96372; 99283; A9270-GY; J1170; J1885; J3360; Q0162

== ENCOUNTER 2024-09-17 17:54 | Emergency (ER) | payer OTHER ==
[2024-09-17] MEDS: Ketorolac 30 MG/ML SDV IM ONE (18:34)
[2024-09-17 18:38] LABS: BLOOD UREA NITROGEN,BUN 14 mg/dL (7-18); CALCIUM 9.3 mg/dL (8.6-10.2); CARBON DIOXIDE,CO2 27 mmol/L (21-32); CHLORIDE,CL 100 mmol/L (100-110); CREATININE 0.7 mg/dL (0.55-1.02); ESTIMATED GFR 109 mL/min (>60); GLUCOSE RANDOM 92 mg/dL (80-116); POTASSIUM,K 4.2 mmol/L (3.5-5.3); SODIUM,NA 134 mmol/L (135-145)
[2024-09-17 18:41] LABS: HEMATOCRIT 37.2 % (34.2-48.2); HEMOGLOBIN 12.5 g/dL (11.4-15.5); MEAN CORPUSCULAR HGB CONC 33.7 g/dL (31.9-34.8); MEAN CORPUSCULAR VOLUME 88.9 fL (76.7-100.5); MEAN PLATELET VOLUME 9.8 fL (7.1-12.4); PLATELET COUNT,PLT 323 x10(3)uL (151-488); RED BLOOD CELL COUNT 4.18 x10(6)uL (3.60-5.20); RED CELL DISTRIBUTION WIDTH 14.4 % (12.3-16.5); WHITE BLOOD CELL COUNT,WBC 11.3 x10-3/uL (3.0-10.3)
[2024-09-17 18:44] LABS: A/G RATIO 0.8; ALANINE AMINOTRANSFERASE,ALT 33 U/L (12-36); ALBUMIN 3.3 g/dL (3.5-5.2); ALKALINE PHOSPHATASE 108 IU/L (56-112); ASPARTATE AMNIOTRANSFERASE,AST 20 IU/L (5-25); BILIRUBIN TOTAL 0.4 mg/dL (0.1-1.3); PROTEIN TOTAL,TP 7.4 g/dL (6.0-8.0)
[2024-09-17 18:52] LABS: BILIRUBIN,URINE NEGATIVE (NEGATIVE); GLUCOSE,URINE NORMAL (NORMAL); KETONES,URINE NEGATIVE (NEGATIVE); LEUKOCYTE ESTERASE,URINE NEGATIVE (NEGATIVE); NITRITE,URINE NEGATIVE (NEGATIVE); OCCULT BLOOD,URINE NEGATIVE (NEGATIVE); PH,URINE 6.5 (5.0-6.5); PROTEIN,URINE NEGATIVE (NEGATIVE); UROBILINOGEN,URINE NORMAL (NEGATIVE)
[2024-09-17 18:55] LABS: APPEARANCE,URINE CLEAR (CLEAR); COLOR,URINE YELLOW (YELLOW)
[2024-09-17 19:02] LABS: EOSINOPHILS PERCENT MAN 2 % (0-5); LYMPHOCYTES PERCENT MAN 29 % (13-37); MONOCYTES PERCENT MAN 4 % (4-12); SEG NEUTROPHILS PERCENT MAN 65 % (46-82)
[2024-09-17] MEDS: HYDROmorphone 2 MG/ML SDV IVPUSH ONE (20:00)
[2024-09-17] MEDS: Ondansetron 4 MG Tab.DIS PO ONE (20:00)
[2024-09-17] MEDS: HYDROmorphone 2 MG/ML SDV IM ONE (20:49)
== END 2024-09-17 21:00 | disposition home or self-care (01) ==
LOC: FB.ED 17:54
DX: K51.90 Ulcerative colitis, unspecified, without complications (principal); G35 Multiple sclerosis; I10 Essential (primary) hypertension; E66.9 Obesity, unspecified; Z68.36 Body mass index [BMI] 36.0-36.9, adult; Z88.8 Allergy status to other drugs, medicaments and biological substances; Z79.899 Other long term (current) drug therapy; Z90.49 Acquired absence of other specified parts of digestive tract; Z90.710 Acquired absence of both cervix and uterus
CPT/HCPCS: 36415; 80053; 81003; 85025; 85379; 86140; 96372; 96374; 99284; J1171; J1885; Q0162